=== PATIENT | female | born 1950 | race Caucasian/White ===

== ENCOUNTER 2020-01-25 23:06 | Inpatient (IN) | payer OTHER ==
--- NOTE | 2020-01-25 23:29 | PDOC ---
History of Present Illness - General Chief Complaint: Pain, Acute Stated Complaint: PAIN Past History - Psycho-Social/Smoking History Smoking History: Never smoked Have you smoked in the past 12 months: No Information on smoking cessation initiated: No - Substance Abuse Hx (Audit-C & DAST Scrn) How often the patient has a drink containing alcohol: Never Score: In Men: 4 or > Positive; In Women: 3 or > Positive: 0 Screen Result (Pos requires Nsg. Audit-10AR): Negative In the last yr the pt used illegal drug/Rx for NonMed reason: No Score: Yes response is considered Positive: 0 Screen Result (Positive result requires Nsg. DAST-10): Negative *Physical Exam - Vital Signs Last Vital Signs Temp Pulse Resp BP Pulse Ox 98.4 F 82 18 159/82 99 01/25/20 23:24 01/25/20 23:24 01/25/20 23:24 01/25/20 23:24 01/25/20 23:24 Discharge - Discharge Information Condition: Fair - Follow up/Referral Referrals: José Miguel Duncan MD [Primary Care Provider] - - Patient Discharge Instructions - Post Discharge Activity
--- NOTE | 2020-01-25 23:49 | PDOC ---
*Physical Exam - Vital Signs Last Vital Signs Temp Pulse Resp BP Pulse Ox 98.4 F 82 18 159/82 99 01/25/20 23:24 01/25/20 23:24 01/25/20 23:24 01/25/20 23:24 01/25/20 23:24 Medical Decision Making - Medical Decision Making 01/25/20 23:49 Patient seen by the advanced practice provider under my supervision. Ancillary testing reviewed as necessary. I agree with plan as outlined by the advanced practice provider. Discharge - Discharge Information Condition: Fair - Follow up/Referral Referrals: José Miguel Duncan MD [Primary Care Provider] - - Patient Discharge Instructions - Post Discharge Activity
[2020-01-26 00:58] LABS: URINE APPEARANCE Clear; URINE BILIRUBIN Negative (NEGATIVE); URINE COLOR Yellow; URINE GLUCOSE (UA) Negative (NEGATIVE); URINE KETONE Trace (NEGATIVE); URINE LEUK ESTERASE 1+ (NEGATIVE); URINE NITRITE Positive (NEGATIVE); URINE PROTEIN Trace (NEGATIVE); URINE UROBILINOGEN 0.2 mg/dL (0.2-1.0)
[2020-01-26 01:33] LABS: BASO % 0.6 % (0-2.0); HEMATOCRIT 29.8 % (32.4-45.2); HEMOGLOBIN 10.1 GM/dL (10.7-15.3); MCH 29.9 pg (25.7-33.7); MCHC 33.7 g/dl (32.0-36.0); MEAN CELL VOLUME 88.8 fl (80-96); MEAN PLT VOLUME 9.3 fl (7.5-11.1); MONO % 12.2 % (3.8-10.2); NEUT % 72.2 % (42.8-82.8); PLATELET COUNT 144 K/MM3 (134-434); RBC 3.36 M/mm3 (3.60-5.2); RDW 15.1 % (11.6-15.6); WHITE BLOOD COUNT 3.9 K/mm3 (4.0-10.0)
[2020-01-26 01:41] LABS: EPI CELLS 65.2 /uL (0-25.1); HYALINE CASTS 6.67 /uL (0-3.1); URINE BACTERIA 72536.6 /uL (0-1359); URINE RBC 7.5 /uL (0-23.9); URINE WBC 44.3 /uL (0-25.8)
[2020-01-26 01:52] LABS: CREATININE 1.2 mg/dL (0.55-1.3); POTASSIUM 3.7 mmol/L (3.5-5.1)
[2020-01-26 01:53] LABS: ALBUMIN 3.5 g/dl (3.4-5.0); BILIRUBIN,TOTAL 0.2 mg/dL (0.2-1); CALCIUM 9.4 mg/dL (8.5-10.1); TOT PROT 8.6 g/dl (6.4-8.2)
[2020-01-26] MEDS ORDERED: ACETAMINOPHEN 1000 MG/100 ML VIAL (NON FORMULARY) IVPB ONE (02:26)
[2020-01-26] MEDS ORDERED: ACETAMINOPHEN INJECTION 100 ML IVPB ONE (02:45)
[2020-01-26] MEDS ORDERED: ONDANSETRON 4 MG/2 ML VIAL IVPUSH ONE (02:49)
[2020-01-26] MEDS ORDERED: MAG HYDROX/AL HYDROX/SIMETH 30 ML UNIT-DOSE CUP PO ONE (03:02)
[2020-01-26] MEDS ORDERED: FAMOTIDINE 20 MG/50 ML IVPB 20 MG/50 ML MG IVPB ONE ×2 (03:02→03:25)
[2020-01-26] MEDS ORDERED: CEFTRIAXONE 1,000 MG in DEXTROSE 5%-WATER - 50 ML IVPB ONE (03:13)
[2020-01-26] MEDS ORDERED: MAG HYDROX/AL HYDROX/SIMETH 30 ML UNIT-DOSE CUP ONE (03:22)
[2020-01-26] MEDS ORDERED: CEFTRIAXONE 1 GM/50 ML BAG ONE (03:24)
--- NOTE | 2020-01-26 03:34 | PDOC ---
History of Present Illness - General Chief Complaint: Pain, Acute Stated Complaint: PAIN Time Seen by Provider: 01/25/20 23:29 - History of Present Illness Initial Comments: 69 yof h/o hyperlipidemia presents for RUQ pain of 4 days duration. Per patient, she has pain primarily located beneath ribs on right side, pain is 10/10, bu rning and stabbing in quality, onset 4 days ago, no radiation, nothing makes better or worse, patient is taking ibuprofen for pain with no relief. Also mentions some black stools. Denies shortness of breath, vomiting, diarrhea, fever or chills. Constitutional: No Weight Change, No Fever, No Chills, No Night Sweats, No Fatigue, No Malaise ENT/Mouth: No Hearing Changes, No Ear Pain, No Nasal Congestion, No Sinus Pain, No Hoarseness, No sore throat, No Rhinorrhea, No Swallowing Difficulty Eyes: No Eye Pain, No Swelling, No Redness, No Foreign Body, No Discharge, No Vision Changes Cardiovascular: No Chest Pain, No SOB, No PND, No Dyspnea on Exertion, No Orthopnea, No Claudication, No Edema, No Palpitations Respiratory: No Cough, No Sputum, No Wheezing, No Smoke Exposure, No Dyspnea Gastrointestinal: No Nausea, No Vomiting, No Diarrhea, No Constipation, No Anorexia, No Dysphagia, No Hematochezia, No Flatulence, No Jaundice Genitourinary: No Dysmenorrhea, No DUB, No Dyspareunia, No Dysuria, No Urinary Frequency, No Hematuria, No Urinary Incontinence, No Urgency, No Flank Pain, No Urinary Flow Changes, No Hesitancy Musculoskeletal: No Arthralgias, No Myalgias, No Joint Swelling, No Joint Stiffness, No Back Pain, No Neck Pain, No Injury History Skin: No Skin Lesions, No Pruritis, No Hair Changes, No Breast/Skin Changes, No Nipple Discharge Neuro: No Weakness, No Numbness, No Paresthesias, No Loss of Consciousness, No Syncope, No Dizziness, No Headache, No Coordination Changes, No Recent Falls Psych: No Anxiety/Panic, No Depression, No Insomnia, No Personality Changes, No Delusions, No Rumination, No SI/HI/AH/VH, No Social Issues, No Memory Changes, No Violence/Abuse Hx., No Eating Concerns Heme/Lymph: No Bruising, No Bleeding, No Transfusions History, No Lymphaden opathy Endocrine: No Polyuria, No Polydipsia, No Temperature Intolerance 01/26/20 04:04 Past History - Medical History Allergies/Adverse Reactions: Allergies Allergy/AdvReac Type Severity Reaction Status Date / Time No Known Allergies Allergy Verified 01/25/20 23:33 - Psycho-Social/Smoking History Smoking History: Never smoked Have you smoked in the past 12 months: No Information on smoking cessation initiated: No - Substance Abuse Hx (Audit-C & DAST Scrn) How often the patient has a drink containing alcohol: Never Score: In Men: 4 or > Positive; In Women: 3 or > Positive: 0 Screen Result (Pos requires Nsg. Audit-10AR): Negative In the last yr the pt used illegal drug/Rx for NonMed reason: No Score: Yes response is considered Positive: 0 Screen Result (Positive result requires Nsg. DAST-10): Negative *Physical Exam - Vital Signs Last Vital Signs Temp Pulse Resp BP Pulse Ox 98.4 F 82 18 159/82 99 01/25/20 23:24 01/25/20 23:24 01/25/20 23:24 01/25/20 23:24 01/25/20 23:24 ED Treatment Course - LABORATORY CBC & Chemistry Diagram: 01/26/20 01:00 01/26/20 01:00 - ADDITIONAL ORDERS Additional order review: Laboratory Results 01/26/20 01/26/20 01/26/20 01:00 01:00 01:00 Sodium 134 L Potassium 3.7 Chloride 98 Carbon Dioxide 30 Anion Gap 7 L BUN 13.0 Creatinine 1.2 Est GFR (CKD-EPI)AfAm 54.16 Est GFR (CKD-EPI)NonAf 46.73 Random Glucose 187 H Lactic Acid 1.2 Calcium 9.4 Total Bilirubin 0.2 AST 27 ALT 24 Alkaline Phosphatase 74 Troponin I < 0.02 Total Protein 8.6 H Albumin 3.5 Lipase 200 Urine Color Urine Appearance Urine pH Ur Specific [place] Urine Protein Urine Glucose (UA) Urine Ketones Urine Blood Urine Nitrite Urine Bilirubin Urine Urobilinogen Ur Leukocyte Esterase Urine WBC (Auto) Urine RBC (Auto) Urine Casts (Auto) U Epithel Cells (Auto) Urine Bacteria (Auto) 01/25/20 23:55 Sodium Potassium Chloride Carbon Dioxide Anion Gap BUN Creatinine Est GFR (CKD-EPI)AfAm Est GFR (CKD-EPI)NonAf Random Glucose Lactic Acid Calcium Total Bilirubin AST ALT Alkaline Phosphatase Troponin I Total Protein Albumin Lipase Urine Color Yellow Urine Appearance Clear Urine pH 6.0 Ur Specific [place] 1.020 Urine Protein Trace Urine Glucose (UA) Negative Urine Ketones Trace Urine Blood Trace-intact Urine Nitrite Positive Urine Bilirubin Negative Urine Urobilinogen 0.2 Ur Leukocyte Esterase 1+ H Urine WBC (Auto) 44.3 Urine RBC (Auto) 7.5 Urine Casts (Auto) 6.67 U Epithel Cells (Auto) 65.2 Urine Bacteria (Auto) 56144.6 01/26/20 01:00 RBC 3.36 L MCV 88.8 MCHC 33.7 RDW 15.1 MPV 9.3 Neutrophils % 72.2 Lymphocytes % 9.0 Monocytes % 12.2 H Eosinophils % 6.0 H Basophils % 0.6 - Medications Given in the ED: ED Medications Discontinued Medications Generic Name Dose Route Start Last Admin Trade Name Anurag PRN Reason Stop Dose Admin Acetaminophen 1,000 mg 01/26/20 02:26 01/26/20 02:50 Ofirmev Injection - IVPB 01/26/20 02:27 1,000 mg ONCE ONE Administration Ondansetron HCl 4 mg 01/26/20 02:49 01/26/20 02:50 Zofran Injection IVPUSH 01/26/20 02:50 4 mg ONCE ONE Administration Medical Decision Making - Medical Decision Making 69 yof h/o hyperlipidemia presents for RUQ pain of 4 days duration. Per patient, she has pain primarily located beneath ribs on right side, pain is 10/10, burning and stabbing in quality, onset 4 days ago, no radiation, nothing makes better or worse, patient is taking ibuprofen for pain with no release. Also mentions some black stools. Denies shortness of breath, vomiting, diarrhea, fever or chills. On arrival vitals were wnl, physical exam revealed TTP of RUQ and epigastrum. ddx: cholecystitis, choledocolithiasis, pancreatitis, hepatitis, mesenteric ischemia, gastritis, esophagitis, GERD. plan: RUQ US, CT Chest/Abdomen/Pelvis, CBC, CMP, lipase, lactate, stool for occult blood, UA, UC reassess: RUQ and CT negative, labs wnl, uc demonstrates positive nitrites and leukocyte esterase. Will admit patient for pyelonephritis. dispo: admit for pyelo 01/26/20 03:40 Discharge - Discharge Information Problems reviewed: Yes Clinical Impression/Diagnosis: Pyelonephritis Condition: Fair - Follow up/Referral Referrals: José Miguel Duncan MD [Primary Care Provider] - - Patient Discharge Instructions - Post Discharge Activity
--- NOTE | 2020-01-26 04:20 | PN ---
Teaching Attending Note Name of Resident: Xi St ATTENDING PHYSICIAN STATEMENT I saw and evaluated the patient. I reviewed the resident's note and discussed the case with the resident. I agree with the resident's findings and plan as documented. SUBJECTIVE: Patient is a 69 yoear old woman with a PMH of Hyperlipidemia, NIDDM, SLE, Rhe umatoid arthritis, HTN and Throidectomy who presents with RUQ abdominal pain of 4 days duration. Pain is primarily located beneath the ribs on the right side, is 10/10, burning and stabbing in quality. She has associated black stools, chills and dysuria. Pain does not radiate and there are no relieving or aggravating factors. Has been on iron tablets for the past month for anemia. Patient is taking Ibuprofen with no relief. She has had a 7-8 lbs unintended weight loss in the past month and an increase in hypopigmented spots on her arms. Had a recent inconclusive workup for Multiple myeloma. Does not remember the name of her medications. Patient denies shortness of breath, headache, palpitations, dizziness, fever, nausea, vomiting, diarrhea, constipation, frequency, urgency, hematochezia or hematuria. Denies alcohol, tobacco or illicit drug use. No sick contacts or recent travels. Family history of ovarian cancer and multiple myeloma in mother. OBJECTIVE: Alert Vital Signs Period Temp Pulse Resp BP Sys/Alarcon Pulse Ox Last 24 Hr 98.4 F 82 18 159/82 99 HEENT: No Jaundice, eye redness or discharge, PERRLA, EOMI. Normocephalic, atraumatic. External ears are normal and hearing is grossly intact. No nasal discharge. Neck: Supple, nontender. No palpable adenopathy or thyromegaly. No JVD Chest: Good effort. Clear to auscultation and percussion. Heart: Regular. No S3, rub or murmur Abdomen: Not distended, soft, right flank tenderness and no HSM. No rebound or guarding. Normal bowel sounds. Ext: Peripheral pulses intact. No leg edema. Skin: Warm and dry. No petechiae, rash or ecchymosis. Neuro: Alert. Oriented x3. CN 2-12 grossly intact. Sensation grossly intact in all four extremities and DTR are symmetric. Psych: Appropriate mood and affect. Good insight. Abnormal Lab Results 01/25/20 01/26/20 01/26/20 23:55 01:00 01:00 WBC 3.9 L RBC 3.36 L Hgb 10.1 L Hct 29.8 L Monocytes % 12.2 H Eosinophils % 6.0 H Sodium 134 L Anion Gap 7 L Random Glucose 187 H Total Protein 8.6 H Ur Leukocyte Esterase 1+ H Home Medications Medication Instructions Recorded Nebivolol HCl [Bystolic] 20 mg PO DAILY 01/26/20 Omeprazole 20 mg PO 01/26/20 Sitagliptin Phos/Metformin HCl 1 tab PO BID 01/26/20 [Janumet 50-1,000 mg Tablet] Current Medications Generic Name Dose Route Start Last Admin Trade Name Freq PRN Reason Stop Dose Admin Acetaminophen 1,000 mg 01/26/20 05:42 01/26/20 06:18 Ofirmev Injection - IVPB 01/27/20 05:42 1,000 mg Q6H PRN Administration PAIN LEVEL 6-10 Albuterol Sulfate 2 puff 01/26/20 06:03 Ventolin Hfa Inhaler - IH Q4H PRN SHORT OF BREATH/WHEEZING Heparin Sodium (Porcine) 5,000 unit 01/26/20 06:00 01/26/20 06:18 Heparin - SQ 5,000 unit TID KYLEIGH Administration Sodium Chloride 1,000 mls @ 42 mls/hr 01/26/20 04:45 01/26/20 04:46 Normal Saline - IV 42 mls/hr ASDIR KYLEIGH Administration Ceftriaxone Sodium 1,000 mg/ 50 mls @ 100 mls/hr 01/26/20 10:00 Dextrose IVPB DAILY KYLEIGH Insulin Aspart 1 vial 01/26/20 07:00 Novolog Vial Sliding Scale - SQ ACHS [facility] Protocol ASSESSMENT AND PLAN: 1. Pyelonephritis - CT scan of abdomen/pelvis with IV contrast and RUQ sonogram didnot show any acute abnormality. ER staff prescribed Tylenol, Mylanta, Pepcid, Zofran and IV Ceftriaxone for the patient. Will get blood cultures, CXR, HbA1c, continue antibiotics and give IV NS. EKG pending. Viral testing for COVID-19 ordered and patient placed on airborne, droplet and contact isolation. Hyponatremia likely partly due to hyperglycemia. Will limit free water intake and correct hyperglycemia and place on insulin sliding scale. Consult GI for colonoscopy to rule out malignancy. Will continue comprehensive care for all of patients comorbid conditions. 2. Hypertension Will start Lisinopril 20 mg q am and Amlodipine 5 mg q pm. Subsequently, will revise regimen to ensure [id number] excellent BP control. Patient counseled on the injurious effects of uncontrolled hypertension. Nonpharmacologic measures to control hypertension like weight loss, salt restriction and exercise stressed. Importance of adherence to treatment regimen and attainment of normotension emphasized. 3. Anemia Likely multifactorial. Will do basic anemia work up including serial stool guaiacs, reticulocyte count and iron studies. 4. DM For now, we will hold the home diabetes drugs and implement sliding scale insulin regimen. Provide comprehensive diabetes care with patient teaching and counseling about the importance of adherence to prescribed diabetes regimen, euglycemia, eye care and foot care. 5. DVT prophylaxis - Lovenox 40 mg SQ q 24 hours. 6. Advance directives - Full code
[2020-01-26] MEDS ORDERED: ACETAMINOPHEN 325 MG TABLET (FP) PO PRN (04:31)
[2020-01-26] MEDS: SODIUM CHLORIDE 1,000 ML IV SCH (04:46)
--- NOTE | 2020-01-26 05:24 | PDOC ---
Attending Attestation - Resident Resident Name: Jone Carrillo - ED Attending Attestation I have performed the following: I have examined & evaluated the patient, The case was reviewed & discussed with the resident, I agree w/resident's findings & plan - HPI HPI: 01/26/20 05:40 see resident hpi - Physicial Exam PE: 01/26/20 05:43 see resident exam - Medical Decision Making 01/26/20 05:45 69-year-old female with right-sided abdominal pain CT scan of the abdomen and pelvis shows no significant acute abnormality Right upper quadrant ultrasound was negative for significant acute findings Urinalysis suggest urinary tract infection Due to patient's age, persistent pain and vomiting prior to arrival will admit for IV antibiotics IV fluids and further management Discharge - Discharge Information Problems reviewed: Yes Clinical Impression/Diagnosis: Pyelonephritis Condition: Fair - Follow up/Referral - Patient Discharge Instructions - Post Discharge Activity
--- NOTE | 2020-01-26 05:39 | HP ---
CHIEF COMPLAINT: R flank/RUQ pain PCP: cannot recall HISTORY OF PRESENT ILLNESS: Pt is a 69 yo F with PMH of HTN, HLD, DM, rhematoid arthritis, lupus, and asthma presenting with R flank/RUQ pain x 4 days. Pt reports pain is burning and stabbing in sensation, intermittent and non-radiating, and can reach 10/10 severity. Pain partially relieved at home by tylenol and iburpofen to 6/10. Pt with associated burning + itching on urination (dysuria) and chills. Denies fevers, nausea, vomiting, hematuria, myalgias, CP, and SOB. Pt also reports black stools for the past week; also reports taking iron pills for the last month. Denies any bright red blood per rectum, constipation, or diarrhea. Of note, pt also reports a 7-8 pound unintentional weight loss, night sweats, and increased hypopigmented spots on her bilateral UEs for the last month. Pt has had inconclusive workup for multiple myeloma in an outpatient setting. Pt does not remember the names of her medications, PCP, and specialists she is seeing. ER course was notable for: (1) Tylenol given; IV ceftriaxone given (2) Mylanta, Pepcid, Zofran also given. (3) RUQ US + CT abdomen with no acute findings Recent Travel: none Sick contacts: none PAST MEDICAL HISTORY: as per HPI PAST SURGICAL HISTORY: 3 C-sections, fibroidectomy Family Hx - mother with ovarian cancer + multiple myeloma Social History: Lives with daughter and daughter's family at home. Smoking: denies Alcohol: denies Drugs: denies Allergies No Known Allergies Allergy (Verified 01/25/20 23:33) HOME MEDICATIONS: Home Medications Medication Instructions Recorded Nebivolol HCl [Bystolic] 20 mg PO DAILY 01/26/20 Omeprazole 20 mg PO 01/26/20 Sitagliptin Phos/Metformin HCl 1 tab PO BID 01/26/20 [Janumet 50-1,000 mg Tablet] REVIEW OF SYSTEMS as per HPI PHYSICAL EXAMINATION Vital Signs - 24 hr 01/25/20 01/26/20 23:24 05:28 Temperature 98.4 F 98.7 F Pulse Rate 82 Pulse Rate [ 60 Left Radial] Respiratory 18 17 Rate Blood Pressure 159/82 Blood Pressure 155/74 [Right Arm] O2 Sat by Pulse 99 98 Oximetry (%) GENERAL: Awake, alert, and fully oriented, in no acute distress. In mild discomfort. HEAD: Normal with no signs of trauma. EYES: Pupils equal, round and reactive to light, extraocular movements intact, sclera anicteric, conjunctiva clear. EARS, NOSE, THROAT: oropharynx clear without exudates. Moist mucous membranes. NECK: Normal range of motion, supple without lymphadenopathy LUNGS: Breath sounds equal, clear to auscultation bilaterally. No wheezes, and no crackles. No accessory muscle use. HEART: Regular rate and rhythm, normal S1 and S2 without murmur, rub or gallop. ABDOMEN: Soft, moderate tenderness to palpation of R flank and RUQ - no rebound or guarding, not distended, normoactive bowel sounds, no. No hepatomegaly or splenomegaly. No suprapubic tenderness. JENNIFER: normal rectal tone; no external hemorrhoids, skin tags; no jennifer blood; scant stool in rectal vault; no bulges or masses appreciated MUSCULOSKELETAL: Moving all extremities equally and spontaneously. Mild R sided CVA tenderness. UPPER EXTREMITIES: 2+ pulses, warm, well-perfused. No peripheral edema. LOWER EXTREMITIES: 2+ pulses, warm, well-perfused. No peripheral edema. NEUROLOGICAL: Sensation to light touch intact. Normal speech. Normal gait. PSYCHIATRIC: Cooperative. Good eye contact. Appropriate mood and affect. SKIN: Warm, dry, normal turgor, small hypopigmented spots on her arms, normal capillary refill. Laboratory Results - last 24 hr 01/25/20 01/26/20 01/26/20 23:55 01:00 01:00 WBC 3.9 L RBC 3.36 L Hgb 10.1 L Hct 29.8 L MCV 88.8 MCH 29.9 MCHC 33.7 RDW 15.1 Plt Count 144 MPV 9.3 Absolute Neuts (auto) 2.8 Neutrophils % 72.2 Lymphocytes % 9.0 Monocytes % 12.2 H Eosinophils % 6.0 H Basophils % 0.6 Nucleated RBC % 0 Sodium 134 L Potassium 3.7 Chloride 98 Carbon Dioxide 30 Anion Gap 7 L BUN 13.0 Creatinine 1.2 Est GFR (CKD-EPI)AfAm 54.16 Est GFR (CKD-EPI)NonAf 46.73 Random Glucose 187 H Lactic Acid Calcium 9.4 Total Bilirubin 0.2 AST 27 ALT 24 Alkaline Phosphatase 74 Troponin I Total Protein 8.6 H Albumin 3.5 Lipase 200 Urine Color Yellow Urine Appearance Clear Urine pH 6.0 Ur Specific [place] 1.020 Urine Protein Trace Urine Glucose (UA) Negative Urine Ketones Trace Urine Blood Trace-intact Urine Nitrite Positive Urine Bilirubin Negative Urine Urobilinogen 0.2 Ur Leukocyte Esterase 1+ H Urine WBC (Auto) 44.3 Urine RBC (Auto) 7.5 Urine Casts (Auto) 6.67 U Epithel Cells (Auto) 65.2 Urine Bacteria (Auto) 72228.6 01/26/20 01/26/20 01:00 01:00 WBC RBC Hgb Hct MCV MCH MCHC RDW Plt Count MPV Absolute Neuts (auto) Neutrophils % Lymphocytes % Monocytes % Eosinophils % Basophils % Nucleated RBC % Sodium Potassium Chloride Carbon Dioxide Anion Gap BUN Creatinine Est GFR (CKD-EPI)AfAm Est GFR (CKD-EPI)NonAf Random Glucose Lactic Acid 1.2 Calcium Total Bilirubin AST ALT Alkaline Phosphatase Troponin I < 0.02 Total Protein Albumin Lipase Urine Color Urine Appearance Urine pH Ur Specific [place] Urine Protein Urine Glucose (UA) Urine Ketones Urine Blood Urine Nitrite Urine Bilirubin Urine Urobilinogen Ur Leukocyte Esterase Urine WBC (Auto) Urine RBC (Auto) Urine Casts (Auto) U Epithel Cells (Auto) Urine Bacteria (Auto) ASSESSMENT/PLAN: Pt is a 69 yo F with PMH of HTN, HLD, DM, rhematoid arthritis, lupus, and asthma presenting with R flank/RUQ pain x 4 days with associated dysuria and chills; also complaining of black stools in the last week. Pt being admitted for evaluation and treatment of acute complicated UTI (likely pyelonephritis); also evaluating possible melena and recent systemic symptoms of unintentional weight loss and night sweats. # Acute Complicated UTI (likely Pyelonephritis) CT A/P no acute abnormality; RUQ sono no acute abnormality UA LE+, nitrite +, 72.5k bacteria - f/u urine culture, blood culture - IV ceftriaxone 1 g daily - IV tylenol for pain control - NS @ 42 cc/hr #Black Stools (Possible melena vs black stools 2/2 to recent iron pill use)/Anemia JENNIFER with no jennifer blood Pt with hx of being on iron pills outpatient for the last month - monitor Hb/Hct - f/u stool for occult blood - iron studies; reticulocyte count; serial stool guiacs - GI consulted; appreciate recs - pt may benefit from colonoscopy; per discretion of GI #Hx of weight loss + nights sweats x 1 month ongoing multiple myeloma workup outpatient, per pt - after GI workup completed - need to retrieve what workup has already been complete for multiple myeloma - pt may benefit from further Heme/Onc workup, per day team discretion #Mild HypoNa (likely 2/2 to hyperglycemia) - monitor Na - will correct hyperglycemia #Hx of DM - need to confirm home medications - BGM + ISS #Hx of HTN pt reports being on antihypertensives at home; but cannot recall -lisinopril 20 po given once as pt was hypertensive in ED -need to confirm home medications #Hx of HLD - can restart home med after confirming #Hx of Lupus + Rheumatoid arthritis - can restart home meds after confirming #Hx of asthma uses albuterol inhaler sparingly at home, per pt hx - abuterol inhaler prn #DVT ppx - Heparin 5000 sq tid #FEN -F - NS @ 42 cc/hr -E - monitor; replete prn -N - low Na, low fat, diabetic diet #Dispo Admit to med-surg Full code. Family Medical History Family History: As Documented Visit type - Medication Review Med list reviewed for High Risk Meds patients 65 and older: Yes - Emergency Visit Emergency Visit: Yes ED Registration Date: 01/26/20 Care time: The patient presented to the Emergency Department on the above date and was hospitalized for further evaluation of their emergent condition. - New Patient This patient is new to me today: Yes Date on this admission: 01/26/20 - Critical Care Critical Care patient: No ATTENDING PHYSICIAN STATEMENT I saw and evaluated the patient. I reviewed the resident's note and discussed the case with the resident. I agree with the resident's findings and plan as documented. SUBJECTIVE: OBJECTIVE: ASSESSMENT AND PLAN:
[2020-01-26] MEDS ORDERED: LISINOPRIL 20 MG TABLET (FP) PO ONE (05:40)
[2020-01-26] MEDS ORDERED: ALBUTEROL SO4 HFA INHALER IH PRN (06:03)
[2020-01-26] MEDS ORDERED: LISINOPRIL 20 MG TABLET (FP) ONE (06:07)
[2020-01-26] MEDS ORDERED: HEPARIN NA (PORCINE) 5,000 UNITS/ML 1ML VIAL ONE (06:08)
[2020-01-26] MEDS: HEPARIN NA (PORCINE) 5,000 UNITS/ML 1ML VIAL SQ SCH ×3 (06:18→22:15)
[2020-01-26] MEDS: ACETAMINOPHEN 1000 MG/100 ML VIAL (NON FORMULARY) IVPB PRN ×2 (06:18→14:14)
[2020-01-26] MEDS: INSULIN SLIDING SCALE (NOVOLOG) 1 VIAL SQ SCH ×4 (06:51→22:15)
[2020-01-26 07:09] LABS: BASO % 0.7 % (0-2.0); EOS % 6.7 % (0-4.5); HEMATOCRIT 29.4 % (32.4-45.2); HEMOGLOBIN 9.9 GM/dL (10.7-15.3); LYMPH % 7.6 % (8-40); MCH 29.7 pg (25.7-33.7); MCHC 33.7 g/dl (32.0-36.0); MEAN CELL VOLUME 88.1 fl (80-96); MEAN PLT VOLUME 8.9 fl (7.5-11.1); MONO % 14.4 % (3.8-10.2); NEUT % 70.6 % (42.8-82.8); PLATELET COUNT 125 K/MM3 (134-434); RBC 3.33 M/mm3 (3.60-5.2); RDW 15.1 % (11.6-15.6); WHITE BLOOD COUNT 3.2 K/mm3 (4.0-10.0)
[2020-01-26 07:27] LABS: ALBUMIN 3.2 g/dl (3.4-5.0); BILIRUBIN,TOTAL 0.4 mg/dL (0.2-1); BLOOD UREA NITROGEN 12.5 mg/dL (7-18); CALCIUM 9.3 mg/dL (8.5-10.1); MAGNESIUM 1.6 mg/dL (1.8-2.4); PHOSPHOROUS 3.7 mg/dL (2.5-4.9)
[2020-01-26] MEDS ORDERED: MAGNESIUM OXIDE 400 MG TABLET (FP) PO ONE (07:48)
[2020-01-26] MEDS ORDERED: LISINOPRIL 5 MG TABLET (FP) PO ONE (08:13)
[2020-01-26] MEDS ORDERED: DEXTROSE 5%-WATER - 50 ML IVPB ONE (08:43)
[2020-01-26] MEDS ORDERED: cefTRIAXone SODIUM 1 GM VIAL ONE (08:43)
--- NOTE | 2020-01-26 09:08 | EKG ---
Test Reason : Blood Pressure : / mmHG Vent. Rate : 063 BPM Atrial Rate : 063 BPM P-R Int : 154 ms QRS Dur : 084 ms QT Int : 398 ms P-R-T Axes : 048 032 066 degrees QTc Int : 407 ms NORMAL SINUS RHYTHM NONSPECIFIC T WAVE ABNORMALITY ABNORMAL ECG NO PREVIOUS ECGS AVAILABLE Confirmed by Tejas Oneill MD ([id number]) on 01/26/2020 9:08:00 AM Referred By: Confirmed By:Tejas Oneill MD
[2020-01-26] MEDS: CEFTRIAXONE 1 GM in DEXTROSE 5%-WATER - 50 ML IVPB SCH (09:31)
[2020-01-26] MEDS ORDERED: NEBIVOLOL 10 MG TABLET (FP) PO SCH (10:00)
--- NOTE | 2020-01-26 10:06 | CON.GI ---
Consult Consult Specialty:: GI Referred by:: Hospitalist service Reason for Consultation:: Abdominal pain - History of Present Illness Chief Complaint: Abdominal pain History of Present Illness: [facility] [id number] utilized as Ms. Fredi Carpenter speaks predominantly Belarusian: 69F admitted for evaluation of abdominal pain for 4 days. Describes pain as located in upper abdomen and RUQ, constant and no alleviating or aggrevating factors. Vomited today, otherwise no vomiting. Described black bowel movements for 1 month and states that she last took iron 3 months ago. Guaiac negative from specimen sent from ER. No diarrhea. 8 pound weight loss in the last month. Abdominal US revealed mildly thickened GB wall without pericholecystic fluid and a sonographic jackson's sign was not present. A CT scan performed with PO contrast only revealed no acute pathology within the abdomen or pelvis. Blood work reveals pancytopenia. Has a history of SLE and was being worked up as outpatient for ? Multiple Myeloma. alludes to having had EGD/Colonoscopy 1 year ago in [place]. she was referred by her PMD. She believes that only gastritis was found. No family history of colorectal cancer or other GI malignancy. Unclear who manages her SLE. pain persists. Being treated for a possible pyelonnephritis. - History Source History Provided By: Patient, Medical Record Limitations to Obtaining History: No Limitations - Past Medical History Pulmonary: Yes: Asthma Rheumatology: Yes: Lupus, Rheumatoid Arthritis Endocrine: Yes: Diabetes Mellitus (DM II) - Past Surgical History Past Surgical History: Yes: (x 3) Additional Surgical History: Fibroidectomy - Alcohol/Substance Use Hx Alcohol Use: No History of Substance Use: reports: None - Smoking History Smoking history: Never smoked Have you smoked in the past 12 months: No - Social History Usual Living Arrangement: Alone ADL: Independent Place of : Other ([facility]) History of Recent Travel: No Home Medications - Allergies Allergies/Adverse Reactions: Allergies Allergy/AdvReac Type Severity Reaction Status Date / Time No Known Allergies Allergy Verified 01/25/20 23:33 - Home Medications Home Medications: Ambulatory Orders Nebivolol HCl [Bystolic] 20 mg PO DAILY 01/26/20 Omeprazole 20 mg PO 01/26/20 Sitagliptin Phos/Metformin HCl [Janumet 50-1,000 mg Tablet] 1 tab PO BID 01/26/20 Family Medical History Other Family History: Father: : MS. Mother: : MS. 3 brothers, 3 sisters: healthy. 1 sister : airplane crash, 1 sibling : MS. 1 son, 2 daughters: healthy. No family history of colorectal cancer or other GI malignancy Review of Systems - Review of Systems Constitutional: reports: Unintentional Wgt. Loss. denies: Chills Cardiovascular: denies: Chest Pain Respiratory: denies: Cough, SOB Gastrointestinal: reports: Abdominal Pain, Vomiting (x 1). denies: Melena, Rectal Bleeding, Vomiting Blood Genitourinary: reports: Burning, Dysuria Musculoskeletal: reports: Joint Pain Physical Exam-GI Vital Signs: Vital Signs Temperature 97.5 F L 01/26/20 06:39 Pulse Rate 63 01/26/20 06:39 Respiratory Rate 18 01/26/20 06:39 Blood Pressure 162/88 01/26/20 06:39 O2 Sat by Pulse Oximetry (%) 96 01/26/20 06:39 Constitutional: Yes: Calm Eyes: No: Sclera Icterus Cardiovascular: Yes: Regular Rate and Rhythm Respiratory: Yes: CTA Bilaterally Gastrointestinal Inspection: No: Distention ...Auscultate: Yes: Normoactive Bowel Sounds ...Palpate: Yes: Soft, Tenderness (TTP epigastrium and RUQ). No: Guarding, Tenderness, Rebound ...Percussion: No: Tympanitic ...Rectal Exam: Yes: Other (Seasonal Sales Associate present: No external lesions, no mases, iron stained stool in rectal vault, guaiac negative) Edema: No (No LE edema) Neurological: Yes: Alert, Oriented Labs: CBC, BMP 01/26/20 05:30 01/26/20 05:30 Problem List - Problems (1) Abdominal pain Assessment/Plan: Persistent upper abdominal pain without clear etiology from current imaging studies. ? Lupus Flare. Unclear baseline CBC so uncertain if this pancytopenia is known. Advise: Upper GI series Doppler of celiac trunk, portal vein, hepatic veins Discussed possible upper endoscopy pending reults of upper GI series if white count allows, likely for 01/27. Discussed potential risks of the procedure in Bel[place]ian utilizing [employer] installer technician [id number], like but not limited to bleeding, perforation requiring surgery to repair, infection, sedation medication effects all of which could be potentially life threatening. She has agreed to the procedure. Rheumatology evaluation Hematology evaluation Code(s): R10.9 - UNSPECIFIED ABDOMINAL PAIN Qualifiers: Abdominal location: upper abdomen, unspecified Qualified Code(s): R10.10 - Upper abdominal pain, unspecified
[2020-01-26 12:42] VITALS: BMI 25.2
--- NOTE | 2020-01-26 15:40 | PN ---
Teaching Attending Note Name of Resident: Goldy King ATTENDING PHYSICIAN STATEMENT I saw and evaluated the patient. I reviewed the resident's note and discussed the case with the resident. I agree with the resident's findings and plan as documented. SUBJECTIVE: patient prefers to use her daughter over the phone for translation Abd pain is better , she has no nausea or vomiting . reports abd pain x 1 week . melena x 5 days . dysuria + x 5 days and frequent urination with large urine volume . denies iron use x 3 weeks OBJECTIVE: NAD , awake, alert, cooperative, MMM, mising teath. no erythema or swelling in gingiva CV: RRR, no MRG Lungs: CTAB Abd: soft, TTP in RUQ, and epigastric area, No guarding or rebound. + [place]ay[place]'s , R CVA tenderness Ext : No edema or erythema over upper or lower ext ASSESSMENT AND PLAN: 69 y/o lady with h/o SLE, anemia, Rheumatoid arthritis, HTN , Throidectomy, DM , and HLP who presented with adb pain and melena 1- Abd pain and black stool : suspect melena. possible gastritis , PUD, r/o gastric tumor - PPI - upper GI series pending - doppler US pending - no evidence of pancreatitis or acute cholecystitis or biliary stones. - UTI alone, might not explain her sx. - repeat OB in stool - Order ESR . - agree with rheum eval if GI w/u neg 2- Possible UTI: cont ceftriaxone and follow urine cx 3- Pncytopenia: will obtain previous heme w/u done as out pt . - order B12 , folic - iron studies pending - ESR - order blood smear. - heme 4- HTN: - resume home ARB, and norvasc. - hold HCTZ in settignof GI sx and poor po intake 5- h/o DM : SSI . hold po meds DVT PX: heparin SQ
[2020-01-26] MEDS ORDERED: oxyCODONE HCL 5 MG TABLET PO ONE (16:25)
--- NOTE | 2020-01-26 20:03 | PN ---
Physical Exam: SUBJECTIVE: Patient seen and examined beside, reports having vomited at 8 AM. Still has abdominal pain but reports it has been better since getting medication. Reports increased urinary frequency and burning with urination. Denies fever, chest pain, SOB, or diarrhea. OBJECTIVE: Vital Signs 01/26/20 01/26/20 14:10 18:00 Temperature 97.8 F 98.4 F Pulse Rate 58 L 58 L Respiratory 18 20 Rate Blood Pressure 149/84 139/69 O2 Sat by Pulse 97 Oximetry (%) GENERAL: The patient is awake, alert, and fully oriented, in no acute distress. HEAD: Normal with no signs of trauma. EYES: PERRL, extraocular movements intact, sclera anicteric, conjunctiva clear. No ptosis. ENT: moist mucous membranes. NECK: No JVD LUNGS: Breath sounds equal, CTA BL HEART: RRR, S1, S2 ABDOMEN: RUQ is tender to palpation with + jackson sign. Tender epigastric area. No tenderness on LLQ or LUQ. + R sided CVA tenderness EXTREMITIES: 2+ pulses, warm, well-perfused, no edema. Strength 5/5 in all extremities PSYCH: Normal mood, normal affect. SKIN: Warm, dry, no lesions or rashes noted Laboratory Results - last 24 hr 01/25/20 01/26/20 01/26/20 23:55 01:00 01:00 WBC 3.9 L RBC 3.36 L Hgb 10.1 L Hct 29.8 L MCV 88.8 MCH 29.9 MCHC 33.7 RDW 15.1 Plt Count 144 MPV 9.3 Absolute Neuts (auto) 2.8 Neutrophils % 72.2 Lymphocytes % 9.0 Monocytes % 12.2 H Eosinophils % 6.0 H Basophils % 0.6 Nucleated RBC % 0 Sodium 134 L Potassium 3.7 Chloride 98 Carbon Dioxide 30 Anion Gap 7 L BUN 13.0 Creatinine 1.2 Est GFR (CKD-EPI)AfAm 54.16 Est GFR (CKD-EPI)NonAf 46.73 POC Glucometer Random Glucose 187 H Hemoglobin A1c % Lactic Acid Calcium 9.4 Phosphorus Magnesium Total Bilirubin 0.2 AST 27 ALT 24 Alkaline Phosphatase 74 Troponin I Total Protein 8.6 H Albumin 3.5 Lipase 200 Urine Color Yellow Urine Appearance Clear Urine pH 6.0 Ur Specific [place] 1.020 Urine Protein Trace Urine Glucose (UA) Negative Urine Ketones Trace Urine Blood Trace-intact Urine Nitrite Positive Urine Bilirubin Negative Urine Urobilinogen 0.2 Ur Leukocyte Esterase 1+ H Urine WBC (Auto) 44.3 Urine RBC (Auto) 7.5 Urine Casts (Auto) 6.67 U Epithel Cells (Auto) 65.2 Urine Bacteria (Auto) 66303.6 Stool Occult Blood 01/26/20 01/26/20 01/26/20 01:00 01:00 04:01 WBC RBC Hgb Hct MCV MCH MCHC RDW Plt Count MPV Absolute Neuts (auto) Neutrophils % Lymphocytes % Monocytes % Eosinophils % Basophils % Nucleated RBC % Sodium Potassium Chloride Carbon Dioxide Anion Gap BUN Creatinine Est GFR (CKD-EPI)AfAm Est GFR (CKD-EPI)NonAf POC Glucometer Random Glucose Hemoglobin A1c % Lactic Acid 1.2 Calcium Phosphorus Magnesium Total Bilirubin AST ALT Alkaline Phosphatase Troponin I < 0.02 Total Protein Albumin Lipase Urine Color Urine Appearance Urine pH Ur Specific [place] Urine Protein Urine Glucose (UA) Urine Ketones Urine Blood Urine Nitrite Urine Bilirubin Urine Urobilinogen Ur Leukocyte Esterase Urine WBC (Auto) Urine RBC (Auto) Urine Casts (Auto) U Epithel Cells (Auto) Urine Bacteria (Auto) Stool Occult Blood Negative 01/26/20 01/26/20 01/26/20 05:30 05:30 06:49 WBC 3.2 L RBC 3.33 L Hgb 9.9 L Hct 29.4 L MCV 88.1 MCH 29.7 MCHC 33.7 RDW 15.1 Plt Count 125 L MPV 8.9 Absolute Neuts (auto) 2.2 Neutrophils % 70.6 Lymphocytes % 7.6 L Monocytes % 14.4 H Eosinophils % 6.7 H Basophils % 0.7 Nucleated RBC % 0 Sodium 136 Potassium 4.0 Chloride 100 Carbon Dioxide 26 Anion Gap 10 BUN 12.5 Creatinine 1.0 Est GFR (CKD-EPI)AfAm 67.51 Est GFR (CKD-EPI)NonAf 58.25 POC Glucometer 169 Random Glucose 160 H Hemoglobin A1c % Lactic Acid Calcium 9.3 Phosphorus 3.7 Magnesium 1.6 L Total Bilirubin 0.4 AST 25 ALT 24 Alkaline Phosphatase 64 Troponin I Total Protein 8.0 Albumin 3.2 L Lipase Urine Color Urine Appearance Urine pH Ur Specific [place] Urine Protein Urine Glucose (UA) Urine Ketones Urine Blood Urine Nitrite Urine Bilirubin Urine Urobilinogen Ur Leukocyte Esterase Urine WBC (Auto) Urine RBC (Auto) Urine Casts (Auto) U Epithel Cells (Auto) Urine Bacteria (Auto) Stool Occult Blood 01/26/20 01/26/20 01/26/20 08:29 11:49 16:17 WBC RBC Hgb Hct MCV MCH MCHC RDW Plt Count MPV Absolute Neuts (auto) Neutrophils % Lymphocytes % Monocytes % Eosinophils % Basophils % Nucleated RBC % Sodium Potassium Chloride Carbon Dioxide Anion Gap BUN Creatinine Est GFR (CKD-EPI)AfAm Est GFR (CKD-EPI)NonAf POC Glucometer 169 155 Random Glucose Hemoglobin A1c % 5.3 Lactic Acid Calcium Phosphorus Magnesium Total Bilirubin AST ALT Alkaline Phosphatase Troponin I Total Protein Albumin Lipase Urine Color Urine Appearance Urine pH Ur Specific [place] Urine Protein Urine Glucose (UA) Urine Ketones Urine Blood Urine Nitrite Urine Bilirubin Urine Urobilinogen Ur Leukocyte Esterase Urine WBC (Auto) Urine RBC (Auto) Urine Casts (Auto) U Epithel Cells (Auto) Urine Bacteria (Auto) Stool Occult Blood Active Medications Generic Name Dose Route Start Last Admin Trade Name Freq PRN Reason Stop Dose Admin Acetaminophen 1,000 mg 01/26/20 05:42 01/26/20 14:14 Ofirmev Injection - IVPB 01/27/20 05:42 1,000 mg Q6H PRN Administration PAIN LEVEL 6-10 Albuterol Sulfate 2 puff 01/26/20 06:03 Ventolin Hfa Inhaler - IH Q4H PRN SHORT OF BREATH/WHEEZING Amlodipine Besylate 5 mg 01/27/20 10:00 Norvasc - PO DAILY KYLEIGH Budesonide/Formoterol Fumarate 2 puff 01/27/20 10:00 Symbicort 80/4.5mcg - IH DAILY KYLEIGH Famotidine 40 mg 01/27/20 10:00 Pepcid - PO DAILY KYLEIGH Heparin Sodium (Porcine) 5,000 unit 01/26/20 06:00 01/26/20 14:11 Heparin - SQ 5,000 unit TID KYLEIGH Administration Hydroxychloroquine Sulfate 200 mg 01/27/20 10:00 Plaquenil - PO DAILY KYLEIGH Sodium Chloride 1,000 mls @ 42 mls/hr 01/26/20 04:45 01/26/20 04:46 Normal Saline - IV 42 mls/hr ASDIR KYLEIGH Administration Ceftriaxone Sodium 1 gm/ 50 mls @ 100 mls/hr 01/26/20 10:00 01/26/20 09:31 Dextrose IVPB 100 mls/hr DAILY KYLEIGH Administration Insulin Aspart 1 vial 01/26/20 07:00 01/26/20 16:29 Novolog Vial Sliding Scale - SQ Not Given ACHS KYLEIGH Protocol Oxycodone HCl 2.5 mg 01/26/20 18:34 Roxicodone - PO 01/27/20 09:00 Q6H PRN PAIN LEVEL 7 - 10 Pantoprazole Sodium 20 mg 01/27/20 10:00 Protonix - PO DAILY KYLEIGH Valsartan 320 mg 01/27/20 10:00 Diovan - PO DAILY KYLEIGH Imaging: A single-contrast upper GI was performed under fluoroscopic guidance. The patient swallowed oral contrast without difficulty. The esophagus demonstrates normal peristalsis, mucosal detail and contour. There was free flow of oral contrast from the esophagus into the stomach. Gastroesophageal junction appears unremarkable. The stomach is adequately distended without gross wall thickening or mucosal ulcerations. There was significant delay of transit from the stomach into the duodenal bulb. Delayed overhead images obtained approximately half an hour later after the patient walked for few minutes demonstrates a grossly unremarkable duodenal bulb, duodenum and opacified proximal small bowel loops. Fluoroscopy time is 1.7 minutes IMPRESSION: Delayed transit of oral contrast from the stomach into the duodenum that may be related to medications intake. Correlate clinically. Delayed overhead images obtained within 30 minutes demonstrates opacification of the duodenum and proximal small bowel loops that appear grossly unremarkable. There is no gross evidence of gastric outlet obstruction. Correlate clinically to determine further evaluation ASSESSMENT/PLAN: Pt is a 69 yo F with PMH of HTN, DM, RA, lupus, & asthma presenting with R flank/RUQ pain x 4 days with associated dysuria & chills. Patient also reports black stools in the last week (denies taking iron), and unintentional weight loss and night sweats. Patient is being admitted for evaluation of UTI (possibly pyelonephritis and to r/o GI bleed or cancer. Abdominal PAIN: 2/2 gastritis, vs PUD, vs gastric tumor - CT A/P no acute abnormality - RUQ US no acute abnormality - IV tylenol & oxycodone PRN for pain control - GI consulted (Dr. Mosqueda) Upper GI series: see above Doppler of celiac trunk, portal vein, hepatic veins - repeat FOBT - consulted Rhuem for possible Lupus GI Vasculitis - Continue home omeprazole + famotidine UTI - possibly contaminated sample - follow up cultures - continue rocephin Lupus & RA - continue home medications - continue hydroxychloroquine 200 mg daily - holding methotrexate for now - consulted Rheum Pancytopenia - consulted Heme/onc - hx of possibly workup for multiple myeloma - anemia studies pending DM - A1c 5.3 - hold home medications - BGM - ISS HTN - hold HCTz in settignof GI symptoms & poor po intake - Nebivolol 20 mg daily - continue on Amlodipine 5 - continue olmesartan 40 DVT ppx - Heparin 5000 sq tid FEN - replete prn - low Na, low fat, diabetic diet Full code. Visit type - Emergency Visit Emergency Visit: Yes ED Registration Date: 01/26/20 Care time: The patient presented to the Emergency Department on the above date and was hospitalized for further evaluation of their emergent condition. - New Patient This patient is new to me today: Yes Date on this admission: 01/26/20 - Critical Care Critical Care patient: No - Discharge Referral Referred to [facility] No - Medication Review Med list reviewed for High Risk Meds patients 65 and older: Yes ATTENDING PHYSICIAN STATEMENT I saw and evaluated the patient. I reviewed the resident's note and discussed the case with the resident. I agree with the resident's findings and plan as documented. SUBJECTIVE: OBJECTIVE: ASSESSMENT AND PLAN:
[2020-01-26] MEDS ORDERED: INSULIN (NOVOLOG) ASPART 100 UNITS/ML 10ML VIAL ONE ×2 (21:34→22:44)
[2020-01-26] MEDS: oxyCODONE HCL 5 MG TABLET PO PRN (23:21)
[2020-01-27] MEDS: SODIUM CHLORIDE 1,000 ML IV SCH ×4 (04:50→23:30)
[2020-01-27] MEDS: HEPARIN NA (PORCINE) 5,000 UNITS/ML 1ML VIAL SQ SCH ×3 (05:50→21:22)
[2020-01-27] MEDS: INSULIN SLIDING SCALE (NOVOLOG) 1 VIAL SQ SCH ×4 (06:04→21:22)
[2020-01-27] MEDS ORDERED: ACETAMINOPHEN 325 MG TABLET (FP) PO ONE (06:15)
[2020-01-27 07:09] LABS: BASO % 0.5 % (0-2.0); EOS % 5.7 % (0-4.5); HEMATOCRIT 27.5 % (32.4-45.2); HEMOGLOBIN 9.3 GM/dL (10.7-15.3); LYMPH % 11.3 % (8-40); MCH 29.2 pg (25.7-33.7); MCHC 33.7 g/dl (32.0-36.0); MEAN CELL VOLUME 86.7 fl (80-96); MEAN PLT VOLUME 8.7 fl (7.5-11.1); MONO % 14.4 % (3.8-10.2); NEUT % 68.1 % (42.8-82.8); PLATELET COUNT 123 K/MM3 (134-434); RBC 3.17 M/mm3 (3.60-5.2); RDW 15.1 % (11.6-15.6); WHITE BLOOD COUNT 3.8 K/mm3 (4.0-10.0)
[2020-01-27 07:19] LABS: INR 1.03 (0.83-1.09); PROTHROMBIN TIME (PATIENT) 12.1 SEC (9.7-13.0)
[2020-01-27] MEDS: oxyCODONE HCL 5 MG TABLET PO PRN ×4 (08:15→23:38)
[2020-01-27 08:49] LABS: ALK PHOS 60 U/L (45-117); ANION GAP 12 MMOL/L (8-16); BILIRUBIN,TOTAL 0.2 mg/dL (0.2-1); BLOOD UREA NITROGEN 9.2 mg/dL (7-18); CALCIUM 8.3 mg/dL (8.5-10.1); CHLORIDE 100 mmol/L (98-107); CO2 23 mmol/L (21-32); GLUCOSE,RANDOM 144 mg/dL (74-106); MAGNESIUM 1.4 mg/dL (1.8-2.4); PHOSPHOROUS 3.8 mg/dL (2.5-4.9); POTASSIUM 3.8 mmol/L (3.5-5.1); SGOT/AST 46 U/L (15-37); SGPT/ALT 39 U/L (13-61); SODIUM 135 mmol/L (136-145); TOT PROT 7.6 g/dl (6.4-8.2)
[2020-01-27 09:19] LABS: IRON SERUM 79 ug/dL (50-175); TOTAL IRON BINDING CAPACITY 214 ug/dL (250-450)
[2020-01-27] MEDS ORDERED: HYDROCHLOROTHIAZIDE 25 MG TABLET (FP) PO SCH (10:00)
[2020-01-27] MEDS ORDERED: FAMOTIDINE 40 MG TABLET PO SCH (10:00)
[2020-01-27] MEDS ORDERED: PATIENT'S OWN MEDICATION (NON-FORMULARY) (Olmesartan/Amlodipin/Hcthiazid [Olmsrtn-Amldpn-H PO SCH (10:00)
[2020-01-27 10:11] LABS: ANISOCYTOSIS 0; MACROCYTOSIS 0; PLATELET ESTIMATE DECREASED
[2020-01-27] MEDS ORDERED: cefTRIAXone SODIUM 1 GM VIAL ONE (10:34)
[2020-01-27] MEDS ORDERED: PT OWN MED DRAWER 7, Y5N ONE ×2 (10:34→12:01)
[2020-01-27] MEDS ORDERED: DEXTROSE 5%-WATER - 50 ML IVPB ONE (10:34)
[2020-01-27] MEDS: amLODIPine BESYLATE 5 MG TABLET (FP) PO SCH (10:45)
[2020-01-27] MEDS: HYDROXYCHLOROQUINE SO4 200 MG TABLET (FP) PO SCH (10:45)
[2020-01-27] MEDS: VALSARTAN 160 MG TABLET (UD) PO SCH (10:45)
[2020-01-27] MEDS: PANTOPRAZOLE 20 MG TABLET PO SCH (10:45)
[2020-01-27] MEDS: CEFTRIAXONE 1 GM in DEXTROSE 5%-WATER - 50 ML IVPB SCH (10:45)
[2020-01-27] MEDS: BUDESONIDE/FORMETEROL FUMARATE 80/4.5 mcg INHALER IH SCH (10:46)
--- NOTE | 2020-01-27 13:44 | PN ---
Physical Exam: SUBJECTIVE: Patient seen and examined bedside. Currently having abdominal pain and says she feels hot. Reports having polyuria w/ dysurian, no hematura. Denies SOB, chest pain, n/v/d. Patient NPO for abdominal Doppler. Patient had fever this morning of 100.9. On exam her temperature was 101.1 30 mins after receiving Tylenol. Repeat 1 hour later was 99.7. OBJECTIVE: Vital Signs 01/27/20 01/27/20 05:46 08:30 Temperature 100.8 F H 101.1 F H Pulse Rate 78 89 Respiratory 18 20 Rate Blood Pressure 126/73 148/87 O2 Sat by Pulse 97 94 L Oximetry (%) 01/27/20 10:40 Temperature 99.7 F H Pulse Rate Respiratory Rate Blood Pressure O2 Sat by Pulse Oximetry (%) GENERAL: The patient is awake, alert, and fully oriented, currently in pain. Febrile. HEAD: Normal with no signs of trauma. EYES: PERRL, extraocular movements intact, sclera anicteric, conjunctiva clear. No ptosis. ENT: moist mucous membranes. NECK: No JVD LUNGS: Breath sounds equal, CTA BL HEART: RRR, S1, S2 ABDOMEN: RUQ is very tender to palpation with guarding. Tender epigastric region. On repeat exam, no CVA tenderness BL EXTREMITIES: warm, well-perfused, no edema. PSYCH: Normal mood, normal affect. SKIN: Warm, dry, no lesions or rashes noted Laboratory Results - last 24 hr 01/26/20 01/26/20 01/26/20 04:59 16:17 22:12 WBC RBC Hgb Hct MCV MCH MCHC RDW Plt Count MPV Absolute Neuts (auto) Neutrophils % Neutrophils % (Manual) Band Neutrophils % Lymphocytes % Lymphocytes % (Manual) Monocytes % Monocytes % (Manual) Eosinophils % Eosinophils % (Manual) Basophils % Basophils % (Manual) Myelocytes % (Man) Promyelocytes % (Man) Blast Cells % (Manual) Nucleated RBC % Metamyelocytes Hypochromia Platelet Estimate Polychromasia Poikilocytosis Anisocytosis Microcytosis Macrocytosis ESR PT with INR INR PTT (Actin FS) Sodium Potassium Chloride Carbon Dioxide Anion Gap BUN Creatinine Est GFR (CKD-EPI)AfAm Est GFR (CKD-EPI)NonAf POC Glucometer 155 133 Random Glucose Calcium Phosphorus Magnesium Iron TIBC Iron Saturation Unsaturated IBC Ferritin Total Bilirubin AST ALT Alkaline Phosphatase LD Total Total Protein Albumin Lipase Vitamin B12 Serum Folate COVID-19 ([facility]) Not detected 01/27/20 01/27/20 01/27/20 05:59 06:29 06:29 WBC RBC Hgb Hct MCV MCH MCHC RDW Plt Count MPV Absolute Neuts (auto) Neutrophils % Neutrophils % (Manual) Band Neutrophils % Lymphocytes % Lymphocytes % (Manual) Monocytes % Monocytes % (Manual) Eosinophils % Eosinophils % (Manual) Basophils % Basophils % (Manual) Myelocytes % (Man) Promyelocytes % (Man) Blast Cells % (Manual) Nucleated RBC % Metamyelocytes Hypochromia Platelet Estimate Polychromasia Poikilocytosis Anisocytosis Microcytosis Macrocytosis ESR PT with INR 12.10 INR 1.03 PTT (Actin FS) 39.0 H Sodium 135 L Potassium 3.8 Chloride 100 Carbon Dioxide 23 Anion Gap 12 BUN 9.2 Creatinine 1.0 Est GFR (CKD-EPI)AfAm 67.51 Est GFR (CKD-EPI)NonAf 58.25 POC Glucometer 137 Random Glucose 144 H Calcium 8.3 L Phosphorus 3.8 Magnesium 1.4 L Iron 79 TIBC 214 L Iron Saturation 36 Unsaturated IBC 135 L Ferritin 472.8 H Total Bilirubin 0.2 AST 46 H ALT 39 Alkaline Phosphatase 60 LD Total Cancelled Total Protein 7.6 Albumin 3.0 L Lipase Cancelled Vitamin B12 299 Serum Folate > 20 H COVID-19 ([facility]) 01/27/20 01/27/20 06:29 06:29 WBC 3.8 L RBC 3.17 L Hgb 9.3 L Hct 27.5 L MCV 86.7 MCH 29.2 MCHC 33.7 RDW 15.1 Plt Count 123 L MPV 8.7 Absolute Neuts (auto) 2.6 Neutrophils % 68.1 Neutrophils % (Manual) 57.7 Band Neutrophils % 20.2 Lymphocytes % 11.3 D Lymphocytes % (Manual) 5.8 L Monocytes % 14.4 H Monocytes % (Manual) 9 Eosinophils % 5.7 H Eosinophils % (Manual) 7.7 H Basophils % 0.5 Basophils % (Manual) 0.0 Myelocytes % (Man) 0 Promyelocytes % (Man) 0 Blast Cells % (Manual) 0 Nucleated RBC % 0 Metamyelocytes 0 Hypochromia 0 Platelet Estimate Decreased Polychromasia 0 Poikilocytosis 0 Anisocytosis 0 Microcytosis 0 Macrocytosis 0 ESR 108 H PT with INR INR PTT (Actin FS) Sodium Potassium Chloride Carbon Dioxide Anion Gap BUN Creatinine Est GFR (CKD-EPI)AfAm Est GFR (CKD-EPI)NonAf POC Glucometer Random Glucose Calcium Phosphorus Magnesium Iron TIBC Iron Saturation Unsaturated IBC Ferritin Total Bilirubin AST ALT Alkaline Phosphatase LD Total Total Protein Albumin Lipase Vitamin B12 Serum Folate COVID-19 ([facility]) Active Medications Generic Name Dose Route Start Last Admin Trade Name Freq PRN Reason Stop Dose Admin Albuterol Sulfate 2 puff 01/26/20 06:03 Ventolin Hfa Inhaler - IH Q4H PRN SHORT OF BREATH/WHEEZING Amlodipine Besylate 5 mg 01/27/20 10:00 01/27/20 10:45 Norvasc - PO 5 mg DAILY KYLEIGH Administration Budesonide/Formoterol Fumarate 2 puff 01/27/20 10:00 01/27/20 10:46 Symbicort 80/4.5mcg - IH 2 puff DAILY KYLEIGH Administration Famotidine 40 mg 01/27/20 10:00 01/27/20 10:45 Pepcid - PO 40 mg DAILY KYLEIGH Administration Heparin Sodium (Porcine) 5,000 unit 01/26/20 06:00 01/27/20 05:50 Heparin - SQ 5,000 unit TID KYLEIGH Administration Hydroxychloroquine Sulfate 200 mg 01/27/20 10:00 01/27/20 10:45 Plaquenil - PO 200 mg DAILY KYLEIGH Administration Ceftriaxone Sodium 1 gm/ 50 mls @ 100 mls/hr 01/26/20 10:00 01/27/20 10:45 Dextrose IVPB 100 mls/hr DAILY KYLEIGH Administration Sodium Chloride 1,000 mls @ 75 mls/hr 01/27/20 08:30 01/27/20 08:25 Normal Saline - IV 01/28/20 21:49 75 mls/hr ASDIR KYLEIGH Administration Insulin Aspart 1 vial 01/26/20 07:00 01/27/20 11:53 Novolog Vial Sliding Scale - SQ Not Given ACHS KYLE[facility] Protocol Oxycodone HCl 5 mg 01/27/20 10:48 01/27/20 10:55 Roxicodone - PO 5 mg Q6H PRN Administration PAIN LEVEL 6-10 Pantoprazole Sodium 20 mg 01/27/20 10:00 01/27/20 10:45 Protonix - PO 20 mg DAILY KYLEIGH Administration Valsartan 320 mg 01/27/20 10:00 01/27/20 10:45 Diovan - PO 320 mg DAILY KYLEIGH Administration IMAGING Upper abdomen and Doppler ultrasound Compared to prior upper abdomen ultrasound dated 01/26/2020 The liver is within normal limits in size measuring 14.7 cm in sagittal length with a slightly coarse echotexture. The gallbladder is adequately distended with intraluminal tiny floating echoes of suggestive of cholesterol granules/debris is.. There is also a tiny sludge versus tiny mobile stones layering p osteriorly. There is no thickening of the gallbladder wall and there is no evidence of pericholecyst ic free fluid. No intra or extrahepatic bile duct dilatation is seen. The right and left kidney measured 9.3 and 9.3 cm , respectively. Both kidneys appear unremarkable. The spleen measures 7.2 cm in sagittal length with homogeneous echotexture. An adjacent accessory spleen is present measuring 1.3 cm. Visualized portion of the pancreas appears unremarkable. Visualized portion of the proximal abdominal aorta and inferior vena cava are within normal limits in size. Duplex evaluation of the main portal vein, right and left portal vein as well as duplex evaluation of the confluence of the hepatic veins appear unremarkable. Normal duplex evaluation of the abdominal aorta, celiac artery and superior mesenteric artery. Normal color Doppler flow and inferior vena cava. IMPRESSION: Slightly coarse echotexture of the liver suggestive of mild fatty infiltration please correlate with liver enzymes. On the current examination, there are tiny floating echoes within the gallbladder suggestive of debris is versus cholesterol granules. There is also suggestion of a tiny sludge and questionable tiny mobile stones without sonographic evidence of acute cholecystitis. Correlate clinically and follow-up would be helpful for further evaluation. Renal ultrasound A real -time ultrasound examination of both kidneys was performed The right and left kidney measured 9.3 and 9.3 cm, respectively. Both kidneys are within normal limits in size and contour. No cystic or contour deforming solid mass lesion is identified . No gross renal stone or hydronephrosis is seen, bilaterally. Normal color Doppler flow and both kidneys IMPRESSION: Both kidneys appear unremarkable ASSESSMENT/PLAN: Pt is a 69 yo F with PMH of HTN, DM, RA, lupus, & asthma presenting with R flank/RUQ pain x 4 days with associated dysuria & chills. Patient also reports black stools in the last week (denies taking iron), and unintentional weight loss and night sweats. Patient is being admitted for evaluation of UTI (possibly pyelonephritis and to r/o GI bleed or cancer. Abdominal PAIN: 2/2 gastritis, vs PUD, vs cholelithiasis/cholecystitis - Unclear etiology but pain is severe. Patient febrile w/leukopenia - could be septic - elevated ESR and ferritin could be from lupus or acute inflammatory process LDH & Lactic acid WNL repeated lipase for pancreatitis WNL - IV tylenol & oxycodone PRN for pain control - GI consulted (Dr. Mosqueda) Persistent predominantly RUQ pain, now with possible stones/sludge on US UGIS findings do not explain fevers/RUQ pain & doppler study revealed normal appearing mesenteric vasculature HIDA scan ordered Surgical evaluation IV Abx, Continue flagyl for anaerobic coverage and consider ID evaluation - consulted Rhuem for possible Lupus GI Vasculitis - Dr. Rod She has MGUS and apparently a bone marrow Bx was negative for multiple myeloma. She has been treated with Methotrexate since 2014 and with Rituximab since June 2018 (two doses of 1 gr 15 days apart every 6 months)with good response. The last dose was on 08/17/19. (Dr. Lambert considered that it is unlikely that the patient has lupus). - Continue home omeprazole + famotidine UTI - still have dysuria - cultures + lactose fermenting gram neg bacilli - continue Rocephin day 3 Lupus & RA - continue home medications - continue hydroxychloroquine 200 mg daily - methotrexate taken a few days ago - consulted Rheum Pancytopenia - hx workup for multiple myeloma - Heme/Onc Consulted 2/2 Methotrexate & plaquenil, in setting of multiple autoimmune disorders (SLE, RA, sjogren's), sepsis will await work up done as outpatient from Dr. Lambert's office - low normal b12, start PO supplements daily DM - A1c 5.3 - hold home medications - BGM - ISS HTN - Nebivolol 20 mg daily - continue on Amlodipine 5 - continue olmesartan 40 - hold Hctz DVT ppx - Heparin 5000 sq tid FEN - replete prn - low Na, low fat, diabetic diet Full code. Visit type - Emergency Visit Emergency Visit: Yes ED Registration Date: 01/26/20 Care time: The patient presented to the Emergency Department on the above date and was hospitalized for further evaluation of their emergent condition. - New Patient This patient is new to me today: No - Critical Care Critical Care patient: No - Discharge Referral Referred to [facility] No - Medication Review Med list reviewed for High Risk Meds patients 65 and older: Yes ATTENDING PHYSICIAN STATEMENT I saw and evaluated the patient. I reviewed the resident's note and discussed the case with the resident. I agree with the resident's findings and plan as documented. SUBJECTIVE: OBJECTIVE: ASSESSMENT AND PLAN:
[2020-01-27] MEDS ORDERED: oxyCODONE HCL 5 MG TABLET PO ONE (13:46)
[2020-01-27] MEDS ORDERED: ACETAMINOPHEN 1000 MG/100 ML VIAL (NON FORMULARY) IVPB ONE (13:46)
[2020-01-27 14:59] LABS: LDH 206 U/L (84-246); LIPASE 184 U/L (73-393)
--- NOTE | 2020-01-27 15:01 | CONSULT ---
Consultation: HEME ONC RESIDENT NOTE REQUESTING PROVIDER: Dr. Ma CONSULT REQUEST: We have been asked to medically evaluate this patient for pancytopenia. HISTORY OF PRESENT ILLNESS: Patient is a 69 year old female with past medical history of SLE, RA, Sjogren syndrome, MGUS, HTN, HLD, DM, and asthma, presented to the ED with abdominal pain and dysuria. Patient reported constant sharp pain in the RUQ/epigastric area for the past 4-5 days. There were no aggravating or alleviating factors. She denies any fevers, chills, nausea, vomiting, diarrhea, constipation. On admission patient was found to have a UTI, labs showed pancytopenia, and abdominal US revealed mildly thickened GB wall without pericholecystic fluid or sonographic jackson's sign. We were called for further evaluation of pancytopenia. Patient reports recent work-up for myeloma, but is unsure of the oncologist's name. She noted however that her deli cook, Dr. Callahan ([phone]), might have some information. I was able to reach Dr. Callahan, but he is unsure if patient sees Dr. Mayito Charles for heme-onc. Patient had history MGUS, that's why she saw onc, but Dr. Callahan has no further information regarding furher work up. Dr. Charles's office now closed for today. Last CBC with Dr. Callahan in November 2019, WBC 4.1, Hgb 9.7, Plt 203. Patient also receives Rituximab from Dr. Callahan's office. Patient also noted that her last intake of Methotrexate was 2 days ago. PMHx: SLE, RA, Sjogren syndrome, MGUS, HTN, HLD, DM, and asthma PSHx: C-sections x3, fibroidectomy Allergies: NKDA SHx: denies smoking, drinking, illicit drug use FHx: mother with ovarian cancer + multiple myeloma REVIEW OF SYSTEMS: CONSTITUTIONAL: Absent: fever, chills, diaphoresis, generalized weakness, malaise, loss of appetite, weight change HEENT: Absent: rhinorrhea, nasal congestion, throat pain, throat swelling, difficulty swallowing, mouth swelling, ear pain, eye pain, visual changes CARDIOVASCULAR: Absent: chest pain, syncope, palpitations, irregular heart rate, lightheadedn ess, peripheral edema RESPIRATORY: Absent: cough, shortness of breath, dyspnea with exertion, orthopnea, wheezing, stridor, hemoptysis GASTROINTESTINAL:abdominal pain Absent: abdominal distension, nausea, vomiting, diarrhea, constipation, melena, hematochezia GENITOURINARY: Absent: dysuria, frequency, urgency, hesitancy, hematuria, flank pain, genital pain MUSCULOSKELETAL: Absent: myalgia, arthralgia, joint swelling, back pain, neck pain SKIN: diffuse hypopigmented spots x 2 weeks Absent: rash, itching, pallor HEMATOLOGIC/IMMUNOLOGIC: Absent: easy bleeding, easy bruising, lymphadenopathy, frequent infections ENDOCRINE: Absent: unexplained weight gain, unexplained weight loss, heat intolerance, cold intolerance NEUROLOGIC: Absent: headache, focal weakness or paresthesias, dizziness, unsteady gait, seizure, mental status changes, bladder or bowel incontinence PSYCHIATRIC: Absent: anxiety, depression, suicidal or homicidal ideation, hallucinations. PHYSICAL EXAMINATION Vital Signs - 24 hr 01/26/20 01/26/20 01/26/20 18:00 21:00 22:00 Temperature 98.4 F 98.5 F Pulse Rate 58 L 62 Respiratory 20 18 Rate Blood Pressure 139/69 128/67 O2 Sat by Pulse 97 96 96 Oximetry (%) 01/27/20 01/27/20 01/27/20 05:46 08:30 09:00 Temperature 100.8 F H 101.1 F H Pulse Rate 78 89 Respiratory 18 20 20 Rate Blood Pressure 126/73 148/87 O2 Sat by Pulse 97 94 L 94 L Oximetry (%) 01/27/20 10:40 Temperature 99.7 F H Pulse Rate Respiratory Rate Blood Pressure O2 Sat by Pulse Oximetry (%) GENERAL: Awake, alert, and fully oriented, in no acute distress. HEAD: Normal with no signs of trauma. EYES: PERRLA, EOMI, sclera anicteric, conjunctiva clear. EARS, NOSE, THROAT: Moist mucous membranes. NECK: Normal range of motion, supple LUNGS: Breath sounds equal, clear to auscultation bilaterally. HEART: Regular rate and rhythm, normal S1 and S2 ABDOMEN: Soft, +RUQ tenderness, not distended, normoactive bowel sounds. LOWER EXTREMITIES: 2+ pulses, warm, well-perfused. No peripheral edema. NEUROLOGICAL: Cranial nerves II-XII intact. Normal speech. Normal gait. PSYCHIATRIC: Cooperative. Good eye contact. Appropriate mood and affect. SKIN: Warm, dry, normal turgor, +diffuse hypopigmented macules Laboratory Results - last 24 hr 01/26/20 01/26/20 01/26/20 04:59 16:17 22:12 WBC RBC Hgb Hct MCV MCH MCHC RDW Plt Count MPV Absolute Neuts (auto) Neutrophils % Neutrophils % (Manual) Band Neutrophils % Lymphocytes % Lymphocytes % (Manual) Monocytes % Monocytes % (Manual) Eosinophils % Eosinophils % (Manual) Basophils % Basophils % (Manual) Myelocytes % (Man) Promyelocytes % (Man) Blast Cells % (Manual) Nucleated RBC % Metamyelocytes Hypochromia Platelet Estimate Polychromasia Poikilocytosis Anisocytosis Microcytosis Macrocytosis ESR PT with INR INR PTT (Actin FS) Sodium Potassium Chloride Carbon Dioxide Anion Gap BUN Creatinine Est GFR (CKD-EPI)AfAm Est GFR (CKD-EPI)NonAf POC Glucometer 155 133 Random Glucose Calcium Phosphorus Magnesium Iron TIBC Iron Saturation Unsaturated IBC Ferritin Total Bilirubin AST ALT Alkaline Phosphatase LD Total Total Protein Albumin Lipase Vitamin B12 Serum Folate COVID-19 ([facility]) Not detected 01/27/20 01/27/20 01/27/20 05:59 06:29 06:29 WBC RBC Hgb Hct MCV MCH MCHC RDW Plt Count MPV Absolute Neuts (auto) Neutrophils % Neutrophils % (Manual) Band Neutrophils % Lymphocytes % Lymphocytes % (Manual) Monocytes % Monocytes % (Manual) Eosinophils % Eosinophils % (Manual) Basophils % Basophils % (Manual) Myelocytes % (Man) Promyelocytes % (Man) Blast Cells % (Manual) Nucleated RBC % Metamyelocytes Hypochromia Platelet Estimate Polychromasia Poikilocytosis Anisocytosis Microcytosis Macrocytosis ESR PT with INR 12.10 INR 1.03 PTT (Actin FS) 39.0 H Sodium 135 L Potassium 3.8 Chloride 100 Carbon Dioxide 23 Anion Gap 12 BUN 9.2 Creatinine 1.0 Est GFR (CKD-EPI)AfAm 67.51 Est GFR (CKD-EPI)NonAf 58.25 POC Glucometer 137 Random Glucose 144 H Calcium 8.3 L Phosphorus 3.8 Magnesium 1.4 L Iron 79 TIBC 214 L Iron Saturation 36 Unsaturated IBC 135 L Ferritin 472.8 H Total Bilirubin 0.2 AST 46 H ALT 39 Alkaline Phosphatase 60 LD Total Cancelled Total Protein 7.6 Albumin 3.0 L Lipase Cancelled Vitamin B12 299 Serum Folate > 20 H COVID-19 ([facility]) 01/27/20 01/27/20 06:29 06:29 WBC 3.8 L RBC 3.17 L Hgb 9.3 L Hct 27.5 L MCV 86.7 MCH 29.2 MCHC 33.7 RDW 15.1 Plt Count 123 L MPV 8.7 Absolute Neuts (auto) 2.6 Neutrophils % 68.1 Neutrophils % (Manual) 57.7 Band Neutrophils % 20.2 Lymphocytes % 11.3 D Lymphocytes % (Manual) 5.8 L Monocytes % 14.4 H Monocytes % (Manual) 9 Eosinophils % 5.7 H Eosinophils % (Manual) 7.7 H Basophils % 0.5 Basophils % (Manual) 0.0 Myelocytes % (Man) 0 Promyelocytes % (Man) 0 Blast Cells % (Manual) 0 Nucleated RBC % 0 Metamyelocytes 0 Hypochromia 0 Platelet Estimate Decreased Polychromasia 0 Poikilocytosis 0 Anisocytosis 0 Microcytosis 0 Macrocytosis 0 ESR 108 H PT with INR INR PTT (Actin FS) Sodium Potassium Chloride Carbon Dioxide Anion Gap BUN Creatinine Est GFR (CKD-EPI)AfAm Est GFR (CKD-EPI)NonAf POC Glucometer Random Glucose Calcium Phosphorus Magnesium Iron TIBC Iron Saturation Unsaturated IBC Ferritin Total Bilirubin AST ALT Alkaline Phosphatase LD Total Total Protein Albumin Lipase Vitamin B12 Serum Folate COVID-19 ([facility]IS) Active Medications Generic Name Dose Route Start Last Admin Trade Name Freq PRN Reason Stop Dose Admin Albuterol Sulfate 2 puff 01/26/20 06:03 Ventolin Hfa Inhaler - IH Q4H PRN SHORT OF BREATH/WHEEZING Amlodipine Besylate 5 mg 01/27/20 10:00 01/27/20 10:45 Norvasc - PO 5 mg DAILY KYLEIGH Administration Budesonide/Formoterol Fumarate 2 puff 01/27/20 10:00 01/27/20 10:46 Symbicort 80/4.5mcg - IH 2 puff DAILY KYLEIGH Administration Cyanocobalamin 1,000 mcg 01/27/20 14:00 Vitamin B12 - PO DAILY KYLEIGH Famotidine 40 mg 01/27/20 10:00 01/27/20 10:45 Pepcid - PO 40 mg DAILY KYLEIGH Administration Heparin Sodium (Porcine) 5,000 unit 01/26/20 06:00 01/27/20 05:50 Heparin - SQ 5,000 unit TID KYLEIGH Administration Hydroxychloroquine Sulfate 200 mg 01/27/20 10:00 01/27/20 10:45 Plaquenil - PO 200 mg DAILY KYLEIGH Administration Ceftriaxone Sodium 1 gm/ 50 mls @ 100 mls/hr 01/26/20 10:00 01/27/20 10:45 Dextrose IVPB 100 mls/hr DAILY KYLEIGH Administration Sodium Chloride 1,000 mls @ 75 mls/hr 01/27/20 08:30 01/27/20 08:25 Normal Saline - IV 01/28/20 21:49 75 mls/hr ASDIR KYLEIGH Administration Insulin Aspart 1 vial 01/26/20 07:00 01/27/20 11:53 Novolog Vial Sliding Scale - SQ Not Given ACHS [facility] Protocol Oxycodone HCl 5 mg 01/27/20 10:48 01/27/20 10:55 Roxicodone - PO 5 mg Q6H PRN Administration PAIN LEVEL 6-10 Pantoprazole Sodium 20 mg 01/27/20 10:00 01/27/20 10:45 Protonix - PO 20 mg DAILY KYLEIGH Administration Valsartan 320 mg 01/27/20 10:00 01/27/20 10:45 Diovan - PO 320 mg DAILY KYLEIGH Administration ASSESSMENT/PLAN: Patient is a 69 year old female with past medical history of SLE, RA, Sjogren syndrome, MGUS, HTN, HLD, DM, and asthma, presented to the ED with abdominal pain and dysuria. Patient reported constant sharp pain in the RUQ/epigastric area for the past 4-5 days. We were consulted for further evaluation of pancytopenia. #Pancytopenia -may be drug-induced (MTX, plaquenil, rituximab), in setting of autoimmune disorders (SLE, RA, sjogren's), sepsis -patient seems to be at baseline, as per her recent outpatient labs, WBC 4.1, Hgb 9.7, Plt 203 (11/2019) -Iron studies, vit b12, folate -patient also with recent history of MGUS, will follow up work up with her heme- onc, Dr. Araceli Abernathy: We will continue to follow the patient. Thank you for this consultative opportunity. Visit type - Medication Review Med list reviewed for High Risk Meds patients 65 and older: Yes - Emergency Visit Emergency Visit: Yes ED Registration Date: 01/26/20 Care time: The patient presented to the Emergency Department on the above date and was hospitalized for further evaluation of their emergent condition. - New Patient This patient is new to me today: Yes Date on this admission: 01/27/20 - Critical Care Critical Care patient: No ATTENDING PHYSICIAN STATEMENT I saw and evaluated the patient. I reviewed the resident's note and discussed the case with the resident. I agree with the resident's findings and plan as documented. SUBJECTIVE: OBJECTIVE: ASSESSMENT AND PLAN:
[2020-01-27] MEDS: CYANOCOBALAMIN 1,000 MCG TABLET (FP) PO SCH (15:08)
--- NOTE | 2020-01-27 15:16 | PN.GI ---
GI Progress Note Subjective: No acute events Fevers Doppler US revealing possible sludge / stones. Doppler portion of study unremarkable Delayed transit of contrast during UGIS. Denies dysphagia symptoms - Objective Vital Signs: Vital Signs Temperature 98.6 F 01/27/20 14:37 Pulse Rate 69 01/27/20 14:37 Respiratory Rate 20 01/27/20 14:37 Blood Pressure 143/74 01/27/20 14:37 O2 Sat by Pulse Oximetry (%) 96 01/27/20 14:37 Constitutional: Calm Eyes: No: Sclera Icterus Cardiovascular: Yes: Regular Rate and Rhythm Respiratory: Yes: CTA Bilaterally Gastrointestinal Inspection: No: Distention ...Auscultate: Yes: Normoactive Bowel Sounds ...Palpate: Yes: Tenderness (TTP RUQ, + Samayoa's) ...Percussion: No: Tympanitic Edema: No (No LE edema) Neurological: Yes: Alert Labs: CBC, BMP 01/27/20 06:29 01/27/20 06:29 INR, PTT INR 1.03 (0.83-1.09) 01/27/20 06:29 Hepatic Panel Total Bilirubin 0.2 mg/dL (0.2-1) 01/27/20 06:29 AST 46 U/L (15-37) H 01/27/20 06:29 ALT 39 U/L (13-61) 01/27/20 06:29 Alkaline Phosphatase 60 U/L (45-117) 01/27/20 06:29 Albumin 3.0 g/dl (3.4-5.0) L 01/27/20 06:29 Problem List - Problems (1) Abdominal pain Assessment/Plan: Persistent predominantly RUQ pain, now with possible stones / sludge on US UGIS findings do not explain fevers / RUQ pain and doppler study revealed normal appearing mesenteric vasculature HIDA Surgical evaluation IV Abx, Continue flagyl for anaerobic coverage and consider ID evaluation Pancytopenia: ? Lupus flare. Rheum eval, Heme eval Code(s): R10.9 - UNSPECIFIED ABDOMINAL PAIN Qualifiers: Abdominal location: upper abdomen, unspecified Qualified Code(s): R10.10 - Upper abdominal pain, unspecified
--- NOTE | 2020-01-27 17:09 | CONSULT ---
Consult Consult Specialty:: Rheumatology - History of Present Illness History of Present Illness: 69 year old female with past medical history of RA, Sjogren syndrome, MGUS, HTN, HLD, DM, and asthma, admitted with abdominal pain and dysuria. HPI. the patient reports a 4 day history of abdominal pain - probably in epigastrium, accompanied by vomitting on 2 occaionss and she had 2 episodes of probable melena. She denies diarrhea, In the hospital she has had fever (T. max 101.1). Abdominal US revealed mildly thickened GB wall without pericholecystic fluid. CR scan of abdomen and pelvis with no acute pathology. Probable rheumatoid arthritis and Sjogren's syndrome. The patient reports that in 2004, while living in [facility], she developed hyperpigmentation in face and dry eyes. It is not clear what other symptoms she had. She was diagnosed with Sjogren's syndrome and apparently with multiple sclerosis amd treated with Copaxone, however this diagnosis was later on ruled out. She was daignosed with lupus and started on Hydroxychloroquine. Since 2011 she has been followed by Dr. Lambert ([phone]). I spoke with him and he reported that the main clinical problem has been inflammatory arthritis. Serology: ARIANA, rheumatoid factor, anti-SSA and anti-SSB positive. CCP was negative and apparently other serology for lupus has been negative as well and the patient has not have other organ involvement suggestive of lupus. She has MGUS and apparently a bone marrow Bx was negative for multiple myeloma. She has been treated with Methotrexate since 2014 and with Rituximab since June 2018 (two doses of 1 gr 15 days apart every 6 months)with good response. The last dose was on 08/17/19. (Dr. Lambert considered that it is unlikely that the patient has lupus). At the present time the patient denies joint pain, she has dry eyes and denies dry mouth. Laboratory work-up revealed a CBC with a WBC of 3.8, Hgb 9.3, HCT 27.5 and platelets 123. ESR 108. Creatinine 1.0, AST: 46, ALT:39. Urinalysis with LE 1+ and blood trace and protein trace. - History Source History Provided By: Patient, Medical Record Limitations to Obtaining History: No Limitations - Past Medical History Pulmonary: Yes: Asthma Rheumatology: Yes: Lupus, Rheumatoid Arthritis Endocrine: Yes: Diabetes Mellitus (DM II) - Past Surgical History Past Surgical History: Yes: (x 3) Additional Surgical History: Fibroidectomy - Alcohol/Substance Use Hx Alcohol Use: No History of Substance Use: reports: None - Smoking History Smoking history: Never smoked Have you smoked in the past 12 months: No - Social History Usual Living Arrangement: Alone ADL: Independent History of Recent Travel: No Home Medications - Allergies Allergies/Adverse Reactions: Allergies Allergy/AdvReac Type Severity Reaction Status Date / Time No Known Allergies Allergy Verified 01/25/20 23:33 - Home Medications Home Medications: Ambulatory Orders Albuterol Sulfate [Proair Hfa] 1 inh IH Q4H PRN 01/26/20 Budesonide/Formeterol Fumarate [SYMBICORT 80/4.5mcg -] 2 puff IH DAILY 01/26/20 Famotidine [Pepcid -] 40 mg PO DAILY 01/26/20 Hydroxychloroquine Sulfate [Plaquenil] 200 mg PO DAILY 01/26/20 Methotrexate [Mexate -] 6 tab PO WEEKLY 01/26/20 Nebivolol HCl [Bystolic] 20 mg PO DAILY 01/26/20 Olmesartan/Amlodipin/Hcthiazid [Ntwyixf-Jhevcv-Ugly 40-5-25 mg] 1 tab PO DAILY 01/26/20 Omeprazole 20 mg PO DAILY 01/26/20 Pioglitazone HCl [Actos] 30 mg PO DAILY 01/26/20 Sitagliptin Phos/Metformin HCl [Janumet 50-1,000 mg Tablet] 1 tab PO BID 01/08 01/27 Family Medical History Other Family History: Father: : [place]. Mother: : [place]. 3 brothers, 3 sisters: healthy. 1 sister : airplane crash, 1 sibling : [place]. 1 son, 2 daughters: healthy. No family history of colorectal cancer or other GI mal ignancy Review of Systems - Review of Systems Eyes: reports: No Symptoms HENT: reports: No Symptoms Cardiovascular: reports: No Symptoms Respiratory: reports: No Symptoms Gastrointestinal: reports: Other (See HPI) Musculoskeletal: reports: No Symptoms Physical Exam Vital Signs: Vital Signs Temperature 98.6 F 01/27/20 14:37 Pulse Rate 69 01/27/20 14:37 Respiratory Rate 01/27/20 14:37 Blood Pressure 143/74 01/27/20 14:37 O2 Sat by Pulse Oximetry (%) 96 01/27/20 14:37 Constitutional: Yes: Moderate Distress Eyes: Yes: WNL HENT: Yes: WNL Cardiovascular: Yes: WNL Respiratory: Yes: WNL Gastrointestinal: Yes: Other (Abdominal tenderness in epigastrium wioth no rebound and no masses.) Musculoskeletal: Yes: Other (No active joints.) Labs: CBC, BMP 01/27/20 06:29 01/27/20 06:29 Laboratory Tests 01/25/20 01/27/20 01/27/20 23:55 06:29 06:29 ESR 108 H Ferritin 472.8 H Total Bilirubin 0.2 AST 46 H ALT 39 Alkaline Phosphatase 60 Albumin 3.0 L Lipase Cancelled Vitamin B12 299 Urine Color Yellow Urine Appearance Clear Urine pH 6.0 Ur Specific [place] 1.020 Urine Protein Trace Urine Glucose (UA) Negative Urine Ketones Trace Urine Blood Trace-intact Urine Nitrite Positive Urine Bilirubin Negative Urine Urobilinogen 0.2 Ur Leukocyte Esterase 1+ H Urine WBC (Auto) 44.3 Urine RBC (Auto) 7.5 Urine Casts (Auto) 6.67 Problem List - Problems (1) Sjogrens syndrome Assessment/Plan: History of probable overlap of Sjogren's syndrome and rheumatoid arthritis. It is unlikely that she has lupus. Code(s): M35.00 - SICCA SYNDROME, UNSPECIFIED (2) Rheumatoid arthritis, seropositive Assessment/Plan: Probable rheumatoid arthritis, disease in remission. On Methotrexate and Rituximab. Most likely the abdominal pain is not related to rheumatoid arthritis. Code(s): M05.9 - RHEUMATOID ARTHRITIS WITH RHEUMATOID FACTOR, UNSPECIFIED
--- NOTE | 2020-01-27 18:29 | PN ---
Teaching Attending Note Name of Resident: Goldy King ATTENDING PHYSICIAN STATEMENT I saw and evaluated the patient. I reviewed the resident's note and discussed the case with the resident. I agree with the resident's findings and plan as documented. SUBJECTIVE: pt prefers daughter for translation fever this am. cont to have abd pain. in epigastric and RUQ. No N/V. pain gets up to 9/10 when severe no diarrhea . no Bm since admission OBJECTIVE: NAD , awake, alert, cooperative CV: RRR, no MRG Lungs: CTAB Abd: soft, TTP in RUQ, and epigastric area, No guarding or rebound. , NO CVA tenderness today Ext : No edema or erythema over upper or lower ext ASSESSMENT AND PLAN: 69 y/o lady with h/o SJogren's , anemia, Rheumatoid arthritis, HTN , Throidectomy, DM , and HLP who presented with adb pain and melena 1- Abd pain: still unclear etiology. fever today and possible stones /sludge on US. no thrombosis in abd vessels . still in ddx gastritis /ulcer . ? acute cholecystitis . UTI alone, does not explain sx - agree with HIDA - ceftriaxone and flagyl -surgical eval - repeat Lilpase NL. - if she spikes fever again will repeat blood cx - blood cx negative to date - repeat OB pending - if HIDA neg -->? EGD - Dr. Viola esteban noted and appreciated 2- UTI: lactose fermenting GNR, and another pendign organism . follow final cx. cont ceftriaxone 3- Questionable melena. - follow repeat OB. - ? EGD 4- Pncytopenia: Possible B12 def given low normal B 12 - check MMA , if elevated will start B12 supplementation - No evidence fo iron def , but ferritin is an acute phase reactant. need to be reepated as out pt - heme eval pending - unlikely RA is contributing - request to obtain records sent 5- HTN: - ARB, and norvasc. - hold HCTZ in settign of GI sx and poor po intake 6- h/o DM : SSI. hold po meds DVT PX: heparin SQ
[2020-01-27] MEDS ORDERED: INSULIN (NOVOLOG) ASPART 100 UNITS/ML 10ML VIAL ONE (21:14)
[2020-01-28] MEDS: INSULIN SLIDING SCALE (NOVOLOG) 1 VIAL SQ SCH ×4 (06:12→21:09)
[2020-01-28] MEDS: HEPARIN NA (PORCINE) 5,000 UNITS/ML 1ML VIAL SQ SCH ×3 (06:12→21:08)
[2020-01-28] MEDS: oxyCODONE HCL 5 MG TABLET PO PRN ×4 (06:51→23:46)
[2020-01-28 06:57] LABS: HEMATOCRIT 27.7 % (32.4-45.2); HEMOGLOBIN 9.4 GM/dL (10.7-15.3); MCH 29.1 pg (25.7-33.7); MCHC 33.9 g/dl (32.0-36.0); MEAN CELL VOLUME 85.8 fl (80-96); MEAN PLT VOLUME 8.7 fl (7.5-11.1); PLATELET COUNT 109 K/MM3 (134-434); RBC 3.22 M/mm3 (3.60-5.2); RDW 15.5 % (11.6-15.6)
[2020-01-28 08:02] LABS: ALBUMIN 2.9 g/dl (3.4-5.0); BILIRUBIN,TOTAL 0.3 mg/dL (0.2-1); BLOOD UREA NITROGEN 8.1 mg/dL (7-18); CALCIUM 8.4 mg/dL (8.5-10.1); CREATININE 0.8 mg/dL (0.55-1.3); MAGNESIUM 1.4 mg/dL (1.8-2.4); PHOSPHOROUS 2.9 mg/dL (2.5-4.9); POTASSIUM 3.4 mmol/L (3.5-5.1); TOT PROT 7.5 g/dl (6.4-8.2)
[2020-01-28] MEDS: ACETAMINOPHEN 1000 MG/100 ML VIAL (NON FORMULARY) IVPB PRN ×2 (08:24→15:45)
[2020-01-28] MEDS ORDERED: POTASSIUM CHLORIDE TABS 20 MEQ TABLET.ER (FP) PO ONE (08:48)
[2020-01-28] MEDS ORDERED: MAGNESIUM OXIDE 400 MG TABLET (FP) PO ONE (08:48)
[2020-01-28] MEDS ORDERED: cefTRIAXone SODIUM 1 GM VIAL ONE (10:25)
[2020-01-28] MEDS ORDERED: DEXTROSE 5%-WATER - 50 ML IVPB ONE (10:25)
[2020-01-28] MEDS: CYANOCOBALAMIN 1,000 MCG TABLET (FP) PO SCH (11:36)
[2020-01-28] MEDS: amLODIPine BESYLATE 5 MG TABLET (FP) PO SCH (11:37)
[2020-01-28] MEDS: PANTOPRAZOLE 20 MG TABLET PO SCH (11:37)
[2020-01-28] MEDS: VALSARTAN 160 MG TABLET (UD) PO SCH (11:37)
[2020-01-28] MEDS: CEFTRIAXONE 1 GM in DEXTROSE 5%-WATER - 50 ML IVPB SCH (11:38)
[2020-01-28] MEDS: POLYETHYLENE GLYCOL 3350 119 GM BTL PO SCH (11:38)
[2020-01-28] MEDS: HYDROXYCHLOROQUINE SO4 200 MG TABLET (FP) PO SCH (11:38)
[2020-01-28] MEDS: BUDESONIDE/FORMETEROL FUMARATE 80/4.5 mcg INHALER IH SCH (11:38)
[2020-01-28] MEDS ORDERED: MORPHINE SULFATE 2 MG/ML VIAL IVPUSH ONE (11:40)
[2020-01-28] MEDS: SODIUM CHLORIDE 1,000 ML IV SCH (12:57)
--- NOTE | 2020-01-28 13:20 | CONSULT ---
- Consultation REQUESTING PROVIDER: CONSULT REQUEST: We have been asked to surgically evaluate this patient for upper abdominal pain/nausea/emesis. PCP:Yu Ma HISTORY OF PRESENT ILLNESS: The patient is a 69 yo female who presents to the hospital for persistent abd pain to her upper abd with nausea and emesis. The pain began approximately 1 week ago and she wasn't getting any relief with over the counter medications. Today she denies any nausea but her pain persists in the RUQ. Last BM was Saturday and she is passing flatus. No fevers, CP or SOB. History taken from chart and with help of daughter. The patient is reporting some melena upon admission. She had a scope/egd and colonoscopy in the past which revealed gastritis. PMHx: HTN, HLD, DM, asthma, sleep apnea, lupus/sjogrens, stroke 2004, gastritis found on EGD completed several years ago. Colonoscopy at that time negative. PSHx: c section x 3, hysterectomy Home Medications Medication Instructions Recorded Albuterol Sulfate [Proair Hfa] 1 inh IH Q4H PRN 01/26/20 Budesonide/Formeterol Fumarate 2 puff IH DAILY 01/26/20 [SYMBICORT 80/4.5mcg -] Famotidine [Pepcid -] 40 mg PO DAILY 01/26/20 Hydroxychloroquine Sulfate 200 mg PO DAILY 01/26/20 [Plaquenil] Methotrexate [Mexate -] 6 tab PO WEEKLY 01/26/20 Nebivolol HCl [Bystolic] 20 mg PO DAILY 01/26/20 Olmesartan/Amlodipin/Hcthiazid 1 tab PO DAILY 01/26/20 [Abjlwsf-Spivpw-Zbyn 40-5-25 mg] Omeprazole 20 mg PO DAILY 01/26/20 Pioglitazone HCl [Actos] 30 mg PO DAILY 01/26/20 Sitagliptin Phos/Metformin HCl 1 tab PO BID 01/26/20 [Janumet 50-1,000 mg Tablet] Allergies Allergy/AdvReac Type Severity Reaction Status Date / Time No Known Allergies Allergy Verified 01/25/20 23:33 REVIEW OF SYSTEMS: CONSTITUTIONAL: Absent: fever, chills CARDIOVASCULAR: Absent: chest pain, syncope, palpitations RESPIRATORY: Absent: cough, shortness of breath GASTROINTESTINAL: APresent: abdominal pain, nausea, vomiting GENITOURINARY: Present: dysuria Absent:hematuria NEUROLOGIC: Absent: headache, focal weakness, paresthesias PHYSICAL EXAM: GENERAL: Awake, alert, and fully oriented, in no acute distress. EYES: sclera anicteric, conjunctiva clear. LUNGS: Clear to auscultation bilat anteriorly. No wheezes, and no crackles. HEART: Regular rate and rhythm. ABDOMEN: Soft, RUQ tenderness. + [place]. UPPER EXTREMITIES: specialist wound care strength equal b/l LOWER EXTREMITIES: 2+ DP pulses, warm, well-perfused b/l. No calf tenderness. No peripheral edema. No skin break down NEUROLOGICAL: Normal speech, gait not observed. PSYCH: Cooperative. Good eye contact. Appropriate mood and affect. Vital Signs Temperature 100 F H 01/28/20 05:50 Pulse Rate 89 01/28/20 05:50 Respiratory Rate 20 01/28/20 05:50 Blood Pressure 140/71 01/28/20 05:50 O2 Sat by Pulse Oximetry (%) 98 01/28/20 05:50 Lab Results WBC 4.0 K/mm3 (4.0-10.0) 01/28/20 05:30 RBC 3.22 M/mm3 (3.60-5.2) L 01/28/20 05:30 Hgb 9.4 GM/dL (10.7-15.3) L 01/28/20 05:30 Hct 27.7 % (32.4-45.2) L 01/28/20 05:30 MCV 85.8 fl (80-96) 01/28/20 05:30 MCHC 33.9 g/dl (32.0-36.0) 01/28/20 05:30 RDW 15.5 % (11.6-15.6) 01/28/20 05:30 Plt Count 109 K/MM3 (134-434) L 01/28/20 05:30 INR 1.03 (0.83-1.09) 01/27/20 06:29 Sodium 132 mmol/L (136-145) L 01/28/20 05:30 Potassium 3.4 mmol/L (3.5-5.1) L 01/28/20 05:30 Chloride 96 mmol/L (98-107) L 01/28/20 05:30 Carbon Dioxide 24 mmol/L (21-32) 01/28/20 05:30 Anion Gap 11 MMOL/L (8-16) 01/28/20 05:30 BUN 8.1 mg/dL (7-18) 01/28/20 05:30 Creatinine 0.8 mg/dL (0.55-1.3) 01/28/20 05:30 Random Glucose 139 mg/dL (74-106) H 01/28/20 05:30 Calcium 8.4 mg/dL (8.5-10.1) L 01/28/20 05:30 US: 01/25-GB thickening no stones or pericholecytic fluid. repeat US-01/25: sludge and possible GB stones. No CBD dilatation. doppler study: unremarkable Ct scan 01/25 without contrast: no evidence of acute pathology Problem List - Problems (1) Abdominal pain Assessment/Plan: Pt with RUQ pain and evidence of possible stones/sludge on US-no CBD dilatation or elevation in LFTS. HIDA completed today and results are negative. Her GB fills adequately and with good liver uptake. Tracer still seen in GB after 2 hours. No evidence of acute saida/possible chronic cholecystitis. D/w Dr. Caputo and recommend to continue npo and monitor the patients pain. Antiemetics as needed for nausea. GI follow regarding possible EGD to r/o duodenal/gastric disease and possible cause of melena. H&H stable. D/w medical team Problems reviewed: Yes Code(s): R10.9 - UNSPECIFIED ABDOMINAL PAIN Qualifiers: Abdominal location: upper abdomen, unspecified Qualified Code(s): R10.10 - Upper abdominal pain, unspecified
--- NOTE | 2020-01-28 13:50 | PN ---
Physical Exam: SUBJECTIVE: Patient seen and examined bedside. NPO for HIDA scan. Currently in 6/10 abdominal pain. Denies n/v/d. Patient had oral temperature of 100.0 at 5:50 AM. Blood cultures drawn. Saw patient after HIDA scan @11:30 patient was in 10/10 pain. Gave 2mg IV morphine. Denies n/v/d, oral temp 98.5 Got page @2:30 about patient vomiting, she's been NPO - gave zofran 4 mg IV OBJECTIVE: Vital Signs 01/28/20 05:50 Temperature 100 F H Pulse Rate 89 Respiratory 20 Rate Blood Pressure 140/71 O2 Sat by Pulse 98 Oximetry (%) GENERAL: The patient is A&O x3. Currently in a lot of distress. HEAD: Normal with no signs of trauma. EYES: PERRL, extraocular movements intact, sclera anicteric, conjunctiva clear. No ptosis. ENT: moist mucous membranes. NECK: No JVD LUNGS: Breath sounds equal, CTA BL HEART: RRR, S1, S2 ABDOMEN: RUQ is very tender to palpation. EXTREMITIES: warm, well-perfused, no edema. PSYCH: Normal mood, normal affect. SKIN: Warm, dry, no lesions or rashes noted Laboratory Results - last 24 hr 01/27/20 01/27/20 01/27/20 11:51 13:25 13:25 WBC RBC Hgb Hct MCV MCH MCHC RDW Plt Count MPV Sodium Potassium Chloride Carbon Dioxide Anion Gap BUN Creatinine Est GFR (CKD-EPI)AfAm Est GFR (CKD-EPI)NonAf POC Glucometer 191 Random Glucose Lactic Acid 0.8 Calcium Phosphorus Magnesium Total Bilirubin AST ALT Alkaline Phosphatase LD Total 206 Total Protein Albumin Lipase 184 01/27/20 01/27/20 01/28/20 17:02 21:17 05:30 WBC 4.0 RBC 3.22 L Hgb 9.4 L Hct 27.7 L MCV 85.8 MCH 29.1 MCHC 33.9 RDW 15.5 Plt Count 109 L MPV 8.7 Sodium Potassium Chloride Carbon Dioxide Anion Gap BUN Creatinine Est GFR (CKD-EPI)AfAm Est GFR (CKD-EPI)NonAf POC Glucometer 150 149 Random Glucose Lactic Acid Calcium Phosphorus Magnesium Total Bilirubin AST ALT Alkaline Phosphatase LD Total Total Protein Albumin Lipase 01/28/20 01/28/20 01/28/20 05:30 06:08 12:54 WBC RBC Hgb Hct MCV MCH MCHC RDW Plt Count MPV Sodium 132 L Potassium 3.4 L Chloride 96 L Carbon Dioxide 24 Anion Gap 11 BUN 8.1 Creatinine 0.8 Est GFR (CKD-EPI)AfAm 88.42 Est GFR (CKD-EPI)NonAf 76.29 POC Glucometer 132 154 Random Glucose 139 H Lactic Acid Calcium 8.4 L Phosphorus 2.9 Magnesium 1.4 L Total Bilirubin 0.3 AST 56 H ALT 50 Alkaline Phosphatase 62 LD Total Total Protein 7.5 Albumin 2.9 L Lipase Active Medications Generic Name Dose Route Start Last Admin Trade Name Freq PRN Reason Stop Dose Admin Acetaminophen 1,000 mg 01/28/20 07:18 01/28/20 08:24 Ofirmev Injection - IVPB 01/29/20 07:18 1,000 mg Q6H PRN Administration PAIN LEVEL 4 - 6 Albuterol Sulfate 2 puff 01/26/20 06:03 Ventolin Hfa Inhaler - IH Q4H PRN SHORT OF BREATH/WHEEZING Amlodipine Besylate 5 mg 01/27/20 10:00 01/28/20 11:37 Norvasc - PO 5 mg DAILY KYLEIGH Administration Budesonide/Formoterol Fumarate 2 puff 01/27/20 10:00 01/28/20 11:38 Symbicort 80/4.5mcg - IH 2 puff DAILY KYLEIGH Administration Cyanocobalamin 1,000 mcg 01/27/20 14:00 01/28/20 11:36 Vitamin B12 - PO 1,000 mcg DAILY KYLEIGH Administration Docusate Sodium 100 mg 01/28/20 14:00 Colace - PO TID KYLEIGH Heparin Sodium (Porcine) 5,000 unit 01/26/20 06:00 01/28/20 06:12 Heparin - SQ 5,000 unit TID KYLEIGH Administration Hydroxychloroquine Sulfate 200 mg 01/27/20 10:00 01/28/20 11:38 Plaquenil - PO 200 mg DAILY KYLEIGH Administration Ceftriaxone Sodium 1 gm/ 50 mls @ 100 mls/hr 01/26/20 10:00 01/28/20 11:38 Dextrose IVPB 100 mls/hr DAILY KYLEIGH Administration Sodium Chloride 1,000 mls @ 75 mls/hr 01/27/20 08:30 01/28/20 12:57 Normal Saline - IV 01/28/20 21:49 Not Given ASDIR KYLEIGH Metronidazole 500 mg in 100 mls @ 100 mls/hr 01/27/20 18:00 01/28/20 13:00 Flagyl 500mg Premixed Ivpb - IVPB 100 mls/hr Q8H-IV KYLEIGH Administration Insulin Aspart 1 vial 01/26/20 07:00 01/28/20 12:57 Novolog Vial Sliding Scale - SQ Not Given ACHS [facility] Protocol Oxycodone HCl 5 mg 01/27/20 10:48 01/28/20 12:59 Roxicodone - PO 5 mg Q6H PRN Administration PAIN LEVEL 6-10 Pantoprazole Sodium 20 mg 01/27/20 10:00 01/28/20 11:37 Protonix - PO 20 mg DAILY KYLEIGH Administration Polyethylene Glycol 17 gm 01/28/20 11:15 01/28/20 11:38 Miralax (For Daily Use) - PO 17 grams DAILY KYLEIGH Administration Valsartan 320 mg 01/27/20 10:00 01/28/20 11:37 Diovan - PO 320 mg DAILY KYLEIGH Administration HIDA SCAN FINDINGS: There is normal homogeneous perfusion of the liver with no evidence of focal lesion. Extraction of tracer from the blood pool by the liver parenchyma is normal. Tracer appears promptly and within the biliary tree. The gallbladder begins to fill by 15 minutes post injection of tracer and fill adequately. Tracer in the small bowel is first seen at 60 minutes. After 2 hours of imaging, there is significant retention of tracer in the gallbladder. IMPRESSION: Filling of the gallbladder excludes acute cystic duct obstruction. Significant retention of tracer in the gallbladder after 2 hours of imaging is a nonspecific finding but can be seen with chronic cholecystitis, biliary dyskinesia or recently administered drugs resulting in ampullary spasm such as morphine. ASSESSMENT/PLAN: Pt is a 69 yo F with PMH of HTN, DM, RA, sjorgens, & asthma presenting with R flank/RUQ pain x 4 days with associated dysuria & chills. Patient also reports black stools in the last week (denies taking iron), and unintentional weight loss and night sweats. Patient is being admitted for evaluation of UTI and to r/o GI bleed or cancer. Abdominal PAIN: 2/2 gastritis, vs PUD, vs cholelithiasis/cholecystitis - Unclear etiology but pain is severe. Patient febrile w/leukopenia - could be septic - fever this AM, cultures drawn LDH & Lactic acid WNL repeated lipase for pancreatitis WNL - IV tylenol & oxycodone PRN for pain control - GI consulted (Dr. Mosqueda) HIDA scan today: results above EGD tomorrow IV Flagyl: day 2 - Surgical evaluation (Dr. Alba) CT Abdomen tonight, if EGD negative >> cholecystectomy to be performed - consulted Rhuem Dr. Rod Pt does not have lupus - unlikley lupus vasculitis - Continue home omeprazole + famotidine UTI - cultures + ecoli & strept D or enterococcus - continue Rocephin day 4 RA - does not have lupus - continue home medications - continue hydroxychloroquine 200 mg daily Pancytopenia - hx workup for multiple myeloma - Heme/Onc Consulted 2/2 Methotrexate & plaquenil, in setting of multiple autoimmune disorders, sepsis will await work up done as outpatient from Dr. Lambert's office - low normal b12, start PO supplements daily DM - A1c 5.3 - hold home medications - BGM - ISS HTN - Nebivolol 20 mg daily - continue on Amlodipine 5 - continue olmesartan 40 - hold Hctz DVT ppx - Heparin 5000 sq tid FEN - replete prn - low Na, low fat, diabetic diet Visit type - Emergency Visit Emergency Visit: Yes ED Registration Date: 01/26/20 Care time: The patient presented to the Emergency Department on the above date and was hospitalized for further evaluation of their emergent condition. - New Patient This patient is new to me today: No - Critical Care Critical Care patient: No - Discharge Referral Referred to [facility] Yes Physician Referral: Shimon Mosqueda DO (GI) - Medication Review Med list reviewed for High Risk Meds patients 65 and older: Yes ATTENDING PHYSICIAN STATEMENT I saw and evaluated the patient. I reviewed the resident's note and discussed the case with the resident. I agree with the resident's findings and plan as documented. SUBJECTIVE: OBJECTIVE: ASSESSMENT AND PLAN:
[2020-01-28] MEDS ORDERED: ONDANSETRON 4 MG/2 ML VIAL IVPUSH ONE (15:15)
--- NOTE | 2020-01-28 15:42 | PN ---
Teaching Attending Note Name of Resident: Shila Patricio ATTENDING PHYSICIAN STATEMENT I saw and evaluated the patient. I reviewed the resident's note and discussed the case with the resident. I agree with the resident's findings and plan as documented. SUBJECTIVE: daughter nAa used for translation per patietn preference cont to have RUQ ad epigastric pain. cont to have fever . N/V today . No LECHUGA . No SOB . no dysuria OBJECTIVE: NAD, awake, alert, cooperative CV: RRR, no MRG Lungs: CTAB Abd: soft, TTP in RUQ, and to a lesser extent in epigastric area, No guarding or rebound. , NO CVA tenderness Ext: No edema or erythema over upper or lower ext. ASSESSMENT AND PLAN: 69 y/o lady with h/o SJogren's , anemia, Rheumatoid arthritis, HTN , Throidectomy, DM , and HLP who presented with adb pain and melena 1- Abd pain: still unclear etiology. gastitis /PUD Vs gall bladder source . UTI might not be completely responsible fro her presentation . - HIDA with filling of gall bladder but decreased emptying of conttrast ---> chronic cholecystitis Vs opioids use . - spoke to Dr. Patel, plan for CT tonight, if neg EGD tomorrow , and if negative cholecystectomy to be performed - cont CTX and flagyl - blood cx neg to date. - follow urine cx. Group D Strep pending ID and Sens - NPo after MN 2- Questionable melena. - follow repeat OB.No BMs till tll now - plan as above 4- Pncytopenia: Possible B12 def given low normal B 12 - MMA pending , if elevated will start B12 supplementation - No evidence fo iron def . reepat iron studies as out pt - heme eval pending - request to obtain records sent 5- HTN: - ARB, and norvasc. - hold HCTZ in settign of GI sx and poor po intake 6- h/o DM: SSI. hold po meds DVT PX: heparin SQ
[2020-01-28] MEDS: DOCUSATE SODIUM 100 MG CAPSULE (FP) PO SCH ×2 (15:44→21:08)
--- NOTE | 2020-01-28 16:02 | PN.GI ---
GI Progress Note Subjective: HIDA failed to reval cystic duct obstruction. Delayed emptying of the gallbladder rasiing ? of chronic cholecystitis or med effect (has been receiving opiate analegesia. has been having nausea and vomiting (receiving oxycodone), however, worse after given morphine today. Worsened right sided abdominal pain and does describe radiation to the back. Tmax: 100F. - Objective Vital Signs: Vital Signs Temperature 98.9 F 01/28/20 15:13 Pulse Rate 74 01/28/20 15:13 Respiratory Rate 20 01/28/20 15:13 Blood Pressure 151/73 01/28/20 15:13 O2 Sat by Pulse Oximetry (%) 99 01/28/20 15:13 Constitutional: Calm Cardiovascular: Yes: Regular Rate and Rhythm Respiratory: Yes: CTA Bilaterally Gastrointestinal Inspection: No: Distention ...Auscultate: Yes: Normoactive Bowel Sounds ...Palpate: Yes: Soft, Tenderness (TTP RUQ) ...Percussion: No: Tympanitic Edema: No (No LE edema) Neurological: Yes: Alert Labs: CBC, BMP 01/28/20 05:30 01/28/20 05:30 INR, PTT INR 1.03 (0.83-1.09) 01/27/20 06:29 Hepatic Panel Total Bilirubin 0.3 mg/dL (0.2-1) 01/28/20 05:30 AST 56 U/L (15-37) H 01/28/20 05:30 ALT 50 U/L (13-61) 01/28/20 05:30 Alkaline Phosphatase 62 U/L (45-117) 01/28/20 05:30 Albumin 2.9 g/dl (3.4-5.0) L 01/28/20 05:30 Problem List - Problems (1) Abdominal pain Assessment/Plan: RUQ TTP on exam. Discussed case with Anjali. Deferring surgery at this time given HIDA findings. Will reevaluate. D/W Dr. Moura. agrees that cytopenias likely reflecting myelosuppression from rheumatologic disease, medication for her rheumatologic disease with possible underlying infectious/inflammatory process. Plan: Ordered repeat CT scan with and without contrast to assess for any change from previous study given worsening of symptoms NPO excepe meds For possible upper endoscopy tomorrow if CT scan fails to reveal any overt pathology Gallbladder disease still not excluded. Dr. Alba will reevaluate and in agreement with the above plan Plan was discussed with the patient with the aid of nurse translating in greek as well as with her daughter Ana via telephone Code(s): R10.9 - UNSPECIFIED ABDOMINAL PAIN Qualifiers: Abdominal location: upper abdomen, unspecified Qualified Code(s): R10.10 - Upper abdominal pain, unspecified
--- NOTE | 2020-01-28 19:04 | PN ---
Teaching Attending Note Name of Resident: Mindi Dickey ATTENDING PHYSICIAN STATEMENT I saw and evaluated the patient. I reviewed the resident's note and discussed the case with the resident. I agree with the resident's findings and plan as documented. ASSESSMENT AND PLAN: Patient is a 69 year old female with past medical history of SLE, RA, Sjogren syndrome, MGUS, HTN, HLD, DM, and asthma, presented to the ED with abdominal pain and dysuria. Patient reported constant sharp pain in the RUQ/epigastric area for the past 4-5 days. We were consulted for further evaluation of pancytopenia. #Pancytopenia -may be drug-induced (MTX, plaquenil,), in setting of autoimmune disorders (SLE, RA, sjogren's), + worsning due to ongoing infectious process e.coli and enterococcal UTI --on rocephin/flagyl r/o cholecystitis To get CT a/p per GI team Surgery f/u MGUS -- to follow up with primary cemetery keeper on d/c
[2020-01-28] MEDS ORDERED: INSULIN (NOVOLOG) ASPART 100 UNITS/ML 10ML VIAL ONE (20:59)
[2020-01-29] MEDS: ACETAMINOPHEN 1000 MG/100 ML VIAL (NON FORMULARY) IVPB PRN (02:33)
[2020-01-29] MEDS: oxyCODONE HCL 5 MG TABLET PO PRN ×4 (04:42→21:23)
[2020-01-29 06:42] LABS: HEMATOCRIT 31.8 % (32.4-45.2); HEMOGLOBIN 10.8 GM/dL (10.7-15.3); MCH 29.2 pg (25.7-33.7); MEAN CELL VOLUME 85.8 fl (80-96); MEAN PLT VOLUME 8.2 fl (7.5-11.1); PLATELET COUNT 110 K/MM3 (134-434); RBC 3.71 M/mm3 (3.60-5.2); RDW 15.3 % (11.6-15.6); WHITE BLOOD COUNT 6.4 K/mm3 (4.0-10.0)
[2020-01-29] MEDS: DOCUSATE SODIUM 100 MG CAPSULE (FP) PO SCH ×3 (06:42→21:23)
[2020-01-29] MEDS: INSULIN SLIDING SCALE (NOVOLOG) 1 VIAL SQ SCH ×4 (06:45→22:29)
[2020-01-29] MEDS ORDERED: ACETAMINOPHEN 1000 MG/100 ML VIAL (NON FORMULARY) IVPB PRN (07:39)
[2020-01-29 08:17] LABS: BLOOD UREA NITROGEN 11.5 mg/dL (7-18); CALCIUM 8.9 mg/dL (8.5-10.1); CREATININE 0.8 mg/dL (0.55-1.3); MAGNESIUM 1.5 mg/dL (1.8-2.4); PHOSPHOROUS 3.2 mg/dL (2.5-4.9); POTASSIUM 3.4 mmol/L (3.5-5.1)
[2020-01-29] MEDS ORDERED: MAGNESIUM OXIDE 400 MG TABLET (FP) PO ONE (08:20)
[2020-01-29 08:21] LABS: ALBUMIN 3.1 g/dl (3.4-5.0); BILIRUBIN,DIRECT 0.2 mg/dL (0.0-0.2); BILIRUBIN,TOTAL 0.4 mg/dL (0.2-1); TOT PROT 8.2 g/dl (6.4-8.2)
[2020-01-29] MEDS ORDERED: LACTATED RINGERS SOLUTION 1,000 ML/1,000 ML INFUS.BAG IV SCH (08:30)
[2020-01-29] MEDS ORDERED: POTASSIUM CHLORIDE TABS 20 MEQ TABLET.ER (FP) PO ONE (08:45)
--- NOTE | 2020-01-29 08:54 | PN ---
Progress Note (short form) - Note Progress Note: Surgery Patient seen and examined on AM rounds. She is still having a lot of abdominal pain which is crampy in nature. She denies any new or worsening symptoms. Vital Signs Temp 98.4 F 01/29/20 06:00 Pulse 81 01/29/20 06:00 Resp 20 01/29/20 06:00 BP 139/70 01/29/20 06:00 Pulse Ox 99 01/29/20 06:00 Intake & Output 01/28/20 01/28/20 01/29/20 11:59 23:59 11:59 Intake Total 1155 570 Balance 1155 570 Weight 129 lb Intake: IV 825 300 Normal Saline - 1,000 ml 825 300 @ 75 mls/hr IV ASDIR KYLEIGH Rx#:[id number] IVPB 150 150 Oral 180 120 Other: Voiding Method Bedside Commode Bedside Commode Bedside Commode # Unmeasured Voids Void 3 3 2 Bowel Movement No No No Height 5 ft Body Mass Index (BMI) 25.2 CBC, BMP 01/29/20 06:08 01/29/20 06:08 PE: A&Ox3, mild distress 2/2 pain Unlabored resp on RA ABD: Soft, ND with focal RUQ pain on palpation, no guarding B/L LE compartments soft, supple and non-tender with + Pulses Problem List - Problems (1) Abdominal pain Assessment/Plan: Pt with RUQ pain and evidence of possible stones/sludge on US-no CBD dilatation or elevation in LFTS. HIDA completed today and results are negative. Her GB fills adequately and with good liver uptake. Tracer still seen in GB after 2 hours. No evidence of acute saida/possible chronic cholecystitis. D/w Dr. Caputo and recommend to continue npo and monitor the patients pain. Antiemetics as needed for nausea. GI follow regarding possible EGD to r/o duodenal/gastric disease and possible cause of melena. H&H stable. Code(s): R10.9 - UNSPECIFIED ABDOMINAL PAIN Qualifiers: Abdominal location: upper abdomen, unspecified Qualified Code(s): R10.10 - Upper abdominal pain, unspecified
[2020-01-29] MEDS ORDERED: cefTRIAXone SODIUM 1 GM VIAL ONE (08:58)
[2020-01-29] MEDS ORDERED: DEXTROSE 5%-WATER - 50 ML IVPB ONE (08:59)
[2020-01-29] MEDS: PANTOPRAZOLE 20 MG TABLET PO SCH (09:05)
[2020-01-29] MEDS: CEFTRIAXONE 1 GM in DEXTROSE 5%-WATER - 50 ML IVPB SCH (09:05)
[2020-01-29] MEDS: POLYETHYLENE GLYCOL 3350 119 GM BTL PO SCH ×3 (09:06→22:31)
[2020-01-29] MEDS: HYDROXYCHLOROQUINE SO4 200 MG TABLET (FP) PO SCH (09:06)
[2020-01-29] MEDS: VALSARTAN 160 MG TABLET (UD) PO SCH (09:06)
[2020-01-29] MEDS: BUDESONIDE/FORMETEROL FUMARATE 80/4.5 mcg INHALER IH SCH (09:06)
[2020-01-29] MEDS: CYANOCOBALAMIN 1,000 MCG TABLET (FP) PO SCH (09:06)
[2020-01-29] MEDS: amLODIPine BESYLATE 5 MG TABLET (FP) PO SCH (09:06)
--- NOTE | 2020-01-29 11:03 | PN.GI ---
GI Progress Note Subjective: Could not have CT scan. Still with retained barium in colon Pain "a little better" but persists - Objective Vital Signs: Vital Signs Temperature 98.4 F 01/29/20 06:00 Pulse Rate 81 01/29/20 06:00 Respiratory Rate 20 01/29/20 06:00 Blood Pressure 139/70 01/29/20 06:00 O2 Sat by Pulse Oximetry (%) 99 01/29/20 06:00 Constitutional: Calm Eyes: No: Sclera Icterus Cardiovascular: Yes: Regular Rate and Rhythm Respiratory: Yes: CTA Bilaterally Gastrointestinal Inspection: No: Ascites ...Auscultate: Yes: Normoactive Bowel Sounds ...Palpate: Yes: Soft, Tenderness (TTP RUQ and epigastrium) ...Percussion: No: Tympanitic Edema: No (No LE edema) Neurological: Yes: Alert Labs: CBC, BMP 01/29/20 06:08 01/29/20 06:08 INR, PTT INR 1.03 (0.83-1.09) 01/27/20 06:29 Problem List - Problems (1) Abdominal pain Assessment/Plan: Persistent pain: ? Gallbladder pathology Plan for EGD to exclude upper GI pathology Increase MiraLAX to 17g BID post procedure Correct electrolyte abnomralities Check TSH (ordered for AM) Code(s): R10.9 - UNSPECIFIED ABDOMINAL PAIN Qualifiers: Abdominal location: upper abdomen, unspecified Qualified Code(s): R10.10 - Upper abdominal pain, unspecified
--- NOTE | 2020-01-29 11:46 | PN ---
Progress Note (short form) - Note Progress Note: EGD complete. Report placed in procedural section of physical chart and will be scanned into [employer] Problem List - Problems (1) Abdominal pain Code(s): R10.9 - UNSPECIFIED ABDOMINAL PAIN Qualifiers: Abdominal location: upper abdomen, unspecified Qualified Code(s): R10.10 - Upper abdominal pain, unspecified
--- NOTE | 2020-01-29 14:41 | PN ---
Progress Note (short form) - Note Progress Note: Pt seen and examined. Returned from egd this AM. Reports she is still having pain. Has been npo, has been oob without issue. Voiding without issue, no bm, minimal flatus. Vital Signs Temp 98.7 F 01/29/20 13:52 Pulse 92 H 01/29/20 13:52 Resp 20 01/29/20 13:52 BP 152/96 01/29/20 13:52 Pulse Ox 96 01/29/20 13:52 Intake & Output 01/28/20 01/29/20 01/29/20 23:59 11:59 23:59 Intake Total 570 100 Balance 570 100 Weight 129 lb Intake: IV 300 100 Normal Saline - 1,000 ml 300 @ 75 mls/hr IV ASDIR KYLEIGH Rx#:[id number] IVPB 150 Oral 120 Other: Voiding Method Bedside Commode Bedside Commode # Unmeasured Voids Void 3 2 Bowel Movement No No Height 5 ft Body Mass Index (BMI) 25.2 CBC, BMP 01/29/20 06:08 01/29/20 06:08 Gen: awake, alert, nad Resp: unlabored on RA Abdo: soft +ttp in epigastric and ruq, + hypoactive bowel sounds, no rebound or guarding A/P: 69 y/o F w/ PMHx HTN, HLD, DM, rhematoid arthritis, lupus, and asthma a/w R flank/RUQ pain x 4 days, s/p HIDA scan (no cystic duct obstruction, delayed emptying of the gallbladder ?chronic cholecystitis vs med effect), also with melena now s/p egd this morning. -f/u egd results -planned for lap saida pending above d/w attending Dr Caputo
--- NOTE | 2020-01-29 15:57 | PN ---
Teaching Attending Note Name of Resident: Shila Patricio ATTENDING PHYSICIAN STATEMENT I saw and evaluated the patient. I reviewed the resident's note and discussed the case with the resident. I agree with the resident's findings and plan as documented. SUBJECTIVE: no fever or chills cont with pain in abd OBJECTIVE: NAD, awake, alert, cooperative CV: RRR, no MRG Lungs: CTAB Abd: soft, TTP in RUQ, and epigastric area, No guarding or rebound. Ext: No edema or erythema over upper or lower ext. ASSESSMENT AND PLAN: 69 y/o lady with h/o SJogren's , anemia, Rheumatoid arthritis, HTN , Throidectomy, DM , and HLP who presented with adb pain and melena 1- Abd pain: - EGD today - surgical eval after EGD - bowel regimen - cont Abx 2- UTI : final cx is in., E coli and E . faecalis. E Faecalis is sensitive to PCN. will change Abx to Ertapenem to cover all Gi and UTI organisms 4- Pncytopenia: appreciate Heme input - MMA pending , - out side records pending 5- HTN: - ARB, and norvasc. 6- h/o DM: SSI. hold po meds DVT PX: heparin SQ
--- NOTE | 2020-01-29 18:58 | PN ---
Physical Exam: SUBJECTIVE: Patient seen and examined bedside. In a lot of pain. Patient NPO for EGD today. CT was not able to be done last night due to patient having barium in her intestine still. No fevers overnight. Patient denies n/v/d. OBJECTIVE: Vital Signs 01/29/20 01/29/20 01/29/20 06:00 09:00 10:00 Temperature 98.4 F 98.2 F Pulse Rate 81 80 Respiratory 20 20 20 Rate Blood Pressure 139/70 136/74 O2 Sat by Pulse 99 97 98 Oximetry (%) 01/29/20 01/29/20 13:00 13:52 Temperature 98.7 F 98.7 F Pulse Rate 80 92 H Respiratory 20 20 Rate Blood Pressure 139/78 152/96 O2 Sat by Pulse 97 96 Oximetry (%) GENERAL: The patient is A&O x3. In distress HEAD: Normal with no signs of trauma. EYES: PERRL, extraocular movements intact ENT: moist mucous membranes. LUNGS: Breath sounds equal, CTA BL HEART: RRR, S1, S2 ABDOMEN: RUQ is very tender to palpation, but improved since yesterday EXTREMITIES: warm, well-perfused, no edema. PSYCH: Normal mood, normal affect. SKIN: Warm, dry, no lesions or rashes noted Laboratory Results - last 24 hr 01/28/20 01/29/20 01/29/20 21:07 06:08 06:08 WBC 6.4 RBC 3.71 Hgb 10.8 Hct 31.8 L MCV 85.8 MCH 29.2 MCHC 34.0 RDW 15.3 Plt Count 110 L MPV 8.2 Sodium 127 L Potassium 3.4 L Chloride 89 L Carbon Dioxide 24 Anion Gap 14 BUN 11.5 Creatinine 0.8 Est GFR (CKD-EPI)AfAm 88.42 Est GFR (CKD-EPI)NonAf 76.29 POC Glucometer 157 Random Glucose 186 H Calcium 8.9 Phosphorus 3.2 Magnesium 1.5 L Total Bilirubin Direct Bilirubin AST ALT Alkaline Phosphatase Total Protein Albumin 01/29/20 01/29/20 01/29/20 06:08 06:41 10:59 WBC RBC Hgb Hct MCV MCH MCHC RDW Plt Count MPV Sodium Potassium Chloride Carbon Dioxide Anion Gap BUN Creatinine Est GFR (CKD-EPI)AfAm Est GFR (CKD-EPI)NonAf POC Glucometer 168 205 Random Glucose Calcium Phosphorus Magnesium Total Bilirubin 0.4 Direct Bilirubin 0.2 AST 108 H ALT 89 H Alkaline Phosphatase 93 Total Protein 8.2 Albumin 3.1 L 01/29/20 17:13 WBC RBC Hgb Hct MCV MCH MCHC RDW Plt Count MPV Sodium Potassium Chloride Carbon Dioxide Anion Gap BUN Creatinine Est GFR (CKD-EPI)AfAm Est GFR (CKD-EPI)NonAf POC Glucometer 196 Random Glucose Calcium Phosphorus Magnesium Total Bilirubin Direct Bilirubin AST ALT Alkaline Phosphatase Total Protein Albumin Active Medications Generic Name Dose Route Start Last Admin Trade Name Freq PRN Reason Stop Dose Admin Albuterol Sulfate 2 puff 01/26/20 06:03 Ventolin Hfa Inhaler - IH Q4H PRN SHORT OF BREATH/WHEEZING Amlodipine Besylate 5 mg 01/27/20 10:00 01/29/20 09:06 Norvasc - PO 5 mg DAILY KYLEIGH Administration Budesonide/Formoterol Fumarate 2 puff 01/27/20 10:00 01/29/20 09:06 Symbicort 80/4.5mcg - IH 2 puff DAILY KYLEIGH Administration Cyanocobalamin 1,000 mcg 01/27/20 14:00 01/29/20 09:06 Vitamin B12 - PO 1,000 mcg DAILY KYLEIGH Administration Docusate Sodium 100 mg 01/28/20 14:00 01/29/20 13:05 Colace - PO 100 mg TID KYLEIGH Administration Heparin Sodium (Porcine) 5,000 unit 01/26/20 06:00 01/28/20 21:08 Heparin - SQ 5,000 unit TID KYLEIGH Administration Hydroxychloroquine Sulfate 200 mg 01/27/20 10:00 01/29/20 09:06 Plaquenil - PO 200 mg DAILY KYLEIGH Administration Lactated Ringer's 1,000 ml in 1,000 mls @ 83 mls/hr 01/29/20 08:30 01/29/20 09:04 Lactated Ringers Solution IV 01/29/20 20:33 83 mls/hr ASDIR KYLEIGH Administration Ertapenem 1 gm/ Sodium 50 mls @ 100 mls/hr 01/30/20 10:00 Chloride IVPB DAILY KYLEIGH Insulin Aspart 1 vial 01/26/20 07:00 01/29/20 17:17 Novolog Vial Sliding Scale - SQ Not Given ACHS [facility] Protocol Oxycodone HCl 5 mg 01/29/20 16:51 01/29/20 17:03 Roxicodone - PO 5 mg Q4H PRN Administration PAIN LEVEL 6-10 Pantoprazole Sodium 40 mg 01/30/20 10:00 Protonix - PO DAILY KYLEIGH Polyethylene Glycol 17 gm 01/29/20 14:00 01/29/20 13:05 Miralax (For Daily Use) - PO 02/01/20 13:59 17 gm TID KYLEIGH Administration Valsartan 320 mg 01/27/20 10:00 01/29/20 09:06 Diovan - PO 320 mg DAILY KYLEIGH Administration ASSESSMENT/PLAN: Pt is a 69 yo F with PMH of HTN, DM, RA, sjorgens, & asthma presenting with R flank/RUQ pain x 4 days with associated dysuria & chills. Patient also reports black stools in the last week (denies taking iron), and unintentional weight loss and night sweats. Patient is being admitted for evaluation of UTI and to r/o GI bleed or cancer. Abdominal PAIN: 2/2 gastritis, vs PUD, vs cholelithiasis/cholecystitis - recent cultures still pending - Oxycodone PRN for pain control - GI consulted (Dr. 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 Erosion in the distal body of the stomach biopsies taken EGD findings do not explain RUQ clinical findings Repeat CT, Avoid NSAIDS and Tylenol Increase MiraLAX to 17g TID post procedure IV Flagyl: day 3 - Surgical evaluation (Dr. Alba) deferred plans for lap saida UTI - cultures + ecoli & strept D or enterococcus - continue Rocephin day 5 RA - hydroxychloroquine 200 mg daily Pancytopenia - Heme/Onc Consulted 2/2 Methotrexate & plaquenil, in setting of multiple autoimmune disorders, sepsis will await work up done as outpatient from Dr. Lambert's office MGUS -- to follow up with primary geotechnical intern on d/c - PO b12 supplements daily DM - A1c 5.3 - hold home medications - BGM - ISS HTN - Nebivolol 20 mg daily - continue on Amlodipine 5 - continue olmesartan 40 - hold Hctz DVT ppx - Heparin 5000 sq tid FEN - replete prn - low Na, low fat, diabetic diet Visit type - Emergency Visit Emergency Visit: Yes ED Registration Date: 01/26/20 Care time: The patient presented to the Emergency Department on the above date and was hospitalized for further evaluation of their emergent condition. - New Patient This patient is new to me today: No - Critical Care Critical Care patient: No - Medication Review Med list reviewed for High Risk Meds patients 65 and older: Yes ATTENDING PHYSICIAN STATEMENT I saw and evaluated the patient. I reviewed the resident's note and discussed the case with the resident. I agree with the resident's findings and plan as documented. SUBJECTIVE: OBJECTIVE: ASSESSMENT AND PLAN:
[2020-01-29] MEDS: HEPARIN NA (PORCINE) 5,000 UNITS/ML 1ML VIAL SQ SCH (21:24)
[2020-01-30] MEDS: oxyCODONE HCL 5 MG TABLET PO PRN ×2 (01:44→05:24)
[2020-01-30] MEDS: DOCUSATE SODIUM 100 MG CAPSULE (FP) PO SCH ×3 (05:24→21:21)
[2020-01-30] MEDS: HEPARIN NA (PORCINE) 5,000 UNITS/ML 1ML VIAL SQ SCH (05:25)
[2020-01-30] MEDS: POLYETHYLENE GLYCOL 3350 119 GM BTL PO SCH ×3 (05:25→21:21)
[2020-01-30] MEDS: INSULIN SLIDING SCALE (NOVOLOG) 1 VIAL SQ SCH ×4 (06:42→21:37)
[2020-01-30] MEDS ORDERED: SODIUM CHLORIDE 50 ML IVPB ONE (08:21)
[2020-01-30] MEDS ORDERED: ERTAPENEM SODIUM 1 GM VIAL ONE (08:21)
[2020-01-30] MEDS ORDERED: PT OWN MED DRAWER 7, Y5N ONE ×2 (08:22→16:06)
[2020-01-30 08:37] LABS: INR 1.11 (0.83-1.09); PROTHROMBIN TIME (PATIENT) 13.1 SEC (9.7-13.0)
[2020-01-30 08:40] LABS: ACTIVATED PTT 54.9 SECONDS (25.2-36.5)
[2020-01-30] MEDS ORDERED: ACETAMINOPHEN 1000 MG/100 ML VIAL (NON FORMULARY) IVPB ONE (09:31)
[2020-01-30] MEDS: amLODIPine BESYLATE 5 MG TABLET (FP) PO SCH (09:44)
[2020-01-30] MEDS: PANTOPRAZOLE 40 MG TABLET PO SCH (09:45)
[2020-01-30] MEDS: VALSARTAN 160 MG TABLET (UD) PO SCH (09:46)
[2020-01-30] MEDS: CYANOCOBALAMIN 1,000 MCG TABLET (FP) PO SCH (09:46)
[2020-01-30] MEDS: BUDESONIDE/FORMETEROL FUMARATE 80/4.5 mcg INHALER IH SCH (09:46)
[2020-01-30] MEDS ORDERED: ERTAPENEM SODIUM 1 GM in SODIUM CHLORIDE 50 ML IVPB SCH (10:00)
--- NOTE | 2020-01-30 10:13 | PN.GI ---
GI Progress Note Subjective: Noted fevers overnight Had liquid BM today Pain improved somewhat EGD yesterday: hemorrhagic gastritis, suspected GAVE, normal duodenum AXR and CXR without acute pathology. No free air noted - Objective Vital Signs: Vital Signs Temperature 100.2 F H 01/30/20 09:00 Pulse Rate 123 H 01/30/20 09:00 Respiratory Rate 20 01/30/20 09:00 Blood Pressure 112/62 01/30/20 09:00 O2 Sat by Pulse Oximetry (%) 97 01/30/20 09:00 Constitutional: Calm Eyes: No: Sclera Icterus Cardiovascular: Yes: Tachycardia Respiratory: Yes: CTA Bilaterally Gastrointestinal Inspection: No: Distention ...Auscultate: Yes: Normoactive Bowel Sounds ...Palpate: Yes: Soft, Tenderness (TTP RUQ) ...Percussion: No: Tympanitic Edema: No (No LE edema) Neurological: Yes: Alert Labs: CBC, BMP 01/29/20 06:08 01/29/20 06:08 INR, PTT INR 1.11 (0.83-1.09) H 01/30/20 07:26 Problem List - Problems (1) Abdominal pain Assessment/Plan: Persistent RUQ pain Still with retained barium throughout colon. It has now migrated throughout the length ogf the colon. Persistent fevers, worsened overnight. ? if related to autoimmune disorder, alternate pathology. AXR/CXR without free air ID consult has been placed. Discussed EGD findings with Dr. Alba earlier. Do not think findings explain the persistent RUQ pain. Biopsies were taken to exclude atypical infections / h. pylori / eosinophilic gastritis. He would be reevaluateing her today Continue MiraLAX 17g BID Repeat CT scan A/P when able Await labs from today Code(s): R10.9 - UNSPECIFIED ABDOMINAL PAIN Qualifiers: Abdominal location: upper abdomen, unspecified Qualified Code(s): R10.10 - Upper abdominal pain, unspecified
[2020-01-30 10:25] LABS: BASO % 0.7 % (0-2.0); HEMATOCRIT 30.4 % (32.4-45.2); HEMOGLOBIN 10.3 GM/dL (10.7-15.3); LYMPH % 9.2 % (8-40); MCH 29.3 pg (25.7-33.7); MCHC 33.7 g/dl (32.0-36.0); MEAN CELL VOLUME 86.9 fl (80-96); MEAN PLT VOLUME 10.2 fl (7.5-11.1); MONO % 12.7 % (3.8-10.2); NEUT % 76.4 % (42.8-82.8); PLATELET COUNT 85 K/MM3 (134-434); RDW 15.5 % (11.6-15.6); WHITE BLOOD COUNT 5.3 K/mm3 (4.0-10.0)
[2020-01-30 11:14] LABS: ALBUMIN 2.6 g/dl (3.4-5.0); BILIRUBIN,DIRECT 0.2 mg/dL (0.0-0.2); BILIRUBIN,TOTAL 0.4 mg/dL (0.2-1); BLOOD UREA NITROGEN 28.4 mg/dL (7-18); CREATININE 1.2 mg/dL (0.55-1.3); MAGNESIUM 2.1 mg/dL (1.8-2.4); PHOSPHOROUS 2.9 mg/dL (2.5-4.9); POTASSIUM 3.9 mmol/L (3.5-5.1); TOT PROT 7.3 g/dl (6.4-8.2)
[2020-01-30 11:18] LABS: ANISOCYTOSIS 1+; MACROCYTOSIS 0; OVALOCYTE 1+; PLATELET ESTIMATE DECREASED; TEAR DROP CELLS 1+
[2020-01-30] MEDS: HYDROXYCHLOROQUINE SO4 200 MG TABLET (FP) PO SCH (11:30)
--- NOTE | 2020-01-30 12:33 | PN ---
Teaching Attending Note Name of Resident: Goldy King ATTENDING PHYSICIAN STATEMENT I saw and evaluated the patient. I reviewed the resident's note and discussed the case with the resident. I agree with the resident's findings and plan as documented. SUBJECTIVE: cont to have fever. RUQ and epigastric pain is better . No N/V . had 2 BMs whic h were black. on exam rash was noted, and when she was questioned, she admits to noticing it yesterday afternoon. and + itching . OBJECTIVE: NAD, awake, alert, cooperative CV: RRR, no MRG Lungs: CTAB Abd: soft, TTP in RUQ, and epigastric area, improved tenderness compared to before . No guarding or rebound. Ext: No edema or erythema over upper or lower ext. Skin: Rash on back, chest /Abd, thighs, legs, and L foot . lesions are erythematous, raised, with necrotic center, and one vesicle observed. No lesions on upper extremities, hands, or R sole. no lesions on mucus membranes. lesions are blancing in some areas and not in others ASSESSMENT AND PLAN: 69 y/o lady with h/o SJogren's , anemia, Rheumatoid arthritis, HTN , Throidectomy, DM , and HLP who presented with adb pain and melena 1- Abd pain: still investigating the etiology. - EGD noted. - With this new rash and continued fever , I wonder if autoimmune etiology is behind her sx. - repeat ESR and CRP. ask Dr. Rod to evaluate again. - cont PPI - CT can't be done due to contrast , Will get MRCP - elevation in LFTS might be due to ceftriaxone, or ? sepsis, or less likely biliary tree pathology. - d/w Dr. granado, change ertapenem to Meropenem. - check tick born illnesses serology - follow repeat blood cx 2- Rash: new since yesterday afternoon. ? autoimmune , ? varicella, ? drug reaction. No suspicion for Cardenas Franklin's at this time - case was d/w Dr. Granado. check tick born illness serology, start acyclovir , adn doxy - add IVF - consult derm 3- Thromobocytopenia: ? sepsis , ? drugs, autoimmune. r/o HIT ( less likely ) - DC heparin , check HIT Abs - monitor count 4- UTI: meropenem 4- Pncytopenia: WBc is normal now---> ? leukocytosis equivalent - MMA pending due to low normal B12 - out side records pending 5- HTN: - ARB, and norvasc. 6- h/o DM: SSI. hold po meds DVT PX: dc heparin , add SCds isolation precautions
--- NOTE | 2020-01-30 12:36 | PN ---
Progress Note (short form) - Note Progress Note: ID consult dictated and d/w hospitalist fever rash thrombocytopenia abnl lfts RUQ pain for 10 days Sjogren/RA-on MTX, plaquenil/Rituxan (last rituxan 08/2019) MGUS no travel no pets no sick contacts ?biliary disease-needs surgical f/u ?viral disease-like zoster/varicella- lesions with small vesicular component ?ttick illness works on garden denies deer and tick exposure ? meropenem, doxycycline acyclovir IVF isolation rheum/derm eval surgical f/u f/u blood cultures tick serology varicella serology daily labs ldh, haptoglobin, retic, blood smear for parasites -babesia d/w hospitalist d/w daughter via phone chart reviewed over 45 minutes spent in the care of this complicated patient
[2020-01-30] MEDS ORDERED: MEROPENEM 1 GM VIAL (RESTRICTED TO ID) IVPB ONE ×2 (13:33→21:57)
[2020-01-30] MEDS ORDERED: DEXTROSE 5%-WATER 100 ML IVPB ONE ×2 (13:34→21:57)
[2020-01-30] MEDS: SODIUM CHLORIDE 1,000 ML IV SCH (14:28)
[2020-01-30] MEDS: MEROPENEM 1 GM in DEXTROSE 5%-WATER 100 ML IVPB SCH (14:29)
[2020-01-30] MEDS: DOXYCYCLINE HYCLATE 100 MG CAPSULE PO SCH ×2 (14:29→18:08)
[2020-01-30] MEDS: ACYCLOVIR IVPB SCH (16:19)
[2020-01-30] MEDS: DEXTROSE 5% IVPB SCH (16:19)
[2020-01-30] MEDS: WATER IVPB SCH (16:19)
--- NOTE | 2020-01-30 19:10 | PN ---
Physical Exam: SUBJECTIVE: Patient seen and examined at the bedside,improvement in pain, complaining of rash OBJECTIVE: Vital Signs Period Temp Pulse Resp BP Sys/Alarcon Pulse Ox Last 24 Hr 98 F-103.1 F 102-147 18- 102-140/62-88 93-98 GENERAL: AOx3 HEAD: Normal with no signs of trauma. EYES: PERRL, extraocular movements intact, sclera anicteric, conjunctiva clear. No ptosis. LUNGS: Breath sounds equal, clear to auscultation bilaterally, no wheezes HEART: Regular rate and rhythm, S1, S2 without murmur, rub or gallop. ABDOMEN: Soft, epigastric and RUQ tenderness to palpation EXTREMITIES: 2+ pulses, warm, well-perfused, no edema. NEUROLOGICAL: Cranial nerves II through XII grossly intact. Normal speech, gait not observed. PSYCH: Normal mood, normal affect. SKIN: Erythematous, mildly vesicular rash on lower back, L leg, foot Laboratory Results - last 24 hr 01/29/20 01/30/20 01/30/20 21:36 05:42 07:26 WBC RBC Hgb Hct MCV MCH MCHC RDW Plt Count MPV Absolute Neuts (auto) Neutrophils % Neutrophils % (Manual) Band Neutrophils % Lymphocytes % Lymphocytes % (Manual) Monocytes % Monocytes % (Manual) Eosinophils % Eosinophils % (Manual) Basophils % Basophils % (Manual) Myelocytes % (Man) Promyelocytes % (Man) Blast Cells % (Manual) Nucleated RBC % Metamyelocytes Hypochromia Platelet Estimate Polychromasia Poikilocytosis Anisocytosis Microcytosis Macrocytosis Spherocytes Tear Drop Cells Ovalocytes Retic Count PT with INR 13.10 H INR 1.11 H PTT (Actin FS) 54.9 H Sodium Potassium Chloride Carbon Dioxide Anion Gap BUN Creatinine Est GFR (CKD-EPI)AfAm Est GFR (CKD-EPI)NonAf POC Glucometer 182 151 Random Glucose Lactic Acid Calcium Phosphorus Magnesium Total Bilirubin Direct Bilirubin Indirect Bilirubin AST ALT Alkaline Phosphatase LD Total Creatine Kinase Total Protein Albumin TSH 01/30/20 01/30/20 01/30/20 09:30 09:30 09:30 WBC 5.3 RBC 3.50 L Hgb 10.3 L Hct 30.4 L MCV 86.9 MCH 29.3 MCHC 33.7 RDW 15.5 Plt Count 85 L D MPV 10.2 D Absolute Neuts (auto) 4.0 Neutrophils % 76.4 Neutrophils % (Manual) 67.7 Band Neutrophils % 18.2 Lymphocytes % 9.2 Lymphocytes % (Manual) 4.0 L D Monocytes % 12.7 H Monocytes % (Manual) 7 Eosinophils % 1.0 D Eosinophils % (Manual) 0.0 D Basophils % 0.7 Basophils % (Manual) 0.0 Myelocytes % (Man) 0 Promyelocytes % (Man) 0 Blast Cells % (Manual) 0 Nucleated RBC % 0 Metamyelocytes 0 Hypochromia 0 Platelet Estimate Decreased Polychromasia 0 Poikilocytosis 1+ Anisocytosis 1+ Microcytosis 1+ Macrocytosis 0 Spherocytes 1+ Tear Drop Cells 1+ Ovalocytes 1+ Retic Count PT with INR INR PTT (Actin FS) Sodium 128 L Potassium 3.9 Chloride 91 L Carbon Dioxide 24 Anion Gap 12 BUN 28.4 H Creatinine 1.2 Est GFR (CKD-EPI)AfAm 54.16 Est GFR (CKD-EPI)NonAf 46.73 POC Glucometer Random Glucose 166 H Lactic Acid 1.0 Calcium 9.0 Phosphorus 2.9 Magnesium 2.1 Total Bilirubin 0.4 Direct Bilirubin 0.2 Indirect Bilirubin 0.2 AST 253 H ALT 185 H Alkaline Phosphatase 165 H LD Total 505 H Creatine Kinase Total Protein 7.3 Albumin 2.6 L TSH 0.49 01/30/20 01/30/20 01/30/20 11:33 13:30 14:46 WBC RBC Hgb Hct MCV MCH MCHC RDW Plt Count MPV Absolute Neuts (auto) Neutrophils % Neutrophils % (Manual) Band Neutrophils % Lymphocytes % Lymphocytes % (Manual) Monocytes % Monocytes % (Manual) Eosinophils % Eosinophils % (Manual) Basophils % Basophils % (Manual) Myelocytes % (Man) Promyelocytes % (Man) Blast Cells % (Manual) Nucleated RBC % Metamyelocytes Hypochromia Platelet Estimate Polychromasia Poikilocytosis Anisocytosis Microcytosis Macrocytosis Spherocytes Tear Drop Cells Ovalocytes Retic Count 0.82 PT with INR INR PTT (Actin FS) Sodium Potassium Chloride Carbon Dioxide Anion Gap BUN Creatinine Est GFR (CKD-EPI)AfAm Est GFR (CKD-EPI)NonAf POC Glucometer 148 Random Glucose Lactic Acid Calcium Phosphorus Magnesium Total Bilirubin Direct Bilirubin Indirect Bilirubin AST ALT Alkaline Phosphatase LD Total Creatine Kinase 110 Total Protein Albumin TSH 01/30/20 16:26 WBC RBC Hgb Hct MCV MCH MCHC RDW Plt Count MPV Absolute Neuts (auto) Neutrophils % Neutrophils % (Manual) Band Neutrophils % Lymphocytes % Lymphocytes % (Manual) Monocytes % Monocytes % (Manual) Eosinophils % Eosinophils % (Manual) Basophils % Basophils % (Manual) Myelocytes % (Man) Promyelocytes % (Man) Blast Cells % (Manual) Nucleated RBC % Metamyelocytes Hypochromia Platelet Estimate Polychromasia Poikilocytosis Anisocytosis Microcytosis Macrocytosis Spherocytes Tear Drop Cells Ovalocytes Retic Count PT with INR INR PTT (Actin FS) Sodium Potassium Chloride Carbon Dioxide Anion Gap BUN Creatinine Est GFR (CKD-EPI)AfAm Est GFR (CKD-EPI)NonAf POC Glucometer 147 Random Glucose Lactic Acid Calcium Phosphorus Magnesium Total Bilirubin Direct Bilirubin Indirect Bilirubin AST ALT Alkaline Phosphatase LD Total Creatine Kinase Total Protein Albumin TSH Active Medications Generic Name Dose Route Start Last Admin Trade Name Freq PRN Reason Stop Dose Admin Albuterol Sulfate 2 puff 01/26/20 06:03 Ventolin Hfa Inhaler - IH Q4H PRN SHORT OF BREATH/WHEEZING Amlodipine Besylate 5 mg 01/27/20 10:00 01/30/20 09:44 Norvasc - PO 5 mg DAILY KYLEIGH Administration Budesonide/Formoterol Fumarate 2 puff 01/27/20 10:00 01/30/20 09:46 Symbicort 80/4.5mcg - IH 2 puff DAILY KYLEIGH Administration Cyanocobalamin 1,000 mcg 01/27/20 14:00 01/30/20 09:46 Vitamin B12 - PO 1,000 mcg DAILY KYLEIGH Administration Docusate Sodium 100 mg 01/28/20 14:00 01/30/20 14:29 Colace - PO 100 mg TID KYLEIGH Administration Doxycycline Hyclate 100 mg 01/30/20 12:56 01/30/20 18:08 Vibramycin - PO 100 mg BID@1000,1800 KYLEIGH Administration Hydroxychloroquine Sulfate 200 mg 01/27/20 10:00 01/30/20 11:30 Plaquenil - PO 200 mg DAILY KYLEIGH Administration Acyclovir 580 mg/ Dextrose 111.6 mls @ 111.6 mls/hr 01/30/20 13:00 01/30/20 16:19 IVPB 111.6 mls/hr Q12H KYLEIGH Administration Sodium Chloride 1,000 mls @ 100 mls/hr 01/30/20 13:00 01/30/20 14:28 Normal Saline - IV 100 mls/hr ASDIR KYLEIGH Administration Meropenem 1 gm/ Dextrose 100 mls @ 200 mls/hr 01/30/20 13:00 01/30/20 14:29 IVPB 200 mls/hr Q12H KYLEIGH Administration Insulin Aspart 1 vial 01/26/20 07:00 01/30/20 16:36 Novolog Vial Sliding Scale - SQ Not Given ACHS KYLEIGH Protocol Oxycodone HCl 5 mg 01/29/20 16:51 01/30/20 05:24 Roxicodone - PO 5 mg Q4H PRN Administration PAIN LEVEL 6-10 Pantoprazole Sodium 40 mg 01/30/20 10:00 01/30/20 09:45 Protonix - PO 40 mg DAILY KYLEIGH Administration Polyethylene Glycol 17 gm 01/29/20 14:00 01/30/20 14:30 Miralax (For Daily Use) - PO 02/01/20 13:59 17 gm TID KYLEIGH Administration Valsartan 320 mg 01/27/20 10:00 01/30/20 09:46 Diovan - PO 320 mg DAILY KYLEIGH Administration ASSESSMENT/PLAN: 69F with PMH of HTN, DM, RA, sjorgens, & asthma presenting with R flank/RUQ pain x 4 days with associated dysuria & chills, admitted for evaluation of UTI, GI bleed, possible cholecystits. #Abdominal PAIN: 2/2 gastritis, vs PUD, vs cholelithiasis/cholecystitis - Etiology still unclear, EGD done yesterday does not explain findings - Oxycodone PRN for pain control - GI consulted (Dr. Mosqueda): retained barium throughout colon, ID consulted, Sx consulted, MRCP ordered - Surgical evaluation (Dr. Alba): Possible cholecystits in the following week - LFTs elevated today possibly 2/2 ceftriaxone use, switched to Meropenem #Rash - ID: Possible Varicella Zoster - Started on Acyclovir - Derm consult Dr. Mari, call placed to office, told she does not accept calls/messages over the weekend but will see patient in house on Saturday #UTI - Started on Meropenem RA - hydroxychloroquine 200 mg daily - EKG today showed Qtc 416 #Pancytopenia - Heme/Onc on board, 2/2 Methotrexate & plaquenil, in setting of multiple autoimmune disorders, sepsis - Outpatient workup from Dr. 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 I reviewed the resident's note and discussed the case with the resident. I agree with the resident's findings and plan as documented. SUBJECTIVE: OBJECTIVE: ASSESSMENT AND PLAN:
[2020-01-30] MEDS ORDERED: INSULIN (NOVOLOG) ASPART 100 UNITS/ML 10ML VIAL ONE (19:47)
[2020-01-31] MEDS: MEROPENEM 1 GM in DEXTROSE 5%-WATER 100 ML IVPB SCH ×2 (00:26→13:24)
[2020-01-31] MEDS: ACYCLOVIR IVPB SCH ×2 (00:27→13:25)
[2020-01-31] MEDS: DEXTROSE 5% IVPB SCH ×2 (00:27→13:25)
[2020-01-31] MEDS: WATER IVPB SCH ×2 (00:27→13:25)
[2020-01-31] MEDS: POLYETHYLENE GLYCOL 3350 119 GM BTL PO SCH ×2 (06:01→13:21)
[2020-01-31] MEDS: DOCUSATE SODIUM 100 MG CAPSULE (FP) PO SCH ×2 (06:02→13:21)
[2020-01-31] MEDS: INSULIN SLIDING SCALE (NOVOLOG) 1 VIAL SQ SCH ×4 (06:31→22:13)
[2020-01-31 07:07] LABS: IGA IMMUNOGLOBULIN 31 mg/dL (87-352); IGG QN IMMUNOGLOBULIN 2706 mg/dL (586-1602); IGM QN SERUM 28 mg/dL (26-217)
[2020-01-31 07:30] LABS: BASO % 0.8 % (0-2.0); EOS % 1.5 % (0-4.5); HEMATOCRIT 27.5 % (32.4-45.2); HEMOGLOBIN 9.2 GM/dL (10.7-15.3); MCH 28.7 pg (25.7-33.7); MCHC 33.3 g/dl (32.0-36.0); MEAN CELL VOLUME 86.2 fl (80-96); MEAN PLT VOLUME 9.7 fl (7.5-11.1); MONO % 13.1 % (3.8-10.2); NEUT % 68.6 % (42.8-82.8); PLATELET COUNT 79 K/MM3 (134-434); RBC 3.19 M/mm3 (3.60-5.2); RDW 15.5 % (11.6-15.6); WHITE BLOOD COUNT 3.5 K/mm3 (4.0-10.0)
[2020-01-31 07:59] LABS: ALBUMIN 2.3 g/dl (3.4-5.0); BILIRUBIN,TOTAL 0.3 mg/dL (0.2-1); BLOOD UREA NITROGEN 33.4 mg/dL (7-18); CALCIUM 8.8 mg/dL (8.5-10.1); CREATININE 1.3 mg/dL (0.55-1.3); MAGNESIUM 2.2 mg/dL (1.8-2.4); PHOSPHOROUS 2.4 mg/dL (2.5-4.9); POTASSIUM 3.6 mmol/L (3.5-5.1)
[2020-01-31 08:04] LABS: TOT PROT 6.6 g/dl (6.4-8.2)
--- NOTE | 2020-01-31 08:31 | PN ---
Progress Note, Physician Chief Complaint: reports feeling better, describes pain mostly on the epigastric area - Current Medication List Current Medications: Active Medications Albuterol Sulfate (Ventolin Hfa Inhaler -) 2 puff IH Q4H PRN PRN Reason: SHORT OF BREATH/WHEEZING Amlodipine Besylate (Norvasc -) 5 mg PO DAILY COUNT INCLUDES THE [facility] Last Admin: 01/30/20 09:44 Dose: 5 mg Documented by: Budesonide/Formoterol Fumarate (Symbicort 80/4.5mcg -) 2 puff IH DAILY COUNT INCLUDES THE [facility] Last Admin: 01/30/20 09:46 Dose: 2 puff Documented by: Cyanocobalamin (Vitamin B12 -) 1,000 mcg PO DAILY COUNT INCLUDES THE [facility] Last Admin: 01/30/20 09:46 Dose: 1,000 mcg Documented by: Docusate Sodium (Colace -) 100 mg PO TID COUNT INCLUDES THE [facility] Last Admin: 01/31/20 06:02 Dose: 100 mg Documented by: Doxycycline Hyclate (Vibramycin -) 100 mg PO BID@1000,1800 COUNT INCLUDES THE [facility] Last Admin: 01/30/20 18:08 Dose: 100 mg Documented by: Hydroxychloroquine Sulfate (Plaquenil -) 200 mg PO DAILY COUNT INCLUDES THE [facility] Last Admin: 01/30/20 11:30 Dose: 200 mg Documented by: Acyclovir 580 mg/ Dextrose 111.6 mls @ 111.6 mls/hr IVPB Q12H COUNT INCLUDES THE [facility] Last Admin: 01/31/20 00:27 Dose: 111.6 mls/hr Documented by: Sodium Chloride (Normal Saline -) 1,000 mls @ 100 mls/hr IV ASDIR COUNT INCLUDES THE [facility] Last Admin: 01/30/20 14:28 Dose: 100 mls/hr Documented by: Meropenem 1 gm/ Dextrose 100 mls @ 200 mls/hr IVPB Q12H COUNT INCLUDES THE [facility] Last Admin: 01/31/20 00:26 Dose: 200 mls/hr Documented by: Insulin Aspart (Novolog Vial Sliding Scale -) 1 vial SQ ACHS COUNT INCLUDES THE [facility]; Protocol Last Admin: 01/31/20 06:31 Dose: Not Given Documented by: Oxycodone HCl (Roxicodone -) 5 mg PO Q4H PRN PRN Reason: PAIN LEVEL 6-10 Last Admin: 01/30/20 05:24 Dose: 5 mg Documented by: Pantoprazole Sodium (Protonix -) 40 mg PO DAILY COUNT INCLUDES THE [facility] Last Admin: 01/30/20 09:45 Dose: 40 mg Documented by: Polyethylene Glycol (Miralax (For Daily Use) -) 17 gm PO TID COUNT INCLUDES THE [facility] Stop: 02/01/20 13:59 Last Admin: 01/31/20 06:01 Dose: 17 gm Documented by: Valsartan (Diovan -) 320 mg PO DAILY COUNT INCLUDES THE [facility] Last Admin: 01/30/20 09:46 Dose: 320 mg Documented by: - Objective Vital Signs: Vital Signs Temperature 99.1 F 01/31/20 06:00 Pulse Rate 116 H 01/31/20 06:00 Respiratory Rate 18 01/31/20 06:00 Blood Pressure 125/73 01/31/20 06:00 O2 Sat by Pulse Oximetry (%) 96 01/31/20 06:00 Labs: CBC, BMP 01/31/20 06:15 01/31/20 06:15 INR, PTT INR 1.11 (0.83-1.09) H 01/30/20 07:26 Problem List - Problems (1) Abdominal pain Code(s): R10.9 - UNSPECIFIED ABDOMINAL PAIN Qualifiers: Abdominal location: upper abdomen, unspecified Qualified Code(s): R10.10 - Upper abdominal pain, unspecified Assessment/Plan 69 yr old female with complex medical history admitted with abdominal pain with chronic cholecystitis and severe gastritis. Sudden increase on LFTs and Fever Agree with MRI may use motrin for temp. will consider cholecystectomy pending results of MRCP
[2020-01-31] MEDS ORDERED: PT OWN MED DRAWER 7, Y5N ONE ×2 (08:35→13:02)
[2020-01-31] MEDS: CYANOCOBALAMIN 1,000 MCG TABLET (FP) PO SCH (09:03)
[2020-01-31] MEDS: HYDROXYCHLOROQUINE SO4 200 MG TABLET (FP) PO SCH (09:04)
[2020-01-31] MEDS: BUDESONIDE/FORMETEROL FUMARATE 80/4.5 mcg INHALER IH SCH (09:04)
[2020-01-31] MEDS: DOXYCYCLINE HYCLATE 100 MG CAPSULE PO SCH ×2 (09:04→17:46)
[2020-01-31] MEDS: amLODIPine BESYLATE 5 MG TABLET (FP) PO SCH (09:04)
[2020-01-31] MEDS: VALSARTAN 160 MG TABLET (UD) PO SCH (09:04)
[2020-01-31] MEDS: PANTOPRAZOLE 40 MG TABLET PO SCH (09:04)
--- NOTE | 2020-01-31 09:10 | PN ---
Progress Note (short form) - Note Progress Note: Subjective: denies abd pain. black stool. No N/V. cont to have fever . sore throat today Objective: Vital Signs: Last Vital Signs Temp Pulse Resp BP Pulse Ox 99.1 F 116 H 18 125/73 96 01/31/20 06:00 01/31/20 06:00 01/31/20 06:00 01/31/20 06:00 01/31/20 06:00 Laboratory Results - last 24 hr 01/30/20 01/30/20 01/30/20 09:30 09:30 09:30 WBC 5.3 RBC 3.50 L Hgb 10.3 L Hct 30.4 L MCV 86.9 MCH 29.3 MCHC 33.7 RDW 15.5 Plt Count 85 L D MPV 10.2 D Absolute Neuts (auto) 4.0 Neutrophils % 76.4 Neutrophils % (Manual) 67.7 Band Neutrophils % 18.2 Lymphocytes % 9.2 Lymphocytes % (Manual) 4.0 L D Monocytes % 12.7 H Monocytes % (Manual) 7 Eosinophils % 1.0 D Eosinophils % (Manual) 0.0 D Basophils % 0.7 Basophils % (Manual) 0.0 Myelocytes % (Man) 0 Promyelocytes % (Man) 0 Blast Cells % (Manual) 0 Nucleated RBC % 0 Metamyelocytes 0 Hypochromia 0 Platelet Estimate Decreased Polychromasia 0 Poikilocytosis 1+ Anisocytosis 1+ Microcytosis 1+ Macrocytosis 0 Spherocytes 1+ Tear Drop Cells 1+ Ovalocytes 1+ Retic Count Haptoglobin Sodium 128 L Potassium 3.9 Chloride 91 L Carbon Dioxide 24 Anion Gap 12 BUN 28.4 H Creatinine 1.2 Est GFR (CKD-EPI)AfAm 54.16 Est GFR (CKD-EPI)NonAf 46.73 POC Glucometer Random Glucose 166 H Lactic Acid Calcium 9.0 Phosphorus 2.9 Magnesium 2.1 Total Bilirubin 0.4 Direct Bilirubin 0.2 Indirect Bilirubin 0.2 AST 253 H ALT 185 H Alkaline Phosphatase 165 H LD Total 505 H Creatine Kinase C-Reactive Protein Total Protein 7.3 Albumin 2.6 L TSH 0.49 IgG 2706 H IgA 31 L IgM 28 01/30/20 01/30/20 01/30/20 09:30 11:33 13:30 WBC RBC Hgb Hct MCV MCH MCHC RDW Plt Count MPV Absolute Neuts (auto) Neutrophils % Neutrophils % (Manual) Band Neutrophils % Lymphocytes % Lymphocytes % (Manual) Monocytes % Monocytes % (Manual) Eosinophils % Eosinophils % (Manual) Basophils % Basophils % (Manual) Myelocytes % (Man) Promyelocytes % (Man) Blast Cells % (Manual) Nucleated RBC % Metamyelocytes Hypochromia Platelet Estimate Polychromasia Poikilocytosis Anisocytosis Microcytosis Macrocytosis Spherocytes Tear Drop Cells Ovalocytes Retic Count 0.82 Haptoglobin Sodium Potassium Chloride Carbon Dioxide Anion Gap BUN Creatinine Est GFR (CKD-EPI)AfAm Est GFR (CKD-EPI)NonAf POC Glucometer 148 Random Glucose Lactic Acid 1.0 Calcium Phosphorus Magnesium Total Bilirubin Direct Bilirubin Indirect Bilirubin AST ALT Alkaline Phosphatase LD Total Creatine Kinase C-Reactive Protein Total Protein Albumin TSH IgG IgA IgM 01/30/20 01/30/20 01/30/20 13:30 14:46 16:26 WBC RBC Hgb Hct MCV MCH MCHC RDW Plt Count MPV Absolute Neuts (auto) Neutrophils % Neutrophils % (Manual) Band Neutrophils % Lymphocytes % Lymphocytes % (Manual) Monocytes % Monocytes % (Manual) Eosinophils % Eosinophils % (Manual) Basophils % Basophils % (Manual) Myelocytes % (Man) Promyelocytes % (Man) Blast Cells % (Manual) Nucleated RBC % Metamyelocytes Hypochromia Platelet Estimate Polychromasia Poikilocytosis Anisocytosis Microcytosis Macrocytosis Spherocytes Tear Drop Cells Ovalocytes Retic Count Haptoglobin 257 Sodium Potassium Chloride Carbon Dioxide Anion Gap BUN Creatinine Est GFR (CKD-EPI)AfAm Est GFR (CKD-EPI)NonAf POC Glucometer 147 Random Glucose Lactic Acid Calcium Phosphorus Magnesium Total Bilirubin Direct Bilirubin Indirect Bilirubin AST ALT Alkaline Phosphatase LD Total Creatine Kinase 110 C-Reactive Protein Total Protein Albumin TSH IgG IgA IgM 01/30/20 01/31/20 01/31/20 21:27 06:10 06:15 WBC 3.5 L RBC 3.19 L Hgb 9.2 L Hct 27.5 L MCV 86.2 MCH 28.7 MCHC 33.3 RDW 15.5 Plt Count 79 L MPV 9.7 Absolute Neuts (auto) 2.4 Neutrophils % 68.6 Neutrophils % (Manual) Band Neutrophils % Lymphocytes % 16.0 D Lymphocytes % (Manual) Monocytes % 13.1 H Monocytes % (Manual) Eosinophils % 1.5 Eosinophils % (Manual) Basophils % 0.8 Basophils % (Manual) Myelocytes % (Man) Promyelocytes % (Man) Blast Cells % (Manual) Nucleated RBC % 0 Metamyelocytes Hypochromia Platelet Estimate Polychromasia Poikilocytosis Anisocytosis Microcytosis Macrocytosis Spherocytes Tear Drop Cells Ovalocytes Retic Count Haptoglobin Sodium Potassium Chloride Carbon Dioxide Anion Gap BUN Creatinine Est GFR (CKD-EPI)AfAm Est GFR (CKD-EPI)NonAf POC Glucometer 172 137 Random Glucose Lactic Acid Calcium Phosphorus Magnesium Total Bilirubin Direct Bilirubin Indirect Bilirubin AST ALT Alkaline Phosphatase LD Total Creatine Kinase C-Reactive Protein Total Protein Albumin TSH IgG IgA IgM 01/31/20 06:15 WBC RBC Hgb Hct MCV MCH MCHC RDW Plt Count MPV Absolute Neuts (auto) Neutrophils % Neutrophils % (Manual) Band Neutrophils % Lymphocytes % Lymphocytes % (Manual) Monocytes % Monocytes % (Manual) Eosinophils % Eosinophils % (Manual) Basophils % Basophils % (Manual) Myelocytes % (Man) Promyelocytes % (Man) Blast Cells % (Manual) Nucleated RBC % Metamyelocytes Hypochromia Platelet Estimate Polychromasia Poikilocytosis Anisocytosis Microcytosis Macrocytosis Spherocytes Tear Drop Cells Ovalocytes Retic Count Haptoglobin Sodium 129 L Potassium 3.6 Chloride 93 L Carbon Dioxide 27 Anion Gap 9 BUN 33.4 H Creatinine 1.3 Est GFR (CKD-EPI)AfAm 49.16 Est GFR (CKD-EPI)NonAf 42.42 POC Glucometer Random Glucose 135 H Lactic Acid Calcium 8.8 Phosphorus 2.4 L Magnesium 2.2 Total Bilirubin 0.3 Direct Bilirubin Indirect Bilirubin AST 369 H ALT 247 H Alkaline Phosphatase 164 H LD Total Creatine Kinase C-Reactive Protein 9.3 H Total Protein 6.6 Albumin 2.3 L TSH IgG IgA IgM Physical Exam: NAD, awake, alert, cooperative. no lymphadenopathy in neck, but erythematous throat, with no exudate. No ulcers on MM CV: Regular rhythm, tachy. no MRG. Lungs: CTAB. Abd: soft, TTP in RUQ, and epigastric area. No guarding or rebound. Ext: No edema or erythema over upper or lower ext. Skin: Rash has resolved on thighs. other lesions have developed small vesicles, no new lesions. sstill stable lesions on L sloe. ASSESSMENT AND PLAN: 69 y/o lady with h/o SJogren's , anemia, Rheumatoid arthritis, HTN , Throidectomy, DM , and HLP who presented with adb pain and melena 1- Abd pain/fever : still investigating the etiology. - MRCP pending. Iliana was approved by RAdiologist - cont PPI - surgical input noted today - LFTS noted, due to chicken Pox or sepsis . - check legionella AG - cont meropenem . - d/w GI. check EBV, and CMV - follow blood cx 2- Rash:? chicken pox. ? less likely vasculitis , ? drug reaction , ? CMV - follow all serology - check CMV and EBV - cont IVF - cont Acyclovir - cont doxy . - derm consult pending 3- Thromobocytopenia: ? sepsis , ? drugs, autoimmune. r/o HIT - HIT Abs pending - monitor count 4- UTI: meropenem 5- Possible sepsis : investigating source. - follow repeat blood c x - cont barbie, acyclovir, and doxy - repeat COVID 6- Pncytopenia - MMA pending due to low normal B12 - out side records pending 7- HTN: - ARB, and norvasc. 8- H/o DM: SSI. hold po meds DVT PX: SCds isolation precautions Visit type - Emergency Visit Emergency Visit: Yes ED Registration Date: 01/26/20 Care time: The patient presented to the Emergency Department on the above date and was hospitalized for further evaluation of their emergent condition. - New Patient This patient is new to me today: No - Critical Care Critical Care patient: No - Medication Review Med list reviewed for High Risk Meds patients 65 and older: Yes
[2020-01-31 12:04] LABS: ANISOCYTOSIS 1+; MACROCYTOSIS 1+; OVALOCYTE 1+; PLATELET ESTIMATE DECREASED
--- NOTE | 2020-01-31 12:28 | PN ---
Progress Note (short form) - Note Progress Note: just returned from MRI no new complaints Vital Signs Period Temp Pulse Resp BP Sys/Alarcon Pulse Ox Last 24 Hr 98 F-100.9 F 102-138 18-20 102-125/55-73 92-98 cor-rrr lungs clear abd soft,nondistended,midepigastric and RUQ pain to palpation ext no edema rash- small vesicular lesions on back, few on abdomen and arms CBC, BMP 01/31/20 06:15 01/31/20 06:15 Laboratory Tests 01/31/20 06:15 AST 369 H ALT 247 H Alkaline Phosphatase 164 H a/p fever rash thrombocytopenia abnl lfts RUQ pain for 10 days Sjogren/RA-on MTX, plaquenil/Rituxan (last rituxan 08/2019) MGUS ?biliary disease- ?viral disease-like zoster/varicella- lesions with small vesicular component ?tick illness 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
[2020-01-31] MEDS ORDERED: MEROPENEM 1 GM VIAL (RESTRICTED TO ID) IVPB ONE ×2 (13:01→22:58)
[2020-01-31] MEDS ORDERED: DEXTROSE 5%-WATER 100 ML IVPB ONE ×2 (13:01→22:58)
[2020-01-31] MEDS: SODIUM CHLORIDE 1,000 ML IV SCH (13:25)
--- NOTE | 2020-01-31 13:39 | PN.GI ---
GI Progress Note Subjective: No acute events Rash being evaluated. ? viral process Abdominal pain improved Had MRI/MRCP performed Loose BM's: No melena or rectal bleeding - Objective Vital Signs: Vital Signs Temperature 99 F 01/31/20 13:31 Pulse Rate 104 H 01/31/20 13:31 Respiratory Rate 18 01/31/20 13:31 Blood Pressure 111/55 L 01/31/20 13:31 O2 Sat by Pulse Oximetry (%) 92 L 01/31/20 13:31 Constitutional: Calm Eyes: Yes: Cataracts. No: Sclera Icterus Cardiovascular: Yes: Tachycardia Respiratory: Yes: CTA Bilaterally Gastrointestinal Inspection: No: Distention ...Auscultate: Yes: Normoactive Bowel Sounds ...Palpate: Yes: Soft, Tenderness (Much improved TTP RUQ / epigastrium). No: Hepatomegaly, Splenomegaly ...Percussion: No: Tympanitic Edema: No (No LE edema) Neurological: Yes: Alert Labs: CBC, BMP 01/31/20 06:15 01/31/20 06:15 INR, PTT INR 1.11 (0.83-1.09) H 01/30/20 07:26 Hepatic Panel Total Bilirubin 0.3 mg/dL (0.2-1) 01/31/20 06:15 Direct Bilirubin 0.2 mg/dL (0.0-0.2) 01/30/20 09:30 AST 369 U/L (15-37) H 01/31/20 06:15 ALT 247 U/L (13-61) H 01/31/20 06:15 Alkaline Phosphatase 164 U/L (45-117) H 01/31/20 06:15 Albumin 2.3 g/dl (3.4-5.0) L 01/31/20 06:15 Problem List - Problems (1) Abdominal pain Assessment/Plan: Improved Rising LFTs: ? reactive secondary to systemic illness / viral process Await MRI/MRCP result On full liquids Hepatitis serologies pending EBV PCR ordered Avoid hepatotoxic agents as feasible. Monitor LFTs Await EGD pathology No need to ad colace to MiraLAX BID. Stopped colace. Changed MiraLAX to once daily as needed Code(s): R10.9 - UNSPECIFIED ABDOMINAL PAIN Qualifiers: Abdominal location: upper abdomen, unspecified Qualified Code(s): R10.10 - Upper abdominal pain, unspecified
[2020-02-01] MEDS: ACYCLOVIR IVPB SCH ×2 (00:43→12:54)
[2020-02-01] MEDS: MEROPENEM 1 GM in DEXTROSE 5%-WATER 100 ML IVPB SCH ×2 (00:43→12:53)
[2020-02-01] MEDS: WATER IVPB SCH ×2 (00:43→12:54)
[2020-02-01] MEDS: DEXTROSE 5% IVPB SCH ×2 (00:43→12:54)
[2020-02-01] MEDS: INSULIN SLIDING SCALE (NOVOLOG) 1 VIAL SQ SCH ×4 (06:47→22:40)
[2020-02-01 08:48] LABS: BASO % 0.6 % (0-2.0); EOS % 3.9 % (0-4.5); LYMPH % 21.1 % (8-40); MCH 28.7 pg (25.7-33.7); MCHC 33.2 g/dl (32.0-36.0); MEAN CELL VOLUME 86.6 fl (80-96); MEAN PLT VOLUME 9.8 fl (7.5-11.1); MONO % 12.6 % (3.8-10.2); NEUT % 61.8 % (42.8-82.8); PLATELET COUNT 87 K/MM3 (134-434); RBC 2.78 M/mm3 (3.60-5.2); RDW 15.8 % (11.6-15.6); WHITE BLOOD COUNT 3.1 K/mm3 (4.0-10.0)
[2020-02-01 09:21] LABS: ALBUMIN 2.1 g/dl (3.4-5.0); BILIRUBIN,TOTAL 0.8 mg/dL (0.2-1); BLOOD UREA NITROGEN 22.5 mg/dL (7-18); CALCIUM 8.3 mg/dL (8.5-10.1); MAGNESIUM 1.8 mg/dL (1.8-2.4); PHOSPHOROUS 2.6 mg/dL (2.5-4.9); POTASSIUM 3.2 mmol/L (3.5-5.1); TOT PROT 6.2 g/dl (6.4-8.2)
[2020-02-01] MEDS: PANTOPRAZOLE 40 MG TABLET PO SCH (09:48)
[2020-02-01] MEDS: amLODIPine BESYLATE 5 MG TABLET (FP) PO SCH (09:48)
[2020-02-01] MEDS: DOXYCYCLINE HYCLATE 100 MG CAPSULE PO SCH ×2 (09:48→17:03)
[2020-02-01] MEDS: CYANOCOBALAMIN 1,000 MCG TABLET (FP) PO SCH (09:49)
[2020-02-01] MEDS: HYDROXYCHLOROQUINE SO4 200 MG TABLET (FP) PO SCH (09:49)
[2020-02-01] MEDS: VALSARTAN 160 MG TABLET (UD) PO SCH (09:51)
[2020-02-01] MEDS: BUDESONIDE/FORMETEROL FUMARATE 80/4.5 mcg INHALER IH SCH (09:51)
--- NOTE | 2020-02-01 11:10 | CONS ---
DATE OF CONSULTATION: DATE OF DICTATION: 01/30/2020 INFECTIOUS DISEASE CONSULTATION HISTORY OF PRESENT ILLNESS: This is a 69-year-old woman who was originally admitted on January 25 with complaint of right flank/right upper quadrant pain for 4 days at home. She had a CAT scan that was unremarkable. She was felt to have a possible UTI, was treated with ceftriaxone. She had a HIDA scan that showed no acute cholecystitis, questioned whether she had chronic cholecystitis. She was evaluated by Surgery and GI. 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 She has a past medical history significant for autoimmune illness. She is felt to have Sjogren and rheumatoid arthritis. She is on immunosuppressants including Plaquenil, methotrexate and every 6 months Rituxan, last given in August of this year. She has a history of anemia and thrombocytopenia and leukopenia apparently in the past. Has a diagnosis of MGUS and is followed by a district administrative assistant and customer success specialist apparently in the city. It is unclear if she has had pancytopenia before. Apparently, in November her white cells were 4000, hemoglobin 9.7 with platelets of 203. She was seen by Hematology/Oncology here as well because she was noted to have leukopenia with anemia and thrombocytopenia. I am asked to see her because she has now had fever as high as 103.1 over the last 24 hours. Her antibiotics were switched to ertapenem. As well, she has been noted to have a rash (she describes it as itchy) that started yesterday with scattered lesions, 1 on her nose, on her abdomen, her back and her arms. She denies any cough. She reports her abdominal pain has improved, and she feels hot when she has fever. She denies any chills or rigors. ALLERGIES: She has no known drug allergies. PAST MEDICAL HISTORY: Is notable for rheumatoid arthritis and Sjogren. She has diabetes and asthma. She has had 3 c-sections in the past and a fibroidectomy. SOCIAL HISTORY: She is originally from . She has been in this country for 40 years. Last trip was in June to , and she returned in June. She lives with her daughter, her daughter's and 2 children. There are no sick contacts at home, and they have been living in [place] for 2 years. They live in a house. They have no pets. She works in the garden. They deny any tick or mosquito exposure. They deny any deer on the property. MEDICATIONS: Include Bystolic, omeprazole and Janumet. FAMILY HISTORY: There is no history of autoimmune illness, and father and mother of MIs. REVIEW OF SYSTEMS: She reports improvement in abdominal pain. She notes this itchy rash. She is not short of breath. She denies any diarrhea or vomiting. PHYSICAL EXAMINATION: General: She is a comfortable-appearing woman. Vital Signs: Her T-Max is 103.1, current temperature is 100.2, pulse of 123, blood pressure is 112/62, respiratory rate of 20, she is saturating 97%. HEENT: She is normocephalic. Her eyes are anicteric. She has a small lesion on her right nostril on the outside. She has no lesions in her mouth. She has no pharyngitis. Neck: Supple. Lungs: Clear to auscultation. Heart: Regular rate and rhythm. Abdomen: Soft. There is no distention. She still has right upper quadrant midepigastric discomfort to deep palpation. She has no CVA tenderness. Extremities: Without edema. Skin: She has a scattered rash noted on the side of her nose. It is not on her palms or soles. It is evident on her back and abdomen. She has scattered erythematous lesions that have a slightly necrotic center that is vesicular in nature. LABORATORY DATA: White count is 5.3, hemoglobin 10.3, platelets are 85. BUN is 28 and creatinine is 1.2. AST at 253, ALT at 185, alkaline phosphatase of 165. Her COVID serology is negative. Blood cultures have been repeated and are pending. She has had multiple imaging studies including a renal sonogram that is normal. She has had an ultrasound of her liver and gallbladder that showed mild thickening of the gallbladder without any stones or pericholecystic fluid; a HIDA scan that excluded acute cystic duct dysfunction, but she did have some retention of tracer in the gallbladder. She had a CAT scan of her abdomen and pelvis that was normal. She had an upper GI series that showed delayed transit of oral contrast. ASSESSMENT: In summary, this is a 69-year-old woman with fever, rash, thrombocytopenia, abnormal liver function tests, right upper quadrant pain for 10 days, Sjogren syndrome, rheumatoid arthritis, on methotrexate, Plaquenil, Rituxan, history of monoclonal gammopathy of undetermined significance, no travel, no pets, no sick contacts. Question whether she has a viral disease like Varicella zoster lesions with some mild vesicular component. Could this be a tick illness? She works in the garden. Could this be biliary disease? RECOMMENDATIONS: Blood cultures have been drawn. Will treat her with meropenem, doxycycline and acyclovir. IV fluids. Isolation. Rheumatology and Dermatology evaluations. Surgical followup. Follow up her cultures, tick serology, varicella serology, daily labs. The above was discussed with the hospitalist. The history was obtained with the help of the daughter via phone who also knew many of the details of her past history. The chart was reviewed at length. Over 45 minutes was spent in the care of this patient. SANJUANA SANTORO M.D. [id number] MTDD
--- NOTE | 2020-02-01 11:42 | PN ---
Progress Note (short form) - Note Progress Note: SURGERY 69yo F h/o chronic cholecystitis, pt seen and examined at bedside. Pt complaining of RUQ pain. Pt currently tolerating full liquids. Pt had MRCP yesterday that showed multiple possible issues including chronic cholecystitis, pancreatitis, phylonephritis. Last Vital Signs Temp Pulse Resp BP Pulse Ox 99.1 F 97 H 17 105/59 L 100 02/01/20 10:00 02/01/20 10:00 02/01/20 10:00 02/01/20 10:00 02/01/20 10:00 CBC, BMP 02/01/20 08:19 02/01/20 08:19 PE: Gen: A&O x3 Resp: breathing comfortably Abd; soft, nondistended, mild RUQ/epigastric tenderness Problem List - Problems (1) Abdominal pain Assessment/Plan: Plan -pt has complex medical issues, but current pain does not appear to be gallbladder related only at this time. -Pt would most likely benefit from cholecystectomy, but needs clearance from her multiple medical issues -recommend GI and medical management -will follow Pt discussed with Dr. Alba who agrees with plan Code(s): R10.9 - UNSPECIFIED ABDOMINAL PAIN Qualifiers: Abdominal location: upper abdomen, unspecified Qualified Code(s): R10.10 - Upper abdominal pain, unspecified
[2020-02-01] MEDS ORDERED: FUROSEMIDE 40 MG/4 ML INJECTABLE VIAL IVPUSH ONE (11:47)
[2020-02-01] MEDS ORDERED: MEROPENEM 1 GM VIAL (RESTRICTED TO ID) IVPB ONE (12:15)
[2020-02-01] MEDS ORDERED: DEXTROSE 5%-WATER 100 ML IVPB ONE ×2 (12:16→16:53)
--- NOTE | 2020-02-01 13:24 | PN ---
Physical Exam: SUBJECTIVE: Patient seen and examined at bedside. Overnight patient was reported having dizziness at times and multiple loose bowel movements. Today the patient continues to complain of RUQ pain. OBJECTIVE: Vital Signs Period Temp Pulse Resp BP Sys/Alarcon Pulse Ox Last 24 Hr 99 F-99.4 F 97-110 17-18 105-131/55-74 92-100 GENERAL: AAOx3, in no acute distress HEENT: NCAT, PERRLA, EOMI, sclera anicteric, conjunctiva clear, oropharynx clear w/o exudates. MMM. NECK: Normal ROM, supple, no lymphadenopathy, JVD, or masses LUNGS: CTABL no wheezes/ rhonchi/ rales. No distress, speaks in full sentences. No increased work of breathing. HEART: RRR, normal S1 S2, no M/R/G, peripheral pulses 2+ and equal b/l ABDOMEN: Soft, NTND, epigastric and RUQ tenderness to palpation MSK: ROM WNL EXTREMITIES: Normal inspection. No peripheral edema. No clubbing or cyanosis. NEUROLOGICAL: CN II-XII intact. Normal speech, normal gait, no focal sensorimotor deficits. SKIN: Erythematous, mildly vesicular rash on low back, right arm, l leg Laboratory Results - last 24 hr 01/30/20 01/31/20 01/31/20 14:46 12:01 16:34 WBC RBC Hgb Hct MCV MCH MCHC RDW Plt Count MPV Absolute Neuts (auto) Total Counted Neutrophils % Neutrophils % (Manual) Lymphocytes % Lymphocytes % (Manual) Monocytes % Monocytes % (Manual) Eosinophils % Basophils % Basophils % (Manual) Nucleated RBC % Platelet Estimate Spherocytes Tear Drop Cells Acanthocytes (Spur) Sodium Potassium Chloride Carbon Dioxide Anion Gap BUN Creatinine Est GFR (CKD-EPI)AfAm Est GFR (CKD-EPI)NonAf POC Glucometer 173 Random Glucose Calcium Phosphorus Magnesium Total Bilirubin AST ALT Alkaline Phosphatase Total Protein Albumin COVID-19 (INGRIS) Not detected Hep C Ab Diagnostic <0.1 01/31/20 02/01/20 02/01/20 21:57 05:25 08:19 WBC 3.1 L RBC 2.78 L Hgb 8.0 L Hct 24.0 L MCV 86.6 MCH 28.7 MCHC 33.2 RDW 15.8 H Plt Count 87 L MPV 9.8 Absolute Neuts (auto) 1.9 Total Counted 100 Neutrophils % 61.8 Neutrophils % (Manual) 14.0 L Lymphocytes % 21.1 D Lymphocytes % (Manual) 59.0 H D Monocytes % 12.6 H Monocytes % (Manual) 11 H D Eosinophils % 3.9 D Basophils % 0.6 Basophils % (Manual) 2.0 Nucleated RBC % 0 Platelet Estimate Decreased Spherocytes 1+ Tear Drop Cells 1+ Acanthocytes (Spur) 1+ Sodium Potassium Chloride Carbon Dioxide Anion Gap BUN Creatinine Est GFR (CKD-EPI)AfAm Est GFR (CKD-EPI)NonAf POC Glucometer 153 145 Random Glucose Calcium Phosphorus Magnesium Total Bilirubin AST ALT Alkaline Phosphatase Total Protein Albumin COVID-19 (INGRIS) Hep C Ab Diagnostic 02/01/20 02/01/20 08:19 11:53 WBC RBC Hgb Hct MCV MCH MCHC RDW Plt Count MPV Absolute Neuts (auto) Total Counted Neutrophils % Neutrophils % (Manual) Lymphocytes % Lymphocytes % (Manual) Monocytes % Monocytes % (Manual) Eosinophils % Basophils % Basophils % (Manual) Nucleated RBC % Platelet Estimate Spherocytes Tear Drop Cells Acanthocytes (Spur) Sodium 133 L Potassium 3.2 L Chloride 99 Carbon Dioxide 25 Anion Gap 9 BUN 22.5 H Creatinine 1.0 Est GFR (CKD-EPI)AfAm 67.51 Est GFR (CKD-EPI)NonAf 58.25 POC Glucometer 186 Random Glucose 175 H Calcium 8.3 L Phosphorus 2.6 Magnesium 1.8 Total Bilirubin 0.8 AST 288 H ALT 232 H Alkaline Phosphatase 235 H Total Protein 6.2 L Albumin 2.1 L COVID-19 (INGRIS) Hep C Ab Diagnostic Active Medications Generic Name Dose Route Start Last Admin Trade Name Freq PRN Reason Stop Dose Admin Albuterol Sulfate 2 puff 01/26/20 06:03 Ventolin Hfa Inhaler - IH Q4H PRN SHORT OF BREATH/WHEEZING Amlodipine Besylate 5 mg 01/27/20 10:00 02/01/20 09:48 Norvasc - PO 5 mg DAILY KYLEIGH Administration Budesonide/Formoterol Fumarate 2 puff 01/27/20 10:00 02/01/20 09:51 Symbicort 80/4.5mcg - IH 2 puff DAILY KYLEIGH Administration Cyanocobalamin 1,000 mcg 01/27/20 14:00 02/01/20 09:49 Vitamin B12 - PO 1,000 mcg DAILY KYLEIGH Administration Docusate Sodium 100 mg 01/31/20 20:49 Colace - PO DAILY PRN CONSTIPATION Doxycycline Hyclate 100 mg 01/30/20 12:56 02/01/20 09:48 Vibramycin - PO 100 mg BID@1000,1800 KYLEIGH Administration Hydroxychloroquine Sulfate 200 mg 01/27/20 10:00 02/01/20 09:49 Plaquenil - PO 200 mg DAILY KYLEIGH Administration Acyclovir 580 mg/ Dextrose 111.6 mls @ 111.6 mls/hr 01/30/20 13:00 02/01/20 12:54 IVPB 111.6 mls/hr Q12H KYLEIGH Administration Meropenem 1 gm/ Dextrose 100 mls @ 200 mls/hr 01/30/20 13:00 02/01/20 12:53 IVPB 200 mls/hr Q12H KYLEIGH Administration Insulin Aspart 1 vial 01/26/20 07:00 02/01/20 11:53 Novolog Vial Sliding Scale - SQ Not Given ACHS [facility] Protocol Oxycodone HCl 5 mg 01/29/20 16:51 01/30/20 05:24 Roxicodone - PO 5 mg Q4H PRN Administration PAIN LEVEL 6-10 Pantoprazole Sodium 40 mg 01/30/20 10:00 02/01/20 09:48 Protonix - PO 40 mg DAILY KYLEIGH Administration Polyethylene Glycol 17 gm 01/31/20 20:49 Miralax (For Daily Use) - PO 02/04/20 09:59 DAILY PRN CONSTIPATION Valsartan 320 mg 01/27/20 10:00 02/01/20 09:51 Diovan - PO 320 mg DAILY KYLEIGH Administration ASSESSMENT/PLAN: 69F with PMH of HTN, DM, RA, sjorgens, & asthma presenting with R flank/RUQ pain x 4 days with associated dysuria & chills, admitted for evaluation of UTI, GI bleed, possible cholecystits. #Abdominal PAIN: 2/2 gastritis, vs PUD, vs cholelithiasis/cholecystitis - Etiology still unclear, EGD done yesterday does not explain abdominal pain patient is c/o - Oxycodone PRN for pain control - GI consulted (Dr. Mosqueda): retained barium throughout colon, ID consulted, Sx consulted, MRCP ordered - Surgical evaluation (Dr. Alba): Possible cholecystectomy - LFTs improved today #Rash - ID: Possible Varicella Zoster - Started on Acyclovir - Derm consulted (Dr. Mari) and aware. They will see the pt soon #UTI - ID d/c meropenem and started zosyn for billiary/pyelo coverage #RA - hydroxychloroquine 200 mg daily - EKG today showed Qtc 416 -Dr. Rod from [facility] was called today; said that pt should continue her current RA meds prescribed by her rheum and that he does not need to be consulted #Pancytopenia - Heme/Onc on board, 2/2 Methotrexate & plaquenil, in setting of multiple autoimmune disorders, sepsis - Outpatient workup from Dr. Lambert's office - MGUS: F/U with primary sales and marketing engineer on d/c - MMA level still pending #DM - A1c 5.3 - BGM, ISS #HTN - Amlodipine, Valsartasn - Holding Hctz #DVT ppx - Heparin 5000 sq tid #FEN - N/S @ 100 - low Na, low fat, diabetic diet #Dispo - Monitor in M/S for now Visit type - Emergency Visit Emergency Visit: No - New Patient This patient is new to me today: Yes Date on this admission: 02/01/20 - Critical Care Critical Care patient: No - Discharge Referral Referred to [facility] Med P.C[facility] No - Medication Review Med list reviewed for High Risk Meds patients 65 and older: Yes ATTENDING PHYSICIAN STATEMENT I saw and evaluated the patient. I reviewed the resident's note and discussed the case with the resident. I agree with the resident's findings and plan as documented. SUBJECTIVE: OBJECTIVE: ASSESSMENT AND PLAN:
--- NOTE | 2020-02-01 13:33 | PN ---
Progress Note (short form) - Note Progress Note: no new complaints still some abdominal pain Vital Signs Period Temp Pulse Resp BP Sys/Alarcon Pulse Ox Last 24 Hr 99 F-99.4 F 97-110 17-18 105-131/55-74 92-100 cor-rrr lungs clear abd soft, RUQ pain ext no edema rash is drying, no lesions CBC, BMP 02/01/20 08:19 02/01/20 08:19 Microbiology 01/31/20 16:30 Urine For Antigen Detection Legionella Antigen - Final 01/31/20 16:30 Urine For Antigen Detection Streptococcus pneumoniae Antigen (M - Final 01/30/20 07:26 Blood - Peripheral Venous Blood Culture - Preliminary NO GROWTH OBTAINED AFTER 48 HOURS, INCUBATION TO CONTINUE FOR 3 DAYS. 01/30/20 07:26 Blood - Peripheral Venous Blood Culture - Preliminary NO GROWTH OBTAINED AFTER 48 HOURS, INCUBATION TO CONTINUE FOR 3 DAYS. 01/26/20 08:29 Blood - Peripheral Venous Blood Culture - Final NO GROWTH AFTER 5 DAYS INCUBATION 01/26/20 08:29 Blood - Peripheral Venous Blood Culture - Final NO GROWTH AFTER 5 DAYS INCUBATION 01/30/20 06:30 Urine - Urine Clean Catch Urine Culture - Preliminary Group D Strep Or Entero Coccus 01/30/20 13:30 Blood - Peripheral Venous Blood Parasites Smear - Final 01/26/20 00:00 Urine - Urine Clean Catch Urine Culture - Final Escherichia Coli Enterococcus Faecalis Laboratory Tests 01/31/20 02/01/20 06:15 08:19 AST 369 H 288 H ALT 247 H 232 H Alkaline Phosphatase 164 H 235 H a/p fever-resolved rash thrombocytopenia abnl lfts RUQ pain for 10 days Sjogren/RA-on MTX, plaquenil/Rituxan (last rituxan 08/2019) MGUS ?biliary disease- ?viral disease-like zoster/varicella- lesions with small vesicular component, ebv, cmv, varicella serology pending ?tick illness-tick serology pending d/c meropenem switch to zosyn for biliary/pyelo coverage continue acyclovir and doxycycline serologies pending continue airborne/contact isolation please continue IVF while on IV acyclovir
--- NOTE | 2020-02-01 13:55 | PN.GI ---
GI Progress Note Subjective: No acute events Patient states feeling a little better Improving rash - Objective Vital Signs: Vital Signs Temperature 99.1 F 02/01/20 10:00 Pulse Rate 97 H 02/01/20 10:00 Respiratory Rate 17 02/01/20 10:00 Blood Pressure 105/59 L 02/01/20 10:00 O2 Sat by Pulse Oximetry (%) 100 02/01/20 10:00 Constitutional: Calm Eyes: No: Sclera Icterus Cardiovascular: Yes: Regular Rate and Rhythm Respiratory: Yes: CTA Bilaterally Gastrointestinal Inspection: No: Distention ...Auscultate: Yes: Normoactive Bowel Sounds ...Palpate: Yes: Soft, Tenderness (TTP RUQ). No: Guarding ...Percussion: No: Tympanitic Edema: No (No LE edema) Neurological: Yes: Alert Labs: CBC, BMP 02/01/20 08:19 02/01/20 08:19 INR, PTT INR 1.11 (0.83-1.09) H 01/30/20 07:26 Hepatic Panel Total Bilirubin 0.8 mg/dL (0.2-1) 02/01/20 08:19 Direct Bilirubin 0.2 mg/dL (0.0-0.2) 01/30/20 09:30 AST 288 U/L (15-37) H 02/01/20 08:19 ALT 232 U/L (13-61) H 02/01/20 08:19 Alkaline Phosphatase 235 U/L (45-117) H 02/01/20 08:19 Albumin 2.1 g/dl (3.4-5.0) L 02/01/20 08:19 - ....Imaging MRI: Report Reviewed (Thickened GB wall w/ pericholecystic fluid, ? peripancreatic fluid, ? perirenal fluid) Problem List - Problems (1) Abdominal pain Assessment/Plan: Persistent RUQ pain Non-specific areas of fluid noted about the RUQ. Previous lipase did not reflect acute pancreatitis. ? if related to hepatic inflammatory state secondary to systemic process. ? related to gallbladder pathology. Reevaluated by surgery. Owings other medical issues need to be addressed prior to cholecystecomy. Left message to review MRI with Dr. Mack Continue to monitor LFT's. Transamniases seem to be in downward trend now. CPK was normal Avoid hepatotoxic agents and eliminate any non-essential Abx Hepatitis serologies pending as well as EBV PCR EGD path pending Code(s): R10.9 - UNSPECIFIED ABDOMINAL PAIN Qualifiers: Abdominal location: upper abdomen, unspecified Qualified Code(s): R10.10 - Upper abdominal pain, unspecified
--- NOTE | 2020-02-01 15:07 | PATH ---
Surgical Pathology Report Patient Name: NANI FRAIRE Med. Rec. #: [id number] /Age/Gender: 1950 (Age: 69) / F Account: [id number] Location: [facility] MED/SURG Taken: 01/29/2020 Received: 01/29/2020 Reported: 02/01/2020 Physicians: Shimon Mosqueda D.O. Specimen(s) Received STOMACH, ANTRUM AND BODY EROSIONS Clinical History Abdominal pain Postoperative diagnosis: Gastritis, GAVE Final Diagnosis STOMACH, ANTRUM AND BODY EROSIONS, BIOPSY: GASTRIC MUCOSA WITH ACTIVE CHRONIC GASTRITIS WITH EROSION, FOCAL INCREASED SCATTERED EOSINOPHILIC INFILTRATE IN THE LAMINA PROPRIA (EOSINOPHILS~30 /HPF), VASCULAR CONGESTION, AND INTESTINAL METAPLASIA. IMMUNOSTAIN FOR H. PYLORI IS NEGATIVE NEGATIVE FOR DYSPLASIA. Comment: No fibrinous thrombi or eosinophilic crypt abscess identified. No parasite or viral inclusion is seen. Findings are nonspecific, clinical correlation is recommended. No evidence of lymphoma. Immunostains for CMV and HSV results are pending. An addendum report to follow. Electronically Signed Jazzy Tran M.D. Addendum Reported: 02/12/2020 Addendum Diagnosis Immunohistochemistry/in situ hybridization performed and interpreted at [facility], [place], [place] ([id number]) shows the following: Stain interpretation: CMV (cytomegalovirus) and HSV1(herpes simplex virus, type I) are negative. See pathline report for details. Jazzy Tran M.D. Addendum Reported: 02/16/2020 Addendum Diagnosis Immunohistochemistry stain/ in situ hybridization analysis for HSV II performed and interpreted at [facility] show the following results: Results: Negative See Pathline report [id number] for details. Jazzy Tran M.D. Gross Description Received in formalin, labeled "biopsy stomach, antrum body erosions" are 5 campa, irregular portions of soft tissue ranging from 0.1-0.5 cm. in greatest dimension. The specimens are submitted in toto in one cassette. 01/29/2020 saudi01/29/2020
[2020-02-01 15:49] LABS: ANISOCYTOSIS 1+; MACROCYTOSIS 0; PLATELET ESTIMATE DECREASED; TEAR DROP CELLS 1+
[2020-02-01] MEDS ORDERED: PIPERACILLIN/TAZOBACTAM 4.5 GM VIAL IVPB ONE (16:53)
[2020-02-01] MEDS: PIPERACILLIN/TAZOB 4.5 GM 4.5 GM in DEXTROSE 5%-WATER 100 ML IVPB SCH (17:02)
[2020-02-01] MEDS ORDERED: SODIUM CHLORIDE 1,000 ML IV STA (17:30)
[2020-02-01] MEDS ORDERED: SODIUM CHLORIDE 1,000 ML IV SCH (18:15)
--- NOTE | 2020-02-01 18:35 | PN ---
Teaching Attending Note Name of Resident: Marion Laws ATTENDING PHYSICIAN STATEMENT I saw and evaluated the patient. I reviewed the resident's note and discussed the case with the resident. I agree with the resident's findings and plan as documented. SUBJECTIVE: no fever or chills this am, no SOB. has improvement in abd pain. no LECHUGA , rash is not itchy any more OBJECTIVE: NAD, awake, alert, cooperative CV: Regular rhythm, tachy. no MRG. Lungs: CTAB. decreased breath sounds at bases Abd: soft, mild TTP in RUQ, and epigastric area. No guarding or rebound. Ext: No edema or erythema over upper or lower ext. Skin: Rash has resolved on thighs. other lesions have developed small vesicles, no new lesions. sstill stable lesions on L sloe. ASSESSMENT AND PLAN: 69 y/o lady with h/o SJogren's , anemia, Rheumatoid arthritis, HTN , Throidectomy, DM , and HLP who presented with adb pain and melena 1- Abd pain/fever. 2- RAsh: varicella/zoster, other viral etiolgoy 4- thrombocytopenia 5- complicated UTI/pyelonephritis 6- Spesis 7- PAncytopenia 8- Transamintiis 9- HTN 10 - DM plan: - better today : improvement in abd pain, no more fever, and LFTS are down- trending . - d/w ID : switch to zosyn. cont doxy and acyclovir - volume overloaded, has effusion , and needs O2. give a dose of lasix and resume IVF. can diures as needed while on acytlovir + hydration - follow CMV, EBV, Lyme, Ehrilikia , and Anaplasma serology - follow hepatitis serology - monitor LFTS - Surgical eval ongoing for timing of CCY - follow HIT Abs - cont HTN meds - SSI - follow blood cx dispo: HLOC
--- NOTE | 2020-02-01 21:53 | EKG ---
Test Reason : Blood Pressure : / mmHG Vent. Rate : 103 BPM Atrial Rate : 103 BPM P-R Int : 132 ms QRS Dur : 082 ms QT Int : 318 ms P-R-T Axes : 054 035 081 degrees QTc Int : 416 ms SINUS TACHYCARDIA NONSPECIFIC ST AND T WAVE ABNORMALITY ABNORMAL ECG WHEN COMPARED WITH ECG OF 26-JAN-2020 01:10, VENT. RATE HAS INCREASED BY 40 BPM Confirmed by CHELSEA CARR MD ([id number]) on 02/01/2020 9:52:55 PM Referred By: Valery WISE Confirmed By:CHELSEA CARR MD
[2020-02-01] MEDS ORDERED: oxyCODONE HCL 5 MG TABLET PO ONE (22:52)
[2020-02-02] MEDS ORDERED: PT OWN MED DRAWER 7, Y5N ONE (01:09)
[2020-02-02] MEDS: ACYCLOVIR IVPB SCH ×2 (01:11→15:32)
[2020-02-02] MEDS: WATER IVPB SCH ×2 (01:11→15:32)
[2020-02-02] MEDS: DEXTROSE 5% IVPB SCH ×2 (01:11→15:32)
[2020-02-02] MEDS ORDERED: PIPERACILLIN/TAZOBACTAM 4.5 GM VIAL IVPB ONE ×4 (02:37→23:29)
[2020-02-02] MEDS ORDERED: DEXTROSE 5%-WATER 100 ML IVPB ONE ×4 (02:38→23:29)
[2020-02-02] MEDS: PIPERACILLIN/TAZOB 4.5 GM 4.5 GM in DEXTROSE 5%-WATER 100 ML IVPB SCH ×3 (02:44→17:19)
[2020-02-02] MEDS: INSULIN SLIDING SCALE (NOVOLOG) 1 VIAL SQ SCH ×4 (06:28→21:49)
[2020-02-02 07:38] LABS: BASO % 0.6 % (0-2.0); EOS % 6.1 % (0-4.5); HEMATOCRIT 23.4 % (32.4-45.2); HEMOGLOBIN 7.9 GM/dL (10.7-15.3); LYMPH % 21.4 % (8-40); MCH 28.7 pg (25.7-33.7); MCHC 33.6 g/dl (32.0-36.0); MEAN CELL VOLUME 85.4 fl (80-96); MEAN PLT VOLUME 9.4 fl (7.5-11.1); MONO % 12.9 % (3.8-10.2); PLATELET COUNT 115 K/MM3 (134-434); RBC 2.74 M/mm3 (3.60-5.2); RDW 15.9 % (11.6-15.6); WHITE BLOOD COUNT 3.1 K/mm3 (4.0-10.0)
[2020-02-02 07:58] LABS: BLOOD UREA NITROGEN 12.1 mg/dL (7-18); CALCIUM 8.5 mg/dL (8.5-10.1)
[2020-02-02 08:07] LABS: POTASSIUM 2.8 mmol/L (3.5-5.1)
[2020-02-02] MEDS: IBUPROFEN 600 MG TABLET (FP) PO PRN (09:00)
[2020-02-02] MEDS: amLODIPine BESYLATE 5 MG TABLET (FP) PO SCH (09:00)
[2020-02-02] MEDS: CYANOCOBALAMIN 1,000 MCG TABLET (FP) PO SCH (09:00)
[2020-02-02] MEDS ORDERED: POTASSIUM CHLORIDE TABS 20 MEQ TABLET.ER (FP) PO ONE (09:00)
[2020-02-02] MEDS: VALSARTAN 160 MG TABLET (UD) PO SCH (09:01)
[2020-02-02] MEDS: HYDROXYCHLOROQUINE SO4 200 MG TABLET (FP) PO SCH (09:01)
[2020-02-02] MEDS: PANTOPRAZOLE 40 MG TABLET PO SCH (09:01)
[2020-02-02] MEDS: DOXYCYCLINE HYCLATE 100 MG CAPSULE PO SCH ×2 (09:01→17:19)
[2020-02-02] MEDS: KCL 10 MEQ IVPB 10 MEQ/100 ML INFUS.BAG IVPB SCH ×3 (09:02→13:44)
[2020-02-02] MEDS: BUDESONIDE/FORMETEROL FUMARATE 80/4.5 mcg INHALER IH SCH (09:02)
[2020-02-02 09:44] LABS: ANISOCYTOSIS 0; MACROCYTOSIS 0; PLATELET ESTIMATE DECREASED
--- NOTE | 2020-02-02 09:53 | PN ---
Progress Note (short form) - Note Progress Note: Surgery 69yo F h/o chronic cholecystitis and abdominal pain (elevated LFT's of unclear etiology) Pt seen and examined on AM rounds. She is complaining of moderate RUQ pain and epigastric pain crampy in nature- which has been unchanged since her admission. She is currently tolerating full liquids and denies any CP, SOB, N/V, fever or chills. Vital Signs Temp 98.7 F 02/02/20 06:00 Pulse 91 H 02/02/20 06:00 Resp 18 02/02/20 06:00 BP 127/68 02/02/20 06:00 Pulse Ox 100 02/02/20 06:00 Intake & Output 02/01/20 02/01/20 02/02/20 11:59 23:59 11:59 Intake Total 330 Balance 330 Intake: IV 10 Saline Lock 10 IVPB 200 Oral 120 Other: Voiding Method Bedside Commode Bedside Commode Bedside Commode # Unmeasured Voids Void 2 2 Bowel Movement Yes: 1 Yes No # Bowel Movements 1 2 Body Mass Index (BMI) 25.2 CBC, BMP 02/02/20 06:54 02/02/20 06:54 Microbiology 01/30/20 06:30 Urine - Urine Clean Catch Urine Culture - Final Enterococcus Faecalis 01/30/20 07:26 Blood - Peripheral Venous Blood Culture - Preliminary NO GROWTH OBTAINED AFTER 72 HOURS, INCUBATION TO CONTINUE FOR 2 DAYS. 01/30/20 07:26 Blood - Peripheral Venous Blood Culture - Preliminary NO GROWTH OBTAINED AFTER 72 HOURS, INCUBATION TO CONTINUE FOR 2 DAYS. 01/31/20 16:30 Urine For Antigen Detection Legionella Antigen - Final 01/31/20 16:30 Urine For Antigen Detection Streptococcus pneumoniae Antigen (M - Final 01/26/20 08:29 Blood - Peripheral Venous Blood Culture - Final NO GROWTH AFTER 5 DAYS INCUBATION 01/26/20 08:29 Blood - Peripheral Venous Blood Culture - Final NO GROWTH AFTER 5 DAYS INCUBATION 01/30/20 13:30 Blood - Peripheral Venous Blood Parasites Smear - Final 01/26/20 00:00 Urine - Urine Clean Catch Urine Culture - Final Escherichia Coli Enterococcus Faecalis PE: Gen: A&O x3, mild distress 2/2 pain. Resp: unlabored resp on RA Abd; soft, nondistended, moderate focal RUQ/epigastric tenderness with some guarding. b/l LE compartments soft, supple and non-tender with +DP pulses. Problem List - Problems (1) Abdominal pain Assessment/Plan: Plan -pt has complex medical issues, but current pain does not appear to be directly or only related to the gallbladder but cannot rule out. -Pt will most likely benefit from cholecystectomy, but needs clearance from her multiple medical issues. -recommend GI, ID, Heme/onc and medical management/work up. -trend daily labs, LFTs, Lipase-f/u AM labs pending - repleat electrolytes PRN - pancytopenia with H&H trending down-vitals stable, slightly tachycardic- continue to watch closely, consider additional bleeding workup if persists. - surgery to follow. Pt discussed with Dr. Alba Code(s): R10.9 - UNSPECIFIED ABDOMINAL PAIN Qualifiers: Abdominal location: upper abdomen, unspecified Qualified Code(s): R10.10 - Upper abdominal pain, unspecified
--- NOTE | 2020-02-02 10:19 | PN ---
Teaching Attending Note Name of Resident: Maninder Melendez ATTENDING PHYSICIAN STATEMENT I saw and evaluated the patient. I reviewed the resident's note and discussed the case with the resident. I agree with the resident's findings and plan as documented. SUBJECTIVE: Patient is c/o having abdominal pain OBJECTIVE: Vital Signs Temperature 98.7 F 02/02/20 06:00 Pulse Rate 91 H 02/02/20 06:00 Respiratory Rate 18 02/02/20 06:00 Blood Pressure 127/68 02/02/20 06:00 O2 Sat by Pulse Oximetry (%) 100 02/02/20 06:00 PE: per resident's note CBCD WBC 3.1 K/mm3 (4.0-10.0) L 02/02/20 06:54 RBC 2.74 M/mm3 (3.60-5.2) L 02/02/20 06:54 Hgb 7.9 GM/dL (10.7-15.3) L 02/02/20 06:54 Hct 23.4 % (32.4-45.2) L 02/02/20 06:54 MCV 85.4 fl (80-96) 02/02/20 06:54 MCHC 33.6 g/dl (32.0-36.0) 02/02/20 06:54 RDW 15.9 % (11.6-15.6) H 02/02/20 06:54 Plt Count 115 K/MM3 (134-434) L D 02/02/20 06:54 MPV 9.4 fl (7.5-11.1) 02/02/20 06:54 CMP Sodium 134 mmol/L (136-145) L 02/02/20 06:54 Potassium 2.8 mmol/L (3.5-5.1) L* 02/02/20 06:54 Chloride 97 mmol/L (98-107) L 02/02/20 06:54 Carbon Dioxide 30 mmol/L (21-32) 02/02/20 06:54 Anion Gap 7 MMOL/L (8-16) L 02/02/20 06:54 BUN 12.1 mg/dL (7-18) 02/02/20 06:54 Creatinine 1.0 mg/dL (0.55-1.3) 02/02/20 06:54 Random Glucose 155 mg/dL (74-106) H 02/02/20 06:54 Calcium 8.5 mg/dL (8.5-10.1) 02/02/20 06:54 Total Bilirubin 0.8 mg/dL (0.2-1) 02/01/20 08:19 AST 288 U/L (15-37) H 02/01/20 08:19 ALT 232 U/L (13-61) H 02/01/20 08:19 Alkaline Phosphatase 235 U/L (45-117) H 02/01/20 08:19 Total Protein 6.2 g/dl (6.4-8.2) L 02/01/20 08:19 Albumin 2.1 g/dl (3.4-5.0) L 02/01/20 08:19 CARDIAC ENZYMES Creatine Kinase 110 U/L (26-192) 01/30/20 14:46 Troponin I < 0.02 ng/ml (0.00-0.05) 01/26/20 01:00 Current Medications Generic Name Dose Route Start Last Admin Trade Name Freq PRN Reason Stop Dose Admin Albuterol Sulfate 2 puff 01/26/20 06:03 Ventolin Hfa Inhaler - IH Q4H PRN SHORT OF BREATH/WHEEZING Amlodipine Besylate 5 mg 01/27/20 10:00 02/02/20 09:00 Norvasc - PO 5 mg DAILY KYLEIGH Administration Budesonide/Formoterol Fumarate 2 puff 01/27/20 10:00 02/02/20 09:02 Symbicort 80/4.5mcg - IH 2 puff DAILY KYLEIGH Administration Cyanocobalamin 1,000 mcg 01/27/20 14:00 02/02/20 09:00 Vitamin B12 - PO 1,000 mcg DAILY KYLEIGH Administration Docusate Sodium 100 mg 01/31/20 20:49 Colace - PO DAILY PRN CONSTIPATION Doxycycline Hyclate 100 mg 01/30/20 12:56 02/02/20 09:01 Vibramycin - PO 100 mg BID@1000,1800 KYLEIGH Administration Hydroxychloroquine Sulfate 200 mg 01/27/20 10:00 02/02/20 09:01 Plaquenil - PO 200 mg DAILY KYLEIGH Administration Acyclovir 580 mg/ Dextrose 111.6 mls @ 111.6 mls/hr 01/30/20 13:00 02/02/20 01:11 IVPB 111.6 mls/hr Q12H KYLEIGH Administration Piperacillin Sod/Tazobactam 100 mls @ 200 mls/hr 02/01/20 18:00 02/02/20 02:44 Sod 4.5 gm/ Dextrose IVPB 200 mls/hr Q8H-IV KYLEIGH Administration Protocol Sodium Chloride 1,000 mls @ 100 mls/hr 02/02/20 08:23 Normal Saline - IV ASDIR KYLEIGH Potassium Chloride 10 meq in 100 mls @ 100 mls/hr 02/02/20 09:00 02/02/20 09:02 Potassium Chloride 10 Meq Premix Ivpb - IVPB 02/02/20 11:59 100 mls/hr Q60M KYLEIGH Administration Ibuprofen 600 mg 02/02/20 08:50 02/02/20 09:00 Motrin - PO 600 mg Q4H PRN Administration FEVER Insulin Aspart 1 vial 01/26/20 07:00 02/02/20 06:28 Novolog Vial Sliding Scale - SQ Not Given ACHS KYLEIGH Protocol Oxycodone HCl 5 mg 02/02/20 09:45 Roxicodone - PO Q4H PRN PAIN LEVEL 1-5 Oxycodone HCl 10 mg 02/02/20 09:45 Roxicodone - PO Q4H PRN PAIN LEVEL 6-10 Pantoprazole Sodium 40 mg 01/30/20 10:00 02/02/20 09:01 Protonix - PO 40 mg DAILY KYLEIGH Administration Polyethylene Glycol 17 gm 01/31/20 20:49 Miralax (For Daily Use) - PO 02/04/20 09:59 DAILY PRN CONSTIPATION Valsartan 320 mg 01/27/20 10:00 02/02/20 09:01 Diovan - PO 320 mg DAILY KYLEIGH Administration Home Medications Medication Instructions Recorded Albuterol Sulfate [Proair Hfa] 1 inh IH Q4H PRN 01/26/20 Budesonide/Formeterol Fumarate 2 puff IH DAILY 01/26/20 [SYMBICORT 80/4.5mcg -] Famotidine [Pepcid -] 40 mg PO DAILY 01/26/20 Hydroxychloroquine Sulfate 200 mg PO DAILY 01/26/20 [Plaquenil] Methotrexate [Mexate -] 6 tab PO WEEKLY 01/26/20 Nebivolol HCl [Bystolic] 20 mg PO DAILY 01/26/20 Olmesartan/Amlodipin/Hcthiazid 1 tab PO DAILY 01/26/20 [Pnezjky-Ppgsxv-Shgs 40-5-25 mg] Omeprazole 20 mg PO DAILY 01/26/20 Pioglitazone HCl [Actos] 30 mg PO DAILY 01/26/20 Sitagliptin Phos/Metformin HCl 1 tab PO BID 01/26/20 [Janumet 50-1,000 mg Tablet] ASSESSMENT AND PLAN: This patient is a 69yof with Pmhx of SJogren's , anemia, Rheumatoid arthritis, HTN , lupus , Throidectomy, T2DM , and HLP who presented with abdominal pain with melena #Acute abdominal pain with fever. follow CMV, EBV, Lyme, Ehrilikia , and Anaplasma serology ,hepatitis serology, follow blood cx , s/p endoscopy as per patient. # RAsh: varicella/zoster, other viral etiolgy on Acyclovir continue, patient is improving , # thrombocytopenia : trend # complicated UTI/pyelonephritis : on IV antibiotics # Hx of RA/LUPUS/sjorgen's on Hydroxyquinolone , MTx and folic acid s # PAncytopenia : posible due to meds ; hem/onc on board ;Outpatient workup from Dr. Lambert's office # Transamintiis # HTN :Amlodipine, Valsartan, continue to hold Hctz # DM A1c 5.3 #MGUS: F/U with primary proof reader on d/c #MMA level still pending DVT ppx; Heparin [address] per [address] Nicholas's note: Dr. Rod from [facility] was called yesterday; said that pt should continue her current RA meds prescribed by her rheum and that he does not need to be consulted
[2020-02-02] MEDS: SODIUM CHLORIDE 1,000 ML IV SCH ×2 (10:30→21:16)
[2020-02-02 11:09] LABS: ALBUMIN 2.2 g/dl (3.4-5.0); BILIRUBIN,DIRECT 0.2 mg/dL (0.0-0.2); BILIRUBIN,TOTAL 0.4 mg/dL (0.2-1); TOT PROT 6.6 g/dl (6.4-8.2)
[2020-02-02] MEDS: oxyCODONE HCL 5 MG TABLET PO PRN ×2 (11:39→21:18)
--- NOTE | 2020-02-02 14:06 | PN ---
Physical Exam: SUBJECTIVE: Patient seen and examined. No acute events reported overnight. Patient continues to complain of RUQ pain. OBJECTIVE: Vital Signs Period Temp Pulse Resp BP Sys/Alarcon Pulse Ox Last 24 Hr 97.4 F-99.1 F 91-108 17-18 104-127/61-71 98-100 GENERAL: AAOx3, in no acute distress HEENT: NCAT, PERRLA, EOMI, sclera anicteric, conjunctiva clear, oropharynx clear w/o exudates. MMM. NECK: Normal ROM, supple, no lymphadenopathy, JVD, or masses LUNGS: CTABL no wheezes/ rhonchi/ rales. No distress, speaks in full sentences. No increased work of breathing. HEART: RRR, normal S1 S2, no M/R/G, peripheral pulses 2+ and equal b/l ABDOMEN: Soft, NTND, epigastric and RUQ tenderness to palpation MSK: ROM WNL EXTREMITIES: Normal inspection. No peripheral edema. No clubbing or cyanosis. NEUROLOGICAL: CN II-XII intact. Normal speech, normal gait, no focal sensorimotor deficits. SKIN: Erythematous, mildly vesicular rash on low back, right arm, l leg Laboratory Results - last 24 hr 01/30/20 01/30/20 01/30/20 13:30 13:30 17:15 WBC RBC Hgb Hct MCV MCH MCHC RDW Plt Count MPV Absolute Neuts (auto) Neutrophils % Neutrophils % (Manual) Band Neutrophils % Lymphocytes % Lymphocytes % (Manual) Monocytes % Monocytes % (Manual) Eosinophils % Eosinophils % (Manual) Basophils % Basophils % (Manual) Myelocytes % (Man) Promyelocytes % (Man) Blast Cells % (Manual) Nucleated RBC % Metamyelocytes Hypochromia Platelet Estimate Platelet Comment Polychromasia Poikilocytosis Anisocytosis Microcytosis Macrocytosis Tear Drop Cells Sodium Potassium Chloride Carbon Dioxide Anion Gap BUN Creatinine Est GFR (CKD-EPI)AfAm Est GFR (CKD-EPI)NonAf POC Glucometer Random Glucose Calcium Phosphorus Magnesium Total Bilirubin Direct Bilirubin AST ALT Alkaline Phosphatase Total Protein Albumin Lipase Stool O & P Wet [place] Heparin-Ind Plt Ab Scrn 0.107 Lyme IgM 23 kDa Band No Result Required. Lyme IgM 39 kDa Band No Result Required. Lyme IgM 41 kDa Band No Result Required. Infectious Dimmit Assay Strongyloides IgG Ab VZV IgG Antibody O & P Permanent Slide Final report 01/31/20 01/31/20 01/31/20 06:15 14:56 14:56 WBC RBC Hgb Hct MCV MCH MCHC RDW Plt Count MPV Absolute Neuts (auto) Neutrophils % Neutrophils % (Manual) Band Neutrophils % Lymphocytes % Lymphocytes % (Manual) Monocytes % Monocytes % (Manual) Eosinophils % Eosinophils % (Manual) Basophils % Basophils % (Manual) Myelocytes % (Man) Promyelocytes % (Man) Blast Cells % (Manual) Nucleated RBC % Metamyelocytes Hypochromia Platelet Estimate Platelet Comment Polychromasia Poikilocytosis Anisocytosis Microcytosis Macrocytosis Tear Drop Cells Sodium Potassium Chloride Carbon Dioxide Anion Gap BUN Creatinine Est GFR (CKD-EPI)AfAm Est GFR (CKD-EPI)NonAf POC Glucometer Random Glucose Calcium Phosphorus Magnesium Total Bilirubin Direct Bilirubin AST ALT Alkaline Phosphatase Total Protein Albumin Lipase Stool O & P Wet [place] Heparin-Ind Plt Ab Scrn Lyme IgM 23 kDa Band Lyme IgM 39 kDa Band Lyme IgM 41 kDa Band Infectious Dimmit Assay Negative Strongyloides IgG Ab Negative VZV IgG Antibody > 4000 O & P Permanent Slide 02/01/20 02/01/20 02/01/20 08:19 08:19 22:37 WBC RBC Hgb Hct MCV MCH MCHC RDW Plt Count MPV Absolute Neuts (auto) Neutrophils % Neutrophils % (Manual) 56.2 Band Neutrophils % 8.3 Lymphocytes % Lymphocytes % (Manual) 7.3 L D Monocytes % Monocytes % (Manual) 9 Eosinophils % Eosinophils % (Manual) 7.3 H D Basophils % Basophils % (Manual) 0.0 Myelocytes % (Man) 0 D Promyelocytes % (Man) 0 Blast Cells % (Manual) 0 Nucleated RBC % 2 H Metamyelocytes 2 D Hypochromia 0 Platelet Estimate Decreased Platelet Comment Present Polychromasia 0 Poikilocytosis 1+ Anisocytosis 1+ Microcytosis 1+ Macrocytosis 0 Tear Drop Cells 1+ Sodium 133 L Potassium 3.2 L Chloride 99 Carbon Dioxide 25 Anion Gap 9 BUN 22.5 H Creatinine 1.0 Est GFR (CKD-EPI)AfAm 67.51 Est GFR (CKD-EPI)NonAf 58.25 POC Glucometer 145 Random Glucose 175 H Calcium 8.3 L Phosphorus 2.6 Magnesium 1.8 Total Bilirubin 0.8 Direct Bilirubin AST 288 H ALT 232 H Alkaline Phosphatase 235 H Total Protein 6.2 L Albumin 2.1 L Lipase 605 H Stool O & P Wet [place] Heparin-Ind Plt Ab Scrn Lyme IgM 23 kDa Band Lyme IgM 39 kDa Band Lyme IgM 41 kDa Band Infectious Dimmit Assay Strongyloides IgG Ab VZV IgG Antibody O & P Permanent Slide 02/02/20 02/02/20 06:54 06:54 WBC 3.1 L RBC 2.74 L Hgb 7.9 L Hct 23.4 L MCV 85.4 MCH 28.7 MCHC 33.6 RDW 15.9 H Plt Count 115 L D MPV 9.4 Absolute Neuts (auto) 1.8 Neutrophils % 59.0 Neutrophils % (Manual) 61.9 Band Neutrophils % 0.0 Lymphocytes % 21.4 Lymphocytes % (Manual) 14.4 D Monocytes % 12.9 H Monocytes % (Manual) 14 H Eosinophils % 6.1 H Eosinophils % (Manual) 4.1 Basophils % 0.6 Basophils % (Manual) 0.0 Myelocytes % (Man) 0 Promyelocytes % (Man) 0 Blast Cells % (Manual) 0 Nucleated RBC % 0 Metamyelocytes 0 D Hypochromia 0 Platelet Estimate Decreased Platelet Comment Polychromasia 0 Poikilocytosis 0 Anisocytosis 0 Microcytosis 0 Macrocytosis 0 Tear Drop Cells Sodium 134 L Potassium 2.8 L* Chloride 97 L Carbon Dioxide 30 Anion Gap 7 L BUN 12.1 Creatinine 1.0 Est GFR (CKD-EPI)AfAm 67.51 Est GFR (CKD-EPI)NonAf 58.25 POC Glucometer Random Glucose 155 H Calcium 8.5 Phosphorus Magnesium Total Bilirubin 0.4 Direct Bilirubin 0.2 AST 241 H ALT 226 H Alkaline Phosphatase 291 H Total Protein 6.6 Albumin 2.2 L Lipase 607 H Stool O & P Wet [place] Heparin-Ind Plt Ab Scrn Lyme IgM 23 kDa Band Lyme IgM 39 kDa Band Lyme IgM 41 kDa Band Infectious Dimmit Assay Strongyloides IgG Ab VZV IgG Antibody O & P Permanent Slide Active Medications Generic Name Dose Route Start Last Admin Trade Name Freq PRN Reason Stop Dose Admin Albuterol Sulfate 2 puff 01/26/20 06:03 Ventolin Hfa Inhaler - IH Q4H PRN SHORT OF BREATH/WHEEZING Amlodipine Besylate 5 mg 01/27/20 10:00 02/02/20 09:00 Norvasc - PO 5 mg DAILY KYLEIGH Administration Budesonide/Formoterol Fumarate 2 puff 01/27/20 10:00 02/02/20 09:02 Symbicort 80/4.5mcg - IH 2 puff DAILY KYLEIGH Administration Cyanocobalamin 1,000 mcg 01/27/20 14:00 02/02/20 09:00 Vitamin B12 - PO 1,000 mcg DAILY KYLEIGH Administration Docusate Sodium 100 mg 01/31/20 20:49 Colace - PO DAILY PRN CONSTIPATION Doxycycline Hyclate 100 mg 01/30/20 12:56 02/02/20 09:01 Vibramycin - PO 100 mg BID@1000,1800 KYLEIGH Administration Hydroxychloroquine Sulfate 200 mg 01/27/20 10:00 02/02/20 09:01 Plaquenil - PO 200 mg DAILY KYLEIGH Administration Acyclovir 580 mg/ Dextrose 111.6 mls @ 111.6 mls/hr 01/30/20 13:00 02/02/20 0 1:11 IVPB 111.6 mls/hr Q12H KYLEIGH Administration Piperacillin Sod/Tazobactam 100 mls @ 200 mls/hr 02/01/20 18:00 02/02/20 12:41 Sod 4.5 gm/ Dextrose IVPB 200 mls/hr Q8H-IV KYLEIGH Administration Protocol Sodium Chloride 1,000 mls @ 100 mls/hr 02/02/20 08:23 02/02/20 10:30 Normal Saline - IV Not Given ASDIR [facility] Ibuprofen 600 mg 02/02/20 08:50 02/02/20 09:00 Motrin - PO 600 mg Q4H PRN Administration FEVER Insulin Aspart 1 vial 01/26/20 07:00 02/02/20 11:13 Novolog Vial Sliding Scale - SQ Not Given ACHS [facility] Protocol Oxycodone HCl 5 mg 02/02/20 09:45 02/02/20 11:39 Roxicodone - PO 5 mg Q4H PRN Administration PAIN LEVEL 1-5 Oxycodone HCl 10 mg 02/02/20 09:45 Roxicodone - PO Q4H PRN PAIN LEVEL 6-10 Pantoprazole Sodium 40 mg 01/30/20 10:00 02/02/20 09:01 Protonix - PO 40 mg DAILY KYLEIGH Administration Polyethylene Glycol 17 gm 01/31/20 20:49 Miralax (For Daily Use) - PO 02/04/20 09:59 DAILY PRN CONSTIPATION Valsartan 320 mg 01/27/20 10:00 02/02/20 09:01 Diovan - PO 320 mg DAILY KYLEIGH Administration ASSESSMENT/PLAN: 69F with PMH of HTN, DM, RA, sjorgens, & asthma presenting with R flank/RUQ pain x 4 days with associated dysuria & chills, admitted for evaluation of UTI, GI bleed, possible cholecystits. #Abdominal PAIN: 2/2 gastritis, vs PUD, vs cholelithiasis/cholecystitis - Etiology still unclear, EGD done yesterday does not explain abdominal pain patient is c/o - Oxycodone PRN for pain control - GI consulted (Dr. Mosqueda): Pathology from EGD 01/31: scattered eosinophilia, non-specific findings with HSC/CMV stains pending. h. Pylori negative -Patient will need liver biopsy if symptoms do not improve as per Dr. Mosqueda - Surgical evaluation (Dr. Alba): Possible cholecystectomy but first medical issues need to be resolved before pt qualifies for surgery - LFTs improved today #Rash - ID: Possible Varicella Zoster - On Acyclovir with improvement of rash - Derm consulted (Dr. Mrai) and aware. They will see the pt soon #UTI - Izosyn for billiary/pyelo coverage as per ID #RA - hydroxychloroquine 200 mg daily -Dr. Rod from [facility] was called yesterday; said that pt should continue her current RA meds prescribed by her rheum and that he does not need to be consulted #Pancytopenia - Heme/Onc on board, 2/2 Methotrexate & plaquenil, in setting of multiple autoimmune disorders, sepsis - Outpatient workup from Dr. Lambert's office - MGUS: F/U with primary commutator tester on d/c - MMA level still pending #DM - A1c 5.3 - BGM, ISS #HTN - Amlodipine, Valsartasn - Holding Hctz #DVT ppx - Heparin 5000 sq tid #FEN - N/S @ 100 - low Na, low fat, diabetic diet #Dispo - Monitor in M/S for now Visit type - Emergency Visit Emergency Visit: No - New Patient This patient is new to me today: No - Critical Care Critical Care patient: No - Discharge Referral Referred to [facility] No - Medication Review Med list reviewed for High Risk Meds patients 65 and older: Yes ATTENDING PHYSICIAN STATEMENT I saw and evaluated the patient. I reviewed the resident's note and discussed the case with the resident. I agree with the resident's findings and plan as documented. SUBJECTIVE: OBJECTIVE: ASSESSMENT AND PLAN:
[2020-02-02 14:07] LABS: VARICELLA-ZOSTER IGM < 0.91 index (0.00-0.90)
--- NOTE | 2020-02-02 14:18 | PN.GI ---
GI Progress Note Subjective: States pain improved No acute events Pathology from EGD: scattered eosinophilia, non-specific findings with HSC/CMV stains pending. h. Pylori negative + BM's No melena reported - Objective Vital Signs: Vital Signs Temperature 97.4 F L 02/02/20 13:25 Pulse Rate 93 H 02/02/20 13:25 Respiratory Rate 18 02/02/20 13:25 Blood Pressure 120/67 02/02/20 13:25 O2 Sat by Pulse Oximetry (%) 99 02/02/20 10:00 Constitutional: Calm Eyes: No: Sclera Icterus Cardiovascular: Yes: Regular Rate and Rhythm Respiratory: Yes: CTA Bilaterally, Rhonchi (right lung base) Gastrointestinal Inspection: No: Distention ...Auscultate: Yes: Normoactive Bowel Sounds ...Palpate: Yes: Soft, Tenderness (Improved TTP RUQ, no epigastric pain) ...Percussion: No: Tympanitic Edema: No (No LE edema) Neurological: Yes: Alert Labs: CBC, BMP 02/02/20 06:54 02/02/20 06:54 INR, PTT INR 1.11 (0.83-1.09) H 01/30/20 07:26 Problem List - Problems (1) Abdominal pain Assessment/Plan: Improved For cholecystectomy once patient medically optimized per surgical note EGD biopsies non-specific. Awaiting CMV/HSV stains Monitor H/H and for overt bleeding. Heme evaluation for pancytopenia / worsening anemia Avoid NSAIDs as feasible Code(s): R10.9 - UNSPECIFIED ABDOMINAL PAIN Qualifiers: Abdominal location: upper abdomen, unspecified Qualified Code(s): R10.10 - Upper abdominal pain, unspecified (2) Abnormal liver function tests Assessment/Plan: ? if secondary to systemic illness / reactive in nature Eliminate all unnecessary medications. ? need for continued Plaquenil Hepatitis serologies still pending If no continued improvement, will likely need liver biopsy for further evaluation / exclusion of AIH in setting of preexisting autoimmune disease ARIANA/Smooth muscle antibody Code(s): R94.5 - ABNORMAL RESULTS OF LIVER FUNCTION STUDIES
--- NOTE | 2020-02-02 17:04 | PN ---
Progress Note (short form) - Note Progress Note: continued abdominal discomfort Vital Signs Period Temp Pulse Resp BP Sys/Alarcon Pulse Ox Last 24 Hr 97.4 F-98.8 F 91-101 18-18 113-127/61-71 99-100 cor-rrr lungs clear abd soft,nmidepigastric and ruq discomfort too palpation ext no edema rash drying CBC, BMP 02/02/20 06:54 02/02/20 06:54 Laboratory Tests 01/31/20 01/31/20 01/31/20 06:15 06:15 12:01 AST 369 H ALT 247 H Alkaline Phosphatase 164 H COVID-19 ([facility]) Not detected Infectious [place]ham Assay Strongyloides IgG Ab Negative VZV IgG Antibody VZV IgM Antibody 01/31/20 01/31/20 02/01/20 14:56 14:56 08:19 AST 288 H ALT 232 H Alkaline Phosphatase 235 H COVID-19 ([facility]) Infectious [place] Assay Negative Strongyloides IgG Ab VZV IgG Antibody > 4000 VZV IgM Antibody < 0.91 02/02/20 06:54 AST 241 H ALT 226 H Alkaline Phosphatase 291 H COVID-19 ([facility]) Infectious [place] Assay Strongyloides IgG Ab VZV IgG Antibody VZV IgM Antibody Microbiology 01/30/20 06:30 Urine - Urine Clean Catch Urine Culture - Final Enterococcus Faecalis 01/30/20 07:26 Blood - Peripheral Venous Blood Culture - Preliminary NO GROWTH OBTAINED AFTER 72 HOURS, INCUBATION TO CONTINUE FOR 2 DAYS. 01/30/20 07:26 Blood - Peripheral Venous Blood Culture - Preliminary NO GROWTH OBTAINED AFTER 72 HOURS, INCUBATION TO CONTINUE FOR 2 DAYS. 01/31/20 16:30 Urine For Antigen Detection Legionella Antigen - Final 01/31/20 16:30 Urine For Antigen Detection Streptococcus pneumoniae Antigen (M - Final 01/26/20 08:29 Blood - Peripheral Venous Blood Culture - Final NO GROWTH AFTER 5 DAYS INCUBATION 01/26/20 08:29 Blood - Peripheral Venous Blood Culture - Final NO GROWTH AFTER 5 DAYS INCUBATION 01/30/20 13:30 Blood - Peripheral Venous Blood Parasites Smear - Final 01/26/20 00:00 Urine - Urine Clean Catch Urine Culture - Final Escherichia Coli Enterococcus Faecalis a/p fever-resolved rash thrombocytopenia abnl lfts RUQ pain for 10 days Sjogren/RA-on MTX, plaquenil/Rituxan (last rituxan 08/2019) MGUS MRI- with mild pancreatic inflammation, perinephric fluid and mild GB wall thickening continue zosyn for biliary/renal disease acyclovir day #3 for possible herpes/varicella rash on dox for possible tick related illness abnl lfts persist continue airborne/contact isolation please continue IVF while on IV acyclovir d/w dauther at bedside Problem List - Problems (1) Fever Code(s): R50.9 - FEVER, UNSPECIFIED (2) Rash Code(s): R21 - RASH AND OTHER NONSPECIFIC SKIN ERUPTION (3) Thrombocytopenia Code(s): D69.6 - THROMBOCYTOPENIA, UNSPECIFIED (4) Elevated liver enzymes Code(s): R74.8 - ABNORMAL LEVELS OF OTHER SERUM ENZYMES (5) Abdominal pain Code(s): R10.9 - UNSPECIFIED ABDOMINAL PAIN Qualifiers: Abdominal location: upper abdomen, unspecified Qualified Code(s): R10.10 - Upper abdominal pain, unspecified (6) Sjogrens syndrome Code(s): M35.00 - SICCA SYNDROME, UNSPECIFIED (7) Rheumatoid arthritis, seropositive Code(s): M05.9 - RHEUMATOID ARTHRITIS WITH RHEUMATOID FACTOR, UNSPECIFIED (8) MGUS (monoclonal gammopathy of unknown significance) Code(s): D47.2 - MONOCLONAL GAMMOPATHY
[2020-02-02 19:06] LABS: HEP B CORE AB, TOT Negative (Negative)
[2020-02-02] MEDS ORDERED: INSULIN (NOVOLOG) ASPART 100 UNITS/ML 10ML VIAL ONE (21:09)
[2020-02-03] MEDS: ACYCLOVIR IVPB SCH ×2 (00:10→16:28)
[2020-02-03] MEDS: WATER IVPB SCH ×2 (00:10→16:28)
[2020-02-03] MEDS: DEXTROSE 5% IVPB SCH ×2 (00:10→16:28)
[2020-02-03] MEDS ORDERED: SIMETHICONE 80 MG TAB.CHEW (FP) PO ONE (01:07)
[2020-02-03] MEDS: PIPERACILLIN/TAZOB 4.5 GM 4.5 GM in DEXTROSE 5%-WATER 100 ML IVPB SCH ×3 (01:09→18:16)
[2020-02-03] MEDS: oxyCODONE HCL 5 MG TABLET PO PRN ×3 (05:57→22:42)
[2020-02-03] MEDS: INSULIN SLIDING SCALE (NOVOLOG) 1 VIAL SQ SCH ×4 (06:19→23:34)
--- NOTE | 2020-02-03 07:04 | PN.GI ---
GI Progress Note Subjective: NO NEW COMPLAINTS STILL WITH VAGUE ABDOMINAL DISCOMFORT - Objective Vital Signs: Vital Signs Temperature 98.7 F 02/03/20 06:41 Pulse Rate 103 H 02/03/20 06:41 Respiratory Rate 18 02/03/20 06:41 Blood Pressure 126/70 02/03/20 06:41 O2 Sat by Pulse Oximetry (%) 96 02/03/20 06:41 Constitutional: Well Nourished, No Distress, Calm HENT: Yes: WNL Neck: Yes: WNL Cardiovascular: Yes: WNL Respiratory: Yes: WNL, Regular, CTA Bilaterally Gastrointestinal Inspection: Yes: WNL ...Auscultate: Yes: Normoactive Bowel Sounds, Other (NOT TENDER , NML BS) Extremities: Yes: WNL Edema: No Labs: CBC, BMP 02/02/20 06:54 02/02/20 06:54 INR, PTT INR 1.11 (0.83-1.09) H 01/30/20 07:26 Problem List - Problems (1) Anemia Assessment/Plan: S/P EGD WITH NONSPECIFIC FINDINGS - AWAIT VIRAL STAINS C/W PPI H/H DOWN-TRENDING WITHOUT SIGN OF AN OVERT GI BLEED - HEME EVALUATION MONITOR DAILY WHILE HOSPITALIZED LIVER SEROLOGY NOT RESULTED - CONTINUE TO TREND DAILY; F/U ARIANA / SMOOTH MUSCLE AB ; MAY NEED LIVER BIOPSY IF THE ETIOLOGY OF HER TRANSAMINITIS IS NOT CLEAR. Code(s): D64.9 - ANEMIA, UNSPECIFIED (2) Abdominal pain Code(s): R10.9 - UNSPECIFIED ABDOMINAL PAIN Qualifiers: Abdominal location: upper abdomen, unspecified Qualified Code(s): R10.10 - Upper abdominal pain, unspecified (3) Abnormal liver function tests Code(s): R94.5 - ABNORMAL RESULTS OF LIVER FUNCTION STUDIES
[2020-02-03 08:10] LABS: BLOOD UREA NITROGEN 7.8 mg/dL (7-18); CALCIUM 8.3 mg/dL (8.5-10.1); CREATININE 0.8 mg/dL (0.55-1.3); POTASSIUM 3.3 mmol/L (3.5-5.1)
[2020-02-03 08:11] LABS: BASO % 0.6 % (0-2.0); EOS % 6.7 % (0-4.5); HEMATOCRIT 21.3 % (32.4-45.2); HEMOGLOBIN 7.1 GM/dL (10.7-15.3); LYMPH % 15.9 % (8-40); MCH 28.8 pg (25.7-33.7); MCHC 33.6 g/dl (32.0-36.0); MEAN CELL VOLUME 85.6 fl (80-96); MEAN PLT VOLUME 9.2 fl (7.5-11.1); MONO % 14.8 % (3.8-10.2); PLATELET COUNT 141 K/MM3 (134-434); RBC 2.49 M/mm3 (3.60-5.2); RDW 16.1 % (11.6-15.6); WHITE BLOOD COUNT 3.7 K/mm3 (4.0-10.0)
[2020-02-03] MEDS ORDERED: DEXTROSE 5%-WATER 100 ML IVPB ONE ×3 (09:03→23:03)
[2020-02-03] MEDS ORDERED: PIPERACILLIN/TAZOBACTAM 4.5 GM VIAL IVPB ONE ×3 (09:03→23:03)
[2020-02-03] MEDS: DOXYCYCLINE HYCLATE 100 MG CAPSULE PO SCH ×2 (09:49→18:17)
[2020-02-03] MEDS: amLODIPine BESYLATE 5 MG TABLET (FP) PO SCH (09:50)
[2020-02-03] MEDS: CYANOCOBALAMIN 1,000 MCG TABLET (FP) PO SCH (09:50)
[2020-02-03] MEDS: VALSARTAN 160 MG TABLET (UD) PO SCH (09:50)
[2020-02-03] MEDS: PANTOPRAZOLE 40 MG TABLET PO SCH (09:50)
[2020-02-03] MEDS: SODIUM CHLORIDE 1,000 ML IV SCH ×2 (09:50→22:41)
[2020-02-03] MEDS: HYDROXYCHLOROQUINE SO4 200 MG TABLET (FP) PO SCH (09:51)
[2020-02-03] MEDS: BUDESONIDE/FORMETEROL FUMARATE 80/4.5 mcg INHALER IH SCH (09:51)
[2020-02-03 09:59] LABS: ANISOCYTOSIS 1+; MACROCYTOSIS 0; PLATELET ESTIMATE DECREASED
[2020-02-03] MEDS: MAG HYDROX/AL HYDROX/SIMETH 30 ML UNIT-DOSE CUP PO PRN ×2 (10:47→22:42)
[2020-02-03] MEDS: KCL 10 MEQ IVPB 10 MEQ/100 ML INFUS.BAG IVPB SCH ×3 (10:47→14:23)
--- NOTE | 2020-02-03 12:59 | PN ---
Physical Exam: SUBJECTIVE: Patient seen and examined at bedside. Overnight, patient had RUQ pain and gas which resolved with medications. This morning, the patient continues to complain of RUQ pain with resolution of gas symptoms. OBJECTIVE: Vital Signs Period Temp Pulse Resp BP Sys/Alarcon Pulse Ox Last 24 Hr 97.4 F-98.8 F 93-103 17-18 109-130/59-74 94-97 GENERAL: AAOx3, in no acute distress HEENT: NCAT, PERRLA, EOMI, sclera anicteric, conjunctiva clear, oropharynx clear w/o exudates. MMM. NECK: Normal ROM, supple, no lymphadenopathy, JVD, or masses LUNGS: CTABL no wheezes/ rhonchi/ rales. No distress, speaks in full sentences. No increased work of breathing. HEART: RRR, normal S1 S2, no M/R/G, peripheral pulses 2+ and equal b/l ABDOMEN: Soft, epigastric and RUQ tenderness to palpation MSK: ROM WNL EXTREMITIES: Normal inspection. No peripheral edema. No clubbing or cyanosis. NEUROLOGICAL: CN II-XII intact. Normal speech, normal gait, no focal sensorimotor deficits. SKIN: Erythematous, mildly vesicular rash on low back, right arm, l leg with hypopigmentation Laboratory Results - last 24 hr 01/30/20 01/30/20 01/30/20 13:30 13:30 13:30 WBC RBC Hgb Hct MCV MCH MCHC RDW Plt Count MPV Absolute Neuts (auto) Neutrophils % Neutrophils % (Manual) Band Neutrophils % Lymphocytes % Lymphocytes % (Manual) Monocytes % Monocytes % (Manual) Eosinophils % Eosinophils % (Manual) Basophils % Basophils % (Manual) Myelocytes % (Man) Promyelocytes % (Man) Blast Cells % (Manual) Nucleated RBC % Metamyelocytes Hypochromia Platelet Estimate Polychromasia Poikilocytosis Anisocytosis Microcytosis Macrocytosis Sodium Potassium Chloride Carbon Dioxide Anion Gap BUN Creatinine Est GFR (CKD-EPI)AfAm Est GFR (CKD-EPI)NonAf POC Glucometer Random Glucose Calcium Lipase A.phagocytophil DNA PCR Negative Babesia microti DNA PCR Negative Lyme Screen IgG & IgM <0.91 Lyme IgM 23 kDa Band No Result Required. Lyme IgM 39 kDa Band No Result Required. Lyme IgM 41 kDa Band No Result Required. E.chaffeensis DNA (PCR) Negative Hep A IgM Ab Confirm Hepatitis A Ab Total Hep Bs Antigen Hep Bs Antibody Hep B Core Total Ab Hep B Core IgM Ab Hepatitis Be Antibody Hepatitis Be Antigen Strongyloides IgG Ab VZV IgM Antibody 01/30/20 01/31/20 01/31/20 14:46 06:15 14:56 WBC RBC Hgb Hct MCV MCH MCHC RDW Plt Count MPV Absolute Neuts (auto) Neutrophils % Neutrophils % (Manual) Band Neutrophils % Lymphocytes % Lymphocytes % (Manual) Monocytes % Monocytes % (Manual) Eosinophils % Eosinophils % (Manual) Basophils % Basophils % (Manual) Myelocytes % (Man) Promyelocytes % (Man) Blast Cells % (Manual) Nucleated RBC % Metamyelocytes Hypochromia Platelet Estimate Polychromasia Poikilocytosis Anisocytosis Microcytosis Macrocytosis Sodium Potassium Chloride Carbon Dioxide Anion Gap BUN Creatinine Est GFR (CKD-EPI)AfAm Est GFR (CKD-EPI)NonAf POC Glucometer Random Glucose Calcium Lipase A.phagocytophil DNA PCR Babesia microti DNA PCR Lyme Screen IgG & IgM Lyme IgM 23 kDa Band Lyme IgM 39 kDa Band Lyme IgM 41 kDa Band E.chaffeensis DNA (PCR) Hep A IgM Ab Confirm Negative Hepatitis A Ab Total Positive H Hep Bs Antigen Negative Hep Bs Antibody Non reactive Hep B Core Total Ab Negative Hep B Core IgM Ab Negative Hepatitis Be Antibody Negative Hepatitis Be Antigen Negative Strongyloides IgG Ab Negative VZV IgM Antibody < 0.91 02/02/20 02/03/20 02/03/20 21:47 05:52 07:15 WBC 3.7 L RBC 2.49 L Hgb 7.1 L Hct 21.3 L MCV 85.6 MCH 28.8 MCHC 33.6 RDW 16.1 H Plt Count 141 D MPV 9.2 Absolute Neuts (auto) 2.3 Neutrophils % 62.0 Neutrophils % (Manual) 58.6 Band Neutrophils % 9.1 Lymphocytes % 15.9 D Lymphocytes % (Manual) 6.1 L D Monocytes % 14.8 H Monocytes % (Manual) 14 H Eosinophils % 6.7 H Eosinophils % (Manual) 10.1 H D Basophils % 0.6 Basophils % (Manual) 0.0 Myelocytes % (Man) 0 Promyelocytes % (Man) 0 Blast Cells % (Manual) 0 Nucleated RBC % 0 Metamyelocytes 1 D Hypochromia 0 Platelet Estimate Decreased Polychromasia 0 Poikilocytosis 0 Anisocytosis 1+ Microcytosis 1+ Macrocytosis 0 Sodium Potassium Chloride Carbon Dioxide Anion Gap BUN Creatinine Est GFR (CKD-EPI)AfAm Est GFR (CKD-EPI)NonAf POC Glucometer 180 143 Random Glucose Calcium Lipase A.phagocytophil DNA PCR Babesia microti DNA PCR Lyme Screen IgG & IgM Lyme IgM 23 kDa Band Lyme IgM 39 kDa Band Lyme IgM 41 kDa Band E.chaffeensis DNA (PCR) Hep A IgM Ab Confirm Hepatitis A Ab Total Hep Bs Antigen Hep Bs Antibody Hep B Core Total Ab Hep B Core IgM Ab Hepatitis Be Antibody Hepatitis Be Antigen Strongyloides IgG Ab VZV IgM Antibody 02/03/20 02/03/20 07:15 11:36 WBC RBC Hgb Hct MCV MCH MCHC RDW Plt Count MPV Absolute Neuts (auto) Neutrophils % Neutrophils % (Manual) Band Neutrophils % Lymphocytes % Lymphocytes % (Manual) Monocytes % Monocytes % (Manual) Eosinophils % Eosinophils % (Manual) Basophils % Basophils % (Manual) Myelocytes % (Man) Promyelocytes % (Man) Blast Cells % (Manual) Nucleated RBC % Metamyelocytes Hypochromia Platelet Estimate Polychromasia Poikilocytosis Anisocytosis Microcytosis Macrocytosis Sodium 138 Potassium 3.3 L Chloride 104 Carbon Dioxide 26 Anion Gap 8 BUN 7.8 Creatinine 0.8 Est GFR (CKD-EPI)AfAm 88.42 Est GFR (CKD-EPI)NonAf 76.29 POC Glucometer 175 Random Glucose 154 H Calcium 8.3 L Lipase 530 H A.phagocytophil DNA PCR Babesia microti DNA PCR Lyme Screen IgG & IgM Lyme IgM 23 kDa Band Lyme IgM 39 kDa Band Lyme IgM 41 kDa Band E.chaffeensis DNA (PCR) Hep A IgM Ab Confirm Hepatitis A Ab Total Hep Bs Antigen Hep Bs Antibody Hep B Core Total Ab Hep B Core IgM Ab Hepatitis Be Antibody Hepatitis Be Antigen Strongyloides IgG Ab VZV IgM Antibody Active Medications Generic Name Dose Route Start Last Admin Trade Name Freq PRN Reason Stop Dose Admin Al Hydroxide/Mg Hydroxide 30 ml 02/03/20 10:03 02/03/20 10:47 Mylanta Oral Suspension - PO 30 ml Q6H PRN Administration DYSPEPSIA Albuterol Sulfate 2 puff 01/26/20 06:03 Ventolin Hfa Inhaler - IH Q4H PRN SHORT OF BREATH/WHEEZING Amlodipine Besylate 5 mg 01/27/20 10:00 02/03/20 09:50 Norvasc - PO 5 mg DAILY KYLEIGH Administration Budesonide/Formoterol Fumarate 2 puff 01/27/20 10:00 02/03/20 09:51 Symbicort 80/4.5mcg - IH 2 puff DAILY KYLEIGH Administration Cyanocobalamin 1,000 mcg 01/27/20 14:00 02/03/20 09:50 Vitamin B12 - PO 1,000 mcg DAILY KYLEIGH Administration Docusate Sodium 100 mg 01/31/20 20:49 Colace - PO DAILY PRN CONSTIPATION Doxycycline Hyclate 100 mg 01/30/20 12:56 02/03/20 09:49 Vibramycin - PO 100 mg BID@1000,1800 KYLEIGH Administration Hydroxychloroquine Sulfate 200 mg 01/27/20 10:00 02/03/20 09:51 Plaquenil - PO 200 mg DAILY KYLEIGH Administration Acyclovir 580 mg/ Dextrose 111.6 mls @ 111.6 mls/hr 01/30/20 13:00 02/03/20 00:10 IVPB 111.6 mls/hr Q12H KYLEIGH Administration Piperacillin Sod/Tazobactam 100 mls @ 200 mls/hr 02/01/20 18:00 02/03/20 09:49 Sod 4.5 gm/ Dextrose IVPB 200 mls/hr Q8H-IV KYLEIGH Administration Protocol Sodium Chloride 1,000 mls @ 100 mls/hr 02/02/20 08:23 02/03/20 09:50 Normal Saline - IV 100 mls/hr ASDIR KYLEIGH Administration Ibuprofen 600 mg 02/02/20 08:50 02/02/20 09:00 Motrin - PO 600 mg Q4H PRN Administration FEVER Insulin Aspart 1 vial 01/26/20 07:00 02/03/20 11:38 Novolog Vial Sliding Scale - SQ Not Given ACHS KYLEIGH Protocol Oxycodone HCl 5 mg 02/02/20 09:45 02/03/20 05:57 Roxicodone - PO 5 mg Q4H PRN Administration PAIN LEVEL 1-5 Oxycodone HCl 10 mg 02/02/20 09:45 02/02/20 21:18 Roxicodone - PO 10 mg Q4H PRN Administration PAIN LEVEL 6-10 Pantoprazole Sodium 40 mg 01/30/20 10:00 02/03/20 09:50 Protonix - PO 40 mg DAILY KYLEIGH Administration Polyethylene Glycol 17 gm 01/31/20 20:49 Miralax (For Daily Use) - PO 02/04/20 09:59 DAILY PRN CONSTIPATION Valsartan 320 mg 01/27/20 10:00 02/03/20 09:50 Diovan - PO 320 mg DAILY KYLEIGH Administration ASSESSMENT/PLAN: 69F with PMH of HTN, DM, RA, sjorgens, & asthma presenting with R flank/RUQ pain with associated dysuria & chills, admitted for evaluation of UTI, GI bleed, possible cholecystits. #Abdominal PAIN: 2/2 gastritis, vs PUD, vs cholelithiasis/cholecystitis - Etiology still unclear, EGD does not explain abdominal pain patient is c/o - Oxycodone PRN for pain control - GI consulted (Dr. Mosqueda): Pathology from EGD 01/31: scattered eosinophilia, non-specific findings with HSC/CMV stains pending. h. Pylori negative -Patient will need liver biopsy to r/o AIH if symptoms do not improve as per Dr. Mosqueda - Surgical evaluation (Dr. Alba): Possible cholecystectomy but first medical issues need to be resolved before pt qualifies for surgery - LFTs continue to improve #Rash - ID: Possible Varicella Zoster - On Acyclovir with improvement of rash - Derm consulted (Dr. Mari) and aware. They will see the pt soon #UTI - zosyn for billiary/pyelo coverage as per ID #RA - hydroxychloroquine 200 mg daily -Dr. Rod from [facility] was contacted on Sat; said that pt should continue her current RA meds prescribed by her rheum and that he does not need to be consulted #Pancytopenia - Heme/Onc on board, 2/2 Methotrexate & plaquenil, in setting of multiple autoimmune disorders, sepsis - Outpatient workup from Dr. Lambert's office - MGUS: F/U with primary breaker table worker on d/c - HIV test was NEGATIVE #DM - A1c 5.3 - BGM, ISS #HTN - Amlodipine, Valsartasn - Holding Hctz #DVT ppx - Heparin 5000 sq tid #FEN - N/S @ 100 - low Na, low fat, diabetic diet #Dispo - Monitor in M/S for now Visit type - Emergency Visit Emergency Visit: No - New Patient This patient is new to me today: No - Critical Care Critical Care patient: No - Discharge Referral Referred to [facility] Med P.C[facility] No - Medication Review Med list reviewed for High Risk Meds patients 65 and older: No ATTENDING PHYSICIAN STATEMENT I saw and evaluated the patient. I reviewed the resident's note and discussed the case with the resident. I agree with the resident's findings and plan as documented. SUBJECTIVE: OBJECTIVE: ASSESSMENT AND PLAN:
[2020-02-03 13:58] LABS: ALBUMIN 2.2 g/dl (3.4-5.0); BILIRUBIN,DIRECT 0.1 mg/dL (0.0-0.2); BILIRUBIN,TOTAL 0.3 mg/dL (0.2-1); TOT PROT 6.4 g/dl (6.4-8.2)
--- NOTE | 2020-02-03 15:26 | PN ---
Progress Note (short form) - Note Progress Note: continued abdominal discomfort Vital Signs Period Temp Pulse Resp BP Sys/Alarcon Pulse Ox Last 24 Hr 97.4 F-98.8 F 93-112 16-18 109-140/59-74 94-97 cor-rrr lungs decreased bs at bases abd soft,no distention, +midepigastric and RUQ pain ext no edema CBC, BMP 02/03/20 07:15 02/03/20 07:15 Microbiology 01/30/20 07:26 Blood - Peripheral Venous Blood Culture - Preliminary NO GROWTH OBTAINED AFTER 96 HOURS, INCUBATION TO CONTINUE FOR 1 DAYS. 01/30/20 07:26 Blood - Peripheral Venous Blood Culture - Preliminary NO GROWTH OBTAINED AFTER 96 HOURS, INCUBATION TO CONTINUE FOR 1 DAYS. 01/30/20 06:30 Urine - Urine Clean Catch Urine Culture - Final Enterococcus Faecalis 01/31/20 16:30 Urine For Antigen Detection Legionella Antigen - Final 01/31/20 16:30 Urine For Antigen Detection Streptococcus pneumoniae Antigen (M - Final 01/26/20 08:29 Blood - Peripheral Venous Blood Culture - Final NO GROWTH AFTER 5 DAYS INCUBATION 01/26/20 08:29 Blood - Peripheral Venous Blood Culture - Final NO GROWTH AFTER 5 DAYS INCUBATION 01/30/20 13:30 Blood - Peripheral Venous Blood Parasites Smear - Final 01/26/20 00:00 Urine - Urine Clean Catch Urine Culture - Final Escherichia Coli Enterococcus Faecalis a/p fever-resolved rash-improved thrombocytopenia resolved abnl lfts improving pancreatitis Sjogren/RA-on MTX, plaquenil/Rituxan (last rituxan 08/2019) MGUS persistent RUQ pain- surgery f/u MRI- with mild pancreatic inflammation, perinephric fluid and mild GB wall thickening continue zosyn for biliary/renal disease acyclovir day #4 for possible herpes/varicella rash on doxy for possible tick related illness continue airborne/contact isolation please continue IVF while on IV acyclovir Laboratory Tests 01/31/20 01/31/20 01/31/20 06:15 06:15 12:01 AST 369 H ALT 247 H Alkaline Phosphatase 164 H Lipase COVID-19 (INGRIS) Not detected Infectious Cla[place]orne Assay Strongyloides IgG Ab Negative VZV IgG Antibody VZV IgM Antibody 01/31/20 01/31/20 02/01/20 14:56 14:56 08:19 AST 288 H ALT 232 H Alkaline Phosphatase 235 H Lipase COVID-19 (INGRIS) Infectious Cla[place]orne Assay Negative Strongyloides IgG Ab VZV IgG Antibody > 4000 VZV IgM Antibody < 0.91 02/02/20 02/03/20 06:54 07:15 AST 241 H 138 H ALT 226 H 171 H Alkaline Phosphatase 291 H 281 H Lipase 530 H COVID-19 (INGRIS) Infectious Claiborne Assay Strongyloides IgG Ab VZV IgG Antibody VZV IgM Antibody
[2020-02-03] MEDS: POLYETHYLENE GLYCOL 3350 119 GM BTL PO PRN ×2 (16:41→22:44)
--- NOTE | 2020-02-03 18:49 | PN ---
Teaching Attending Note Name of Resident: Maninder Melendez ATTENDING PHYSICIAN STATEMENT I saw and evaluated the patient. I reviewed the resident's note and discussed the case with the resident. I agree with the resident's findings and plan as documented. SUBJECTIVE: Patient is slightly better with NAD OBJECTIVE: Vital Signs Temperature 98.5 F 02/03/20 18:18 Pulse Rate 103 H 02/03/20 18:18 Respiratory Rate 18 02/03/20 18:18 Blood Pressure 134/70 02/03/20 18:18 O2 Sat by Pulse Oximetry (%) 96 02/03/20 18:18 PE: per resident's note CBCD WBC 3.7 K/mm3 (4.0-10.0) L 02/03/20 07:15 RBC 2.49 M/mm3 (3.60-5.2) L 02/03/20 07:15 Hgb 7.1 GM/dL (10.7-15.3) L 02/03/20 07:15 Hct 21.3 % (32.4-45.2) L 02/03/20 07:15 MCV 85.6 fl (80-96) 02/03/20 07:15 MCHC 33.6 g/dl (32.0-36.0) 02/03/20 07:15 RDW 16.1 % (11.6-15.6) H 02/03/20 07:15 Plt Count 141 K/MM3 (134-434) D 02/03/20 07:15 MPV 9.2 fl (7.5-11.1) 02/03/20 07:15 CMP Sodium 138 mmol/L (136-145) 02/03/20 07:15 Potassium 3.3 mmol/L (3.5-5.1) L 02/03/20 07:15 Chloride 104 mmol/L (98-107) 02/03/20 07:15 Carbon Dioxide 26 mmol/L (21-32) 02/03/20 07:15 Anion Gap 8 MMOL/L (8-16) 02/03/20 07:15 BUN 7.8 mg/dL (7-18) 02/03/20 07:15 Creatinine 0.8 mg/dL (0.55-1.3) 02/03/20 07:15 Random Glucose 154 mg/dL (74-106) H 02/03/20 07:15 Calcium 8.3 mg/dL (8.5-10.1) L 02/03/20 07:15 Total Bilirubin 0.3 mg/dL (0.2-1) 02/03/20 07:15 AST 138 U/L (15-37) H 02/03/20 07:15 ALT 171 U/L (13-61) H 02/03/20 07:15 Alkaline Phosphatase 281 U/L (45-117) H 02/03/20 07:15 Total Protein 6.4 g/dl (6.4-8.2) 02/03/20 07:15 Albumin 2.2 g/dl (3.4-5.0) L 02/03/20 07:15 CARDIAC ENZYMES Creatine Kinase 110 U/L (26-192) 01/30/20 14:46 Troponin I < 0.02 ng/ml (0.00-0.05) 01/26/20 01:00 Current Medications Generic Name Dose Route Start Last Admin Trade Name Freq PRN Reason Stop Dose Admin Al Hydroxide/Mg Hydroxide 30 ml 02/03/20 10:03 02/03/20 10:47 Mylanta Oral Suspension - PO 30 ml Q6H PRN Administration DYSPEPSIA Albuterol Sulfate 2 puff 01/26/20 06:03 Ventolin Hfa Inhaler - IH Q4H PRN SHORT OF BREATH/WHEEZING Amlodipine Besylate 5 mg 01/27/20 10:00 02/03/20 09:50 Norvasc - PO 5 mg DAILY KYLEIGH Administration Budesonide/Formoterol Fumarate 2 puff 01/27/20 10:00 02/03/20 09:51 Symbicort 80/4.5mcg - IH 2 puff DAILY KYLEIGH Administration Cyanocobalamin 1,000 mcg 01/27/20 14:00 02/03/20 09:50 Vitamin B12 - PO 1,000 mcg DAILY KYLEIGH Administration Docusate Sodium 100 mg 01/31/20 20:49 Colace - PO DAILY PRN CONSTIPATION Doxycycline Hyclate 100 mg 01/30/20 12:56 02/03/20 18:17 Vibramycin - PO 100 mg BID@1000,1800 KYLEIGH Administration Hydroxychloroquine Sulfate 200 mg 01/27/20 10:00 02/03/20 09:51 Plaquenil - PO 200 mg DAILY KYLEIGH Administration Acyclovir 580 mg/ Dextrose 111.6 mls @ 111.6 mls/hr 01/30/20 13:00 02/03/20 16:28 IVPB 111.6 mls/hr Q12H KYLEIGH Administration Piperacillin Sod/Tazobactam 100 mls @ 200 mls/hr 02/01/20 18:00 02/03/20 18:16 Sod 4.5 gm/ Dextrose IVPB 200 mls/hr Q8H-IV KYLEIGH Administration Protocol Sodium Chloride 1,000 mls @ 100 mls/hr 02/02/20 08:23 02/03/20 09:50 Normal Saline - IV 100 mls/hr ASDIR KYLEIGH Administration Ibuprofen 600 mg 02/02/20 08:50 02/02/20 09:00 Motrin - PO 600 mg Q4H PRN Administration FEVER Insulin Aspart 1 vial 01/26/20 07:00 02/03/20 16:38 Novolog Vial Sliding Scale - SQ Not Given ACHS KYLEIGH Protocol Oxycodone HCl 5 mg 02/02/20 09:45 02/03/20 05:57 Roxicodone - PO 5 mg Q4H PRN Administration PAIN LEVEL 1-5 Oxycodone HCl 10 mg 02/02/20 09:45 02/03/20 16:29 Roxicodone - PO 10 mg Q4H PRN Administration PAIN LEVEL 6-10 Pantoprazole Sodium 40 mg 01/30/20 10:00 02/03/20 09:50 Protonix - PO 40 mg DAILY KYLEIGH Administration Polyethylene Glycol 17 gm 01/31/20 20:49 02/03/20 16:41 Miralax (For Daily Use) - PO 02/04/20 09:59 17 gm DAILY PRN Administration CONSTIPATION Valsartan 320 mg 01/27/20 10:00 02/03/20 09:50 Diovan - PO 320 mg DAILY KYLEIGH Administration Home Medications Medication Instructions Recorded Albuterol Sulfate [Proair Hfa] 1 inh IH Q4H PRN 01/26/20 Budesonide/Formeterol Fumarate 2 puff IH DAILY 01/26/20 [SYMBICORT 80/4.5mcg -] Famotidine [Pepcid -] 40 mg PO DAILY 01/26/20 Hydroxychloroquine Sulfate 200 mg PO DAILY 01/26/20 [Plaquenil] Methotrexate [Mexate -] 6 tab PO WEEKLY 01/26/20 Nebivolol HCl [Bystolic] 20 mg PO DAILY 01/26/20 Olmesartan/Amlodipin/Hcthiazid 1 tab PO DAILY 01/26/20 [Uocqlfj-Oigifc-Pprs 40-5-25 mg] Omeprazole 20 mg PO DAILY 01/26/20 Pioglitazone HCl [Actos] 30 mg PO DAILY 01/26/20 Sitagliptin Phos/Metformin HCl 1 tab PO BID 01/26/20 [Janumet 50-1,000 mg Tablet] Laboratory Tests 01/30/20 01/30/20 01/31/20 09:30 13:30 06:15 IgM 28 ARIANA Screen ARIANA Homogeneous Pattern ARIANA Nucleolar Pattern ARIANA Spindle Tommy Pattern ARIANA Midbody Pattern ARIANA Centriole Pattern ARIANA Nuclear Dot Pattern ARIANA PCNA Pattern ARIANA Nuclear Membr Pat ARIANA Speckled Pattern ARIANA Centromere Pattern Smooth Musc &ALGORITHM DEVELOPER Intrp Heparin-Ind Plt Ab Scrn 0.107 COVID-19 (INGRIS) CMV DNA Qual PCR EBV DNA (PCR) HIV Ag/Ab Combo Qual Infectious Peñuelas Assay Strongyloides IgG Ab Negative VZV IgG Antibody VZV IgM Antibody 01/31/20 01/31/20 01/31/20 12:01 14:56 14:56 IgM ARIANA Screen ARIANA Homogeneous Pattern ARIANA Nucleolar Pattern ARIANA Spindle Tommy Pattern ARIANA Midbody Pattern ARIANA Centriole Pattern ARIANA Nuclear Dot Pattern ARIANA PCNA Pattern ARIANA Nuclear Membr Pat ARIANA Speckled Pattern ARIANA Centromere Pattern Smooth Musc &ALGORITHM DEVELOPER Intrp Heparin-Ind Plt Ab Scrn COVID-19 (INGRIS) Not detected CMV DNA Qual PCR Pending EBV DNA (PCR) Positive <100 HIV Ag/Ab Combo Qual Infectious Peñuelas Assay Negative Strongyloides IgG Ab VZV IgG Antibody VZV IgM Antibody 01/31/20 02/03/20 02/03/20 14:56 07:15 14:00 IgM ARIANA Screen Positive H ARIANA Homogeneous Pattern TNP ARIANA Nucleolar Pattern TNP ARIANA Spindle Tommy Pattern TNP ARIANA Midbody Pattern TNP ARIANA Centriole Pattern TNP ARIANA Nuclear Dot Pattern TNP ARIANA PCNA Pattern TNP ARIANA Nuclear Membr Pat TNP ARIANA Speckled Pattern 1:640 H ARIANA Centromere Pattern TNP Smooth Musc &ALGORITHM DEVELOPER Intrp 6 Heparin-Ind Plt Ab Scrn COVID-19 (INGRIS) CMV DNA Qual PCR EBV DNA (PCR) HIV Ag/Ab Combo Qual Negative Infectious Peñuelas Assay Strongyloides IgG Ab VZV IgG Antibody > 4000 VZV IgM Antibody < 0.91 ASSESSMENT AND PLAN: This patient is a 69yof with Pmhx of SJogren's , anemia, Rheumatoid arthritis, HTN , lupus , Throidectomy, T2DM , and HLP who presented with abdominal pain with melena #Acute abdominal pain with fever.improving . s/p endoscopy as per patient. # RAsh: varicella/zoster, as above continue Acyclovir continue, patient is improving , discussed withDr Nuñez # thrombocytopenia : trending up improving # complicated UTI/pyelonephritis : on IV antibiotics # Hx of RA/LUPUS/sjorgen's on Hydroxyquinolone , MTx and folic acid s # PAncytopenia :improving , posible due to meds ; hem/onc on board ;Outpatient workup from Dr. Lambert's office # Transamintiis # HTN :Amlodipine, Valsartan, continue to hold Hctz # DM A1c 5.3 #MGUS: F/U with primary safety sitter on d/c #MMA level still pending DVT ppx; Heparin [address] per [address] Nicholas's note: Dr. Rod from [facility]um was called yesterday; said that pt should continue her current RA meds prescribed by her rheum and that he does not need to be consulted
[2020-02-03] MEDS: DOCUSATE SODIUM 100 MG CAPSULE (FP) PO PRN (22:42)
[2020-02-04] MEDS: DEXTROSE 5% IVPB SCH ×2 (00:34→17:37)
[2020-02-04] MEDS: ACYCLOVIR IVPB SCH ×2 (00:34→17:37)
[2020-02-04] MEDS: WATER IVPB SCH ×2 (00:34→17:37)
[2020-02-04] MEDS: PIPERACILLIN/TAZOB 4.5 GM 4.5 GM in DEXTROSE 5%-WATER 100 ML IVPB SCH ×3 (00:56→17:38)
[2020-02-04] MEDS: INSULIN SLIDING SCALE (NOVOLOG) 1 VIAL SQ SCH ×4 (06:34→22:27)
[2020-02-04 07:07] LABS: BASO % 0.4 % (0-2.0); EOS % 4.3 % (0-4.5); LYMPH % 18.3 % (8-40); MCH 28.7 pg (25.7-33.7); MCHC 33.2 g/dl (32.0-36.0); MEAN CELL VOLUME 86.5 fl (80-96); MEAN PLT VOLUME 8.8 fl (7.5-11.1); MONO % 16.8 % (3.8-10.2); NEUT % 60.2 % (42.8-82.8); PLATELET COUNT 192 K/MM3 (134-434); RBC 2.78 M/mm3 (3.60-5.2); RDW 15.7 % (11.6-15.6); WHITE BLOOD COUNT 5.6 K/mm3 (4.0-10.0)
[2020-02-04 08:04] LABS: ALBUMIN 2.4 g/dl (3.4-5.0); BILIRUBIN,DIRECT 0.2 mg/dL (0.0-0.2); BILIRUBIN,TOTAL 0.5 mg/dL (0.2-1); BLOOD UREA NITROGEN 3.7 mg/dL (7-18); CALCIUM 8.4 mg/dL (8.5-10.1); CREATININE 0.8 mg/dL (0.55-1.3); POTASSIUM 3.2 mmol/L (3.5-5.1); TOT PROT 7.3 g/dl (6.4-8.2)
[2020-02-04] MEDS ORDERED: POTASSIUM CHLORIDE TABS 20 MEQ TABLET.ER (FP) PO ONE (08:47)
[2020-02-04 09:07] LABS: ANISOCYTOSIS 0; MACROCYTOSIS 0; OVALOCYTE 1+; PLATELET ESTIMATE NORMAL
[2020-02-04] MEDS ORDERED: PIPERACILLIN/TAZOBACTAM 4.5 GM VIAL IVPB ONE ×2 (10:29→17:20)
[2020-02-04] MEDS ORDERED: DEXTROSE 5%-WATER 100 ML IVPB ONE ×2 (10:29→17:20)
[2020-02-04] MEDS: DOXYCYCLINE HYCLATE 100 MG CAPSULE PO SCH ×2 (10:42→17:38)
[2020-02-04] MEDS: SODIUM CHLORIDE 1,000 ML IV SCH ×2 (10:43→15:40)
[2020-02-04] MEDS: KCL 10 MEQ IVPB 10 MEQ/100 ML INFUS.BAG IVPB SCH ×3 (10:44→17:35)
[2020-02-04] MEDS: VALSARTAN 160 MG TABLET (UD) PO SCH (10:44)
[2020-02-04] MEDS: amLODIPine BESYLATE 5 MG TABLET (FP) PO SCH (10:45)
[2020-02-04] MEDS: HYDROXYCHLOROQUINE SO4 200 MG TABLET (FP) PO SCH (10:45)
[2020-02-04] MEDS: PANTOPRAZOLE 40 MG TABLET PO SCH (10:45)
[2020-02-04] MEDS: CYANOCOBALAMIN 1,000 MCG TABLET (FP) PO SCH (10:45)
[2020-02-04] MEDS: DOCUSATE SODIUM 100 MG CAPSULE (FP) PO PRN (10:46)
[2020-02-04] MEDS: BUDESONIDE/FORMETEROL FUMARATE 80/4.5 mcg INHALER IH SCH (10:46)
[2020-02-04] MEDS ORDERED: SIMETHICONE 80 MG TAB.CHEW (FP) PO PRN (11:56)
--- NOTE | 2020-02-04 12:33 | PN ---
Physical Exam: SUBJECTIVE: Patient seen and examined at bedside. Overnight, patient had abdominal pain and gas which was relieved with medications. This morning the patient continues to complain of abdominal pain and gas. OBJECTIVE: Vital Signs Period Temp Pulse Resp BP Sys/Alarcon Pulse Ox Last 24 Hr 98.1 F-99.4 F 102-112 16-18 134-140/65-78 96-96 GENERAL: AAOx3, in no acute distress HEENT: NCAT, PERRLA, EOMI, sclera anicteric, conjunctiva clear, oropharynx clear w/o exudates. MMM. NECK: Normal ROM, supple, no lymphadenopathy, JVD, or masses LUNGS: CTABL no wheezes/ rhonchi/ rales. No distress, speaks in full sentences. No increased work of breathing. HEART: RRR, normal S1 S2, no M/R/G, peripheral pulses 2+ and equal b/l ABDOMEN: Soft, epigastric and RUQ tenderness to palpation MSK: ROM WNL EXTREMITIES: Normal inspection. No peripheral edema. No clubbing or cyanosis. NEUROLOGICAL: CN II-XII intact. Normal speech, normal gait, no focal sensorimotor deficits. SKIN: Erythematous, mildly vesicular rash on low back, right arm, l leg with hypopigmentation. Rash is improving Laboratory Results - last 24 hr CBC, BMP 02/04/20 06:47 02/04/20 06:47 01/30/20 01/31/20 02/01/20 13:30 14:56 16:46 WBC RBC Hgb Hct MCV MCH MCHC RDW Plt Count MPV Absolute Neuts (auto) Neutrophils % Neutrophils % (Manual) Band Neutrophils % Lymphocytes % Lymphocytes % (Manual) Monocytes % Monocytes % (Manual) Eosinophils % Eosinophils % (Manual) Basophils % Basophils % (Manual) Myelocytes % (Man) Promyelocytes % (Man) Blast Cells % (Manual) Nucleated RBC % Metamyelocytes Hypochromia Platelet Estimate Polychromasia Poikilocytosis Anisocytosis Microcytosis Macrocytosis Ovalocytes Sodium Potassium Chloride Carbon Dioxide Anion Gap BUN Creatinine Est GFR (CKD-EPI)AfAm Est GFR (CKD-EPI)NonAf POC Glucometer 214 Random Glucose Calcium Total Bilirubin Direct Bilirubin AST ALT Alkaline Phosphatase Total Protein Albumin Lipase A. phagocytophilum DNA No Result Required. EBV DNA (PCR) Positive <100 HIV Ag/Ab Combo Qual 02/02/20 02/02/20 02/02/20 06:27 11:11 17:17 WBC RBC Hgb Hct MCV MCH MCHC RDW Plt Count MPV Absolute Neuts (auto) Neutrophils % Neutrophils % (Manual) Band Neutrophils % Lymphocytes % Lymphocytes % (Manual) Monocytes % Monocytes % (Manual) Eosinophils % Eosinophils % (Manual) Basophils % Basophils % (Manual) Myelocytes % (Man) Promyelocytes % (Man) Blast Cells % (Manual) Nucleated RBC % Metamyelocytes Hypochromia Platelet Estimate Polychromasia Poikilocytosis Anisocytosis Microcytosis Macrocytosis Ovalocytes Sodium Potassium Chloride Carbon Dioxide Anion Gap BUN Creatinine Est GFR (CKD-EPI)AfAm Est GFR (CKD-EPI)NonAf POC Glucometer 147 162 211 Random Glucose Calcium Total Bilirubin Direct Bilirubin AST ALT Alkaline Phosphatase Total Protein Albumin Lipase A. phagocytophilum DNA EBV DNA (PCR) HIV Ag/Ab Combo Qual 02/03/20 02/03/20 02/03/20 07:15 14:00 16:37 WBC RBC Hgb Hct MCV MCH MCHC RDW Plt Count MPV Absolute Neuts (auto) Neutrophils % Neutrophils % (Manual) Band Neutrophils % Lymphocytes % Lymphocytes % (Manual) Monocytes % Monocytes % (Manual) Eosinophils % Eosinophils % (Manual) Basophils % Basophils % (Manual) Myelocytes % (Man) Promyelocytes % (Man) Blast Cells % (Manual) Nucleated RBC % Metamyelocytes Hypochromia Platelet Estimate Polychromasia Poikilocytosis Anisocytosis Microcytosis Macrocytosis Ovalocytes Sodium 138 Potassium 3.3 L Chloride 104 Carbon Dioxide 26 Anion Gap 8 BUN 7.8 Creatinine 0.8 Est GFR (CKD-EPI)AfAm 88.42 Est GFR (CKD-EPI)NonAf 76.29 POC Glucometer 153 Random Glucose 154 H Calcium 8.3 L Total Bilirubin 0.3 Direct Bilirubin 0.1 AST 138 H ALT 171 H Alkaline Phosphatase 281 H Total Protein 6.4 Albumin 2.2 L Lipase 530 H A. phagocytophilum DNA EBV DNA (PCR) HIV Ag/Ab Combo Qual Negative 02/03/20 02/04/20 02/04/20 22:52 06:31 06:47 WBC 5.6 RBC 2.78 L Hgb 8.0 L Hct 24.0 L MCV 86.5 MCH 28.7 MCHC 33.2 RDW 15.7 H Plt Count 192 D MPV 8.8 Absolute Neuts (auto) 3.4 Neutrophils % 60.2 Neutrophils % (Manual) 63.7 Band Neutrophils % 1.0 Lymphocytes % 18.3 Lymphocytes % (Manual) 13.1 D Monocytes % 16.8 H Monocytes % (Manual) 11 H Eosinophils % 4.3 Eosinophils % (Manual) 3.0 Basophils % 0.4 Basophils % (Manual) 0.0 Myelocytes % (Man) 4 H D Promyelocytes % (Man) 0 Blast Cells % (Manual) 0 Nucleated RBC % 0 Metamyelocytes 3 H D Hypochromia 0 Platelet Estimate Normal Polychromasia 0 Poikilocytosis 0 Anisocytosis 0 Microcytosis 0 Macrocytosis 0 Ovalocytes 1+ Sodium Potassium Chloride Carbon Dioxide Anion Gap BUN Creatinine Est GFR (CKD-EPI)AfAm Est GFR (CKD-EPI)NonAf POC Glucometer 157 155 Random Glucose Calcium Total Bilirubin Direct Bilirubin AST ALT Alkaline Phosphatase Total Protein Albumin Lipase A. phagocytophilum DNA EBV DNA (PCR) HIV Ag/Ab Combo Qual 02/04/20 06:47 WBC RBC Hgb Hct MCV MCH MCHC RDW Plt Count MPV Absolute Neuts (auto) Neutrophils % Neutrophils % (Manual) Band Neutrophils % Lymphocytes % Lymphocytes % (Manual) Monocytes % Monocytes % (Manual) Eosinophils % Eosinophils % (Manual) Basophils % Basophils % (Manual) Myelocytes % (Man) Promyelocytes % (Man) Blast Cells % (Manual) Nucleated RBC % Metamyelocytes Hypochromia Platelet Estimate Polychromasia Poikilocytosis Anisocytosis Microcytosis Macrocytosis Ovalocytes Sodium 135 L Potassium 3.2 L Chloride 99 Carbon Dioxide 30 Anion Gap 7 L BUN 3.7 L Creatinine 0.8 Est GFR (CKD-EPI)AfAm 88.42 Est GFR (CKD-EPI)NonAf 76.29 POC Glucometer Random Glucose 159 H Calcium 8.4 L Total Bilirubin 0.5 Direct Bilirubin 0.2 AST 109 H ALT 154 H Alkaline Phosphatase 322 H Total Protein 7.3 Albumin 2.4 L Lipase A. phagocytophilum DNA EBV DNA (PCR) HIV Ag/Ab Combo Qual Active Medications Generic Name Dose Route Start Last Admin Trade Name Freq PRN Reason Stop Dose Admin Al Hydroxide/Mg Hydroxide 30 ml 02/03/20 10:03 02/03/20 22:42 Mylanta Oral Suspension - PO 30 ml Q6H PRN Administration DYSPEPSIA Albuterol Sulfate 2 puff 01/26/20 06:03 Ventolin Hfa Inhaler - IH Q4H PRN SHORT OF BREATH/WHEEZING Amlodipine Besylate 5 mg 01/27/20 10:00 02/04/20 10:45 Norvasc - PO 5 mg DAILY KYLEIGH Administration Budesonide/Formoterol Fumarate 2 puff 01/27/20 10:00 02/04/20 10:46 Symbicort 80/4.5mcg - IH 2 puff DAILY KYLEIGH Administration Cyanocobalamin 1,000 mcg 01/27/20 14:00 02/04/20 10:45 Vitamin B12 - PO 1,000 mcg DAILY KYLEIGH Administration Docusate Sodium 100 mg 01/31/20 20:49 02/04/20 10:46 Colace - PO 100 mg DAILY PRN Administration CONSTIPATION Doxycycline Hyclate 100 mg 01/30/20 12:56 02/04/20 10:42 Vibramycin - PO 100 mg BID@1000,1800 KYLEIGH Administration Hydroxychloroquine Sulfate 200 mg 01/27/20 10:00 02/04/20 10:45 Plaquenil - PO 200 mg DAILY KYLEIGH Administration Acyclovir 580 mg/ Dextrose 111.6 mls @ 111.6 mls/hr 01/30/20 13:00 02/04/20 00:34 IVPB 111.6 mls/hr Q12H KYLEIGH Administration Piperacillin Sod/Tazobactam 100 mls @ 200 mls/hr 02/01/20 18:00 02/04/20 10:46 Sod 4.5 gm/ Dextrose IVPB 200 mls/hr Q8H-IV KYLEIGH Administration Protocol Sodium Chloride 1,000 mls @ 100 mls/hr 02/02/20 08:23 02/04/20 10:43 Normal Saline - IV Not Given ASDIR KYLEIGH Ibuprofen 600 mg 02/02/20 08:50 02/02/20 09:00 Motrin - PO 600 mg Q4H PRN Administration FEVER Insulin Aspart 1 vial 01/26/20 07:00 02/04/20 06:34 Novolog Vial Sliding Scale - SQ Not Given ACHS [facility] Protocol Oxycodone HCl 5 mg 02/02/20 09:45 02/03/20 22:42 Roxicodone - PO 5 mg Q4H PRN Administration PAIN LEVEL 1-5 Oxycodone HCl 10 mg 02/02/20 09:45 02/03/20 16:29 Roxicodone - PO 10 mg Q4H PRN Administration PAIN LEVEL 6-10 Pantoprazole Sodium 40 mg 01/30/20 10:00 02/04/20 10:45 Protonix - PO 40 mg DAILY KYLEIGH Administration Simethicone 80 mg 02/04/20 11:56 Mylicon - PO Q4H PRN GAS Valsartan 320 mg 01/27/20 10:00 02/04/20 10:44 Diovan - PO 320 mg DAILY KYLEIGH Administration ASSESSMENT/PLAN: 69F with PMH of HTN, DM, RA, sjorgens, & asthma presenting with R flank/RUQ pain with associated dysuria & chills, admitted for evaluation of UTI, GI bleed, possible cholecystits. #Abdominal PAIN: 2/2 gastritis, vs PUD, vs cholelithiasis/cholecystitis - Etiology still unclear, EGD does not explain abdominal pain patient is c/o - Oxycodone PRN for pain control - GI consulted (Dr. Mosqueda): Pathology from EGD 01/31: scattered eosinophilia, non-specific findings with HSC/CMV stains pending. h. Pylori negative -Patient will need liver biopsy to r/o AIH if symptoms do not improve as per Dr. Mosqueda -GI yarn conditioner today recommends waiting for all serology results before proceeding with a liver biopsy - Surgical evaluation (Dr. Alba): Possible cholecystectomy but first medical issues need to be resolved before pt qualifies for surgery - LFTs continue to improve #Rash - ID: Possible Varicella Zoster - On Acyclovir with improvement of rash - Derm consulted (Dr. Mari) and aware. They will see the pt soon #UTI - zosyn for billiary/pyelo coverage as per ID #RA - hydroxychloroquine 200 mg daily -Dr. Rod from [facility] was contacted on Sat; said that pt should continue her current RA meds prescribed by her rheum and that he does not need to be consulted #Pancytopenia - Heme/Onc on board, 2/2 Methotrexate & plaquenil, in setting of multiple autoimmune disorders, sepsis - Outpatient workup from Dr. Lambert's office - MGUS: F/U with primary nightclub manager on d/c - HIV test was NEGATIVE -EBV results were POSITIVE #DM - A1c 5.3 - BGM, ISS #HTN - Amlodipine, Valsartasn - Holding Hctz #DVT ppx - Heparin 5000 sq tid #FEN - N/S @ 100 - low Na, low fat, diabetic diet #Dispo - Monitor in M/S for now Visit type - Emergency Visit Emergency Visit: No - New Patient This patient is new to me today: No - Critical Care Critical Care patient: No - Discharge Referral Referred to [facility] Med P.C[facility] No - Medication Review Med list reviewed for High Risk Meds patients 65 and older: Yes ATTENDING PHYSICIAN STATEMENT I saw and evaluated the patient. I reviewed the resident's note and discussed the case with the resident. I agree with the resident's findings and plan as documented. SUBJECTIVE: OBJECTIVE: ASSESSMENT AND PLAN:
--- NOTE | 2020-02-04 15:37 | PN ---
Progress Note (short form) - Note Progress Note: Attending Surgeon No c/o VSS AF abdo-benign IMP: improved PLAN:No indication for lap saida at this time; continue medical and GI w/up and prn surgical f/u. Rommel Hammond MD FACS
[2020-02-04] MEDS ORDERED: PT OWN MED DRAWER 7, Y5N ONE (17:19)
[2020-02-04] MEDS ORDERED: KCL 10 MEQ IVPB 10 MEQ/100 ML INFUS.BAG IVPB SCH (17:30)
--- NOTE | 2020-02-04 18:29 | PN.GI ---
GI Progress Note Subjective: complains of diffuse abdominal pain and bloating - Objective Vital Signs: Vital Signs Temperature 98.5 F 02/04/20 18:13 Pulse Rate 97 H 02/04/20 18:13 Respiratory Rate 18 02/04/20 18:13 Blood Pressure 138/80 02/04/20 18:13 O2 Sat by Pulse Oximetry (%) 96 02/04/20 18:13 Constitutional: No Distress Eyes: Yes: Conjunctiva Clear HENT: Yes: Atraumatic Neck: Yes: Supple Cardiovascular: Yes: Regular Rate and Rhythm Respiratory: Yes: CTA Bilaterally Gastrointestinal Inspection: Yes: Distention ...Palpate: Yes: Soft, Tenderness (--diffuse). No: Firm/Rigid, Guarding, Hepatomegaly, Splenomegaly Labs: CBC, BMP 02/04/20 06:47 02/04/20 06:47 INR, PTT INR 1.11 (0.83-1.09) H 01/30/20 07:26 CBC,CMP WBC 5.6 K/mm3 (4.0-10.0) 02/04/20 06:47 RBC 2.78 M/mm3 (3.60-5.2) L 02/04/20 06:47 Hgb 8.0 GM/dL (10.7-15.3) L 02/04/20 06:47 Hct 24.0 % (32.4-45.2) L 02/04/20 06:47 MCV 86.5 fl (80-96) 02/04/20 06:47 MCH 28.7 pg (25.7-33.7) 02/04/20 06:47 MCHC 33.2 g/dl (32.0-36.0) 02/04/20 06:47 RDW 15.7 % (11.6-15.6) H 02/04/20 06:47 Plt Count 192 K/MM3 (134-434) D 02/04/20 06:47 MPV 8.8 fl (7.5-11.1) 02/04/20 06:47 Absolute Neuts (auto) 3.4 K/mm3 (1.5-8.0) 02/04/20 06:47 Total Counted 100 02/01/20 08:19 Neutrophils % 60.2 % (42.8-82.8) 02/04/20 06:47 Neutrophils % (Manual) 63.7 % (42.8-82.8) 02/04/20 06:47 Band Neutrophils % 1.0 % 02/04/20 06:47 Lymphocytes % 18.3 % (8-40) 02/04/20 06:47 Lymphocytes % (Manual) 13.1 % (8-40) D 02/04/20 06:47 Monocytes % 16.8 % (3.8-10.2) H 02/04/20 06:47 Monocytes % (Manual) 11 % (3.8-10.2) H 02/04/20 06:47 Eosinophils % 4.3 % (0-4.5) 02/04/20 06:47 Eosinophils % (Manual) 3.0 % (0-4.5) 02/04/20 06:47 Basophils % 0.4 % (0-2.0) 02/04/20 06:47 Basophils % (Manual) 0.0 % (0-2.0) 02/04/20 06:47 Myelocytes % (Man) 4 % (0-2) H D 02/04/20 06:47 Promyelocytes % (Man) 0 % (0-2) 02/04/20 06:47 Blast Cells % (Manual) 0 % (0-0) 02/04/20 06:47 Nucleated RBC % 0 % (0-0) 02/04/20 06:47 Metamyelocytes 3 % (0-2) H D 02/04/20 06:47 Hypochromia 0 02/04/20 06:47 Platelet Estimate Normal 02/04/20 06:47 Platelet Comment Present 02/01/20 08:19 Polychromasia 0 02/04/20 06:47 Poikilocytosis 0 02/04/20 06:47 Anisocytosis 0 02/04/20 06:47 Microcytosis 0 02/04/20 06:47 Macrocytosis 0 02/04/20 06:47 Spherocytes 1+ 02/01/20 08:19 Tear Drop Cells 1+ 02/01/20 08:19 Ovalocytes 1+ 02/04/20 06:47 Acanthocytes (Spur) 1+ 02/01/20 08:19 ESR 100 mm/hr (0-30) H 01/31/20 06:15 Retic Count 0.82 % (0.5-1.5) 01/30/20 13:30 Haptoglobin 257 mg/dL (37-355) 01/30/20 13:30 Sodium 135 mmol/L (136-145) L 02/04/20 06:47 Potassium 3.2 mmol/L (3.5-5.1) L 02/04/20 06:47 Chloride 99 mmol/L (98-107) 02/04/20 06:47 Carbon Dioxide 30 mmol/L (21-32) 02/04/20 06:47 Anion Gap 7 MMOL/L (8-16) L 02/04/20 06:47 BUN 3.7 mg/dL (7-18) L 02/04/20 06:47 Creatinine 0.8 mg/dL (0.55-1.3) 02/04/20 06:47 Est GFR (CKD-EPI)AfAm 88.42 02/04/20 06:47 Est GFR (CKD-EPI)NonAf 76.29 02/04/20 06:47 POC Glucometer 186 UNITS (80-120) 02/04/20 12:55 Random Glucose 159 mg/dL (74-106) H 02/04/20 06:47 Hemoglobin A1c % 5.3 % (4.2-6.3) 01/26/20 08:29 Lactic Acid 1.0 mmol/L (0.4-2.0) 01/30/20 09:30 Calcium 8.4 mg/dL (8.5-10.1) L 02/04/20 06:47 Phosphorus 2.6 mg/dL (2.5-4.9) 02/01/20 08:19 Magnesium 1.8 mg/dL (1.8-2.4) 02/01/20 08:19 Iron 79 ug/dL (50-175) 01/27/20 06:29 TIBC 214 ug/dL (250-450) L 01/27/20 06:29 Iron Saturation 36 % (17.5-39) 01/27/20 06:29 Unsaturated IBC 135 ug/dL (200-275) L 01/27/20 06:29 Ferritin 472.8 ng/ml (8-388) H 01/27/20 06:29 Total Bilirubin 0.5 mg/dL (0.2-1) 02/04/20 06:47 Direct Bilirubin 0.2 mg/dL (0.0-0.2) 02/04/20 06:47 Indirect Bilirubin 0.2 mg/dL 01/30/20 09:30 AST 109 U/L (15-37) H 02/04/20 06:47 ALT 154 U/L (13-61) H 02/04/20 06:47 Alkaline Phosphatase 322 U/L (45-117) H 02/04/20 06:47 LD Total 505 U/L (84-246) H 01/30/20 09:30 Creatine Kinase 110 U/L (26-192) 01/30/20 14:46 Troponin I < 0.02 ng/ml (0.00-0.05) 01/26/20 01:00 C-Reactive Protein 9.3 MG/DL (0.00-0.3) H 01/31/20 06:15 Total Protein 7.3 g/dl (6.4-8.2) 02/04/20 06:47 Albumin 2.4 g/dl (3.4-5.0) L 02/04/20 06:47 Lipase 530 U/L (73-393) H 02/03/20 07:15 Vitamin B12 299 pg/ml (193-986) 01/27/20 06:29 Serum Folate > 20 ng/mL (3.1-17.5) H 01/27/20 06:29 TSH 0.49 uIU/ml (0.358-3.74) 01/30/20 09:30 Problem List - Problems (1) Elevated liver enzymes Assessment/Plan: r/ secondary to drug toxiciity-- methotrexate LFTS downward trend R> contihue trend lfts off meds Code(s): R74.8 - ABNORMAL LEVELS OF OTHER SERUM ENZYMES (2) Abdominal pain Assessment/Plan: assoicated with bloating and soft stool R?O IBS, SIBO pancreatic exocrine insufficiency R> low fiber lactose free Flagyl 250mg tid' pancreatic enzyme Code(s): R10.9 - UNSPECIFIED ABDOMINAL PAIN Qualifiers: Abdominal location: upper abdomen, unspecified Qualified Code(s): R10.10 - Upper abdominal pain, unspecified
--- NOTE | 2020-02-04 19:04 | PN ---
Teaching Attending Note Name of Resident: Maninder Melendez ATTENDING PHYSICIAN STATEMENT I saw and evaluated the patient. I reviewed the resident's note and discussed the case with the resident. I agree with the resident's findings and plan as documented. SUBJECTIVE: patient is better with NAD OBJECTIVE: Vital Signs Temperature 98.5 F 02/04/20 18:13 Pulse Rate 97 H 02/04/20 18:13 Respiratory Rate 18 02/04/20 18:13 Blood Pressure 138/80 02/04/20 18:13 O2 Sat by Pulse Oximetry (%) 96 02/04/20 18:13 PE; per resident's note CBCD WBC 5.6 K/mm3 (4.0-10.0) 02/04/20 06:47 RBC 2.78 M/mm3 (3.60-5.2) L 02/04/20 06:47 Hgb 8.0 GM/dL (10.7-15.3) L 02/04/20 06:47 Hct 24.0 % (32.4-45.2) L 02/04/20 06:47 MCV 86.5 fl (80-96) 02/04/20 06:47 MCHC 33.2 g/dl (32.0-36.0) 02/04/20 06:47 RDW 15.7 % (11.6-15.6) H 02/04/20 06:47 Plt Count 192 K/MM3 (134-434) D 02/04/20 06:47 MPV 8.8 fl (7.5-11.1) 02/04/20 06:47 CMP Sodium 135 mmol/L (136-145) L 02/04/20 06:47 Potassium 3.2 mmol/L (3.5-5.1) L 02/04/20 06:47 Chloride 99 mmol/L (98-107) 02/04/20 06:47 Carbon Dioxide 30 mmol/L (21-32) 02/04/20 06:47 Anion Gap 7 MMOL/L (8-16) L 02/04/20 06:47 BUN 3.7 mg/dL (7-18) L 02/04/20 06:47 Creatinine 0.8 mg/dL (0.55-1.3) 02/04/20 06:47 Random Glucose 159 mg/dL (74-106) H 02/04/20 06:47 Calcium 8.4 mg/dL (8.5-10.1) L 02/04/20 06:47 Total Bilirubin 0.5 mg/dL (0.2-1) 02/04/20 06:47 AST 109 U/L (15-37) H 02/04/20 06:47 ALT 154 U/L (13-61) H 02/04/20 06:47 Alkaline Phosphatase 322 U/L (45-117) H 02/04/20 06:47 Total Protein 7.3 g/dl (6.4-8.2) 02/04/20 06:47 Albumin 2.4 g/dl (3.4-5.0) L 02/04/20 06:47 CARDIAC ENZYMES Creatine Kinase 110 U/L (26-192) 01/30/20 14:46 Troponin I < 0.02 ng/ml (0.00-0.05) 01/26/20 01:00 Current Medications Generic Name Dose Route Start Last Admin Trade Name Freq PRN Reason Stop Dose Admin Al Hydroxide/Mg Hydroxide 30 ml 02/03/20 10:03 02/03/20 22:42 Mylanta Oral Suspension - PO 30 ml Q6H PRN Administration DYSPEPSIA Albuterol Sulfate 2 puff 01/26/20 06:03 Ventolin Hfa Inhaler - IH Q4H PRN SHORT OF BREATH/WHEEZING Amlodipine Besylate 5 mg 01/27/20 10:00 02/04/20 10:45 Norvasc - PO 5 mg DAILY KYLEIGH Administration Budesonide/Formoterol Fumarate 2 puff 01/27/20 10:00 02/04/20 10:46 Symbicort 80/4.5mcg - IH 2 puff DAILY KYLEIGH Administration Cyanocobalamin 1,000 mcg 01/27/20 14:00 02/04/20 10:45 Vitamin B12 - PO 1,000 mcg DAILY KYLEIGH Administration Docusate Sodium 100 mg 01/31/20 20:49 02/04/20 10:46 Colace - PO 100 mg DAILY PRN Administration CONSTIPATION Doxycycline Hyclate 100 mg 01/30/20 12:56 02/04/20 17:38 Vibramycin - PO 100 mg BID@1000,1800 KYLEIGH Administration Hydroxychloroquine Sulfate 200 mg 01/27/20 10:00 02/04/20 10:45 Plaquenil - PO 200 mg DAILY KYLEIGH Administration Acyclovir 580 mg/ Dextrose 111.6 mls @ 111.6 mls/hr 01/30/20 13:00 02/04/20 17:37 IVPB 111.6 mls/hr Q12H KYLEIGH Administration Piperacillin Sod/Tazobactam 100 mls @ 200 mls/hr 02/01/20 18:00 02/04/20 17:38 Sod 4.5 gm/ Dextrose IVPB 200 mls/hr Q8H-IV KYLEIGH Administration Protocol Sodium Chloride 1,000 mls @ 100 mls/hr 02/02/20 08:23 02/04/20 15:40 Normal Saline - IV 100 mls/hr ASDIR KYLEIGH Administration Ibuprofen 600 mg 02/02/20 08:50 02/02/20 09:00 Motrin - PO 600 mg Q4H PRN Administration FEVER Insulin Aspart 1 vial 01/26/20 07:00 02/04/20 16:06 Novolog Vial Sliding Scale - SQ Not Given ACHS [facility] Protocol Metoclopramide HCl 5 mg 02/04/20 18:45 Reglan - PO TIDAC [facility] Metronidazole 250 mg 02/04/20 22:00 Flagyl - PO TID KYLEIGH Oxycodone HCl 5 mg 02/02/20 09:45 02/03/20 22:42 Roxicodone - PO 5 mg Q4H PRN Administration PAIN LEVEL 1-5 Oxycodone HCl 10 mg 02/02/20 09:45 02/03/20 16:29 Roxicodone - PO 10 mg Q4H PRN Administration PAIN LEVEL 6-10 Pancrelipase 1 cap 02/04/20 18:[address] 36,000 Units Capsule PO TIDCM KYLEIGH Pantoprazole Sodium 40 mg 01/30/20 10:00 02/04/20 10:45 Protonix - PO 40 mg DAILY KYLEIGH Administration Simethicone 80 mg 02/04/20 11:56 Mylicon - PO Q4H PRN GAS Valsartan 320 mg 01/27/20 10:00 02/04/20 10:44 Diovan - PO 320 mg DAILY KYLEIGH Administration Home Medications Medication Instructions Recorded Albuterol Sulfate [Proair Hfa] 1 inh IH Q4H PRN 01/26/20 Budesonide/Formeterol Fumarate 2 puff IH DAILY 01/26/20 [SYMBICORT 80/4.5mcg -] Famotidine [Pepcid -] 40 mg PO DAILY 01/26/20 Hydroxychloroquine Sulfate 200 mg PO DAILY 01/26/20 [Plaquenil] Methotrexate [Mexate -] 6 tab PO WEEKLY 01/26/20 Nebivolol HCl [Bystolic] 20 mg PO DAILY 01/26/20 Olmesartan/Amlodipin/Hcthiazid 1 tab PO DAILY 01/26/20 [Kwpyjxg-Kjxpgt-Lkqx 40-5-25 mg] Omeprazole 20 mg PO DAILY 01/26/20 Pioglitazone HCl [Actos] 30 mg PO DAILY 01/26/20 Sitagliptin Phos/Metformin HCl 1 tab PO BID 01/26/20 [Janumet 50-1,000 mg Tablet] Laboratory Tests 01/30/20 01/30/20 01/31/20 09:30 13:30 06:15 IgM 28 ARIANA Screen ARIANA Homogeneous Pattern ARIANA Nucleolar Pattern ARIANA Spindle Tommy Pattern ARIANA Midbody Pattern ARIANA Centriole Pattern ARIANA Nuclear Dot Pattern ARIANA PCNA Pattern ARIANA Nuclear Membr Pat ARIANA Speckled Pattern ARIANA Centromere Pattern Smooth Musc &BOW TACKER Intrp Heparin-Ind Plt Ab Scrn 0.107 COVID-19 ([facility]) CMV DNA Qual PCR EBV DNA (PCR) HIV Ag/Ab Combo Qual Infectious [place] Assay Strongyloides IgG Ab Negative VZV IgG Antibody VZV IgM Antibody 01/31/20 01/31/20 01/31/20 12:01 14:56 14:56 IgM ARIANA Screen ARIANA Homogeneous Pattern ARIANA Nucleolar Pattern ARIANA Spindle Tommy Pattern ARIANA Midbody Pattern ARIANA Centriole Pattern AIRANA Nuclear Dot Pattern ARIANA PCNA Pattern ARIANA Nuclear Membr Pat ARIANA Speckled Pattern ARIANA Centromere Pattern Smooth Musc &BOW TACKER Intrp Heparin-Ind Plt Ab Scrn COVID-19 ([facility]) Not detected CMV DNA Qual PCR Pending EBV DNA (PCR) Positive <100 HIV Ag/Ab Combo Qual Infectious [place] Assay Negative Strongyloides IgG Ab VZV IgG Antibody VZV IgM Antibody 01/31/20 02/03/20 02/03/20 14:56 07:15 14:00 IgM ARIANA Screen Positive H ARIANA Homogeneous Pattern TNP ARIANA Nucleolar Pattern TNP ARIANA Spindle Tommy Pattern TNP ARIANA Midbody Pattern TNP ARIANA Centriole Pattern TNP ARIANA Nuclear Dot Pattern TNP ARIANA PCNA Pattern TNP ARI[place] Nuclear Membr Pat TNP ARIANA Speckled Pattern 1:640 H ARIANA Centromere Pattern TNP Smooth Musc &BOW TACKER Intrp 6 Heparin-Ind Plt Ab Scrn COVID-19 ([facility]) CMV DNA Qual PCR EBV DNA (PCR) HIV Ag/Ab Combo Qual Negative Infectious [place] Assay Strongyloides IgG Ab VZV IgG Antibody > 4000 VZV IgM Antibody < 0.91 ASSESSMENT AND PLAN: This patient is a 69yof with Pmhx of SJogren's , anemia, Rheumatoid arthritis, HTN , lupus , Throidectomy, T2DM , and HLP who presented with abdominal pain with melena #Acute abdominal pain with fever.improving . s/p endoscopy as per patient. # RAsh: varicella/zoster, as above continue Acyclovir continue, patient is improving , discussed with Dr Nuñez # thrombocytopenia : trending up improved # complicated UTI/pyelonephritis : on IV antibiotics flagyl and doxy # Hx of RA/LUPUS/sjorgen's on Hydroxyquinolone , MTx and folic acid s # PAncytopenia :improving , posible due to meds ; hem/onc on board ;Outpatient workup from Dr. 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 Rod from rheum was called yesterday; said that pt should continue her current RA meds prescribed by her rheum and that he does not need to be consulted
[2020-02-04] MEDS: METOCLOPRAMIDE HCL 10 MG TABLET (FP) PO SCH (19:51)
[2020-02-04] MEDS: LIPASE/PROTEASE/AMYLASE 36,000 UNIT CAPSULE PO SCH (19:57)
[2020-02-04] MEDS: metroNIDAZOLE 250 MG TABLET PO SCH (22:28)
[2020-02-04] MEDS: oxyCODONE HCL 5 MG TABLET PO PRN (22:28)
[2020-02-05] MEDS ORDERED: PT OWN MED DRAWER 7, Y5N ONE ×5 (01:19→20:59)
[2020-02-05] MEDS ORDERED: PIPERACILLIN/TAZOBACTAM 4.5 GM VIAL IVPB ONE ×2 (01:19→11:19)
[2020-02-05] MEDS ORDERED: DEXTROSE 5%-WATER 100 ML IVPB ONE ×2 (01:20→11:19)
[2020-02-05] MEDS: PIPERACILLIN/TAZOB 4.5 GM 4.5 GM in DEXTROSE 5%-WATER 100 ML IVPB SCH ×2 (01:39→11:27)
[2020-02-05] MEDS: ACYCLOVIR IVPB SCH ×2 (02:59→15:42)
[2020-02-05] MEDS: DEXTROSE 5% IVPB SCH ×2 (02:59→15:42)
[2020-02-05] MEDS: WATER IVPB SCH ×2 (02:59→15:42)
[2020-02-05] MEDS: INSULIN SLIDING SCALE (NOVOLOG) 1 VIAL SQ SCH ×4 (06:40→22:05)
[2020-02-05] MEDS: METOCLOPRAMIDE HCL 10 MG TABLET (FP) PO SCH ×2 (06:41→11:29)
[2020-02-05] MEDS: metroNIDAZOLE 250 MG TABLET PO SCH ×3 (06:41→22:08)
[2020-02-05 07:34] LABS: INR 1.12 (0.83-1.09); PROTHROMBIN TIME (PATIENT) 13.2 SEC (9.7-13.0)
[2020-02-05 07:37] LABS: ACTIVATED PTT 27.4 SECONDS (25.2-36.5); BASO % 0.4 % (0-2.0); EOS % 2.6 % (0-4.5); HEMATOCRIT 21.9 % (32.4-45.2); HEMOGLOBIN 7.3 GM/dL (10.7-15.3); LYMPH % 13.4 % (8-40); MCH 28.7 pg (25.7-33.7); MCHC 33.6 g/dl (32.0-36.0); MEAN CELL VOLUME 85.5 fl (80-96); MEAN PLT VOLUME 8.7 fl (7.5-11.1); MONO % 18.3 % (3.8-10.2); NEUT % 65.3 % (42.8-82.8); PLATELET COUNT 198 K/MM3 (134-434); RBC 2.56 M/mm3 (3.60-5.2); RDW 15.8 % (11.6-15.6); WHITE BLOOD COUNT 5.3 K/mm3 (4.0-10.0)
[2020-02-05 07:59] LABS: BLOOD UREA NITROGEN 4.8 mg/dL (7-18); CALCIUM 8.4 mg/dL (8.5-10.1); CREATININE 0.8 mg/dL (0.55-1.3); POTASSIUM 3.5 mmol/L (3.5-5.1)
[2020-02-05] MEDS ORDERED: POTASSIUM CHLORIDE TABS 20 MEQ TABLET.ER (FP) PO ONE (09:16)
[2020-02-05] MEDS: LIPASE/PROTEASE/AMYLASE 36,000 UNIT CAPSULE PO SCH ×2 (09:53→11:51)
[2020-02-05] MEDS: PANTOPRAZOLE 40 MG TABLET PO SCH (11:28)
[2020-02-05] MEDS: amLODIPine BESYLATE 5 MG TABLET (FP) PO SCH (11:28)
[2020-02-05] MEDS: VALSARTAN 160 MG TABLET (UD) PO SCH (11:28)
[2020-02-05] MEDS: HYDROXYCHLOROQUINE SO4 200 MG TABLET (FP) PO SCH (11:29)
[2020-02-05] MEDS: DOXYCYCLINE HYCLATE 100 MG CAPSULE PO SCH (11:29)
[2020-02-05] MEDS: CYANOCOBALAMIN 1,000 MCG TABLET (FP) PO SCH (11:29)
[2020-02-05] MEDS: BUDESONIDE/FORMETEROL FUMARATE 80/4.5 mcg INHALER IH SCH (11:50)
[2020-02-05] MEDS: SODIUM CHLORIDE 1,000 ML IV SCH ×2 (11:52→23:26)
--- NOTE | 2020-02-05 12:47 | PN ---
Physical Exam: SUBJECTIVE: Patient seen and examined at bedside. Overnight, patient had abdominal pain and gas which was relieved with ibuprofen. This morning the patient continues to complain of abdominal pain with diarrhea. OBJECTIVE: Vital Signs Period Temp Pulse Resp BP Sys/Alarcon Pulse Ox Last 24 Hr 98.5 F-99.2 F 97-119 18-20 124-138/70-80 94-98 GENERAL: AAOx3, in no acute distress HEENT: NCAT, PERRLA, EOMI, sclera anicteric, conjunctiva clear, oropharynx clear w/o exudates. MMM. NECK: Normal ROM, supple, no lymphadenopathy, JVD, or masses LUNGS: CTABL no wheezes/ rhonchi/ rales. No distress, speaks in full sentences. No increased work of breathing. HEART: RRR, normal S1 S2, no M/R/G, peripheral pulses 2+ and equal b/l ABDOMEN: Soft, epigastric and RUQ tenderness to palpation MSK: ROM WNL EXTREMITIES: Normal inspection. No peripheral edema. No clubbing or cyanosis. NEUROLOGICAL: CN II-XII intact. Normal speech, normal gait, no focal sensorimotor deficits. SKIN: Erythematous, mildly vesicular rash on low back, right arm, l leg with hypopigmentation. Rash is improving Laboratory Results - last 24 hr CBC, BMP 02/05/20 07:10 02/05/20 07:10 02/03/20 02/04/20 02/04/20 07:15 12:55 22:25 WBC RBC Hgb Hct MCV MCH MCHC RDW Plt Count MPV Absolute Neuts (auto) Neutrophils % Lymphocytes % Monocytes % Eosinophils % Basophils % Nucleated RBC % PT with INR INR PTT (Actin FS) Sodium Potassium Chloride Carbon Dioxide Anion Gap BUN Creatinine Est GFR (CKD-EPI)AfAm Est GFR (CKD-EPI)NonAf POC Glucometer 186 197 Random Glucose Calcium ARIANA Screen Positive H ARIANA Homogeneous Pattern TNP ARIANA Nucleolar Pattern TNP ARIANA Spindle Tommy Pattern TNP ARIANA Midbody Pattern TNP ARIANA Centriole Pattern TNP ARIANA Nuclear Dot Pattern TNP ARIANA PCNA Pattern TNP ARIANA Nuclear Membr Pat TNP ARIANA Speckled Pattern 1:640 H ARIANA Centromere Pattern TNP Smooth Musc &PEDIATRICIAN/MEDICAL DOCTOR Intrp 6 Ref Lab Notation 02/05/20 02/05/20 02/05/20 06:40 07:10 07:10 WBC 5.3 RBC 2.56 L Hgb 7.3 L Hct 21.9 L MCV 85.5 MCH 28.7 MCHC 33.6 RDW 15.8 H Plt Count 198 MPV 8.7 Absolute Neuts (auto) 3.4 Neutrophils % 65.3 Lymphocytes % 13.4 D Monocytes % 18.3 H Eosinophils % 2.6 Basophils % 0.4 Nucleated RBC % 0 PT with INR 13.20 H INR 1.12 H PTT (Actin FS) 27.4 Sodium Potassium Chloride Carbon Dioxide Anion Gap BUN Creatinine Est GFR (CKD-EPI)AfAm Est GFR (CKD-EPI)NonAf POC Glucometer 151 Random Glucose Calcium ARIANA Screen ARIANA Homogeneous Pattern ARIANA Nucleolar Pattern ARIANA Spindle Tommy Pattern ARIANA Midbody Pattern ARIANA Centriole Pattern ARIANA Nuclear Dot Pattern ARIANA PCNA Pattern ARIANA Nuclear Membr Pat ARIANA Speckled Pattern ARIANA Centromere Pattern Smooth Musc &PEDIATRICIAN/MEDICAL DOCTOR Intrp Ref Lab Notation 02/05/20 07:10 WBC RBC Hgb Hct MCV MCH MCHC RDW Plt Count MPV Absolute Neuts (auto) Neutrophils % Lymphocytes % Monocytes % Eosinophils % Basophils % Nucleated RBC % PT with INR INR PTT (Actin FS) Sodium 135 L Potassium 3.5 Chloride 98 Carbon Dioxide 30 Anion Gap 6 L BUN 4.8 L Creatinine 0.8 Est GFR (CKD-EPI)AfAm 88.42 Est GFR (CKD-EPI)NonAf 76.29 POC Glucometer Random Glucose 158 H Calcium 8.4 L ARIANA Screen ARIANA Homogeneous Pattern ARIANA Nucleolar Pattern ARIANA Spindle Tommy Pattern ARIANA Midbody Pattern ARIANA Centriole Pattern ARIANA Nuclear Dot Pattern ARIANA PCNA Pattern ARIANA Nuclear Membr Pat ARIANA Speckled Pattern ARIANA Centromere Pattern Smooth Musc &PEDIATRICIAN/MEDICAL DOCTOR Intrp Ref Lab Notation Active Medications Generic Name Dose Route Start Last Admin Trade Name Freq PRN Reason Stop Dose Admin Al Hydroxide/Mg Hydroxide 30 ml 02/03/20 10:03 02/03/20 22:42 Mylanta Oral Suspension - PO 30 ml Q6H PRN Administration DYSPEPSIA Albuterol Sulfate 2 puff 01/26/20 06:03 Ventolin Hfa Inhaler - IH Q4H PRN SHORT OF BREATH/WHEEZING Amlodipine Besylate 5 mg 01/27/20 10:00 02/05/20 11:28 Norvasc - PO 5 mg DAILY KYLEIGH Administration Budesonide/Formoterol Fumarate 2 puff 01/27/20 10:00 02/05/20 11:50 Symbicort 80/4.5mcg - IH 2 puff DAILY KYLEIGH Administration Cyanocobalamin 1,000 mcg 01/27/20 14:00 02/05/20 11:29 Vitamin B12 - PO 1,000 mcg DAILY KYLEIGH Administration Doxycycline Hyclate 100 mg 01/30/20 12:56 02/05/20 11:29 Vibramycin - PO 100 mg BID@1000,1800 KYLEIGH Administration Hydroxychloroquine Sulfate 200 mg 01/27/20 10:00 02/05/20 11:29 Plaquenil - PO 200 mg DAILY KYLEIGH Administration Acyclovir 580 mg/ Dextrose 111.6 mls @ 111.6 mls/hr 01/30/20 13:00 02/05/20 02:59 IVPB 111.6 mls/hr Q12H KYLEIGH Administration Piperacillin Sod/Tazobactam 100 mls @ 200 mls/hr 02/01/20 18:00 02/05/20 11:27 Sod 4.5 gm/ Dextrose IVPB 200 mls/hr Q8H-IV KYLEIGH Administration Protocol Sodium Chloride 1,000 mls @ 100 mls/hr 02/02/20 08:23 02/05/20 11:52 Normal Saline - IV 100 mls/hr ASDIR KYLEIGH Administration Ibuprofen 600 mg 02/02/20 08:50 02/02/20 09:00 Motrin - PO 600 mg Q4H PRN Administration FEVER Insulin Aspart 1 vial 01/26/20 07:00 02/05/20 11:50 Novolog Vial Sliding Scale - SQ Not Given ACHS KYLEIGH Protocol Metronidazole 250 mg 02/04/20 22:00 02/05/20 06:41 Flagyl - PO 250 mg TID KYLEIGH Administration Pantoprazole Sodium 40 mg 01/30/20 10:00 02/05/20 11:28 Protonix - PO 40 mg DAILY KYLEIGH Administration Valsartan 320 mg 01/27/20 10:00 02/05/20 11:28 Diovan - PO 320 mg DAILY KYLEIGH Administration ASSESSMENT/PLAN: 69F with PMH of HTN, DM, RA, sjorgens, & asthma presenting with R flank/RUQ pain with associated dysuria & chills, admitted for evaluation of UTI, GI bleed, possible cholecystits. #Abdominal PAIN: 2/2 gastritis, vs PUD, vs cholelithiasis/cholecystitis - Etiology still unclear, EGD does not explain abdominal pain patient is c/o - Oxycodone PRN for pain control - GI consulted (Dr. Mosqueda): Pathology from EGD 01/31: scattered eosinophilia, non-specific findings with HSC/CMV stains pending. h. Pylori negative -Patient will need liver biopsy to r/o AIH if symptoms do not improve as per Dr. Mosqueda (GI) - Surgical evaluation (Dr. Alba): Possible cholecystectomy but first medical issues need to be resolved before pt qualifies for surgery - LFTs continue to improve #Rash - responded to Acyclovir -Acyclovir d/c today as per Dr. Granado (ID) - Derm consulted (Dr. Mari) and aware. They will see the pt soon #UTI - zosyn d/c today as per Dr. Granado (ID) #RA - hydroxychloroquine 200 mg daily -Dr. Rod from rheum was contacted on Sat; said that pt should continue her current RA meds prescribed by her rheum and that he does not need to be consulted #Pancytopenia - Heme/Onc on board, 2/2 Methotrexate & plaquenil, in setting of multiple autoimmune disorders, sepsis - Outpatient workup from Dr. Lambert's office - MGUS: F/U with primary tafe teacher on d/c - HIV test was NEGATIVE -EBV results were POSITIVE -ARIANA results were POSITIVE #DM - A1c 5.3 - BGM, ISS #HTN - Amlodipine, Valsartasn - Holding Hctz #DVT ppx - Heparin 5000 sq tid #FEN - N/S @ 100 -monitor electrolytes - low Na, low fat, diabetic diet #Dispo - Monitor in M/S for now Visit type - Emergency Visit Emergency Visit: No - New Patient This patient is new to me today: No - Critical Care Critical Care patient: No - Discharge Referral Referred to [facility] No - Medication Review Med list reviewed for High Risk Meds patients 65 and older: Yes ATTENDING PHYSICIAN STATEMENT I saw and evaluated the patient. I reviewed the resident's note and discussed the case with the resident. I agree with the resident's findings and plan as documented. SUBJECTIVE: OBJECTIVE: ASSESSMENT AND PLAN:
--- NOTE | 2020-02-05 14:53 | PN ---
Progress Note (short form) - Note Progress Note: less abdominal pain, ate an omelette today Vital Signs Period Temp Pulse Resp BP Sys/Alarcon Pulse Ox Last 24 Hr 98.5 F-99.0 F 97-119 18-18 124-138/70-80 94-98 cor-rrr lungs decreased bs at bases abd soft, midepigastric/ruq tenderness minimal ext no edema rash drying CBC, BMP 02/05/20 07:10 02/05/20 07:10 Microbiology 01/30/20 07:26 Blood - Peripheral Venous Blood Culture - Final NO GROWTH AFTER 5 DAYS INCUBATION 01/30/20 07:26 Blood - Peripheral Venous Blood Culture - Final NO GROWTH AFTER 5 DAYS INCUBATION 01/30/20 06:30 Urine - Urine Clean Catch Urine Culture - Final Enterococcus Faecalis 01/31/20 16:30 Urine For Antigen Detection Legionella Antigen - Final 01/31/20 16:30 Urine For Antigen Detection Streptococcus pneumoniae Antigen (M - Final 01/26/20 08:29 Blood - Peripheral Venous Blood Culture - Final NO GROWTH AFTER 5 DAYS INCUBATION 01/26/20 08:29 Blood - Peripheral Venous Blood Culture - Final NO GROWTH AFTER 5 DAYS INCUBATION 01/30/20 13:30 Blood - Peripheral Venous Blood Parasites Smear - Final 01/26/20 00:00 Urine - Urine Clean Catch Urine Culture - Final Escherichia Coli Enterococcus Faecalis a/p fever-resolved rash-improved thrombocytopenia resolved abnl lfts improving pancreatitis Sjogren/RA-on MTX, plaquenil/Rituxan (last rituxan 08/2019) MGUS persistent RUQ pain- surgery f/u MRI- with mild pancreatic inflammation, perinephric fluid and mild GB wall thickening will d/c antibiotics tick serology negative cultures negative resollving lfts and abdominal pain d/w hospitalist service
[2020-02-05] MEDS: LACTOBACILLUS ACIDOPHILUS 1 TABLET PO SCH (15:42)
[2020-02-05] MEDS: BANATROL PLUS POWDER PACKET PO SCH ×2 (17:43→22:08)
[2020-02-05] MEDS: MULTIVIT-MINERALS ORAL LIQUID PO SCH (17:43)
[2020-02-05] MEDS: AMINO ACIDS/PROTEIN HYDROLYS 30 ML LIQUID.PKT PO SCH (17:43)
--- NOTE | 2020-02-05 18:57 | PN ---
Teaching Attending Note Name of Resident: Maninder Melendez ATTENDING PHYSICIAN STATEMENT I saw and evaluated the patient. I reviewed the resident's note and discussed the case with the resident. I agree with the resident's findings and plan as documented. SUBJECTIVE: Patient is improving, no further abdominal pain. OBJECTIVE: Vital Signs Temperature 98.8 F 02/05/20 18:02 Pulse Rate 107 H 02/05/20 18:02 Respiratory Rate 18 02/05/20 18:02 Blood Pressure 109/65 02/05/20 18:02 O2 Sat by Pulse Oximetry (%) 97 02/05/20 18:02 PE:per resident's note CBCD WBC 5.3 K/mm3 (4.0-10.0) 02/05/20 07:10 RBC 2.56 M/mm3 (3.60-5.2) L 02/05/20 07:10 Hgb 7.3 GM/dL (10.7-15.3) L 02/05/20 07:10 Hct 21.9 % (32.4-45.2) L 02/05/20 07:10 MCV 85.5 fl (80-96) 02/05/20 07:10 MCHC 33.6 g/dl (32.0-36.0) 02/05/20 07:10 RDW 15.8 % (11.6-15.6) H 02/05/20 07:10 Plt Count 198 K/MM3 (134-434) 02/05/20 07:10 MPV 8.7 fl (7.5-11.1) 02/05/20 07:10 CMP Sodium 135 mmol/L (136-145) L 02/05/20 07:10 Potassium 3.5 mmol/L (3.5-5.1) 02/05/20 07:10 Chloride 98 mmol/L (98-107) 02/05/20 07:10 Carbon Dioxide 30 mmol/L (21-32) 02/05/20 07:10 Anion Gap 6 MMOL/L (8-16) L 02/05/20 07:10 BUN 4.8 mg/dL (7-18) L 02/05/20 07:10 Creatinine 0.8 mg/dL (0.55-1.3) 02/05/20 07:10 Random Glucose 158 mg/dL (74-106) H 02/05/20 07:10 Calcium 8.4 mg/dL (8.5-10.1) L 02/05/20 07:10 Total Bilirubin 0.5 mg/dL (0.2-1) 02/04/20 06:47 AST 109 U/L (15-37) H 02/04/20 06:47 ALT 154 U/L (13-61) H 02/04/20 06:47 Alkaline Phosphatase 322 U/L (45-117) H 02/04/20 06:47 Total Protein 7.3 g/dl (6.4-8.2) 02/04/20 06:47 Albumin 2.4 g/dl (3.4-5.0) L 02/04/20 06:47 CARDIAC ENZYMES Creatine Kinase 110 U/L (26-192) 01/30/20 14:46 Troponin I < 0.02 ng/ml (0.00-0.05) 01/26/20 01:00 Current Medications Generic Name Dose Route Start Last Admin Trade Name Dovq PRN Reason Stop Dose Admin Al Hydroxide/Mg Hydroxide 30 ml 02/03/20 10:03 02/03/20 22:42 Mylanta Oral Suspension - PO 30 ml Q6H PRN Administration DYSPEPSIA Albuterol Sulfate 2 puff 01/26/20 06:03 Ventolin Hfa Inhaler - IH Q4H PRN SHORT OF BREATH/WHEEZING Amino Acids 30 ml 02/05/20 17:30 02/05/20 17:43 Prosource No Carb Liquid Pkt PO 30 ml BID@0800,1730 KYLEIGH Administration Amlodipine Besylate 5 mg 01/27/20 10:00 02/05/20 11:28 Norvasc - PO 5 mg DAILY KYLEIGH Administration Banana Based Medical Food 1 packet 02/05/20 14:45 02/05/20 17:43 Banatrol Plus Powder Packet PO 1 packet TID KYLEIGH Administration Budesonide/Formoterol Fumarate 2 puff 01/27/20 10:00 02/05/20 11:50 Symbicort 80/4.5mcg - IH 2 puff DAILY KYLEIGH Administration Cyanocobalamin 1,000 mcg 01/27/20 14:00 02/05/20 11:29 Vitamin B12 - PO 1,000 mcg DAILY KYLEIGH Administration Hydroxychloroquine Sulfate 200 mg 01/27/20 10:00 02/05/20 11:29 Plaquenil - PO 200 mg DAILY KYLEIGH Administration Acyclovir 580 mg/ Dextrose 111.6 mls @ 111.6 mls/hr 01/30/20 13:00 02/05/20 15:42 IVPB 02/06/20 06:00 111.6 mls/hr Q12H KYLEIGH Administration Sodium Chloride 1,000 mls @ 100 mls/hr 02/02/20 08:23 02/05/20 11:52 Normal Saline - IV 100 mls/hr ASDIR KYLEIGH Administration Ibuprofen 600 mg 02/02/20 08:50 02/02/20 09:00 Motrin - PO 600 mg Q4H PRN Administration FEVER Insulin Aspart 1 vial 01/26/20 07:00 02/05/20 17:45 Novolog Vial Sliding Scale - SQ Not Given ACHS KYLEIGH Protocol Lactobacillus Acidophilus 1 tab 02/05/20 14:45 02/05/20 15:42 Bacid - PO 1 tab DAILY KYLEIGH Administration Metronidazole 250 mg 02/04/20 22:00 02/05/20 15:42 Flagyl - PO 250 mg TID KYLEIGH Administration Multivitamins/Minerals 15 ml 02/05/20 14:45 02/05/20 17:43 Certavite-Antioxidant Liquid PO 15 ml DAILY KYLEIGH Administration Pantoprazole Sodium 40 mg 01/30/20 10:00 02/05/20 11:28 Protonix - PO 40 mg DAILY KYLEIGH Administration Valsartan 320 mg 01/27/20 10:00 02/05/20 11:28 Diovan - PO 320 mg DAILY KYLEIGH Administration Home Medications Medication Instructions Recorded Albuterol Sulfate [Proair Hfa] 1 inh IH Q4H PRN 01/26/20 Budesonide/Formeterol Fumarate 2 puff IH DAILY 01/26/20 [SYMBICORT 80/4.5mcg -] Famotidine [Pepcid -] 40 mg PO DAILY 01/26/20 Hydroxychloroquine Sulfate 200 mg PO DAILY 01/26/20 [Plaquenil] Methotrexate [Mexate -] 6 tab PO WEEKLY 01/26/20 Nebivolol HCl [Bystolic] 20 mg PO DAILY 01/26/20 Olmesartan/Amlodipin/Hcthiazid 1 tab PO DAILY 01/26/20 [Yvfwidg-Agnjhk-Ftpm 40-5-25 mg] Omeprazole 20 mg PO DAILY 01/26/20 Pioglitazone HCl [Actos] 30 mg PO DAILY 01/26/20 Sitagliptin Phos/Metformin HCl 1 tab PO BID 01/26/20 [Janumet 50-1,000 mg Tablet] Microbiology 01/30/20 07:26 Blood - Peripheral Venous Blood Culture - Final NO GROWTH AFTER 5 DAYS INCUBATION 01/30/20 07:26 Blood - Peripheral Venous Blood Culture - Final NO GROWTH AFTER 5 DAYS INCUBATION 01/30/20 06:30 Urine - Urine Clean Catch Urine Culture - Final Enterococcus Faecalis 01/31/20 16:30 Urine For Antigen Detection Legionella Antigen - Final 01/31/20 16:30 Urine For Antigen Detection Streptococcus pneumoniae Antigen (M - Final 01/26/20 08:29 Blood - Peripheral Venous Blood Culture - Final NO GROWTH AFTER 5 DAYS INCUBATION 01/26/20 08:29 Blood - Peripheral Venous Blood Culture - Final NO GROWTH AFTER 5 DAYS INCUBATION 01/30/20 13:30 Blood - Peripheral Venous Blood Parasites Smear - Final 01/26/20 00:00 Urine - Urine Clean Catch Urine Culture - Final Escherichia Coli Enterococcus Faecalis ASSESSMENT AND PLAN: This patient is a 69yof with Pmhx of SJogren's , anemia, Rheumatoid arthritis, HTN , lupus , Throidectomy, T2DM , and HLP who presented with abdominal pain with melena #Acute abdominal pain with fever.improved. s/p endoscopy as per patient a week ago. # RAsh: varicella/zoster, as above continue Acyclovir continue, patient is improving # thrombocytopenia : trending up improving # complicated UTI/pyelonephritis : on IV antibiotics # Hx of RA/LUPUS/sjorgen's on Hydroxyquinolone , MTx and folic acid s # PAncytopenia :improved , no further pancytopenic follow with hem/rheum as an outpatient # Transamintiis trending down # HTN :Amlodipine, Valsartan, continue to hold Hctz # DM A1c 5.3 #MGUS: F/U with primary iron miner blasting on d/c #MMA level DVT ppx; Heparin 5000 [address] tid As per dr Nicholas's note: Dr. Rod from rheum was called yesterday; said that pt should continue her current RA meds prescribed by her rheum and that he does not need to be consulted
[2020-02-05] MEDS ORDERED: INSULIN (NOVOLOG) ASPART 100 UNITS/ML 10ML VIAL ONE (21:00)
[2020-02-05] MEDS ORDERED: MELATONIN 1 MG TABLET PO ONE (21:52)
[2020-02-05] MEDS: IBUPROFEN 600 MG TABLET (FP) PO PRN (22:06)
[2020-02-06] MEDS ORDERED: PT OWN MED DRAWER 7, Y5N ONE ×3 (00:23→20:30)
[2020-02-06] MEDS: DEXTROSE 5% IVPB SCH (00:25)
[2020-02-06] MEDS: ACYCLOVIR IVPB SCH (00:25)
[2020-02-06] MEDS: WATER IVPB SCH (00:25)
[2020-02-06] MEDS: metroNIDAZOLE 250 MG TABLET PO SCH ×3 (06:59→21:02)
[2020-02-06] MEDS: BANATROL PLUS POWDER PACKET PO SCH ×3 (06:59→21:02)
[2020-02-06] MEDS: INSULIN SLIDING SCALE (NOVOLOG) 1 VIAL SQ SCH ×4 (07:01→21:02)
[2020-02-06 07:29] LABS: BASO % 0.5 % (0-2.0); EOS % 3.1 % (0-4.5); HEMOGLOBIN 7.1 GM/dL (10.7-15.3); LYMPH % 10.4 % (8-40); MCH 28.9 pg (25.7-33.7); MCHC 33.8 g/dl (32.0-36.0); MEAN CELL VOLUME 85.5 fl (80-96); MEAN PLT VOLUME 8.5 fl (7.5-11.1); MONO % 20.2 % (3.8-10.2); NEUT % 65.8 % (42.8-82.8); PLATELET COUNT 225 K/MM3 (134-434); RBC 2.45 M/mm3 (3.60-5.2); RDW 16.1 % (11.6-15.6); WHITE BLOOD COUNT 4.9 K/mm3 (4.0-10.0)
[2020-02-06 07:47] LABS: ALBUMIN 2.2 g/dl (3.4-5.0); BILIRUBIN,DIRECT 0.2 mg/dL (0.0-0.2); BILIRUBIN,TOTAL 0.4 mg/dL (0.2-1); BLOOD UREA NITROGEN 5.3 mg/dL (7-18); CALCIUM 8.3 mg/dL (8.5-10.1); CREATININE 0.8 mg/dL (0.55-1.3); POTASSIUM 3.2 mmol/L (3.5-5.1); TOT PROT 6.8 g/dl (6.4-8.2)
[2020-02-06] MEDS: IBUPROFEN 600 MG TABLET (FP) PO PRN (10:15)
[2020-02-06] MEDS: AMINO ACIDS/PROTEIN HYDROLYS 30 ML LIQUID.PKT PO SCH ×2 (10:15→17:25)
[2020-02-06] MEDS: VALSARTAN 160 MG TABLET (UD) PO SCH (10:16)
[2020-02-06] MEDS: PANTOPRAZOLE 40 MG TABLET PO SCH (10:17)
[2020-02-06] MEDS: LACTOBACILLUS ACIDOPHILUS 1 TABLET PO SCH (10:17)
[2020-02-06] MEDS: CYANOCOBALAMIN 1,000 MCG TABLET (FP) PO SCH (10:17)
[2020-02-06] MEDS: amLODIPine BESYLATE 5 MG TABLET (FP) PO SCH (10:17)
[2020-02-06] MEDS: SODIUM CHLORIDE 1,000 ML IV SCH (10:17)
[2020-02-06] MEDS: MULTIVIT-MINERALS ORAL LIQUID PO SCH (10:18)
[2020-02-06] MEDS: BUDESONIDE/FORMETEROL FUMARATE 80/4.5 mcg INHALER IH SCH (10:19)
[2020-02-06] MEDS: HYDROXYCHLOROQUINE SO4 200 MG TABLET (FP) PO SCH (10:24)
[2020-02-06 10:39] LABS: PLATELET ESTIMATE NORMAL
[2020-02-06] MEDS ORDERED: POTASSIUM CHLORIDE TABS 20 MEQ TABLET.ER (FP) PO ONE (15:59)
--- NOTE | 2020-02-06 16:06 | PN ---
Progress Note (short form) - Note Progress Note: No further abdominal pain but c/o having bloody , dark black stool , daughter at bedside Vital Signs Temperature 98.4 F 02/06/20 13:38 Pulse Rate 95 H 02/06/20 13:38 Respiratory Rate 18 02/06/20 13:38 Blood Pressure 125/68 02/06/20 13:38 O2 Sat by Pulse Oximetry (%) 96 02/06/20 10:00 GENERAL: The patient is awake, alert, and fully oriented, in no acute distress. HEAD: Normal with no signs of trauma. EYES: PERRL, extraocular movements intact, sclera anicteric, conjunctiva clear. ENT: Ears normal, oropharynx clear without exudates, moist mucous membranes. NECK: Trachea midline, full range of motion, supple. LUNGS: Breath sounds equal, clear to auscultation bilaterally, no wheezes, no crackles, no accessory muscle use. HEART: Regular rate and rhythm, S1, S2 without murmur, rub or gallop. ABDOMEN: Soft, nontender, nondistended, normoactive bowel sounds, no guarding, no rebound, no hepatosplenomegaly, no masses. EXTREMITIES: 2+ pulses, warm, well-perfused, no edema. NEUROLOGICAL: Cranial nerves II through XII grossly intact. Normal speech, gait not observed. PSYCH: Normal mood, normal affect. SKIN: Warm, dry, normal turgor, no rashes or lesions noted CBCD WBC 4.9 K/mm3 (4.0-10.0) 02/06/20 06:55 RBC 2.45 M/mm3 (3.60-5.2) L 02/06/20 06:55 Hgb 7.1 GM/dL (10.7-15.3) L 02/06/20 06:55 Hct 21.0 % (32.4-45.2) L 02/06/20 06:55 MCV 85.5 fl (80-96) 02/06/20 06:55 MCHC 33.8 g/dl (32.0-36.0) 02/06/20 06:55 RDW 16.1 % (11.6-15.6) H 02/06/20 06:55 Plt Count 225 K/MM3 (134-434) 02/06/20 06:55 MPV 8.5 fl (7.5-11.1) 02/06/20 06:55 CMP Sodium 139 mmol/L (136-145) 02/06/20 06:55 Potassium 3.2 mmol/L (3.5-5.1) L 02/06/20 06:55 Chloride 103 mmol/L (98-107) 02/06/20 06:55 Carbon Dioxide 29 mmol/L (21-32) 02/06/20 06:55 Anion Gap 7 MMOL/L (8-16) L 02/06/20 06:55 BUN 5.3 mg/dL (7-18) L 02/06/20 06:55 Creatinine 0.8 mg/dL (0.55-1.3) 02/06/20 06:55 Random Glucose 133 mg/dL (74-106) H 02/06/20 06:55 Calcium 8.3 mg/dL (8.5-10.1) L 02/06/20 06:55 Total Bilirubin 0.4 mg/dL (0.2-1) 02/06/20 06:55 AST 53 U/L (15-37) H 02/06/20 06:55 ALT 96 U/L (13-61) H 02/06/20 06:55 Alkaline Phosphatase 250 U/L (45-117) H 02/06/20 06:55 Total Protein 6.8 g/dl (6.4-8.2) 02/06/20 06:55 Albumin 2.2 g/dl (3.4-5.0) L 02/06/20 06:55 CARDIAC ENZYMES Creatine Kinase 110 U/L (26-192) 01/30/20 14:46 Troponin I < 0.02 ng/ml (0.00-0.05) 01/26/20 01:00 Current Medications Generic Name Dose Route Start Last Admin Trade Name Freq PRN Reason Stop Dose Admin Al Hydroxide/Mg Hydroxide 30 ml 02/03/20 10:03 02/03/20 22:42 Mylanta Oral Suspension - PO 30 ml Q6H PRN Administration DYSPEPSIA Albuterol Sulfate 2 puff 01/26/20 06:03 Ventolin Hfa Inhaler - IH Q4H PRN SHORT OF BREATH/WHEEZING Amino Acids 30 ml 02/05/20 17:30 08/29/20 10:15 Prosource No Carb Liquid Pkt PO 30 ml BID@0800,1730 KYLEIGH Administration Amlodipine Besylate 5 mg 01/27/20 10:00 02/06/20 10:17 Norvasc - PO 5 mg DAILY KYLEIGH Administration Banana Based Medical Food 1 packet 02/05/20 14:45 02/06/20 13:28 Banatrol Plus Powder Packet PO 1 packet TID KYLEIGH Administration Budesonide/Formoterol Fumarate 2 puff 01/27/20 10:00 02/06/20 10:19 Symbicort 80/4.5mcg - IH 2 puff DAILY KYLEIGH Administration Cyanocobalamin 1,000 mcg 01/27/20 14:00 02/06/20 10:17 Vitamin B12 - PO 1,000 mcg DAILY KYLEIGH Administration Hydroxychloroquine Sulfate 200 mg 01/27/20 10:00 02/06/20 10:24 Plaquenil - PO 200 mg DAILY KYLEIGH Administration Sodium Chloride 1,000 mls @ 100 mls/hr 02/02/20 08:23 02/06/20 10:17 Normal Saline - IV 100 mls/hr ASDIR KYLEIGH Administration Ibuprofen 600 mg 02/02/20 08:50 02/06/20 10:15 Motrin - PO 600 mg Q4H PRN Administration FEVER Insulin Aspart 1 vial 01/26/20 07:00 02/06/20 12:27 Novolog Vial Sliding Scale - SQ Not Given ACHS KYLEIGH Protocol Lactobacillus Acidophilus 1 tab 02/05/20 14:45 02/06/20 10:17 Bacid - PO 1 tab DAILY KYLEIGH Administration Metronidazole 250 mg 02/04/20 22:00 02/06/20 13:28 Flagyl - PO 250 mg TID KYLEIGH Administration Multivitamins/Minerals 15 ml 02/05/20 14:45 02/06/20 10:18 Certavite-Antioxidant Liquid PO 15 ml DAILY KYLEIGH Administration Pantoprazole Sodium 40 mg 01/30/20 10:00 02/06/20 10:17 Protonix - PO 40 mg DAILY KYLEIGH Administration Potassium Chloride 40 meq 02/06/20 15:59 K-Dur - PO 02/06/20 16:00 ONCE ONE Valsartan 320 mg 01/27/20 10:00 02/06/20 10:16 Diovan - PO 320 mg DAILY KYLEIGH Administration Home Medications Medication Instructions Recorded Albuterol Sulfate [Proair Hfa] 1 inh IH Q4H PRN 01/26/20 Budesonide/Formeterol Fumarate 2 puff IH DAILY 01/26/20 [SYMBICORT 80/4.5mcg -] Famotidine [Pepcid -] 40 mg PO DAILY 01/26/20 Hydroxychloroquine Sulfate 200 mg PO DAILY 01/26/20 [Plaquenil] Methotrexate [Mexate -] 6 tab PO WEEKLY 01/26/20 Nebivolol HCl [Bystolic] 20 mg PO DAILY 01/26/20 Olmesartan/Amlodipin/Hcthiazid 1 tab PO DAILY 01/26/20 [Jsnhnjx-Ilrjzt-Mdut 40-5-25 mg] Omeprazole 20 mg PO DAILY 01/26/20 Pioglitazone HCl [Actos] 30 mg PO DAILY 01/26/20 Sitagliptin Phos/Metformin HCl 1 tab PO BID 01/26/20 [Janumet 50-1,000 mg Tablet] Assessment and plan: This patient is a 69yof with Pmhx of SJogren's , anemia, Rheumatoid arthritis, HTN , lupus , Throidectomy, T2DM , and HLP who presented with abdominal pain with melena #Acute abdominal pain with fever.improved. s/p endoscopy as per patient a week ago. # RAsh: varicella/zoster, as above continue Acyclovir continue, patient is improving # thrombocytopenia : trending up improving # complicated UTI/pyelonephritis : on IV antibiotics # Hx of RA/LUPUS/sjorgen's on Hydroxyquinolone , MTx and folic acid s # PAncytopenia :improved , no further pancytopenic follow with hem/rheum as an outpatient # Transamintiis trending down # HTN :Amlodipine, Valsartan, continue to hold Hctz # DM A1c 5.3 #MGUS: F/U with primary conservation of resources commissioner on d/c #MMA level DVT ppx; Heparin 5000 [address] tid As per dr Nicholas's note: Dr. Rod from rheum was called yesterday; said that pt should continue her current RA meds prescribed by her rheum and that he does not need to be consulted type and screen transfuse one unit stool OB for hemooccult dw dr Win Visit type - Emergency Visit Emergency Visit: Yes ED Registration Date: 08/18/20 Care time: The patient presented to the Emergency Department on the above date and was hospitalized for further evaluation of their emergent condition. - New Patient This patient is new to me today: No - Critical Care Critical Care patient: No - Discharge Referral Referred to [facility] No - Medication Review Med list reviewed for High Risk Meds patients 65 and older: Yes
[2020-02-06] MEDS ORDERED: INSULIN (NOVOLOG) ASPART 100 UNITS/ML 10ML VIAL ONE (20:29)
--- NOTE | 2020-02-06 21:35 | PN.GI ---
GI Progress Note Subjective: saw the patien at 2 pm today no gi complaints,this afternoon I spoke with Dr Salazar , she was noted to have drak stool. Patient taked Ibuprofen prn - Objective Vital Signs: Vital Signs Temperature 98.4 F 02/06/20 13:38 Pulse Rate 95 H 02/06/20 13:38 Respiratory Rate 18 02/06/20 13:38 Blood Pressure 125/68 02/06/20 13:38 O2 Sat by Pulse Oximetry (%) 96 02/06/20 10:00 Constitutional: No Distress Eyes: Yes: Conjunctiva Clear HENT: Yes: Atraumatic Neck: Yes: Supple Cardiovascular: Yes: Regular Rate and Rhythm Respiratory: Yes: CTA Bilaterally ...Palpate: Yes: Soft. No: Firm/Rigid, Guarding, Hepatomegaly, Mass, Pulsatile Mass, Splenomegaly, Tenderness Labs: CBC, BMP 02/06/20 06:55 02/06/20 06:55 INR, PTT INR 1.12 (0.83-1.09) H 02/05/20 07:10 Problem List - Problems (1) Elevated liver enzymes Assessment/Plan: lfts downward trend R> avoid methotrexate Code(s): R74.8 - ABNORMAL LEVELS OF OTHER SERUM ENZYMES (2) Abdominal pain Assessment/Plan: resolving Code(s): R10.9 - UNSPECIFIED ABDOMINAL PAIN Qualifiers: Abdominal location: upper abdomen, unspecified Qualified Code(s): R10.10 - Upper abdominal pain, unspecified (3) Anemia Assessment/Plan: initially had pancytpenia which has resolved R> stool guaiac IV pantoprazole serial CBC Code(s): D64.9 - ANEMIA, UNSPECIFIED
[2020-02-06] MEDS: PANTOPRAZOLE SODIUM 40 MG VIAL IVPUSH SCH (21:55)
[2020-02-06] MEDS ORDERED: PANTOPRAZOLE SODIUM 40 MG in SODIUM CHLORIDE 100 ML IVPB SCH (22:00)
[2020-02-07] MEDS ORDERED: PT OWN MED DRAWER 7, Y5N ONE ×2 (05:06→20:43)
[2020-02-07] MEDS: BANATROL PLUS POWDER PACKET PO SCH ×3 (06:17→21:13)
[2020-02-07] MEDS: INSULIN SLIDING SCALE (NOVOLOG) 1 VIAL SQ SCH ×4 (06:17→21:17)
[2020-02-07] MEDS: metroNIDAZOLE 250 MG TABLET PO SCH ×3 (06:17→21:13)
[2020-02-07] MEDS: BUDESONIDE/FORMETEROL FUMARATE 80/4.5 mcg INHALER IH SCH (09:28)
[2020-02-07] MEDS: AMINO ACIDS/PROTEIN HYDROLYS 30 ML LIQUID.PKT PO SCH ×2 (09:28→16:53)
[2020-02-07] MEDS: PANTOPRAZOLE SODIUM 40 MG VIAL IVPUSH SCH ×2 (09:29→21:13)
[2020-02-07] MEDS: LACTOBACILLUS ACIDOPHILUS 1 TABLET PO SCH (09:29)
[2020-02-07] MEDS: HYDROXYCHLOROQUINE SO4 200 MG TABLET (FP) PO SCH (09:29)
[2020-02-07] MEDS: MULTIVIT-MINERALS ORAL LIQUID PO SCH (09:29)
[2020-02-07] MEDS: CYANOCOBALAMIN 1,000 MCG TABLET (FP) PO SCH (09:29)
[2020-02-07] MEDS: amLODIPine BESYLATE 5 MG TABLET (FP) PO SCH (09:29)
[2020-02-07] MEDS: VALSARTAN 160 MG TABLET (UD) PO SCH (09:30)
[2020-02-07] MEDS: SODIUM CHLORIDE 1,000 ML IV SCH ×2 (09:30→17:13)
[2020-02-07 10:52] LABS: BASO % 0.5 % (0-2.0); EOS % 2.6 % (0-4.5); HEMATOCRIT 26.3 % (32.4-45.2); HEMOGLOBIN 8.9 GM/dL (10.7-15.3); LYMPH % 14.4 % (8-40); MCH 29.2 pg (25.7-33.7); MEAN PLT VOLUME 8.5 fl (7.5-11.1); MONO % 22.7 % (3.8-10.2); NEUT % 59.8 % (42.8-82.8); PLATELET COUNT 283 K/MM3 (134-434); RBC 3.06 M/mm3 (3.60-5.2); RDW 15.6 % (11.6-15.6); WHITE BLOOD COUNT 6.5 K/mm3 (4.0-10.0)
[2020-02-07 11:11] LABS: ALBUMIN 2.4 g/dl (3.4-5.0); BILIRUBIN,TOTAL 0.6 mg/dL (0.2-1); BLOOD UREA NITROGEN 5.6 mg/dL (7-18); CALCIUM 8.5 mg/dL (8.5-10.1); CREATININE 0.7 mg/dL (0.55-1.3); MAGNESIUM 1.2 mg/dL (1.8-2.4); PHOSPHOROUS 2.8 mg/dL (2.5-4.9); POTASSIUM 3.4 mmol/L (3.5-5.1); TOT PROT 7.5 g/dl (6.4-8.2)
[2020-02-07 11:27] LABS: ANISOCYTOSIS 2+; MACROCYTOSIS 0; PLATELET ESTIMATE NORMAL
--- NOTE | 2020-02-07 13:02 | PN ---
Physical Exam: SUBJECTIVE: Patient seen and examined, endorsed decreased CVA, and dysuria. Per Nursing 2 overnight loose non-melanotic stools. OBJECTIVE: Vital Signs Period Temp Pulse Resp BP Sys/Alarcon Pulse Ox Last 24 Hr 98.4 F-99.0 F 95-109 18-20 125-154/68-90 96-99 GENERAL: The patient is awake, alert, and fully oriented, in no acute distress. HEAD: Normal with no signs of trauma. EYES: PERRL, extraocular movements intact, sclera anicteric, conjunctiva clear. No ptosis. NECK: Trachea midline, full range of motion, supple. LUNGS: Breath sounds equal, clear to auscultation bilaterally, no wheezes, no crackles, no accessory muscle use. HEART: Regular rate and rhythm, S1, S2 without murmur, rub or gallop. ABDOMEN: Soft, nontender, nondistended, normoactive bowel sounds, no guarding EXTREMITIES: 2+ pulses, warm, well-perfused, no edema. NEUROLOGICAL: Normal speech, gait not observed. PSYCH: Normal mood, normal affect. SKIN: Warm, dry, normal turgor, no rashes or lesions noted Laboratory Results - last 24 hr CBC, BMP 02/07/20 10:00 02/07/20 10:00 Active Medications Generic Name Dose Route Start Last Admin Trade Name Freq PRN Reason Stop Dose Admin Al Hydroxide/Mg Hydroxide 30 ml 02/03/20 10:03 02/03/20 22:42 Mylanta Oral Suspension - PO 30 ml Q6H PRN Administration DYSPEPSIA Albuterol Sulfate 2 puff 01/26/20 06:03 Ventolin Hfa Inhaler - IH Q4H PRN SHORT OF BREATH/WHEEZING Amino Acids 30 ml 02/05/20 17:30 02/07/20 09:28 Prosource No Carb Liquid Pkt PO 30 ml BID@0800,1730 KYLEIGH Administration Amlodipine Besylate 5 mg 01/27/20 10:00 02/07/20 09:29 Norvasc - PO 5 mg DAILY KYLEIGH Administration Banana Based Medical Food 1 packet 02/05/20 14:45 02/07/20 06:17 Banatrol Plus Powder Packet PO 1 packet TID KYLEIGH Administration Budesonide/Formoterol Fumarate 2 puff 01/27/20 10:00 02/07/20 09:28 Symbicort 80/4.5mcg - IH 2 puff DAILY KYLEIGH Administration Cyanocobalamin 1,000 mcg 01/27/20 14:00 02/07/20 09:29 Vitamin B12 - PO 1,000 mcg DAILY KYLEIGH Administration Hydroxychloroquine Sulfate 200 mg 01/27/20 10:00 02/07/20 09:29 Plaquenil - PO 200 mg DAILY KYLEIGH Administration Sodium Chloride 1,000 mls @ 100 mls/hr 02/02/20 08:23 02/07/20 09:30 Normal Saline - IV 100 mls/hr ASDIR KYLEIGH Administration Insulin Aspart 1 vial 01/26/20 07:00 02/07/20 12:32 Novolog Vial Sliding Scale - SQ Not Given ACHS KYLEIGH Protocol Lactobacillus Acidophilus 1 tab 02/05/20 14:45 02/07/20 09:29 Bacid - PO 1 tab DAILY KYLEIGH Administration Metronidazole 250 mg 02/04/20 22:00 02/07/20 06:17 Flagyl - PO 250 mg TID KYLEIGH Administration Multivitamins/Minerals 15 ml 02/05/20 14:45 02/07/20 09:29 Certavite-Antioxidant Liquid PO 15 ml DAILY KYLEIGH Administration Pantoprazole Sodium 40 mg 02/06/20 22:00 02/07/20 09:29 Protonix Iv IVPUSH 40 mg BID KYLEIGH Administration Valsartan 320 mg 01/27/20 10:00 02/07/20 09:30 Diovan - PO 320 mg DAILY KYLEIGH Administration ASSESSMENT/PLAN: 69F with PMH of HTN, DM, RA, sjorgens, & asthma presenting with R flank/RUQ pain with associated dysuria & chills, admitted for evaluation of UTI, GI bleed, possible cholecystits. Unidentified Abdominal PAIN: r/o gastritis, PUD, cholelithiasis/cholecystitis - Per GI: Etiology still unclear, EGD does not explain abdominal pain patient is c/o -EGD 01/31: scattered eosinophilia, non-specific findings with HSC/CMV stains pending. h. Pylori negative -Per Dr. Win (02/06): Consult Dr. Mosqueda Saturday to determine time/day for Colonoscopy -Per Dr. Mosqueda: May need liver biopsy to r/o AIH if symptoms do not improve as per Dr. DiGiorno (GI) - Oxycodone PRN for pain control - Monitor LFTs RA - Per Dr. 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 Monitor H/H Hx of DM - A1c 5.3 - BGM, ISS Hx of HTN - Continue Amlodipine - Continue Valsartan - Holding Hctz FEN & PPx - NS - Monitor electrolytes - low Na, low fat, diabetic diet - DVT PPx: Heparin 5000 tid Dispo - Continue medical management. Visit type - Emergency Visit Emergency Visit: No - New Patient This patient is new to me today: Yes Date on this admission: 02/07/20 - Critical Care Critical Care patient: No - Discharge Referral Referred to [facility] No - Medication Review Med list reviewed for High Risk Meds patients 65 and older: Yes ATTENDING PHYSICIAN STATEMENT I saw and evaluated the patient. I reviewed the resident's note and discussed the case with the resident. I agree with the resident's findings and plan as documented. SUBJECTIVE: OBJECTIVE: ASSESSMENT AND PLAN:
[2020-02-07] MEDS ORDERED: MAGNESIUM 2GM/50ML STERILE WATER IVPB IVPB ONE (17:00)
--- NOTE | 2020-02-07 17:10 | PN ---
Teaching Attending Note Name of Resident: Mayito Titus ATTENDING PHYSICIAN STATEMENT I saw and evaluated the patient. I reviewed the resident's note and discussed the case with the resident. I agree with the resident's findings and plan as documented. SUBJECTIVE: Patient looks comfortable no further bleed noted OBJECTIVE: Vital Signs Temperature 99.2 F 02/07/20 16:57 Pulse Rate 107 H 02/07/20 16:57 Respiratory Rate 18 02/07/20 16:57 Blood Pressure 135/79 02/07/20 16:57 O2 Sat by Pulse Oximetry (%) 99 02/07/20 16:57 PE: per resident's note CBCD WBC 6.5 K/mm3 (4.0-10.0) 02/07/20 10:00 RBC 3.06 M/mm3 (3.60-5.2) L 02/07/20 10:00 Hgb 8.9 GM/dL (10.7-15.3) L 02/07/20 10:00 Hct 26.3 % (32.4-45.2) L D 02/07/20 10:00 MCV 86.0 fl (80-96) 02/07/20 10:00 MCHC 34.0 g/dl (32.0-36.0) 02/07/20 10:00 RDW 15.6 % (11.6-15.6) 02/07/20 10:00 Plt Count 283 K/MM3 (134-434) D 02/07/20 10:00 MPV 8.5 fl (7.5-11.1) 02/07/20 10:00 CMP Sodium 135 mmol/L (136-145) L 02/07/20 10:00 Potassium 3.4 mmol/L (3.5-5.1) L 02/07/20 10:00 Chloride 101 mmol/L (98-107) 02/07/20 10:00 Carbon Dioxide 25 mmol/L (21-32) 02/07/20 10:00 Anion Gap 8 MMOL/L (8-16) 02/07/20 10:00 BUN 5.6 mg/dL (7-18) L 02/07/20 10:00 Creatinine 0.7 mg/dL (0.55-1.3) 02/07/20 10:00 Random Glucose 188 mg/dL (74-106) H 02/07/20 10:00 Calcium 8.5 mg/dL (8.5-10.1) 02/07/20 10:00 Total Bilirubin 0.6 mg/dL (0.2-1) 02/07/20 10:00 AST 45 U/L (15-37) H 02/07/20 10:00 ALT 82 U/L (13-61) H 02/07/20 10:00 Alkaline Phosphatase 268 U/L (45-117) H 02/07/20 10:00 Total Protein 7.5 g/dl (6.4-8.2) 02/07/20 10:00 Albumin 2.4 g/dl (3.4-5.0) L 02/07/20 10:00 CARDIAC ENZYMES Creatine Kinase 110 U/L (26-192) 01/30/20 14:46 Troponin I < 0.02 ng/ml (0.00-0.05) 01/26/20 01:00 Current Medications Generic Name Dose Route Start Last Admin Trade Name Freq PRN Reason Stop Dose Admin Al Hydroxide/Mg Hydroxide 30 ml 02/03/20 10:03 02/03/20 22:42 Mylanta Oral Suspension - PO 30 ml Q6H PRN Administration DYSPEPSIA Albuterol Sulfate 2 puff 01/26/20 06:03 Ventolin Hfa Inhaler - IH Q4H PRN SHORT OF BREATH/WHEEZING Amino Acids 30 ml 02/05/20 17:30 02/07/20 16:53 Prosource No Carb Liquid Pkt PO 30 ml BID@0800,1730 KYLEIGH Administration Amlodipine Besylate 5 mg 01/27/20 10:00 02/07/20 09:29 Norvasc - PO 5 mg DAILY KYLEIGH Administration Banana Based Medical Food 1 packet 02/05/20 14:45 02/07/20 14:19 Banatrol Plus Powder Packet PO 1 packet TID KYLEGIH Administration Budesonide/Formoterol Fumarate 2 puff 01/27/20 10:00 02/07/20 09:28 Symbicort 80/4.5mcg - IH 2 puff DAILY KYLEIGH Administration Cyanocobalamin 1,000 mcg 01/27/20 14:00 02/07/20 09:29 Vitamin B12 - PO 1,000 mcg DAILY KYLEIGH Administration Hydroxychloroquine Sulfate 200 mg 01/27/20 10:00 02/07/20 09:29 Plaquenil - PO 200 mg DAILY KYLEIGH Administration Sodium Chloride 1,000 mls @ 100 mls/hr 02/02/20 08:23 02/07/20 09:30 Normal Saline - IV 100 mls/hr ASDIR KYLEIGH Administration Insulin Aspart 1 vial 01/26/20 07:00 02/07/20 16:53 Novolog Vial Sliding Scale - SQ 2 units ACHS KYLEIGH Administration Protocol Lactobacillus Acidophilus 1 tab 02/05/20 14:45 02/07/20 09:29 Bacid - PO 1 tab DAILY KYLEIGH Administration Metronidazole 250 mg 02/04/20 22:00 02/07/20 14:20 Flagyl - PO 250 mg TID KYLEIGH Administration Multivitamins/Minerals 15 ml 02/05/20 14:45 02/07/20 09:29 Certavite-Antioxidant Liquid PO 15 ml DAILY KYLEIGH Administration Pantoprazole Sodium 40 mg 02/06/20 22:00 02/07/20 09:29 Protonix Iv IVPUSH 40 mg BID KYLEIGH Administration Valsartan 320 mg 01/27/20 10:00 02/07/20 09:30 Diovan - PO 320 mg DAILY KYLEIGH Administration Home Medications Medication Instructions Recorded Albuterol Sulfate [Proair Hfa] 1 inh IH Q4H PRN 01/26/20 Budesonide/Formeterol Fumarate 2 puff IH DAILY 01/26/20 [SYMBICORT 80/4.5mcg -] Famotidine [Pepcid -] 40 mg PO DAILY 01/26/20 Hydroxychloroquine Sulfate 200 mg PO DAILY 01/26/20 [Plaquenil] Methotrexate [Mexate -] 6 tab PO WEEKLY 01/26/20 Nebivolol HCl [Bystolic] 20 mg PO DAILY 01/26/20 Olmesartan/Amlodipin/Hcthiazid 1 tab PO DAILY 01/26/20 [Ghgznza-Wvnbfg-Brjm 40-5-25 mg] Omeprazole 20 mg PO DAILY 01/26/20 Pioglitazone HCl [Actos] 30 mg PO DAILY 01/26/20 Sitagliptin Phos/Metformin HCl 1 tab PO BID 01/26/20 [Janumet 50-1,000 mg Tablet] Microbiology 01/30/20 07:26 Blood - Peripheral Venous Blood Culture - Final NO GROWTH AFTER 5 DAYS INCUBATION 01/30/20 07:26 Blood - Peripheral Venous Blood Culture - Final NO GROWTH AFTER 5 DAYS INCUBATION 01/30/20 06:30 Urine - Urine Clean Catch Urine Culture - Final Enterococcus Faecalis 01/31/20 16:30 Urine For Antigen Detection Legionella Antigen - Final 01/31/20 16:30 Urine For Antigen Detection Streptococcus pneumoniae Antigen (M - Final 01/26/20 08:29 Blood - Peripheral Venous Blood Culture - Final NO GROWTH AFTER 5 DAYS INCUBATION 01/26/20 08:29 Blood - Peripheral Venous Blood Culture - Final NO GROWTH AFTER 5 DAYS INCUBATION 01/30/20 13:30 Blood - Peripheral Venous Blood Parasites Smear - Final 01/26/20 00:00 Urine - Urine Clean Catch Urine Culture - Final Escherichia Coli Enterococcus Faecalis ASSESSMENT AND PLAN: This patient is a 69yof with Pmhx of SJogren's , anemia, Rheumatoid arthritis, HTN , lupus , Throidectomy, T2DM , and HLP who presented with abdominal pain with melena #Acute anemia due to GI loss , on IV protonix, repeat h/h, possible colonoscopy #Acute abdominal pain with fever,improved. 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 Rod from rheum was called yesterday; said that pt should continue her current RA meds prescribed by her rheum and that he does not need to be consulted type and screen s/p one unit of transfusion stool OB for hemooccult + x [address] Win follow h/h if h/H stable possible dc in am , follow up with GI for further w/u protonix for GI px
[2020-02-07] MEDS: MAG HYDROX/AL HYDROX/SIMETH 30 ML UNIT-DOSE CUP PO PRN (17:23)
[2020-02-08] MEDS: metroNIDAZOLE 250 MG TABLET PO SCH ×3 (06:11→21:05)
[2020-02-08] MEDS: BANATROL PLUS POWDER PACKET PO SCH ×3 (06:11→21:05)
[2020-02-08] MEDS: INSULIN SLIDING SCALE (NOVOLOG) 1 VIAL SQ SCH ×4 (06:15→21:06)
[2020-02-08 08:04] LABS: BASO % 0.6 % (0-2.0); EOS % 1.9 % (0-4.5); HEMATOCRIT 28.3 % (32.4-45.2); HEMOGLOBIN 9.6 GM/dL (10.7-15.3); LYMPH % 13.1 % (8-40); MCH 29.2 pg (25.7-33.7); MEAN CELL VOLUME 85.8 fl (80-96); MONO % 19.8 % (3.8-10.2); NEUT % 64.6 % (42.8-82.8); PLATELET COUNT 304 K/MM3 (134-434); WHITE BLOOD COUNT 7.1 K/mm3 (4.0-10.0)
[2020-02-08 08:34] LABS: ALBUMIN 2.5 g/dl (3.4-5.0); BILIRUBIN,TOTAL 0.5 mg/dL (0.2-1); BLOOD UREA NITROGEN 4.2 mg/dL (7-18); CALCIUM 8.4 mg/dL (8.5-10.1); CREATININE 0.8 mg/dL (0.55-1.3); MAGNESIUM 1.6 mg/dL (1.8-2.4); PHOSPHOROUS 2.4 mg/dL (2.5-4.9); POTASSIUM 3.3 mmol/L (3.5-5.1); TOT PROT 7.6 g/dl (6.4-8.2)
[2020-02-08] MEDS: SODIUM CHLORIDE 1,000 ML IV SCH ×2 (09:11→16:22)
[2020-02-08] MEDS: AMINO ACIDS/PROTEIN HYDROLYS 30 ML LIQUID.PKT PO SCH ×2 (09:11→16:30)
[2020-02-08] MEDS: LACTOBACILLUS ACIDOPHILUS 1 TABLET PO SCH (09:12)
[2020-02-08] MEDS: CYANOCOBALAMIN 1,000 MCG TABLET (FP) PO SCH (09:12)
[2020-02-08] MEDS: PANTOPRAZOLE SODIUM 40 MG VIAL IVPUSH SCH ×2 (09:12→21:06)
[2020-02-08] MEDS: MULTIVIT-MINERALS ORAL LIQUID PO SCH (09:12)
[2020-02-08] MEDS: VALSARTAN 160 MG TABLET (UD) PO SCH (09:13)
[2020-02-08] MEDS: amLODIPine BESYLATE 5 MG TABLET (FP) PO SCH (09:13)
[2020-02-08] MEDS: BUDESONIDE/FORMETEROL FUMARATE 80/4.5 mcg INHALER IH SCH (09:14)
[2020-02-08] MEDS: HYDROXYCHLOROQUINE SO4 200 MG TABLET (FP) PO SCH (09:14)
--- NOTE | 2020-02-08 09:34 | PN.GI ---
GI Progress Note Subjective: Patient states feeling much better Abdominal pain improved No diarrhea / melena reported and BUN remains normal Lipase noted mildly elevated Received 1 U PRBC over weekend - Objective Vital Signs: Vital Signs Temperature 99.2 F 02/08/20 04:00 Pulse Rate 106 H 02/08/20 04:00 Respiratory Rate 18 02/08/20 04:00 Blood Pressure 148/81 02/08/20 04:00 O2 Sat by Pulse Oximetry (%) 98 02/08/20 04:00 Constitutional: Calm Eyes: No: Sclera Icterus Cardiovascular: Yes: Regular Rate and Rhythm Respiratory: Yes: CTA Bilaterally Gastrointestinal Inspection: No: Distention ...Auscultate: Yes: Normoactive Bowel Sounds ...Palpate: Yes: Tenderness (TTP RUQ) ...Percussion: No: Tympanitic Edema: No (No LE edema) Neurological: Yes: Alert Labs: CBC, BMP 02/08/20 07:50 02/08/20 07:50 INR, PTT INR 1.12 (0.83-1.09) H 02/05/20 07:10 Problem List - Problems (1) Abdominal pain Assessment/Plan: Clinically improved ? Pancreatitis given mildly elevated lipase and vague findings on prior MRI Ordered repeat CT scan of the abdomen with IV contrast Code(s): R10.9 - UNSPECIFIED ABDOMINAL PAIN Qualifiers: Abdominal location: upper abdomen, unspecified Qualified Code(s): R10.10 - Upper abdominal pain, unspecified (2) Abnormal liver function tests Assessment/Plan: Overall improvement Serologies unrevealing She is ARIANA positive, however smooth muscle antibody and has a known h/o autoimmu ne disease Avoid hepatotoxic agents Code(s): R94.5 - ABNORMAL RESULTS OF LIVER FUNCTION STUDIES (3) Anemia Assessment/Plan: Anemia without significant overt GI Bleeding described I suspect a multifactorial etiology Monitor H/H Heme follow-up If persistently dwindling H/H, repeat EGD to reevaluate previous findings Continue PPI for now Avoid NSAIDs Code(s): D64.9 - ANEMIA, UNSPECIFIED Qualifiers: Anemia type: unspecified type Qualified Code(s): D64.9 - Anemia, unspecified
--- NOTE | 2020-02-08 12:40 | PN ---
Physical Exam: SUBJECTIVE: Patient seen and examined at bedside. No acute events reported overnight. This morning, patient states that she has not had a bowel movement since yesterday but overall states that she is feeling better. OBJECTIVE: Vital Signs Period Temp Pulse Resp BP Sys/Alarcon Pulse Ox Last 24 Hr 98.6 F-99.9 F 99-107 18-18 133-148/65-88 97-99 GENERAL: AAOx3, in no acute distress HEENT: NCAT, PERRLA, EOMI, sclera anicteric, conjunctiva clear, oropharynx clear w/o exudates. MMM. NECK: Normal ROM, supple, no lymphadenopathy, JVD, or masses LUNGS: CTABL no wheezes/ rhonchi/ rales. No distress, speaks in full sentences. No increased work of breathing. HEART: RRR, normal S1 S2, no M/R/G, peripheral pulses 2+ and equal b/l ABDOMEN: Soft, epigastric and RUQ tenderness to palpation MSK: ROM WNL EXTREMITIES: Normal inspection. No peripheral edema. No clubbing or cyanosis. NEUROLOGICAL: CN II-XII intact. Normal speech, normal gait, no focal sensorimotor deficits. SKIN: Erythematous, mildly vesicular rash on low back, right arm, l leg with hypopigmentation. Rash is improving Laboratory Results - last 24 hr CBC, BMP 02/08/20 07:50 02/08/20 07:50 02/06/20 02/07/20 02/07/20 21:30 16:52 21:15 WBC RBC Hgb Hct MCV MCH MCHC RDW Plt Count MPV Absolute Neuts (auto) Neutrophils % Lymphocytes % Monocytes % Eosinophils % Basophils % Nucleated RBC % Sodium Potassium Chloride Carbon Dioxide Anion Gap BUN Creatinine Est GFR (CKD-EPI)AfAm Est GFR (CKD-EPI)NonAf POC Glucometer 204 171 Random Glucose Calcium Phosphorus Magnesium Total Bilirubin AST ALT Alkaline Phosphatase Total Protein Albumin Stool Occult Blood Positive 02/08/20 02/08/20 02/08/20 06:12 07:50 07:50 WBC 7.1 RBC 3.30 L Hgb 9.6 L Hct 28.3 L MCV 85.8 MCH 29.2 MCHC 34.0 RDW 16.0 H Plt Count 304 MPV 8.0 Absolute Neuts (auto) 4.6 Neutrophils % 64.6 Lymphocytes % 13.1 Monocytes % 19.8 H Eosinophils % 1.9 Basophils % 0.6 Nucleated RBC % 0 Sodium 136 Potassium 3.3 L Chloride 102 Carbon Dioxide 28 Anion Gap 6 L BUN 4.2 L Creatinine 0.8 Est GFR (CKD-EPI)AfAm 88.42 Est GFR (CKD-EPI)NonAf 76.29 POC Glucometer 152 Random Glucose 180 H Calcium 8.4 L Phosphorus 2.4 L Magnesium 1.6 L Total Bilirubin 0.5 AST 55 H ALT 77 H Alkaline Phosphatase 259 H Total Protein 7.6 Albumin 2.5 L Stool Occult Blood 02/08/20 11:28 WBC RBC Hgb Hct MCV MCH MCHC RDW Plt Count MPV Absolute Neuts (auto) Neutrophils % Lymphocytes % Monocytes % Eosinophils % Basophils % Nucleated RBC % Sodium Potassium Chloride Carbon Dioxide Anion Gap BUN Creatinine Est GFR (CKD-EPI)AfAm Est GFR (CKD-EPI)NonAf POC Glucometer 212 Random Glucose Calcium Phosphorus Magnesium Total Bilirubin AST ALT Alkaline Phosphatase Total Protein Albumin Stool Occult Blood Active Medications Generic Name Dose Route Start Last Admin Trade Name Freq PRN Reason Stop Dose Admin Al Hydroxide/Mg Hydroxide 30 ml 02/03/20 10:03 02/07/20 17:23 Mylanta Oral Suspension - PO 30 ml Q6H PRN Administration DYSPEPSIA Albuterol Sulfate 2 puff 01/26/20 06:03 Ventolin Hfa Inhaler - IH Q4H PRN SHORT OF BREATH/WHEEZING Amino Acids 30 ml 02/05/20 17:30 02/08/20 09:11 Prosource No Carb Liquid Pkt PO 30 ml BID@0800,1730 KYLEIGH Administration Amlodipine Besylate 5 mg 01/27/20 10:00 02/08/20 09:13 Norvasc - PO 5 mg DAILY KYLEIGH Administration Banana Based Medical Food 1 packet 02/05/20 14:45 02/08/20 06:11 Banatrol Plus Powder Packet PO 1 packet TID KYLEIGH Administration Budesonide/Formoterol Fumarate 2 puff 01/27/20 10:00 02/08/20 09:14 Symbicort 80/4.5mcg - IH 2 puff DAILY KYLEIGH Administration Cyanocobalamin 1,000 mcg 01/27/20 14:00 02/08/20 09:12 Vitamin B12 - PO 1,000 mcg DAILY KYLEIGH Administration Hydroxychloroquine Sulfate 200 mg 01/27/20 10:00 02/08/20 09:14 Plaquenil - PO 200 mg DAILY KYLEIGH Administration Sodium Chloride 1,000 mls @ 100 mls/hr 02/02/20 08:23 02/08/20 09:11 Normal Saline - IV Not Given ASDIR KYLEIGH Insulin Aspart 1 vial 01/26/20 07:00 02/08/20 11:30 Novolog Vial Sliding Scale - SQ 2 units ACHS KYLEIGH Administration Protocol Lactobacillus Acidophilus 1 tab 02/05/20 14:45 02/08/20 09:12 Bacid - PO 1 tab DAILY KYLEIGH Administration Metronidazole 250 mg 02/04/20 22:00 02/08/20 06:11 Flagyl - PO 250 mg TID KYLEIGH Administration Multivitamins/Minerals 15 ml 02/05/20 14:45 02/08/20 09:12 Certavite-Antioxidant Liquid PO 15 ml DAILY KYLEIGH Administration Pantoprazole Sodium 40 mg 02/06/20 22:00 02/08/20 09:12 Protonix Iv IVPUSH 40 mg BID KYLEIGH Administration Valsartan 320 mg 01/27/20 10:00 02/08/20 09:13 Diovan - PO 320 mg DAILY KYLEIGH Administration ASSESSMENT/PLAN: 69F with PMH of HTN, DM, RA, sjorgens, & asthma presenting with R flank/RUQ pain with associated dysuria & chills, admitted for evaluation of UTI, GI bleed, pos sible cholecystits. #Abdominal PAIN: 2/2 gastritis, vs PUD, vs cholelithiasis/cholecystitis - Etiology still unclear, EGD does not explain abdominal pain patient is c/o - Oxycodone PRN for pain control - GI consulted (Dr. Mosqueda): Pathology from EGD 01/31: scattered eosinophilia, non-specific findings with HSC/CMV stains pending. h. Pylori negative -Patient will need liver biopsy to r/o AIH if symptoms do not improve as per Dr. Mosqueda (GI) -repeat CT of abdomen w/ contrast done today as per Dr. Phillips- results still pending - Surgical evaluation (Dr. Alba): Possible cholecystectomy but first medical issues need to be resolved before pt qualifies for surgery - LFTs continue to improve #Rash - resolving -responded to Acyclovir; was d/c o 02/[address] Granado (ID) - Derm consulted (Dr. Mari) and aware. They will see the pt soon #UTI - zosyn 02/[address] Granado (ID) #RA - hydroxychloroquine 200 mg daily -Dr. Rod from rheum was contacted on 01/31; said that pt should continue her current RA meds prescribed by her rheum and that he does not need to be c onsulted #Pancytopenia - Heme/Onc on board, 2/2 Methotrexate & plaquenil, in setting of multiple autoimmune disorders, sepsis - Outpatient workup from Dr. 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 I reviewed the resident's note and discussed the case with the resident. I agree with the resident's findings and plan as documented. SUBJECTIVE: OBJECTIVE: ASSESSMENT AND PLAN:
[2020-02-08] MEDS ORDERED: POTASSIUM CHLORIDE TABS 20 MEQ TABLET.ER (FP) PO ONE (13:08)
[2020-02-08] MEDS: MAG HYDROX/AL HYDROX/SIMETH 30 ML UNIT-DOSE CUP PO PRN (16:29)
--- NOTE | 2020-02-08 16:32 | PN ---
Progress Note (short form) - Note Progress Note: doing well no complaints has been off antibioitcs/antivirals since saturday less abdominal pain just returned from CT scan Vital Signs Period Temp Pulse Resp BP Sys/Alarcon Pulse Ox Last 24 Hr 98.9 F-99.9 F 99-107 18-18 135-148/79-88 97-99 cor-rrr lungs clear abd soft,mild midepigastric tenderness to palpaiton ext no edema CBC, BMP 02/08/20 07:50 02/08/20 07:50 Microbiology 01/30/20 07:26 Blood - Peripheral Venous Blood Culture - Final NO GROWTH AFTER 5 DAYS INCUBATION 01/30/20 07:26 Blood - Peripheral Venous Blood Culture - Final NO GROWTH AFTER 5 DAYS INCUBATION 01/30/20 06:30 Urine - Urine Clean Catch Urine Culture - Final Enterococcus Faecalis 01/31/20 16:30 Urine For Antigen Detection Legionella Antigen - Final 01/31/20 16:30 Urine For Antigen Detection Streptococcus pneumoniae Antigen (M - Final 01/26/20 08:29 Blood - Peripheral Venous Blood Culture - Final NO GROWTH AFTER 5 DAYS INCUBATION 01/26/20 08:29 Blood - Peripheral Venous Blood Culture - Final NO GROWTH AFTER 5 DAYS INCUBATION 01/30/20 13:30 Blood - Peripheral Venous Blood Parasites Smear - Final 01/26/20 00:00 Urine - Urine Clean Catch Urine Culture - Final Escherichia Coli Enterococcus Faecalis a/p leukopenia and thrombocytopenia resolved abnl lfts improving still some anemia and midepigastric discomfort observe off antibiotics abd ct results pending
--- NOTE | 2020-02-08 17:20 | PN ---
Teaching Attending Note Name of Resident: Maninder Melendez ATTENDING PHYSICIAN STATEMENT I saw and evaluated the patient. I reviewed the resident's note and discussed the case with the resident. I agree with the resident's findings and plan as documented. SUBJECTIVE: Patient is feeling better , nad OBJECTIVE: Vital Signs Temperature 98.9 F 02/08/20 12:00 Pulse Rate 99 H 02/08/20 08:00 Respiratory Rate 18 02/08/20 09:00 Blood Pressure 147/88 02/08/20 08:00 O2 Sat by Pulse Oximetry (%) 97 02/08/20 09:00 PE: per resident's note CBCD WBC 7.1 K/mm3 (4.0-10.0) 02/08/20 07:50 RBC 3.30 M/mm3 (3.60-5.2) L 02/08/20 07:50 Hgb 9.6 GM/dL (10.7-15.3) L 02/08/20 07:50 Hct 28.3 % (32.4-45.2) L 02/08/20 07:50 MCV 85.8 fl (80-96) 02/08/20 07:50 MCHC 34.0 g/dl (32.0-36.0) 02/08/20 07:50 RDW 16.0 % (11.6-15.6) H 02/08/20 07:50 Plt Count 304 K/MM3 (134-434) 02/08/20 07:50 MPV 8.0 fl (7.5-11.1) 02/08/20 07:50 CMP Sodium 136 mmol/L (136-145) 02/08/20 07:50 Potassium 3.3 mmol/L (3.5-5.1) L 02/08/20 07:50 Chloride 102 mmol/L (98-107) 02/08/20 07:50 Carbon Dioxide 28 mmol/L (21-32) 02/08/20 07:50 Anion Gap 6 MMOL/L (8-16) L 02/08/20 07:50 BUN 4.2 mg/dL (7-18) L 02/08/20 07:50 Creatinine 0.8 mg/dL (0.55-1.3) 02/08/20 07:50 Random Glucose 180 mg/dL (74-106) H 02/08/20 07:50 Calcium 8.4 mg/dL (8.5-10.1) L 02/08/20 07:50 Total Bilirubin 0.5 mg/dL (0.2-1) 02/08/20 07:50 AST 55 U/L (15-37) H 02/08/20 07:50 ALT 77 U/L (13-61) H 02/08/20 07:50 Alkaline Phosphatase 259 U/L (45-117) H 02/08/20 07:50 Total Protein 7.6 g/dl (6.4-8.2) 02/08/20 07:50 Albumin 2.5 g/dl (3.4-5.0) L 02/08/20 07:50 CARDIAC ENZYMES Creatine Kinase 110 U/L (26-192) 01/30/20 14:46 Troponin I < 0.02 ng/ml (0.00-0.05) 01/26/20 01:00 Current Medications Generic Name Dose Route Start Last Admin Trade Name Freq PRN Reason Stop Dose Admin Al Hydroxide/Mg Hydroxide 30 ml 02/03/20 10:03 02/08/20 16:29 Mylanta Oral Suspension - PO 30 ml Q6H PRN Administration DYSPEPSIA Albuterol Sulfate 2 puff 01/26/20 06:03 Ventolin Hfa Inhaler - IH Q4H PRN SHORT OF BREATH/WHEEZING Amino Acids 30 ml 02/05/20 17:30 02/08/20 16:30 Prosource No Carb Liquid Pkt PO 30 ml BID@0800,1730 KYLEIGH Administration Amlodipine Besylate 5 mg 01/27/20 10:00 02/08/20 09:13 Norvasc - PO 5 mg DAILY KYLEIGH Administration Banana Based Medical Food 1 packet 02/05/20 14:45 02/08/20 13:21 Banatrol Plus Powder Packet PO 1 packet TID KYLEIGH Administration Budesonide/Formoterol Fumarate 2 puff 01/27/20 10:00 02/08/20 09:14 Symbicort 80/4.5mcg - IH 2 puff DAILY KYLEIGH Administration Cyanocobalamin 1,000 mcg 01/27/20 14:00 02/08/20 09:12 Vitamin B12 - PO 1,000 mcg DAILY KYLEIGH Administration Hydroxychloroquine Sulfate 200 mg 01/27/20 10:00 02/08/20 09:14 Plaquenil - PO 200 mg DAILY KYLEIGH Administration Sodium Chloride 1,000 mls @ 100 mls/hr 02/02/20 08:23 02/08/20 16:22 Normal Saline - IV 100 mls/hr ASDIR KYLEIGH Administration Insulin Aspart 1 vial 01/26/20 07:00 02/08/20 16:21 Novolog Vial Sliding Scale - SQ Not Given ACHS KYLEIGH Protocol Lactobacillus Acidophilus 1 tab 02/05/20 14:45 02/08/20 09:12 Bacid - PO 1 tab DAILY KYLEIGH Administration Metronidazole 250 mg 02/04/20 22:00 02/08/20 13:22 Flagyl - PO 250 mg TID KYLEIGH Administration Multivitamins/Minerals 15 ml 02/05/20 14:45 02/08/20 09:12 Certavite-Antioxidant Liquid PO 15 ml DAILY KYLEIGH Administration Pantoprazole Sodium 40 mg 02/06/20 22:00 02/08/20 09:12 Protonix Iv IVPUSH 40 mg BID KYLEIGH Administration Valsartan 320 mg 01/27/20 10:00 02/08/20 09:13 Diovan - PO 320 mg DAILY KYLEIGH Administration Home Medications Medication Instructions Recorded Albuterol Sulfate [Proair Hfa] 1 inh IH Q4H PRN 01/26/20 Budesonide/Formeterol Fumarate 2 puff IH DAILY 01/26/20 [SYMBICORT 80/4.5mcg -] Famotidine [Pepcid -] 40 mg PO DAILY 01/26/20 Hydroxychloroquine Sulfate 200 mg PO DAILY 01/26/20 [Plaquenil] Methotrexate [Mexate -] 6 tab PO WEEKLY 01/26/20 Nebivolol HCl [Bystolic] 20 mg PO DAILY 01/26/20 Olmesartan/Amlodipin/Hcthiazid 1 tab PO DAILY 01/26/20 [Yltfexc-Dzvgbi-Gvcf 40-5-25 mg] Omeprazole 20 mg PO DAILY 01/26/20 Pioglitazone HCl [Actos] 30 mg PO DAILY 01/26/20 Sitagliptin Phos/Metformin HCl 1 tab PO BID 01/26/20 [Janumet 50-1,000 mg Tablet] Microbiology 01/30/20 07:26 Blood - Peripheral Venous Blood Culture - Final NO GROWTH AFTER 5 DAYS INCUBATION 01/30/20 07:26 Blood - Peripheral Venous Blood Culture - Final NO GROWTH AFTER 5 DAYS INCUBATION 01/30/20 06:30 Urine - Urine Clean Catch Urine Culture - Final Enterococcus Faecalis 01/31/20 16:30 Urine For Antigen Detection Legionella Antigen - Final 01/31/20 16:30 Urine For Antigen Detection Streptococcus pneumoniae Antigen (M - Final 01/26/20 08:29 Blood - Peripheral Venous Blood Culture - Final NO GROWTH AFTER 5 DAYS INCUBATION 01/26/20 08:29 Blood - Peripheral Venous Blood Culture - Final NO GROWTH AFTER 5 DAYS INCUBATION 01/30/20 13:30 Blood - Peripheral Venous Blood Parasites Smear - Final 01/26/20 00:00 Urine - Urine Clean Catch Urine Culture - Final Escherichia Coli Enterococcus Faecalis ASSESSMENT AND PLAN: This patient is a 69yof with Pmhx of SJogren's , anemia, Rheumatoid arthritis, HTN , lupus , Throidectomy, T2DM , and HLP who presented with abdominal pain with melena #Acute anemia due to GI loss , on IV protonix, repeat h/h, s/p transfusion #Acute abdominal pain with fever,improved. (s/p endoscopy a week ago as per patient).possible colonoscopy as per GI , onflagyl as per GI dr spencer # RAsh: varicella/zoster, as above continue Acyclovir continue, patient improved # Thrombocytopenia : improved # complicated UTI/pyelonephritis : off IV antibiotics now, # Hx of RA/LUPUS/sjorgen's on Hydroxyquinolone , as per GI to dc MTx and folic acid , patient needs to follow up with her offset platemaker closely # PAncytopenia :improved , no further pancytopenic follow with hem/rheum as an outpatient # Transamintiis trending down # HTN :Amlodipine, Valsartan, continue to hold Hctz # DM A1c 5.3 #MGUS: F/U with primary probation and parole officer on d/c #MMA level DVT ppx; Heparin 5000 sq tid As per dr Nicholas's note: Dr. Rod from rheum was called yesterday; said that pt should continue her current RA meds prescribed by her rheum and that he does not need to be consulted s/p one unit of transfusion stool OB for hemooccult + x 2 follow h/h protonix for GI px follow up CT scan
[2020-02-08] MEDS ORDERED: PT OWN MED DRAWER 7, Y5N ONE (19:50)
[2020-02-08] MEDS: oxyCODONE HCL 5 MG TABLET PO PRN (20:09)
[2020-02-09] MEDS ORDERED: PT OWN MED DRAWER 7, Y5N ONE ×2 (06:01→20:13)
[2020-02-09] MEDS: oxyCODONE HCL 5 MG TABLET PO PRN ×3 (06:06→18:12)
[2020-02-09] MEDS: metroNIDAZOLE 250 MG TABLET PO SCH ×2 (06:07→13:07)
[2020-02-09] MEDS: BANATROL PLUS POWDER PACKET PO SCH ×3 (06:07→21:06)
[2020-02-09] MEDS: SODIUM CHLORIDE 1,000 ML IV SCH ×4 (06:12→21:15)
[2020-02-09] MEDS: INSULIN SLIDING SCALE (NOVOLOG) 1 VIAL SQ SCH ×4 (06:28→21:06)
[2020-02-09 07:32] LABS: BASO % 0.5 % (0-2.0); EOS % 2.3 % (0-4.5); HEMATOCRIT 25.6 % (32.4-45.2); HEMOGLOBIN 8.7 GM/dL (10.7-15.3); LYMPH % 10.3 % (8-40); MCH 29.5 pg (25.7-33.7); MCHC 33.9 g/dl (32.0-36.0); MEAN CELL VOLUME 87.1 fl (80-96); MEAN PLT VOLUME 8.1 fl (7.5-11.1); MONO % 22.3 % (3.8-10.2); NEUT % 64.6 % (42.8-82.8); PLATELET COUNT 255 K/MM3 (134-434); RBC 2.94 M/mm3 (3.60-5.2); RDW 15.8 % (11.6-15.6); WHITE BLOOD COUNT 6.2 K/mm3 (4.0-10.0)
[2020-02-09 07:57] LABS: ALBUMIN 2.2 g/dl (3.4-5.0); BILIRUBIN,DIRECT 0.1 mg/dL (0.0-0.2); BILIRUBIN,TOTAL 0.9 mg/dL (0.2-1); BLOOD UREA NITROGEN 4.5 mg/dL (7-18); CALCIUM 8.2 mg/dL (8.5-10.1); CREATININE 0.6 mg/dL (0.55-1.3); POTASSIUM 3.4 mmol/L (3.5-5.1); TOT PROT 6.8 g/dl (6.4-8.2)
[2020-02-09] MEDS ORDERED: POTASSIUM CHLORIDE 10 MEQ in SODIUM CHLORIDE 0.45% 1,000 ML IVPB SCH (09:30)
[2020-02-09] MEDS: AMINO ACIDS/PROTEIN HYDROLYS 30 ML LIQUID.PKT PO SCH ×2 (09:32→17:25)
[2020-02-09] MEDS: MULTIVIT-MINERALS ORAL LIQUID PO SCH (09:34)
[2020-02-09] MEDS: amLODIPine BESYLATE 5 MG TABLET (FP) PO SCH (09:34)
[2020-02-09] MEDS: LACTOBACILLUS ACIDOPHILUS 1 TABLET PO SCH (09:34)
[2020-02-09] MEDS: CYANOCOBALAMIN 1,000 MCG TABLET (FP) PO SCH (09:34)
[2020-02-09] MEDS: HYDROXYCHLOROQUINE SO4 200 MG TABLET (FP) PO SCH (09:35)
[2020-02-09] MEDS: VALSARTAN 160 MG TABLET (UD) PO SCH (09:36)
[2020-02-09] MEDS: PANTOPRAZOLE SODIUM 40 MG VIAL IVPUSH SCH (09:36)
[2020-02-09] MEDS: BUDESONIDE/FORMETEROL FUMARATE 80/4.5 mcg INHALER IH SCH (09:40)
[2020-02-09] MEDS: KCL 10 MEQ IVPB 10 MEQ/100 ML INFUS.BAG IVPB SCH ×3 (09:48→12:55)
[2020-02-09 10:21] LABS: ANISOCYTOSIS 1+; MACROCYTOSIS 0; PLATELET ESTIMATE NORMAL
--- NOTE | 2020-02-09 13:01 | PN ---
Progress Note (short form) - Note Progress Note: Liver chemistries continuing in normalizing trend. if continued dwindling H/H, plan for EGD 02/10 Problem List - Problems (1) Abdominal pain Code(s): R10.9 - UNSPECIFIED ABDOMINAL PAIN Qualifiers: Abdominal location: upper abdomen, unspecified Qualified Code(s): R10.10 - Upper abdominal pain, unspecified (2) Abnormal liver function tests Code(s): R94.5 - ABNORMAL RESULTS OF LIVER FUNCTION STUDIES (3) Anemia Code(s): D64.9 - ANEMIA, UNSPECIFIED Qualifiers: Anemia type: unspecified type Qualified Code(s): D64.9 - Anemia, unspecified
--- NOTE | 2020-02-09 13:52 | PN.GI ---
GI Progress Note Subjective: Abdominal pain overall improved CT scan abdomen revealed peripancreatic inflammatory changes at the head and body of the pancreas c/w pancreatitis, marledly thickened thickened gallbladder wall (? secondary from pancreatitis or ? sequela of cholecystitis) Also with lung nodules and right lung base findings of unclear etiology. Tolerating PO. - Objective Vital Signs: Vital Signs Temperature 98.2 F 02/09/20 08:22 Pulse Rate 104 H 02/09/20 08:22 Respiratory Rate 18 02/09/20 09:00 Blood Pressure 134/91 02/09/20 08:22 O2 Sat by Pulse Oximetry (%) 98 02/09/20 09:00 Constitutional: Calm Eyes: No: Sclera Icterus Cardiovascular: Yes: Tachycardia Respiratory: Yes: Diminished (at bases bilaterally) Gastrointestinal Inspection: No: Distention ...Auscultate: Yes: Normoactive Bowel Sounds ...Palpate: Yes: Soft, Tenderness (TTP RUQ) ...Percussion: No: Tympanitic Edema: No (No LE edema) Neurological: Yes: Alert Labs: Hepatic Panel Total Bilirubin 0.9 mg/dL (0.2-1) 02/09/20 06:35 Direct Bilirubin 0.1 mg/dL (0.0-0.2) 02/09/20 06:35 AST 39 U/L (15-37) H 02/09/20 06:35 ALT 60 U/L (13-61) 02/09/20 06:35 Alkaline Phosphatase 216 U/L (45-117) H 02/09/20 06:35 Albumin 2.2 g/dl (3.4-5.0) L 02/09/20 06:35 CBC, BMP 02/09/20 06:35 02/09/20 06:35 INR, PTT INR 1.12 (0.83-1.09) H 02/05/20 07:10 Problem List - Problems (1) Abdominal pain Assessment/Plan: Overall improved, tolerating PO. Still with predominantly RUQ pain. ? resolving pancreatitis of unclear etiology. ? passage of stones/sludge, ? viral etiology. Ordered fastiing triglycerides for AM Surgical reevaluation given abnormal gallbladder findings Code(s): R10.9 - UNSPECIFIED ABDOMINAL PAIN Qualifiers: Abdominal location: upper abdomen, unspecified Qualified Code(s): R10.10 - Upper abdominal pain, unspecified (2) Abnormal liver function tests Assessment/Plan: Continued normalizing trend Avoid hepatotoxic agents Monitor LFTs Code(s): R94.5 - ABNORMAL RESULTS OF LIVER FUNCTION STUDIES (3) Anemia Assessment/Plan: If continued dwindling H/H, for repeat EGD 02/10 to reassess gastritis and GAVE seen on previous egd D/W Patient's Daughter Ana via telephone today Code(s): D64.9 - ANEMIA, UNSPECIFIED Qualifiers: Anemia type: unspecified type Qualified Code(s): D64.9 - Anemia, unspecified
--- NOTE | 2020-02-09 14:23 | PN ---
Physical Exam: SUBJECTIVE: Patient seen and examined at bedside. No acute events reported overnight. This morning patient is complaining of RUQ pain. Patient reports that she had 2 bowel movements yesterday. Patient has no other concerns or complaints. OBJECTIVE: Vital Signs Period Temp Pulse Resp BP Sys/Alarcon Pulse Ox Last 24 Hr 98.2 F-99.3 F 100-111 18-19 127-142/70-91 97-98 GENERAL: AAOx3, in no acute distress HEENT: NCAT, PERRLA, EOMI, sclera anicteric, conjunctiva clear, oropharynx clear w/o exudates. MMM. NECK: Normal ROM, supple, no lymphadenopathy, JVD, or masses LUNGS: CTABL no wheezes/ rhonchi/ rales. No distress, speaks in full sentences. No increased work of breathing. HEART: RRR, normal S1 S2, no M/R/G, peripheral pulses 2+ and equal b/l ABDOMEN: Soft, epigastric and RUQ tenderness to palpation MSK: ROM WNL EXTREMITIES: Normal inspection. No peripheral edema. No clubbing or cyanosis. NEUROLOGICAL: CN II-XII intact. Normal speech, normal gait, no focal sensorimotor deficits. SKIN: Erythematous, mildly vesicular rash on low back, right arm, l leg with hypopigmentation. Rash is improving Laboratory Results - last 24 hr CBC, BMP 02/09/20 06:35 02/09/20 06:35 02/08/20 02/08/20 02/09/20 16:20 20:21 06:11 WBC RBC Hgb Hct MCV MCH MCHC RDW Plt Count MPV Absolute Neuts (auto) Neutrophils % Neutrophils % (Manual) Band Neutrophils % Lymphocytes % Lymphocytes % (Manual) Monocytes % Monocytes % (Manual) Eosinophils % Eosinophils % (Manual) Basophils % Basophils % (Manual) Myelocytes % (Man) Promyelocytes % (Man) Blast Cells % (Manual) Nucleated RBC % Metamyelocytes Hypochromia Platelet Estimate Polychromasia Poikilocytosis Anisocytosis Microcytosis Macrocytosis Sodium Potassium Chloride Carbon Dioxide Anion Gap BUN Creatinine Est GFR (CKD-EPI)AfAm Est GFR (CKD-EPI)NonAf POC Glucometer 124 175 129 Random Glucose Calcium Total Bilirubin Direct Bilirubin AST ALT Alkaline Phosphatase Total Protein Albumin 02/09/20 02/09/20 02/09/20 06:35 06:35 11:17 WBC 6.2 RBC 2.94 L Hgb 8.7 L Hct 25.6 L MCV 87.1 MCH 29.5 MCHC 33.9 RDW 15.8 H Plt Count 255 MPV 8.1 Absolute Neuts (auto) 4.0 Neutrophils % 64.6 Neutrophils % (Manual) 78.6 Band Neutrophils % 0.0 Lymphocytes % 10.3 D Lymphocytes % (Manual) 6.8 L D Monocytes % 22.3 H Monocytes % (Manual) 14 H Eosinophils % 2.3 Eosinophils % (Manual) 1.0 Basophils % 0.5 Basophils % (Manual) 0.0 Myelocytes % (Man) 0 Promyelocytes % (Man) 0 Blast Cells % (Manual) 0 Nucleated RBC % 0 Metamyelocytes 0 Hypochromia 0 Platelet Estimate Normal Polychromasia 0 Poikilocytosis 0 Anisocytosis 1+ Microcytosis 1+ Macrocytosis 0 Sodium 136 Potassium 3.4 L Chloride 103 Carbon Dioxide 25 Anion Gap 8 BUN 4.5 L Creatinine 0.6 Est GFR (CKD-EPI)AfAm 109.31 Est GFR (CKD-EPI)NonAf 94.32 POC Glucometer 183 Random Glucose 161 H Calcium 8.2 L Total Bilirubin 0.9 Direct Bilirubin 0.1 AST 39 H ALT 60 Alkaline Phosphatase 216 H Total Protein 6.8 Albumin 2.2 L Active Medications Generic Name Dose Route Start Last Admin Trade Name Freq PRN Reason Stop Dose Admin Al Hydroxide/Mg Hydroxide 30 ml 02/03/20 10:03 02/08/20 16:29 Mylanta Oral Suspension - PO 30 ml Q6H PRN Administration DYSPEPSIA Albuterol Sulfate 2 puff 01/26/20 06:03 Ventolin Hfa Inhaler - IH Q4H PRN SHORT OF BREATH/WHEEZING Amino Acids 30 ml 02/05/20 17:30 02/09/20 09:32 Prosource No Carb Liquid Pkt PO 30 ml BID@0800,1730 KYLEIGH Administration Amlodipine Besylate 5 mg 01/27/20 10:00 02/09/20 09:34 Norvasc - PO 5 mg DAILY KYLEIGH Administration Banana Based Medical Food 1 packet 02/05/20 14:45 02/09/20 13:08 Banatrol Plus Powder Packet PO 1 packet TID KYLEIGH Administration Budesonide/Formoterol Fumarate 2 puff 01/27/20 10:00 02/09/20 09:40 Symbicort 80/4.5mcg - IH 2 puff DAILY KYLEIGH Administration Cyanocobalamin 1,000 mcg 01/27/20 14:00 02/09/20 09:34 Vitamin B12 - PO 1,000 mcg DAILY KYLEIGH Administration Hydroxychloroquine Sulfate 200 mg 01/27/20 10:00 02/09/20 09:35 Plaquenil - PO 200 mg DAILY KYLEIGH Administration Sodium Chloride 1,000 mls @ 100 mls/hr 02/02/20 08:23 02/09/20 09:36 Normal Saline - IV Not Given ASDIR [facility] Insulin Aspart 1 vial 01/26/20 07:00 02/09/20 11:28 Novolog Vial Sliding Scale - SQ Not Given ACHS [facility] Protocol Lactobacillus Acidophilus 1 tab 02/05/20 14:45 02/09/20 09:34 Bacid - PO 1 tab DAILY KYLEIGH Administration Multivitamins/Minerals 15 ml 02/05/20 14:45 02/09/20 09:34 Certavite-Antioxidant Liquid PO 15 ml DAILY KYLEIGH Administration Oxycodone HCl 5 mg 02/08/20 19:32 02/09/20 13:02 Roxicodone - PO 02/09/20 19:31 5 mg Q6H PRN Administration PAIN LEVEL 7 - 10 Pantoprazole Sodium 40 mg 02/10/20 10:00 Protonix - PO DAILY KYLEIGH Valsartan 320 mg 01/27/20 10:00 02/09/20 09:36 Diovan - PO 320 mg DAILY KYLEIGH Administration ASSESSMENT/PLAN: 69F with PMH of HTN, DM, RA, sjorgens, & asthma presenting with R flank/RUQ pain with associated dysuria & chills, admitted for evaluation of UTI, GI bleed, possible cholecystits. #Abdominal PAIN: 2/2 gastritis, vs PUD, vs cholelithiasis/cholecystitis - Etiology still unclear, EGD did not explain abdominal pain --> repeat EGD possibly on 02/[address] Mosqueda - Oxycodone PRN for pain control - Pathology from EGD 01/31: scattered eosinophilia, non-specific findings with HSC/CMV stains pending. h. Pylori negative -Patient will need liver biopsy to r/o AIH if symptoms do not improve as per Dr. Mosqueda (GI) -repeat CT of abdomen w/ contrast 02/07- peripancreatic inflammatory changes at the head and body of the pancreas c/w pancreatitis, markedly thickened thickened gallbladder wall (secondary from pancreatitis or sequela of cholecystitis), Also had lung nodules and right lung base findings of unclear etiology. - Surgical evaluation (Dr. Alba): Possible cholecystectomy but first medical issues need to be resolved before pt qualifies for surgery - LFTs continue to improve #Rash - resolving -responded to Acyclovir; was d/c on 02/[address] Granado (ID) - Derm consulted (Dr. Mari) and aware. They will see the pt soon #UTI - zosyn 02/[address] Granado (ID) #RA - hydroxychloroquine 200 mg daily -Dr. Rod from [employer] was contacted on 01/31; said that pt should continue her current RA meds prescribed by her rheum and that he does not need to be consulted #Pancytopenia - Heme/Onc on board, 2/2 Methotrexate & plaquenil, in setting of multiple autoimmune disorders, sepsis - Outpatient workup from Dr. Lambert's office - MGUS: F/U with primary maritime officer on d/c - HIV test was NEGATIVE -EBV results were POSITIVE -ARIANA results were POSITIVE #DM - A1c 5.3 - BGM, ISS #HTN - Amlodipine, Valsartasn - Holding Hctz #FEN - NS @ 100 mls/hr -monitor electrolytes; replete PRN - low fiber, lactose free, diabetic diet #DVT ppx - Heparin 5000 sq tid #Dispo - Monitor in M/S Visit type - Emergency Visit Emergency Visit: No - New Patient This patient is new to me today: No - Critical Care Critical Care patient: No - Medication Review Med list reviewed for High Risk Meds patients 65 and older: Yes ATTENDING PHYSICIAN STATEMENT I saw and evaluated the patient. I reviewed the resident's note and discussed the case with the resident. I agree with the resident's findings and plan as documented. SUBJECTIVE: OBJECTIVE: ASSESSMENT AND PLAN:
--- NOTE | 2020-02-09 14:41 | PN ---
Progress Note (short form) - Note Progress Note: doing well no complaints has been off antibioitcs/antivirals since saturday less abdominal pain Vital Signs Period Temp Pulse Resp BP Sys/Alarcon Pulse Ox Last 24 Hr 98.2 F-99.3 F 100-111 18-20 127-142/70-91 97-100 cor-rrr lungs clear abd midepigastric discomfort to palpation ext no edema CBC, BMP 02/09/20 06:35 02/09/20 06:35 Microbiology 01/30/20 07:26 Blood - Peripheral Venous Blood Culture - Final NO GROWTH AFTER 5 DAYS INCUBATION 01/30/20 07:26 Blood - Peripheral Venous Blood Culture - Final NO GROWTH AFTER 5 DAYS INCUBATION 01/30/20 06:30 Urine - Urine Clean Catch Urine Culture - Final Enterococcus Faecalis 01/31/20 16:30 Urine For Antigen Detection Legionella Antigen - Final 01/31/20 16:30 Urine For Antigen Detection Streptococcus pneumoniae Antigen (M - Final 01/26/20 08:29 Blood - Peripheral Venous Blood Culture - Final NO GROWTH AFTER 5 DAYS INCUBATION 01/26/20 08:29 Blood - Peripheral Venous Blood Culture - Final NO GROWTH AFTER 5 DAYS INCUBATION 01/30/20 13:30 Blood - Peripheral Venous Blood Parasites Smear - Final 01/26/20 00:00 Urine - Urine Clean Catch Urine Culture - Final Escherichia Coli Enterococcus Faecalis ct scan with pancreatic inflammation, gb wall thickening, and right kidney edema a/p leukopenia and thrombocytopenia resolved-?viral illness causing pancreatitis and leukopenia/thrombocytopenia abnl lfts improving still some anemia and midepigastric discomfort observe off antibiotics surgery to evaluate please call back if needed
--- NOTE | 2020-02-09 18:35 | PN ---
Teaching Attending Note Name of Resident: Maninder Melendez ATTENDING PHYSICIAN STATEMENT I saw and evaluated the patient. I reviewed the resident's note and discussed the case with the resident. I agree with the resident's findings and plan as documented. SUBJECTIVE: patient reports that she is still having black stools has 2 locations of abdominal pain. Mid Epigastric pain is worse when she eats The RUQ pain is now radiating to her back OBJECTIVE: Vital Signs Period Temp Pulse Resp BP Sys/Alarcon Pulse Ox Last 24 Hr 98.2 F-99.3 F 98-105 18-20 127-142/71-91 97-100 GENERAL: Awake, alert, in no acute distress. HEAD: Normal with no signs of trauma. EYES: Pupils equal, round and reactive to light, extraocular movements intact, sclera anicteric, conjunctiva clear. EARS, NOSE, THROAT: Ears normal, nares patent, Moist mucous membranes. NECK: Normal range of motion, No JVD, LUNGS: Breath sounds equal, clear to auscultation bilaterally. No wheezes, and no crackles. No accessory muscle use. HEART: Regular rate and rhythm, normal S1 and S2 without murmur, rub or gallop. ABDOMEN: Soft, tender to deep palpation MUSCULOSKELETAL: Normal range of motion at all joints. No bony deformities or tenderness. No CVA tenderness. EXTREMITIES: 2+ pulses, warm, well-perfused. No calf tenderness. No peripheral edema. NEUROLOGICAL: Cranial nerves II-XII intact. Normal speech. PSYCHIATRIC: Cooperative. Good eye contact. Appropriate mood and affect. SKIN: Warm, dry, normal turgor, rash on her back noted ASSESSMENT AND PLAN: 69 y/o F with Hx of Autoimmune disease, HTN, DM who presents with abdominal pain and concern for GI Bleed Abdominal Pain/Gi Bleed with Dark Stool s Hb continues to drop Plan for repeat EGD with GI Unclear if patient's rash with abdominal pain and GI bleed can be explained by IBD, patient would need a colonoscopy and biospy Rest of plan as per resident note
[2020-02-09] MEDS ORDERED: diphenhydrAMINE HCL 25 MG CAPSULE (FP) PO PRN (21:54)
[2020-02-10] MEDS: BANATROL PLUS POWDER PACKET PO SCH ×3 (05:43→22:12)
[2020-02-10] MEDS: INSULIN SLIDING SCALE (NOVOLOG) 1 VIAL SQ SCH ×4 (06:15→22:13)
--- NOTE | 2020-02-10 06:26 | PN.GI ---
GI Progress Note Subjective: PT WAS GIVEN BENADRYL PRIOR TO THIS EXAM -- STATES SHE IS DOING OKAY DENIES ABD PAIN -- HOWEVER PER RECORD SHE HAD DARK STOOL OVERNIGHT WITH SOME ASSOCIATED DISCOMFORT. - Objective Vital Signs: Vital Signs Temperature 99.4 F 02/10/20 05:43 Pulse Rate 99 H 02/10/20 05:43 Respiratory Rate 18 02/10/20 05:43 Blood Pressure 140/70 02/10/20 05:43 O2 Sat by Pulse Oximetry (%) 99 02/10/20 05:43 Constitutional: Well Nourished, No Distress, Calm Cardiovascular: Yes: WNL, Regular Rate and Rhythm Respiratory: Yes: WNL, Regular, CTA Bilaterally Gastrointestinal Inspection: Yes: WNL ...Auscultate: Yes: Normoactive Bowel Sounds Extremities: Yes: WNL Labs: CBC, BMP 02/09/20 06:35 02/09/20 06:35 INR, PTT INR 1.12 (0.83-1.09) H 02/05/20 07:10 Problem List - Problems (1) Anemia Assessment/Plan: NPO MIDNIGHT FOR EGD ON SATURDAY SERIAL H/H Q12 KEEP ABOVE 8 FOR PROCEDURE AVOID NSAID PPI THERAPY F/U LIVER TESTS Code(s): D64.9 - ANEMIA, UNSPECIFIED (2) Abdominal pain Code(s): R10.9 - UNSPECIFIED ABDOMINAL PAIN Qualifiers: Abdominal location: upper abdomen, unspecified Qualified Code(s): R10.10 - Upper abdominal pain, unspecified (3) Abnormal liver function tests Code(s): R94.5 - ABNORMAL RESULTS OF LIVER FUNCTION STUDIES
[2020-02-10 07:42] LABS: EOS % 2.5 % (0-4.5); HEMATOCRIT 24.5 % (32.4-45.2); HEMOGLOBIN 8.2 GM/dL (10.7-15.3); LYMPH % 11.4 % (8-40); MCH 28.9 pg (25.7-33.7); MCHC 33.5 g/dl (32.0-36.0); MEAN CELL VOLUME 86.2 fl (80-96); MEAN PLT VOLUME 8.2 fl (7.5-11.1); MONO % 19.6 % (3.8-10.2); NEUT % 65.5 % (42.8-82.8); PLATELET COUNT 244 K/MM3 (134-434); RBC 2.84 M/mm3 (3.60-5.2); RDW 15.9 % (11.6-15.6); WHITE BLOOD COUNT 5.8 K/mm3 (4.0-10.0)
[2020-02-10 08:07] LABS: ALBUMIN 2.2 g/dl (3.4-5.0); BILIRUBIN,DIRECT 0.1 mg/dL (0.0-0.2); BILIRUBIN,TOTAL 0.4 mg/dL (0.2-1); BLOOD UREA NITROGEN 3.8 mg/dL (7-18); CALCIUM 7.9 mg/dL (8.5-10.1); CREATININE 0.7 mg/dL (0.55-1.3); POTASSIUM 3.2 mmol/L (3.5-5.1); TOT PROT 6.9 g/dl (6.4-8.2)
[2020-02-10] MEDS ORDERED: PT OWN MED DRAWER 7, Y5N ONE (11:13)
[2020-02-10] MEDS: CYANOCOBALAMIN 1,000 MCG TABLET (FP) PO SCH (11:17)
[2020-02-10] MEDS: PANTOPRAZOLE 40 MG TABLET PO SCH (11:17)
[2020-02-10] MEDS: amLODIPine BESYLATE 5 MG TABLET (FP) PO SCH (11:17)
[2020-02-10] MEDS: VALSARTAN 160 MG TABLET (UD) PO SCH (11:17)
[2020-02-10] MEDS: LACTOBACILLUS ACIDOPHILUS 1 TABLET PO SCH (11:17)
[2020-02-10] MEDS: KCL 10 MEQ IVPB 10 MEQ/100 ML INFUS.BAG IVPB SCH ×3 (11:18→17:44)
[2020-02-10] MEDS: MULTIVIT-MINERALS ORAL LIQUID PO SCH (11:18)
[2020-02-10] MEDS: BUDESONIDE/FORMETEROL FUMARATE 80/4.5 mcg INHALER IH SCH (11:19)
[2020-02-10] MEDS: AMINO ACIDS/PROTEIN HYDROLYS 30 ML LIQUID.PKT PO SCH ×2 (11:19→17:26)
[2020-02-10] MEDS: HYDROXYCHLOROQUINE SO4 200 MG TABLET (FP) PO SCH (11:19)
--- NOTE | 2020-02-10 12:22 | PN ---
Physical Exam: SUBJECTIVE: Patient seen and examined at bedside. Overnight, the nurse reported that patient had a temperature of 101.1. This morning patient is complaining of RUQ pain and dark tarry stools yesterday. Patient has no other concerns or complaints. OBJECTIVE: Vital Signs Period Temp Pulse Resp BP Sys/Alarcon Pulse Ox Last 24 Hr 98.2 F-100.1 F 98-108 17-20 123-141/68-88 98-100 GENERAL: AAOx3, in no acute distress HEENT: NCAT, PERRLA, EOMI, sclera anicteric, conjunctiva clear, oropharynx clear w/o exudates. MMM. NECK: Normal ROM, supple, no lymphadenopathy, JVD, or masses LUNGS: CTABL no wheezes/ rhonchi/ rales. No distress, speaks in full sentences. No increased work of breathing. HEART: RRR, normal S1 S2, no M/R/G, peripheral pulses 2+ and equal b/l ABDOMEN: Soft, epigastric and RUQ tenderness to palpation MSK: ROM WNL EXTREMITIES: Normal inspection. No peripheral edema. No clubbing or cyanosis. NEUROLOGICAL: CN II-XII intact. Normal speech, normal gait, no focal sensorimotor deficits. SKIN: Erythematous, mildly vesicular rash on low back, right arm, l leg with hypopigmentation. Rash is improving Laboratory Results - last 24 hr CBC, BMP 02/10/20 07:14 02/10/20 07:14 02/06/20 02/09/20 02/09/20 16:45 17:21 21:02 WBC RBC Hgb Hct MCV MCH MCHC RDW Plt Count MPV Absolute Neuts (auto) Neutrophils % Lymphocytes % Monocytes % Eosinophils % Basophils % Nucleated RBC % Sodium Potassium Chloride Carbon Dioxide Anion Gap BUN Creatinine Est GFR (CKD-EPI)AfAm Est GFR (CKD-EPI)NonAf POC Glucometer 168 214 Random Glucose Calcium Total Bilirubin Direct Bilirubin AST ALT Alkaline Phosphatase Total Protein Albumin Triglycerides Blood Type O POSITIVE Antibody Screen Negative Crossmatch See Detail 02/10/20 02/10/20 02/10/20 05:54 07:14 07:14 WBC 5.8 RBC 2.84 L Hgb 8.2 L Hct 24.5 L MCV 86.2 MCH 28.9 MCHC 33.5 RDW 15.9 H Plt Count 244 MPV 8.2 Absolute Neuts (auto) 3.8 Neutrophils % 65.5 Lymphocytes % 11.4 Monocytes % 19.6 H Eosinophils % 2.5 Basophils % 1.0 Nucleated RBC % 0 Sodium 137 Potassium 3.2 L Chloride 104 Carbon Dioxide 24 Anion Gap 8 BUN 3.8 L Creatinine 0.7 Est GFR (CKD-EPI)AfAm 103.91 Est GFR (CKD-EPI)NonAf 89.65 POC Glucometer 123 Random Glucose 163 H Calcium 7.9 L Total Bilirubin 0.4 Direct Bilirubin 0.1 AST 38 H ALT 54 Alkaline Phosphatase 205 H Total Protein 6.9 Albumin 2.2 L Triglycerides 80 Blood Type Antibody Screen Crossmatch Active Medications Generic Name Dose Route Start Last Admin Trade Name Freq PRN Reason Stop Dose Admin Al Hydroxide/Mg Hydroxide 30 ml 02/03/20 10:03 02/08/20 16:29 Mylanta Oral Suspension - PO 30 ml Q6H PRN Administration DYSPEPSIA Albuterol Sulfate 2 puff 01/26/20 06:03 Ventolin Hfa Inhaler - IH Q4H PRN SHORT OF BREATH/WHEEZING Amino Acids 30 ml 02/05/20 17:30 02/10/20 11:19 Prosource No Carb Liquid Pkt PO Not Given BID@0800,1730 KYLEIGH Amlodipine Besylate 5 mg 01/27/20 10:00 02/10/20 11:17 Norvasc - PO 5 mg DAILY KYLEIGH Administration Banana Based Medical Food 1 packet 02/05/20 14:45 02/10/20 05:43 Banatrol Plus Powder Packet PO 1 packet TID KYLEIGH Administration Budesonide/Formoterol Fumarate 2 puff 01/27/20 10:00 02/10/20 11:19 Symbicort 80/4.5mcg - IH 2 puff DAILY KYLEIGH Administration Cyanocobalamin 1,000 mcg 01/27/20 14:00 02/10/20 11:17 Vitamin B12 - PO 1,000 mcg DAILY KYLEIGH Administration Diphenhydramine HCl 25 mg 02/09/20 21:54 02/09/20 21:59 Benadryl - PO 25 mg ONCE PRN Administration ALLERGIES Hydroxychloroquine Sulfate 200 mg 01/27/20 10:00 02/10/20 11:19 Plaquenil - PO 200 mg DAILY KYLEIGH Administration Sodium Chloride 1,000 mls @ 100 mls/hr 02/02/20 08:23 02/09/20 21:15 Normal Saline - IV 100 mls/hr ASDIR KYLEIGH Administration Insulin Aspart 1 vial 01/26/20 07:00 02/10/20 06:15 Novolog Vial Sliding Scale - SQ Not Given ACHS KYLEIGH Protocol Lactobacillus Acidophilus 1 tab 02/05/20 14:45 02/10/20 11:17 Bacid - PO 1 tab DAILY KYLEIGH Administration Multivitamins/Minerals 15 ml 02/05/20 14:45 02/10/20 11:18 Certavite-Antioxidant Liquid PO 15 ml DAILY KYLEIGH Administration Pantoprazole Sodium 40 mg 02/10/20 10:00 02/10/20 11:17 Protonix - PO 40 mg DAILY KYLEIGH Administration Valsartan 320 mg 01/27/20 10:00 02/10/20 11:17 Diovan - PO 320 mg DAILY KYLEIGH Administration ASSESSMENT/PLAN: 69F with PMH of HTN, DM, RA, sjorgens, & asthma presenting with R flank/RUQ pain with associated dysuria & chills, admitted for evaluation of UTI, GI bleed, possible cholecystits. #Abdominal PAIN: 2/2 gastritis, vs PUD, vs cholelithiasis/cholecystitis - Etiology still unclear, EGD did not explain abdominal pain --> repeat EGD possibly on 02/[address] Mosqueda -repeat CBC ordered for 6 pm tonight to make sure Hg is > 8 for the procedure tomorrow as per Dr. Ward; will endorse to night team - Dr. Alba reconsulted to reevaluate the patient for surgery --> Dr. Alba is not on service currently will f/u with Dr. Hammond tm after EGD - Oxycodone PRN for pain control - Pathology from EGD 01/31: scattered eosinophilia, non-specific findings with HSC/CMV stains pending. h. Pylori negative -Patient will need liver biopsy to r/o AIH if symptoms do not improve as per Dr. Mosqueda (GI) - LFTs continue to improve #Rash - resolving -responded to Acyclovir; was d/c on 02/[address] Granado (ID) - Derm consulted (Dr. Mari) and aware. They will see the pt soon #UTI - zosyn d/c 02/[address] Granado (ID) #RA - hydroxychloroquine 200 mg daily -Dr. Rod from rheum was contacted on 01/31; said that pt should continue her current RA meds prescribed by her rheum and that he does not need to be consulted #Pancytopenia - Heme/Onc on board, 2/2 Methotrexate & plaquenil, in setting of multiple autoimmune disorders, sepsis - Outpatient workup from Dr. 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 I reviewed the resident's note and discussed the case with the resident. I agree with the resident's findings and plan as documented. SUBJECTIVE: OBJECTIVE: ASSESSMENT AND PLAN:
[2020-02-10] MEDS: SODIUM CHLORIDE 1,000 ML IV SCH (15:23)
[2020-02-10] MEDS ORDERED: INSULIN (NOVOLOG) ASPART 100 UNITS/ML 10ML VIAL ONE (17:03)
--- NOTE | 2020-02-10 17:23 | PN ---
Teaching Attending Note Name of Resident: Maninder Melendez ATTENDING PHYSICIAN STATEMENT I saw and evaluated the patient. I reviewed the resident's note and discussed the case with the resident. I agree with the resident's findings and plan as documented. SUBJECTIVE: Patient still with abdominal pain on exam OBJECTIVE: Vital Signs Period Temp Pulse Resp BP Sys/Alarcon Pulse Ox Last 24 Hr 98.1 F-100.1 F 92-108 17-20 123-142/68-78 98-99 GENERAL: Awake, alert, in no acute distress. HEAD: Normal with no signs of trauma. EYES: Pupils equal, round and reactive to light, extraocular movements intact, sclera anicteric, conjunctiva clear. EARS, NOSE, THROAT: Ears normal, nares patent, Moist mucous membranes. NECK: Normal range of motion, No JVD, LUNGS: Breath sounds equal, clear to auscultation bilaterally. No wheezes, and no crackles. No accessory muscle use. HEART: Regular rate and rhythm, normal S1 and S2 without murmur, rub or gallop. ABDOMEN: Soft, tender to deep palpation MUSCULOSKELETAL: Normal range of motion at all joints. No bony deformities or tenderness. No CVA tenderness. EXTREMITIES: 2+ pulses, warm, well-perfused. No calf tenderness. No peripheral edema. NEUROLOGICAL: Cranial nerves II-XII intact. Normal speech. PSYCHIATRIC: Cooperative. Good eye contact. Appropriate mood and affect. SKIN: Warm, dry, normal turgor, rash on her back noted ASSESSMENT AND PLAN: 69 y/o F with Hx of Autoimmune disease, HTN, DM who presents with abdominal pain and concern for GI Bleed Abdominal Pain/Gi Bleed with Dark Stools Continue to monitor Hb Plan for repeat EGD with GI tomorrow Unclear if patient's rash with abdominal pain and GI bleed are linked, Unlikely UC as patient would typically have BRBPR Patient likely has a slow bleed given presence of melena, but no appreciable elevation in BUN or significant Drop In Hb IgA Vasculitis ruled out 2/2 Low IgA mandy Consider acute generalized exanthematous pustulosis as a differential Rest of plan as per resident note
[2020-02-10] MEDS ORDERED: ACETAMINOPHEN 325 MG TABLET (FP) PO ONE (21:50)
[2020-02-11] MEDS ORDERED: MORPHINE SULFATE 2 MG/ML VIAL IVPUSH ONE (05:40)
[2020-02-11] MEDS: BANATROL PLUS POWDER PACKET PO SCH ×3 (06:07→21:19)
[2020-02-11] MEDS: INSULIN SLIDING SCALE (NOVOLOG) 1 VIAL SQ SCH ×4 (06:07→21:20)
[2020-02-11 08:13] LABS: BASO % 0.9 % (0-2.0); EOS % 2.3 % (0-4.5); HEMATOCRIT 27.9 % (32.4-45.2); HEMOGLOBIN 9.2 GM/dL (10.7-15.3); LYMPH % 11.7 % (8-40); MCH 28.5 pg (25.7-33.7); MEAN CELL VOLUME 86.4 fl (80-96); MEAN PLT VOLUME 8.1 fl (7.5-11.1); MONO % 17.7 % (3.8-10.2); NEUT % 67.4 % (42.8-82.8); PLATELET COUNT 291 K/MM3 (134-434); RBC 3.23 M/mm3 (3.60-5.2); RDW 15.5 % (11.6-15.6); WHITE BLOOD COUNT 5.9 K/mm3 (4.0-10.0)
[2020-02-11 08:21] LABS: ALBUMIN 2.4 g/dl (3.4-5.0); BILIRUBIN,DIRECT 0.2 mg/dL (0.0-0.2); BILIRUBIN,TOTAL 0.6 mg/dL (0.2-1); CALCIUM 8.5 mg/dL (8.5-10.1); CREATININE 0.7 mg/dL (0.55-1.3); POTASSIUM 3.2 mmol/L (3.5-5.1)
[2020-02-11 08:35] LABS: BLOOD UREA NITROGEN 2.7 mg/dL (7-18)
[2020-02-11] MEDS: LACTOBACILLUS ACIDOPHILUS 1 TABLET PO SCH (09:12)
[2020-02-11] MEDS: MULTIVIT-MINERALS ORAL LIQUID PO SCH (09:12)
[2020-02-11] MEDS: AMINO ACIDS/PROTEIN HYDROLYS 30 ML LIQUID.PKT PO SCH ×2 (09:12→18:13)
[2020-02-11] MEDS: BUDESONIDE/FORMETEROL FUMARATE 80/4.5 mcg INHALER IH SCH (11:19)
[2020-02-11 12:13] LABS: INR 1.13 (0.83-1.09); PROTHROMBIN TIME (PATIENT) 13.3 SEC (9.7-13.0)
[2020-02-11 12:16] LABS: ACTIVATED PTT 28.7 SECONDS (25.2-36.5)
--- NOTE | 2020-02-11 12:56 | PN ---
Progress Note (short form) - Note Progress Note: EGD complete. Report left in the procedural section of the physical chart and will be scanned into [employer] Problem List - Problems (1) Abdominal pain Code(s): R10.9 - UNSPECIFIED ABDOMINAL PAIN Qualifiers: Qualified Code(s): R10.10 - Upper abdominal pain, unspecified (2) Abnormal liver function tests Code(s): R94.5 - ABNORMAL RESULTS OF LIVER FUNCTION STUDIES (3) Anemia Code(s): D64.9 - ANEMIA, UNSPECIFIED Qualifiers: Qualified Code(s): D64.9 - Anemia, unspecified
--- NOTE | 2020-02-11 13:03 | PN ---
Physical Exam: SUBJECTIVE: Patient seen and examined at bedside. Overnight the patient had abdominal pain that responded to pain medication. This morning the patient is complaining of abdominal pain and low back pain on the right side of her bad. Also endorses tarry stools yesterday. OBJECTIVE: Vital Signs Period Temp Pulse Resp BP Sys/Alarcon Pulse Ox Last 24 Hr 98.1 F-99.2 F 92-106 18-20 133-146/77-95 97-99 GENERAL: AAOx3, in no acute distress HEENT: NCAT, PERRLA, EOMI, sclera anicteric, conjunctiva clear, oropharynx clear w/o exudates. MMM. NECK: Normal ROM, supple, no lymphadenopathy, JVD, or masses LUNGS: CTABL no wheezes/ rhonchi/ rales. No distress, speaks in full sentences. No increased work of breathing. HEART: RRR, normal S1 S2, no M/R/G, peripheral pulses 2+ and equal b/l ABDOMEN: Soft, epigastric and RUQ tenderness to palpation; tenderness to palpation on R CVA MSK: ROM WNL EXTREMITIES: Normal inspection. No peripheral edema. No clubbing or cyanosis. NEUROLOGICAL: CN II-XII intact. Normal speech, normal gait, no focal sensorimotor deficits. SKIN: Erythematous, mildly vesicular rash on low back hypopigmentation. Rash is improving Laboratory Results - last 24 hr CBC, BMP 02/11/20 06:51 02/11/20 06:51 02/10/20 02/10/20 02/10/20 12:39 17:28 22:11 WBC RBC Hgb Hct MCV MCH MCHC RDW Plt Count MPV Absolute Neuts (auto) Neutrophils % Lymphocytes % Monocytes % Eosinophils % Basophils % Nucleated RBC % PT with INR INR PTT (Actin FS) Sodium Potassium Chloride Carbon Dioxide Anion Gap BUN Creatinine Est GFR (CKD-EPI)AfAm Est GFR (CKD-EPI)NonAf POC Glucometer 159 188 183 Random Glucose Calcium Total Bilirubin Direct Bilirubin AST ALT Alkaline Phosphatase Total Protein Albumin 02/11/20 02/11/20 02/11/20 06:04 06:51 06:51 WBC 5.9 RBC 3.23 L Hgb 9.2 L Hct 27.9 L MCV 86.4 MCH 28.5 MCHC 33.0 RDW 15.5 Plt Count 291 MPV 8.1 Absolute Neuts (auto) 4.0 Neutrophils % 67.4 Lymphocytes % 11.7 Monocytes % 17.7 H Eosinophils % 2.3 Basophils % 0.9 Nucleated RBC % 0 PT with INR INR PTT (Actin FS) Sodium 137 Potassium 3.2 L Chloride 101 Carbon Dioxide 28 Anion Gap 8 BUN 2.7 L* Creatinine 0.7 Est GFR (CKD-EPI)AfAm 103.91 Est GFR (CKD-EPI)NonAf 89.65 POC Glucometer 160 Random Glucose 165 H Calcium 8.5 Total Bilirubin 0.6 Direct Bilirubin 0.2 AST 38 H ALT 51 Alkaline Phosphatase 220 H Total Protein 8.0 Albumin 2.4 L 02/11/20 11:15 WBC RBC Hgb Hct MCV MCH MCHC RDW Plt Count MPV Absolute Neuts (auto) Neutrophils % Lymphocytes % Monocytes % Eosinophils % Basophils % Nucleated RBC % PT with INR 13.30 H INR 1.13 H PTT (Actin FS) 28.7 Sodium Potassium Chloride Carbon Dioxide Anion Gap BUN Creatinine Est GFR (CKD-EPI)AfAm Est GFR (CKD-EPI)NonAf POC Glucometer Random Glucose Calcium Total Bilirubin Direct Bilirubin AST ALT Alkaline Phosphatase Total Protein Albumin Active Medications Generic Name Dose Route Start Last Admin Trade Name Freq PRN Reason Stop Dose Admin Al Hydroxide/Mg Hydroxide 30 ml 02/03/20 10:03 02/08/20 16:29 Mylanta Oral Suspension - PO 30 ml Q6H PRN Administration DYSPEPSIA Albuterol Sulfate 2 puff 01/26/20 06:03 Ventolin Hfa Inhaler - IH Q4H PRN SHORT OF BREATH/WHEEZING Amino Acids 30 ml 02/05/20 17:30 02/11/20 09:12 Prosource No Carb Liquid Pkt PO Not Given BID@0800,1730 KYLEIGH Amlodipine Besylate 5 mg 01/27/20 10:00 02/10/20 11:17 Norvasc - PO 5 mg DAILY KYLEIGH Administration Banana Based Medical Food 1 packet 02/05/20 14:45 02/11/20 06:07 Banatrol Plus Powder Packet PO Not Given TID KYLEIGH Budesonide/Formoterol Fumarate 2 puff 01/27/20 10:00 02/11/20 11:19 Symbicort 80/4.5mcg - IH Not Given DAILY KYLEIGH Cyanocobalamin 1,000 mcg 01/27/20 14:00 02/10/20 11:17 Vitamin B12 - PO 1,000 mcg DAILY KYLEIGH Administration Diphenhydramine HCl 25 mg 02/09/20 21:54 02/09/20 21:59 Benadryl - PO 25 mg ONCE PRN Administration ALLERGIES Hydroxychloroquine Sulfate 200 mg 01/27/20 10:00 02/10/20 11:19 Plaquenil - PO 200 mg DAILY KYLEIGH Administration Sodium Chloride 1,000 mls @ 125 mls/hr 02/11/20 12:33 Normal Saline - IV ASDIR KYLEIGH Insulin Aspart 1 vial 01/26/20 07:00 02/11/20 06:07 Novolog Vial Sliding Scale - SQ Not Given ACHS [facility] Protocol Lactobacillus Acidophilus 1 tab 02/05/20 14:45 02/11/20 09:12 Bacid - PO Not Given DAILY KYLEIGH Multivitamins/Minerals 15 ml 02/05/20 14:45 02/11/20 09:12 Certavite-Antioxidant Liquid PO Not Given DAILY KYLEIGH Pantoprazole Sodium 40 mg 02/10/20 10:00 02/10/20 11:17 Protonix - PO 40 mg DAILY KYLEIGH Administration Valsartan 320 mg 01/27/20 10:00 02/10/20 11:17 Diovan - PO 320 mg DAILY KYLEIGH Administration ASSESSMENT/PLAN: 69F with PMH of HTN, DM, RA, sjorgens, & asthma presenting with R flank/RUQ pain with associated dysuria & chills, admitted for evaluation of UTI, GI bleed, possible cholecystits. #Abdominal PAIN: 2/2 gastritis, vs PUD, vs cholelithiasis/cholecystitis - Etiology still unclear likely pancreatitis and cholecystitis - repeat EGD today with Dr. Mosqueda - Dr. Hammond resconsulted for surgery: Will not perform cholecystectomy until the pancreatitis has resolved - Morphine Q4 PRN for pain control - IV NS @ 125 mls/hr - Pathology from EGD 01/31: scattered eosinophilia, non-specific findings with HSC/CMV stains pending. h. Pylori negative -Patient will need liver biopsy to r/o AIH if symptoms do not improve as per Dr. Mosqueda (GI) - LFTs continue to improve #Rash - resolving -responded to Acyclovir; was d/c on 02/[address] Granado (ID) - Derm consulted (Dr. Mari) and aware. They will see the pt soon #UTI - zosyn d/c 02/[address] Granado (ID) #RA - hydroxychloroquine 200 mg daily -Dr. Rod from rheum was contacted on 01/31; said that pt should continue her current RA meds prescribed by her rheum and that he does not need to be consulted #Pancytopenia - Heme/Onc on board, 2/2 Methotrexate & plaquenil, in setting of multiple autoimmune disorders, sepsis - Outpatient workup from Dr. Lambert's office - [facility]: F/U with primary contract specialist on d/c - HIV test was NEGATIVE -EBV results were POSITIVE -ARIANA results were POSITIVE #DM - A1c 5.3 - BGM, ISS #HTN - Amlodipine, Valsartasn - Holding Hctz #FEN - NS @ 125 mls/hr -monitor electrolytes; replete PRN - low fiber, lactose free, diabetic diet #Dispo - Monitor in M/S Visit type - Emergency Visit Emergency Visit: No - New Patient This patient is new to me today: No - Critical Care Critical Care patient: No - Discharge Referral Referred to [facility] No - Medication Review Med list reviewed for High Risk Meds patients 65 and older: Yes ATTENDING PHYSICIAN STATEMENT I saw and evaluated the patient. I reviewed the resident's note and discussed the case with the resident. I agree with the resident's findings and plan as documented. SUBJECTIVE: OBJECTIVE: ASSESSMENT AND PLAN:
[2020-02-11] MEDS: SODIUM CHLORIDE 1,000 ML IV SCH ×2 (13:39→19:48)
[2020-02-11] MEDS: KCL 10 MEQ IVPB 10 MEQ/100 ML INFUS.BAG IVPB SCH ×4 (13:41→19:47)
[2020-02-11] MEDS: amLODIPine BESYLATE 5 MG TABLET (FP) PO SCH (13:44)
[2020-02-11] MEDS: VALSARTAN 160 MG TABLET (UD) PO SCH (13:45)
[2020-02-11] MEDS: PANTOPRAZOLE 40 MG TABLET PO SCH (13:47)
[2020-02-11] MEDS: HYDROXYCHLOROQUINE SO4 200 MG TABLET (FP) PO SCH (13:47)
[2020-02-11] MEDS: CYANOCOBALAMIN 1,000 MCG TABLET (FP) PO SCH (13:48)
--- NOTE | 2020-02-11 14:25 | PN ---
Teaching Attending Note Name of Resident: Maninder Melendez ATTENDING PHYSICIAN STATEMENT I saw and evaluated the patient. I reviewed the resident's note and discussed the case with the resident. I agree with the resident's findings and plan as documented. 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 HEAD: Normal with no signs of trauma. EYES: Pupils equal, round and reactive to light, extraocular movements intact, sclera anicteric, conjunctiva clear. EARS, NOSE, THROAT: Ears normal, nares patent, Moist mucous membranes. NECK: Normal range of motion, No JVD, LUNGS: Breath sounds equal, clear to auscultation bilaterally. No wheezes, and no crackles. No accessory muscle use. HEART: Regular rate and rhythm, normal S1 and S2 without murmur, rub or gallop. ABDOMEN: Soft, tender to deep palpation MUSCULOSKELETAL: Normal range of motion at all joints. No bony deformities or tenderness. No CVA tenderness. EXTREMITIES: 2+ pulses, warm, well-perfused. No calf tenderness. No peripheral edema. NEUROLOGICAL: Cranial nerves II-XII intact. Normal speech. PSYCHIATRIC: Cooperative. Good eye contact. Appropriate mood and affect. SKIN: Warm, dry, normal turgor, rash on her back noted ASSESSMENT AND PLAN: 69 y/o F with Hx of Autoimmune disease, HTN, DM who presents with abdominal pain and concern for GI Bleed Abdominal Pain/Gi Bleed with Dark Stools Continue to monitor Hb Repeat EGD today Jack in setting of pancreatitis Continue IV Fluids, encourage PO intake as tolerated patient likely also needs cholecystectomy Rest of plan as per resident note
[2020-02-11] MEDS ORDERED: PT OWN MED DRAWER 7, Y5N ONE (20:56)
[2020-02-11] MEDS ORDERED: INSULIN (NOVOLOG) ASPART 100 UNITS/ML 10ML VIAL ONE (20:56)
[2020-02-11] MEDS: MORPHINE SULFATE 2 MG/ML VIAL IVPUSH PRN (21:20)
[2020-02-11 22:06] LABS: METHYLMALONIC ACID- 229 nmol/L (0-378)
[2020-02-12] MEDS ORDERED: PT OWN MED DRAWER 7, Y5N ONE ×4 (05:47→20:36)
[2020-02-12] MEDS: BANATROL PLUS POWDER PACKET PO SCH ×3 (05:54→21:12)
[2020-02-12] MEDS: MORPHINE SULFATE 2 MG/ML VIAL IVPUSH PRN ×2 (05:55→22:20)
[2020-02-12] MEDS: SODIUM CHLORIDE 1,000 ML IV SCH ×3 (06:01→21:12)
[2020-02-12] MEDS: INSULIN SLIDING SCALE (NOVOLOG) 1 VIAL SQ SCH ×4 (06:20→21:12)
[2020-02-12 08:50] LABS: EOS % 2.1 % (0-4.5); HEMATOCRIT 25.1 % (32.4-45.2); HEMOGLOBIN 8.4 GM/dL (10.7-15.3); LYMPH % 11.2 % (8-40); MCH 28.7 pg (25.7-33.7); MCHC 33.5 g/dl (32.0-36.0); MEAN CELL VOLUME 85.6 fl (80-96); MEAN PLT VOLUME 7.8 fl (7.5-11.1); MONO % 16.3 % (3.8-10.2); NEUT % 69.4 % (42.8-82.8); PLATELET COUNT 246 K/MM3 (134-434); RBC 2.93 M/mm3 (3.60-5.2); RDW 15.7 % (11.6-15.6); WHITE BLOOD COUNT 5.4 K/mm3 (4.0-10.0)
[2020-02-12 08:52] LABS: ALBUMIN 2.2 g/dl (3.4-5.0); BILIRUBIN,DIRECT 0.1 mg/dL (0.0-0.2); BILIRUBIN,TOTAL 0.5 mg/dL (0.2-1); CALCIUM 8.4 mg/dL (8.5-10.1); CREATININE 0.6 mg/dL (0.55-1.3); POTASSIUM 3.1 mmol/L (3.5-5.1); TOT PROT 7.3 g/dl (6.4-8.2)
[2020-02-12 09:15] LABS: BLOOD UREA NITROGEN 2.8 mg/dL (7-18)
--- NOTE | 2020-02-12 09:21 | PN ---
Teaching Attending Note Name of Resident: Maninder Melendez ATTENDING PHYSICIAN STATEMENT I saw and evaluated the patient. I reviewed the resident's note and discussed the case with the resident. I agree with the resident's findings and plan as documented. SUBJECTIVE: Patient s/p EGD with Gi Still with RUQ abdominal pain OBJECTIVE: Vital Signs Period Temp Pulse Resp BP Sys/Alarcon Pulse Ox Last 24 Hr 97.9 F-98.8 F 94-101 18-20 139-147/79-84 97-98 GENERAL: Awake, alert, in no acute distress. HEAD: Normal with no signs of trauma. EYES: Pupils equal, round and reactive to light, extraocular movements intact, sclera anicteric, conjunctiva clear. EARS, NOSE, THROAT: Ears normal, nares patent, Moist mucous membranes. NECK: Normal range of motion, No JVD, LUNGS: Breath sounds equal, clear to auscultation bilaterally. No wheezes, and no crackles. No accessory muscle use. HEART: Regular rate and rhythm, normal S1 and S2 without murmur, rub or gallop. ABDOMEN: Soft, tender to deep palpation in RUQ radiating to back MUSCULOSKELETAL: Normal range of motion at all joints. No bony deformities or tenderness. No CVA tenderness. EXTREMITIES: 2+ pulses, warm, well-perfused. No calf tenderness. No peripheral edema. NEUROLOGICAL: Cranial nerves II-XII intact. Normal speech. PSYCHIATRIC: Cooperative. Good eye contact. Appropriate mood and affect. SKIN: Warm, dry, normal turgor, rash on her back noted ASSESSMENT AND PLAN: 69 y/o F with Hx of Autoimmune disease, HTN, DM who presents with abdominal pain and concern for GI Bleed Abdominal Pain/Gi Bleed with Dark Stools Continue to monitor Hb, stable at this time Repeat EGD yesterday with improved findings, GAVE noted Likely in setting of pancreatitis--Unclear if patient would benefit from EUS/ERCP LFT and Lipase improving Can try Creon to see if it helps with diarrhea Continue IV Fluids, encourage PO intake as tolerated Discussed case with Surgery, not a candidate for cholecystectomy at this time Discussed patient's case with GI Continue Morphine for pain control HIDA scan reviewed: Jack chronic cholecystits RA Cont Plaquinil, methotrexate Hypokalemia: Replete aggressively Rest of plan as per resident note
[2020-02-12] MEDS: AMINO ACIDS/PROTEIN HYDROLYS 30 ML LIQUID.PKT PO SCH ×2 (09:53→16:52)
[2020-02-12] MEDS: VALSARTAN 160 MG TABLET (UD) PO SCH (10:38)
[2020-02-12] MEDS: LACTOBACILLUS ACIDOPHILUS 1 TABLET PO SCH (10:39)
[2020-02-12] MEDS: PANTOPRAZOLE 40 MG TABLET PO SCH (10:40)
[2020-02-12] MEDS: MULTIVIT-MINERALS ORAL LIQUID PO SCH (10:40)
[2020-02-12] MEDS: HYDROXYCHLOROQUINE SO4 200 MG TABLET (FP) PO SCH (10:40)
[2020-02-12] MEDS: amLODIPine BESYLATE 5 MG TABLET (FP) PO SCH (10:40)
[2020-02-12] MEDS: BUDESONIDE/FORMETEROL FUMARATE 80/4.5 mcg INHALER IH SCH (10:41)
[2020-02-12] MEDS: CYANOCOBALAMIN 1,000 MCG TABLET (FP) PO SCH (10:41)
[2020-02-12] MEDS: KCL 10 MEQ IVPB 10 MEQ/100 ML INFUS.BAG IVPB SCH ×4 (10:41→21:12)
[2020-02-12 12:26] LABS: MAGNESIUM 1.1 mg/dL (1.8-2.4)
--- NOTE | 2020-02-12 12:31 | PN ---
Physical Exam: SUBJECTIVE: Patient seen and examined at bedside. Overnight patient had pain which responded to pain medication. This morning the patient is continuing to complain of RUQ pain. OBJECTIVE: Vital Signs Period Temp Pulse Resp BP Sys/Alarcon Pulse Ox Last 24 Hr 97.9 F-98.8 F 90-101 17-23 134-157/65-96 97-100 GENERAL: AAOx3, in no acute distress HEENT: NCAT, PERRLA, EOMI, sclera anicteric, conjunctiva clear, oropharynx clear w/o exudates. MMM. NECK: Normal ROM, supple, no lymphadenopathy, JVD, or masses LUNGS: CTABL no wheezes/ rhonchi/ rales. No distress, speaks in full sentences. No increased work of breathing. HEART: RRR, normal S1 S2, no M/R/G, peripheral pulses 2+ and equal b/l ABDOMEN: Soft, epigastric and RUQ tenderness to palpation; tenderness to palpation on R CVA MSK: ROM WNL EXTREMITIES: Normal inspection. No peripheral edema. No clubbing or cyanosis. NEUROLOGICAL: CN II-XII intact. Normal speech, normal gait, no focal sensorimotor deficits. SKIN: Erythematous, mildly vesicular rash on low back hypopigmentation. Rash is improving Laboratory Results - last 24 hr CBC, BMP 02/12/20 07:47 02/12/20 07:47 01/28/20 02/11/20 02/11/20 05:30 16:38 21:06 WBC RBC Hgb Hct MCV MCH MCHC RDW Plt Count MPV Absolute Neuts (auto) Neutrophils % Lymphocytes % Monocytes % Eosinophils % Basophils % Nucleated RBC % Sodium Potassium Chloride Carbon Dioxide Anion Gap BUN Creatinine Est GFR (CKD-EPI)AfAm Est GFR (CKD-EPI)NonAf POC Glucometer 190 178 Random Glucose Calcium Magnesium Total Bilirubin Direct Bilirubin AST ALT Alkaline Phosphatase Total Protein Albumin Total Amylase Lipase Methylmalonic Acid 229 02/12/20 02/12/20 02/12/20 05:58 07:47 07:47 WBC 5.4 RBC 2.93 L Hgb 8.4 L Hct 25.1 L MCV 85.6 MCH 28.7 MCHC 33.5 RDW 15.7 H Plt Count 246 MPV 7.8 Absolute Neuts (auto) 3.8 Neutrophils % 69.4 Lymphocytes % 11.2 Monocytes % 16.3 H Eosinophils % 2.1 Basophils % 1.0 Nucleated RBC % 0 Sodium 135 L Potassium 3.1 L Chloride 101 Carbon Dioxide 27 Anion Gap 7 L BUN 2.8 L* Creatinine 0.6 Est GFR (CKD-EPI)AfAm 109.31 Est GFR (CKD-EPI)NonAf 94.32 POC Glucometer 147 Random Glucose 187 H Calcium 8.4 L Magnesium 1.1 L Total Bilirubin 0.5 Direct Bilirubin 0.1 AST 31 ALT 41 Alkaline Phosphatase 216 H Total Protein 7.3 Albumin 2.2 L Total Amylase 78 Lipase 363 Methylmalonic Acid Active Medications Generic Name Dose Route Start Last Admin Trade Name Freq PRN Reason Stop Dose Admin Al Hydroxide/Mg Hydroxide 30 ml 02/03/20 10:03 02/08/20 16:29 Mylanta Oral Suspension - PO 30 ml Q6H PRN Administration DYSPEPSIA Albuterol Sulfate 2 puff 01/26/20 06:03 Ventolin Hfa Inhaler - IH Q4H PRN SHORT OF BREATH/WHEEZING Amino Acids 30 ml 02/05/20 17:30 02/12/20 09:53 Prosource No Carb Liquid Pkt PO Not Given BID@0800,1730 KYLEIGH Amlodipine Besylate 5 mg 01/27/20 10:00 02/12/20 10:40 Norvasc - PO 5 mg DAILY KYLEIGH Administration Banana Based Medical Food 1 packet 02/05/20 14:45 02/12/20 05:54 Banatrol Plus Powder Packet PO 1 packet TID KYLEIGH Administration Budesonide/Formoterol Fumarate 2 puff 01/27/20 10:00 02/12/20 10:41 Symbicort 80/4.5mcg - IH 2 puff DAILY KYLEIGH Administration Cyanocobalamin 1,000 mcg 01/27/20 14:00 02/12/20 10:41 Vitamin B12 - PO 1,000 mcg DAILY KYLEIGH Administration Diphenhydramine HCl 25 mg 02/09/20 21:54 02/09/20 21:59 Benadryl - PO 25 mg ONCE PRN Administration ALLERGIES Hydroxychloroquine Sulfate 200 mg 01/27/20 10:00 02/12/20 10:40 Plaquenil - PO 200 mg DAILY KYLEIGH Administration Sodium Chloride 1,000 mls @ 125 mls/hr 02/11/20 12:33 02/12/20 06:01 Normal Saline - IV 125 mls/hr ASDIR KYLEIGH Administration Potassium Chloride 10 meq in 100 mls @ 100 mls/hr 02/12/20 09:45 02/12/20 10:41 Potassium Chloride 10 Meq Premix Ivpb - IVPB 02/12/20 12:44 100 mls/hr Q60M KYLEIGH Administration Insulin Aspart 1 vial 01/26/20 07:00 02/12/20 06:20 Novolog Vial Sliding Scale - SQ Not Given ACHS KYLEIGH Protocol Lactobacillus Acidophilus 1 tab 02/05/20 14:45 02/12/20 10:39 Bacid - PO 1 tab DAILY KYLEIGH Administration Morphine Sulfate 1 mg 02/11/20 12:59 02/12/20 05:55 Morphine Sulfate IVPUSH 1 mg Q4H PRN Administration PAIN LEVEL 7 - 10 Multivitamins/Minerals 15 ml 02/05/20 14:45 02/12/20 10:40 Certavite-Antioxidant Liquid PO 15 ml DAILY KYLEIGH Administration Pantoprazole Sodium 40 mg 02/10/20 10:00 02/12/20 10:40 Protonix - PO 40 mg DAILY KYLEIGH Administration Valsartan 320 mg 01/27/20 10:00 02/12/20 10:38 Diovan - PO 320 mg DAILY KYLEIGH Administration ASSESSMENT/PLAN: 69F with PMH of HTN, DM, RA, sjorgens, & asthma presenting with R flank/RUQ pain with associated dysuria & chills, admitted for evaluation of UTI, GI bleed, possible cholecystits. #Abdominal PAIN: 2/2 gastritis, vs PUD, vs cholelithiasis/cholecystitis - Etiology still unclear likely pancreatitis and cholecystitis - repeat EGD showed normal esophagous mucosa, with improved gastritis, healed erosions, mild GAVE vs. linear antral erosions-improved from prior EGD - Dr. Hammond resconsulted for surgery: Will not perform cholecystectomy until pancreatitis improves. -started on CREON today for pancreatitis -lipase levels are improving; continue to monitor - Morphine Q4 PRN for pain control - IV NS @ 125 mls/hr -Patient will need liver biopsy to r/o AIH if symptoms do not improve as per Dr. Mosqueda (GI) - LFTs continue to improve #Rash - resolving -responded to Acyclovir; was d/c on 02/[address] Granado (ID) - Derm consulted (Dr. Mari) and aware. They will see the pt soon #UTI - zosyn d/c 02/[address] Granado (ID) #RA - hydroxychloroquine 200 mg daily -Dr. Rod from rheum was contacted on 01/31; said that pt should continue her current RA meds prescribed by her rheum and that he does not need to be cons ulted #Pancytopenia - Heme/Onc on board, 2/2 Methotrexate & plaquenil, in setting of multiple autoimmune disorders, sepsis - Outpatient workup from Dr. Lambert's office - [facility]: F/U with primary paper box cutter on d/c - HIV test was NEGATIVE -EBV results were POSITIVE -ARIANA results were POSITIVE #DM - A1c 5.3 - BGM, ISS #HTN - Amlodipine, Valsartasn - Holding Hctz #FEN - NS @ 125 mls/hr -monitor electrolytes; replete PRN - clear liquid diet #Dispo - Monitor in M/S Visit type - Emergency Visit Emergency Visit: No - New Patient This patient is new to me today: No - Critical Care Critical Care patient: No - Medication Review Med list reviewed for High Risk Meds patients 65 and older: Yes ATTENDING PHYSICIAN STATEMENT I saw and evaluated the patient. I reviewed the resident's note and discussed the case with the resident. I agree with the resident's findings and plan as documented. SUBJECTIVE: OBJECTIVE: ASSESSMENT AND PLAN:
--- NOTE | 2020-02-12 13:25 | PN.GI ---
GI Progress Note Subjective: Appears to be resting comfortably laying on her right side. When questioned, she describes having a lot of pain on her right upper back and side. She points towards towards her upper right flank. EGD yesterday revealed overall improved appearance of the stomach. Please see report for full details. - Objective Vital Signs: Vital Signs Temperature 98 F 02/12/20 10:00 Pulse Rate 94 H 02/12/20 10:00 Respiratory Rate 18 02/12/20 10:00 Blood Pressure 139/82 02/12/20 10:00 O2 Sat by Pulse Oximetry (%) 98 02/12/20 10:00 Constitutional: Calm Eyes: No: Sclera Icterus Cardiovascular: Yes: Regular Rate and Rhythm Respiratory: Yes: CTA Bilaterally Gastrointestinal Inspection: No: Distention ...Auscultate: Yes: Normoactive Bowel Sounds ...Palpate: Yes: Soft, Tenderness (TTP right upper flank, RUQ and right upper back) ...Percussion: No: Tympanitic Edema: No (No LE edema) Neurological: Yes: Alert Labs: CBC, BMP 02/12/20 07:47 02/12/20 07:47 INR, PTT INR 1.13 (0.83-1.09) H 02/11/20 11:15 Hepatic Panel Total Bilirubin 0.5 mg/dL (0.2-1) 02/12/20 07:47 Direct Bilirubin 0.1 mg/dL (0.0-0.2) 02/12/20 07:47 AST 31 U/L (15-37) 02/12/20 07:47 ALT 41 U/L (13-61) 02/12/20 07:47 Alkaline Phosphatase 216 U/L (45-117) H 02/12/20 07:47 Albumin 2.2 g/dl (3.4-5.0) L 02/12/20 07:47 Problem List - Problems (1) Abdominal pain Assessment/Plan: Persistent RUQ and right upper flank/back pain EGD revealed improved gastric findings. Do not think these findings reflected cause for her pain in the first place Continue Protonix 40mg once daily for now. D/W certified medical coder: Surgery has been reconsulted. Waiting for pancreatitis to resolve prior to contemplating cholecystectomy Code(s): R10.9 - UNSPECIFIED ABDOMINAL PAIN Qualifiers: Abdominal location: upper abdomen, unspecified Qualified Code(s): R10.10 - Upper abdominal pain, unspecified (2) Abnormal liver function tests Assessment/Plan: Continuied normalizing trend Continue to avoid hepatotoxic agents Code(s): R94.5 - ABNORMAL RESULTS OF LIVER FUNCTION STUDIES (3) Anemia Assessment/Plan: Normocytic anemia Previously normal iron indices ? if secondary to autoimmune disease, secondary to medication effect (however has not received anoy other medications for sjogren's aside from plaquenil for some time now). Heme revealuation Code(s): D64.9 - ANEMIA, UNSPECIFIED Qualifiers: Anemia type: unspecified type Qualified Code(s): D64.9 - Anemia, unspecified
--- NOTE | 2020-02-12 13:52 | PATH ---
Surgical Pathology Report Patient Name: NANI FRAIRE Med. Rec. #: [id number] /Age/Gender: 1950 (Age: 69) / F Account: [id number] Location: [facility] MED/SURG Taken: 02/11/2020 Received: 02/11/2020 Reported: 02/12/2020 Physicians: Dori Le M.D. Specimen(s) Received GASTRIC BODY Clinical History Anemia Postoperative diagnosis: Gastritis Final Diagnosis GASTRIC BODY, BIOPSY: GASTRIC BODY MUCOSA WITH MILD CHRONIC GASTRITIS. IMMUNOHISTOCHEMICAL STAIN FOR H. PYLORI IS NEGATIVE. Comment: HSV and CMV stains pending, findings will be reported separately. Positive and negative controls (internal if applicable) show appropriate results. Electronically Signed Corinne Ward M.D. Addendum Reported: 02/18/2020 Addendum Diagnosis Immunohistochemical stains performed and interpreted at [place], [place] ([id number]) show the following: CMV and HSV I stains are negative. [facility] for additional details. Corinne Ward M.D. Addendum Reported: 03/01/2020 Addendum Diagnosis Immunohistochemical stain performed and interpreted at [facility], [place], [place] ([id number] show the following: HSV (II) stain is negative. See [facility] report for additional details. Corinne Ward M.D. Gross Description Received in formalin, labeled "biopsy gastric body" are 4 campa, irregular portions of soft tissue ranging from 0.2-0.5 cm. in greatest dimension. The specimens are submitted in toto in one cassette. /02/11/2020 saudi02/11/2020
[2020-02-12] MEDS ORDERED: MAGNESIUM SULF 50% (8.12 MEQ/2 ML-1 GM VIAL) IVPB ONE (14:26)
[2020-02-12] MEDS ORDERED: MAGNESIUM SULFATE IN WATER 2 GM/50 ML IVPB IVPB ONE (14:30)
[2020-02-12] MEDS: LIPASE/PROTEASE/AMYLASE 6,000 UNIT CAPSULE PO SCH (16:51)
[2020-02-12] MEDS ORDERED: INSULIN (LEVEMIR) 100 UNITS/ML UNITS SQ ONE (20:37)
[2020-02-12] MEDS ORDERED: INSULIN (NOVOLOG) ASPART 100 UNITS/ML 10ML VIAL ONE (20:37)
[2020-02-13] MEDS: KCL 10 MEQ IVPB 10 MEQ/100 ML INFUS.BAG IVPB SCH ×2 (01:13→01:14)
[2020-02-13] MEDS ORDERED: INSULIN (NOVOLOG) ASPART 100 UNITS/ML 10ML VIAL ONE ×2 (04:15→21:13)
[2020-02-13] MEDS ORDERED: INSULIN (LEVEMIR) 100 UNITS/ML UNITS SQ ONE (04:15)
[2020-02-13] MEDS: MORPHINE SULFATE 2 MG/ML VIAL IVPUSH PRN (04:18)
[2020-02-13] MEDS: BANATROL PLUS POWDER PACKET PO SCH ×3 (06:11→21:21)
[2020-02-13] MEDS: INSULIN SLIDING SCALE (NOVOLOG) 1 VIAL SQ SCH ×4 (06:12→21:22)
[2020-02-13 08:42] LABS: BASO % 1.2 % (0-2.0); EOS % 2.5 % (0-4.5); HEMATOCRIT 23.5 % (32.4-45.2); MCH 29.5 pg (25.7-33.7); MCHC 34.1 g/dl (32.0-36.0); MEAN CELL VOLUME 86.5 fl (80-96); MEAN PLT VOLUME 8.1 fl (7.5-11.1); MONO % 17.8 % (3.8-10.2); NEUT % 68.5 % (42.8-82.8); PLATELET COUNT 216 K/MM3 (134-434); RBC 2.72 M/mm3 (3.60-5.2); RDW 15.7 % (11.6-15.6); WHITE BLOOD COUNT 4.8 K/mm3 (4.0-10.0)
[2020-02-13] MEDS ORDERED: PT OWN MED DRAWER 7, Y5N ONE ×4 (08:50→21:13)
[2020-02-13] MEDS: PANTOPRAZOLE 40 MG TABLET PO SCH ×3 (09:01→21:21)
[2020-02-13] MEDS: LIPASE/PROTEASE/AMYLASE 6,000 UNIT CAPSULE PO SCH ×3 (09:01→18:20)
[2020-02-13] MEDS: AMINO ACIDS/PROTEIN HYDROLYS 30 ML LIQUID.PKT PO SCH ×2 (09:01→16:50)
[2020-02-13] MEDS: VALSARTAN 160 MG TABLET (UD) PO SCH (09:02)
[2020-02-13] MEDS: LACTOBACILLUS ACIDOPHILUS 1 TABLET PO SCH (09:02)
[2020-02-13] MEDS: MULTIVIT-MINERALS ORAL LIQUID PO SCH (09:02)
[2020-02-13] MEDS: CYANOCOBALAMIN 1,000 MCG TABLET (FP) PO SCH (09:03)
[2020-02-13] MEDS: HYDROXYCHLOROQUINE SO4 200 MG TABLET (FP) PO SCH (09:03)
[2020-02-13] MEDS: amLODIPine BESYLATE 5 MG TABLET (FP) PO SCH (09:03)
[2020-02-13] MEDS: BUDESONIDE/FORMETEROL FUMARATE 80/4.5 mcg INHALER IH SCH (09:05)
[2020-02-13 09:12] LABS: ALBUMIN 2.2 g/dl (3.4-5.0); CALCIUM 8.1 mg/dL (8.5-10.1); MAGNESIUM 1.3 mg/dL (1.8-2.4); POTASSIUM 3.7 mmol/L (3.5-5.1)
[2020-02-13 09:13] LABS: POTASSIUM 3.8 mmol/L (3.5-5.1)
[2020-02-13 09:16] LABS: BILIRUBIN,DIRECT 0.1 mg/dL (0.0-0.2); BILIRUBIN,TOTAL 0.3 mg/dL (0.2-1); CREATININE 0.7 mg/dL (0.55-1.3); PHOSPHOROUS 2.9 mg/dL (2.5-4.9); TOT PROT 6.8 g/dl (6.4-8.2)
--- NOTE | 2020-02-13 09:36 | PN ---
Progress Note (short form) - Note Progress Note: Pt states she is feeling better but describes pain in LLQ, RLQ, RUQ, and R flank. CT scan reviewed, pt has marked mesenteric edema, also pleural effusion, fluid around pancreas. I suspect she is having an attack of lupus serositis and not cholecystitis or true pancreatitis. Recommend consideration of aggressive treatment of her lupus.
[2020-02-13 10:31] LABS: BLOOD UREA NITROGEN 2.4 mg/dL (7-18)
[2020-02-13] MEDS ORDERED: ACETAMINOPHEN 325 MG TABLET (FP) PO PRN ×2 (11:36→13:42)
[2020-02-13] MEDS ORDERED: oxyCODONE HCL 5 MG TABLET PO PRN ×2 (11:41→13:42)
--- NOTE | 2020-02-13 13:10 | PN ---
Physical Exam: SUBJECTIVE:Patient seen and examined at bedside. Overnight patient had pain which responded to pain medication. This morning the patient is continuing to complain of RUQ and RLQ pain. OBJECTIVE: Vital Signs Period Temp Pulse Resp BP Sys/Alarcon Pulse Ox Last 24 Hr 98.3 F-98.9 F 96-101 18-18 133-148/75-83 97-100 GENERAL: AAOx3, in no acute distress HEENT: NCAT, PERRLA, EOMI, sclera anicteric, conjunctiva clear, oropharynx clear w/o exudates. MMM. NECK: Normal ROM, supple, no lymphadenopathy, JVD, or masses LUNGS: CTABL no wheezes/ rhonchi/ rales. No distress, speaks in full sentences. No increased work of breathing. HEART: RRR, normal S1 S2, no M/R/G, peripheral pulses 2+ and equal b/l ABDOMEN: Soft, epigastric and RUQ and RLQ tenderness to palpation MSK: ROM WNL EXTREMITIES: Normal inspection. No peripheral edema. No clubbing or cyanosis. NEUROLOGICAL: CN II-XII intact. Normal speech, normal gait, no focal sensorimotor deficits. SKIN: Erythematous, mildly vesicular rash on low back hypopigmentation. Rash is improving Laboratory Results - last 24 hr CBC, BMP 02/13/20 07:35 02/13/20 07:35 02/12/20 02/13/20 02/13/20 20:49 06:14 07:35 WBC 4.8 RBC 2.72 L Hgb 8.0 L Hct 23.5 L MCV 86.5 MCH 29.5 MCHC 34.1 RDW 15.7 H Plt Count 216 MPV 8.1 Absolute Neuts (auto) 3.3 Neutrophils % 68.5 Lymphocytes % 10.0 Monocytes % 17.8 H Eosinophils % 2.5 Basophils % 1.2 Nucleated RBC % 0 Sodium Potassium Chloride Carbon Dioxide Anion Gap BUN Creatinine Est GFR (CKD-EPI)AfAm Est GFR (CKD-EPI)NonAf POC Glucometer 228 159 Random Glucose Calcium Phosphorus Magnesium Total Bilirubin Direct Bilirubin AST ALT Alkaline Phosphatase Total Protein Albumin Total Amylase Lipase 02/13/20 02/13/20 02/13/20 07:35 07:35 11:49 WBC RBC Hgb Hct MCV MCH MCHC RDW Plt Count MPV Absolute Neuts (auto) Neutrophils % Lymphocytes % Monocytes % Eosinophils % Basophils % Nucleated RBC % Sodium 137 137 Potassium 3.7 3.8 Chloride 103 103 Carbon Dioxide 28 29 Anion Gap 7 L 5 L BUN 2.4 L* Creatinine 0.7 Est GFR (CKD-EPI)AfAm 103.91 Est GFR (CKD-EPI)NonAf 89.65 POC Glucometer 223 Random Glucose 192 H Calcium 8.1 L Phosphorus 2.9 Magnesium 1.3 L Total Bilirubin 0.3 Direct Bilirubin 0.1 AST 31 ALT 38 Alkaline Phosphatase 200 H Total Protein 6.8 Albumin 2.2 L Total Amylase 70 Lipase 272 Active Medications Generic Name Dose Route Start Last Admin Trade Name Freq PRN Reason Stop Dose Admin Acetaminophen 325 mg 02/13/20 11:36 02/13/20 11:55 Tylenol - PO 325 mg Q6H PRN Administration PAIN LEVEL 6-10 Al Hydroxide/Mg Hydroxide 30 ml 02/03/20 10:03 02/08/20 16:29 Mylanta Oral Suspension - PO 30 ml Q6H PRN Administration DYSPEPSIA Albuterol Sulfate 2 puff 01/26/20 06:03 Ventolin Hfa Inhaler - IH Q4H PRN SHORT OF BREATH/WHEEZING Amino Acids 30 ml 02/05/20 17:30 02/13/20 09:01 Prosource No Carb Liquid Pkt PO 30 ml BID@0800,1730 KYLEIGH Administration Amlodipine Besylate 5 mg 01/27/20 10:00 02/13/20 09:03 Norvasc - PO 5 mg DAILY KYLEIGH Administration Banana Based Medical Food 1 packet 02/05/20 14:45 02/13/20 06:11 Banatrol Plus Powder Packet PO 1 packet TID KYLEIGH Administration Budesonide/Formoterol Fumarate 2 puff 01/27/20 10:00 02/13/20 09:05 Symbicort 80/4.5mcg - IH 2 puff DAILY KYLEIGH Administration Cyanocobalamin 1,000 mcg 01/27/20 14:00 02/13/20 09:03 Vitamin B12 - PO 1,000 mcg DAILY KYLEIGH Administration Diphenhydramine HCl 25 mg 02/09/20 21:54 02/09/20 21:59 Benadryl - PO 25 mg ONCE PRN Administration ALLERGIES Hydroxychloroquine Sulfate 200 mg 01/27/20 10:00 02/13/20 09:03 Plaquenil - PO 200 mg DAILY KYLEIGH Administration Insulin Aspart 1 vial 01/26/20 07:00 02/13/20 11:55 Novolog Vial Sliding Scale - SQ 2 units ACHS KYLEIGH Administration Protocol Lactobacillus Acidophilus 1 tab 02/05/20 14:45 02/13/20 09:02 Bacid - PO 1 tab DAILY KYLEIGH Administration Multivitamins/Minerals 15 ml 02/05/20 14:45 02/13/20 09:02 Certavite-Antioxidant Liquid PO 15 ml DAILY KYLEIGH Administration Oxycodone HCl 5 mg 02/13/20 11:41 02/13/20 11:55 Roxicodone - PO 5 mg Q6H PRN Administration PAIN LEVEL 6-10 Pancrelipase 1 cap 02/12/20 17:30 02/13/20 09:01 Creon 6,000 Units Capsule PO 1 cap TIDCM KYLEIGH Administration Pantoprazole Sodium 40 mg 02/13/20 11:45 02/13/20 11:50 Protonix - PO Not Given BID KYLEIGH Valsartan 320 mg 01/27/20 10:00 02/13/20 09:02 Diovan - PO 320 mg DAILY KYLEIGH Administration ASSESSMENT/PLAN: 69F with PMH of HTN, DM, RA, sjorgens, & asthma presenting with R flank/RUQ pain with associated dysuria & chills, admitted for evaluation of UTI, GI bleed, possible cholecystits. #Abdominal PAIN: 2/2 gastritis, vs PUD, vs cholelithiasis/cholecystitis - Etiology still unclear likely pancreatitis and cholecystitis - repeat EGD showed normal esophagous mucosa, with improved gastritis, healed erosions, mild GAVE vs. linear antral erosions-improved from prior EGD - Dr. Hammond resconsulted for surgery: Will not perform cholecystectomy until pancreatitis improves. -CREON for pancreatitis -lipase levels are improving; continue to monitor -Percocet Q6 PRN for pain control - LFTs continue to improve #Rash - resolving -responded to Acyclovir; was d/c on 02/[address] Granado (ID) - Derm consulted (Dr. Mari) and aware. They will see the pt soon #UTI - zosyn d/c 02/[address] Granado (ID) #RA - hydroxychloroquine 200 mg daily -Dr. Rod from rheum was contacted on 01/31; said that pt should continue her current RA meds prescribed by her rheum and that he does not need to be consul pastor #Pancytopenia - Heme/Onc on board, 2/2 Methotrexate & plaquenil, in setting of multiple autoimmune disorders, sepsis - Outpatient workup from Dr. Lambert's office - [facility]: F/U with primary mold preparer on d/c - HIV test was NEGATIVE -EBV results were POSITIVE -ARIANA results were POSITIVE #DM - A1c 5.3 - BGM, ISS #HTN - Amlodipine, Valsartasn - Holding Hctz #FEN - no standing fluids -monitor electrolytes; replete PRN - diabetic diet #Dispo - Monitor in M/S Visit type - Emergency Visit Emergency Visit: No - New Patient This patient is new to me today: No - Critical Care Critical Care patient: No - Medication Review Med list reviewed for High Risk Meds patients 65 and older: Yes ATTENDING PHYSICIAN STATEMENT I saw and evaluated the patient. I reviewed the resident's note and discussed the case with the resident. I agree with the resident's findings and plan as documented. SUBJECTIVE: OBJECTIVE: ASSESSMENT AND PLAN:
--- NOTE | 2020-02-13 15:10 | PN ---
Teaching Attending Note Name of Resident: Maninder Melendez ATTENDING PHYSICIAN STATEMENT I saw and evaluated the patient. I reviewed the resident's note and discussed the case with the resident. I agree with the resident's findings and plan as documented. SUBJECTIVE: There is some back pain but no abdominal pain OBJECTIVE: Vital Signs Period Temp Pulse Resp BP Sys/Alarcon Pulse Ox Last 24 Hr 98.2 F-98.8 F 96-101 18-20 124-148/64-83 98-100 Patient is comfortable HEENT normal Neck supple no JVD Lungs clear no wheezing Abdomen mild tenderness diffusely but no rebound tenderness no organomegaly bowel sounds normal Extremities no edema no cyanosis normal pulses Neurologically he is alert awake oriented, nonfocal Skin no rash noted CBC, BMP 02/13/20 07:35 02/13/20 07:35 CAT scan abdomen is normal ASSESSMENT AND PLAN: 69F with PMH of HTN, DM, RA, sjorgens, & asthma presenting with R flank/RUQ pain with associated dysuria & chills, admitted for evaluation of UTI, GI bleed, possible cholecystits. #Abdominal PAIN: 2/2 gastritis, vs PUD, vs cholelithiasis/cholecystitis - Etiology still unclear likely pancreatitis and cholecystitis - repeat EGD showed normal esophagous mucosa, with improved gastritis, healed erosions, mild GAVE vs. linear antral erosions-improved from prior EGD - Dr. Hammond resconsulted for surgery: Will not perform cholecystectomy until pancreatitis improves. -CREON for pancreatitis -lipase normal -Percocet Q6 PRN for pain control - LFTs continue to improve Discontinue IV fluids diabetic diet if she is stable possible discharge tomorrow. #Rash - resolving -responded to Acyclovir; was d/c on 02/[address] Granado (ID) - Derm consulted (Dr. Mari) and aware. They will see the pt soon #UTI - zosyn d/c 02/[address] Granado (ID) #RA - hydroxychloroquine 200 mg daily -Dr. Rod from [facility] was contacted on 01/31; said that pt should continue her current RA meds prescribed by her rheum and that he does not need to be consulted #Pancytopenia - Heme/Onc on board, 2/2 Methotrexate & plaquenil, in setting of multiple autoimmune disorders, sepsis - Outpatient workup from Dr. Lambert's office - [facility]: F/U with primary ship cleaner on d/c - HIV test was NEGATIVE -EBV results were POSITIVE -ARIANA results were POSITIVE #DM - A1c 5.3 - BGM, ISS #HTN - Amlodipine, Valsartasn - Holding Hctz #FEN - no standing fluids -monitor electrolytes; replete PRN - diabetic diet #Dispo - Monitor in M/S
[2020-02-13] MEDS: oxyCODONE HCL 5 MG TABLET PO PRN (21:26)
[2020-02-13] MEDS: ACETAMINOPHEN 325 MG TABLET (FP) PO PRN (21:26)
[2020-02-14] MEDS ORDERED: PT OWN MED DRAWER 7, Y5N ONE ×4 (05:49→12:03)
[2020-02-14] MEDS: BANATROL PLUS POWDER PACKET PO SCH ×2 (05:53→13:12)
[2020-02-14] MEDS: ACETAMINOPHEN 325 MG TABLET (FP) PO PRN ×2 (06:11→13:29)
[2020-02-14] MEDS: oxyCODONE HCL 5 MG TABLET PO PRN ×2 (06:11→13:30)
[2020-02-14] MEDS: INSULIN SLIDING SCALE (NOVOLOG) 1 VIAL SQ SCH ×2 (06:21→11:51)
[2020-02-14 07:29] LABS: BASO % 1.5 % (0-2.0); HEMATOCRIT 26.4 % (32.4-45.2); HEMOGLOBIN 8.9 GM/dL (10.7-15.3); LYMPH % 11.5 % (8-40); MCH 29.4 pg (25.7-33.7); MCHC 33.7 g/dl (32.0-36.0); MEAN CELL VOLUME 87.1 fl (80-96); MEAN PLT VOLUME 8.4 fl (7.5-11.1); MONO % 18.2 % (3.8-10.2); NEUT % 64.8 % (42.8-82.8); PLATELET COUNT 214 K/MM3 (134-434); RBC 3.04 M/mm3 (3.60-5.2); RDW 15.8 % (11.6-15.6); WHITE BLOOD COUNT 4.5 K/mm3 (4.0-10.0)
[2020-02-14 08:05] LABS: ALBUMIN 2.5 g/dl (3.4-5.0); BILIRUBIN,DIRECT 0.1 mg/dL (0.0-0.2); BILIRUBIN,TOTAL 0.4 mg/dL (0.2-1); BLOOD UREA NITROGEN 5.2 mg/dL (7-18); CALCIUM 8.9 mg/dL (8.5-10.1); CREATININE 0.7 mg/dL (0.55-1.3); MAGNESIUM 1.3 mg/dL (1.8-2.4); PHOSPHOROUS 3.5 mg/dL (2.5-4.9); POTASSIUM 3.5 mmol/L (3.5-5.1); TOT PROT 7.8 g/dl (6.4-8.2)
[2020-02-14] MEDS: AMINO ACIDS/PROTEIN HYDROLYS 30 ML LIQUID.PKT PO SCH (08:49)
[2020-02-14] MEDS: LIPASE/PROTEASE/AMYLASE 6,000 UNIT CAPSULE PO SCH ×2 (08:49→12:05)
[2020-02-14] MEDS: LACTOBACILLUS ACIDOPHILUS 1 TABLET PO SCH (09:02)
[2020-02-14] MEDS: amLODIPine BESYLATE 5 MG TABLET (FP) PO SCH (09:02)
[2020-02-14] MEDS: VALSARTAN 160 MG TABLET (UD) PO SCH (09:02)
[2020-02-14] MEDS: MULTIVIT-MINERALS ORAL LIQUID PO SCH (09:02)
[2020-02-14] MEDS: HYDROXYCHLOROQUINE SO4 200 MG TABLET (FP) PO SCH (09:03)
[2020-02-14] MEDS: CYANOCOBALAMIN 1,000 MCG TABLET (FP) PO SCH (09:03)
[2020-02-14] MEDS: PANTOPRAZOLE 40 MG TABLET PO SCH (09:03)
[2020-02-14] MEDS: BUDESONIDE/FORMETEROL FUMARATE 80/4.5 mcg INHALER IH SCH (09:04)
[2020-02-14] MEDS ORDERED: MAGNESIUM OXIDE 400 MG TABLET (FP) PO SCH (14:00)
--- NOTE | 2020-02-14 14:07 | DS ---
Physical Exam: SUBJECTIVE: Patient seen and examined He is afebrile still having slight back pain on the right side no fever no chills she is off the antibiotic. I started her yesterday diabetic diet regular consistency and she ate no vomiting. She is off the IV fluids. No event last night. OBJECTIVE: Vital Signs Period Temp Pulse Resp BP Sys/Alarcon Pulse Ox Last 24 Hr 98.2 F-99.1 F 92-103 18-20 116-151/64-95 95-99 PHYSICAL EXAM GENERAL: The patient is awake, alert, and fully oriented, in no acute distress. HEAD: Normal with no signs of trauma. EYES: PERRL, extraocular movements intact, sclera anicteric, conjunctiva clear. ENT: Ears normal, nares patent, oropharynx clear without exudates, moist mucous membranes. NECK: Trachea midline, full range of motion, supple. LUNGS: Breath sounds equal, clear to auscultation bilaterally, no wheezes, no crackles, no accessory muscle use. HEART: Regular rate and rhythm, S1, S2 without murmur, rub or gallop. ABDOMEN: Soft, nontender, nondistended, normoactive bowel sounds, no guarding, no rebound, no hepatosplenomegaly, no masses. EXTREMITIES: 2+ pulses, warm, well-perfused, no edema. NEUROLOGICAL: Cranial nerves II through XII grossly intact. Normal speech, gait not observed. PSYCH: Normal mood, normal affect. SKIN: Warm, dry, normal turgor, no rashes or lesions noted. LABS Laboratory Results - last 24 hr 02/13/20 02/13/20 02/14/20 16:49 21:20 05:52 WBC RBC Hgb Hct MCV MCH MCHC RDW Plt Count MPV Absolute Neuts (auto) Neutrophils % Lymphocytes % Monocytes % Eosinophils % Basophils % Nucleated RBC % Sodium Potassium Chloride Carbon Dioxide Anion Gap BUN Creatinine Est GFR (CKD-EPI)AfAm Est GFR (CKD-EPI)NonAf POC Glucometer 245 171 179 Random Glucose Calcium Phosphorus Magnesium Total Bilirubin Direct Bilirubin AST ALT Alkaline Phosphatase Total Protein Albumin Total Amylase Lipase 02/14/20 02/14/20 02/14/20 06:05 06:05 11:12 WBC 4.5 RBC 3.04 L Hgb 8.9 L Hct 26.4 L MCV 87.1 MCH 29.4 MCHC 33.7 RDW 15.8 H Plt Count 214 MPV 8.4 Absolute Neuts (auto) 2.9 Neutrophils % 64.8 Lymphocytes % 11.5 Monocytes % 18.2 H Eosinophils % 4.0 Basophils % 1.5 Nucleated RBC % 0 Sodium 135 L Potassium 3.5 Chloride 97 L Carbon Dioxide 30 Anion Gap 8 BUN 5.2 L Creatinine 0.7 Est GFR (CKD-EPI)AfAm 103.91 Est GFR (CKD-EPI)NonAf 89.65 POC Glucometer 238 Random Glucose 222 H Calcium 8.9 Phosphorus 3.5 Magnesium 1.3 L Total Bilirubin 0.4 Direct Bilirubin 0.1 AST 35 ALT 42 Alkaline Phosphatase 232 H Total Protein 7.8 Albumin 2.5 L Total Amylase 74 Lipase 280 HOSPITAL COURSE: This is 69-year-old female history of autoimmune disease possible lupus or rheumatoid arthritis hypertension diabetes who presented to ER with abdominal pain. She was found to have a pancreatitis also she had sludge in the gallbladder and was started on IV antibiotics seen by GI also by ID. She received antibiotic in the beginning and then on the off by ID. High white cell count has been stable since then. She had a CAT scan abdomen done which showed fatty liver and possible pancr eatitis also MRI of the abdomen showed no biliary dilatation. HIDA scan showed no acute cholecystitis. Abdominal ultrasound shows sludge like material in the gallbladder and fatty liver. She had upper GI endoscope done which showed improved gastritis. And she was given Protonix 40 mg once a day She was seen by surgeon for sludge in the gallbladder and possible chronic pancreatitis. She was seen by Dr. Hammond and he recommended cholecystectomy in a few weeks. In the hospital patient had rheumatology consult by Dr. Cartagena and he recommended that patient should continue home medication for rheumatoid arthritis and lupus. For diabetes her home medication for blood pressure home medication. Today she is comfortable has no new symptom I will discharge her home today as medication by the prescription. Discussed with daughter in detail that she needs to follow-up with surgeon for removal of her gallbladder also seen to see rheumatology for follow-up of lupus also she needs a gastroenterology follow-up for her GI symptoms. Continue on diabetic medication and hypertension medications. Advised patient to also go see her primary care doctor as soon as possible. Date of Admission:01/26/20 Date of Discharge: 02/14/20 Minutes to complete discharge: 40 Discharge Summary Problems reviewed: Yes Reason For Visit: RIGHT UPPER QUADRANT ABDOMINAL PAIN Current Active Problems Abdominal pain (Acute) Abnormal liver function tests (Acute) Anemia (Acute) Anemia (Acute) Elevated liver enzymes (Acute) Fever (Acute) MGUS (monoclonal gammopathy of unknown significance) (Acute) Pyelonephritis (Acute) Rash (Acute) Rheumatoid arthritis, seropositive (Acute) Sjogrens syndrome (Acute) Thrombocytopenia (Acute) - Instructions Diet, Activity, Other Instructions: Your visit: You were admitted to the hospital for abdominal pain and a rash. You were found to have elevated liver function tests. You were treated with antibiotics with improvement of your symptoms. Medications changes: -Please continue to take . -Continue to take all other home medications as prescribed. Follow up: - Please follow-up with your Medical Malpractice Paralegal, Dr. Mosqueda in 1 week. - Please follow-up with your Infectious Disease doctor, Dr. Granado in 1 week. - Visit with your Primary Care Provider. Dr. Duncan, in 2 weeks. Additional Instructions: -You are being discharged to your home. -Please return to the Emergency Department if you experience worsening pain, fevers, chills, shortness of breath, or chest pain, or if you experience any worsening, new or concerning symptoms. Referrals: Mikhail Mosqueda DO [Staff Physician] - Alberta Granado MD [Staff Physician] - José Miguel Duncan MD [Primary Care Provider] - Rommel Hammond MD [Staff Physician] - Disposition: HOME - Home Medications Comprehensive Discharge Medication List: Ambulatory Orders Albuterol Sulfate [Proair Hfa] 1 inh IH Q4H PRN 01/26/20 Famotidine [Pepcid -] 40 mg PO DAILY 01/26/20 Methotrexate [Mexate -] 6 tab PO WEEKLY 01/26/20 Nebivolol HCl [Bystolic] 20 mg PO DAILY 01/26/20 Olmesartan/Amlodipin/Hcthiazid [Xammtob-Laludx-Hwhc 40-5-25 mg] 1 tab PO DAILY 01/26/20 Omeprazole 20 mg PO DAILY 01/26/20 Pioglitazone HCl [Actos] 30 mg PO DAILY 01/26/20 Sitagliptin Phos/Metformin HCl [Janumet 50-1,000 mg Tablet] 1 tab PO BID 01/26/20 Budesonide/Formeterol Fumarate [SYMBICORT 80/4.5mcg -] 2 puff IH BID #1 inhaler 02/14/20 Celecoxib [Celebrex] 100 mg PO BID PRN #60 capsule 02/14/20 Hydroxychloroquine So4 [Plaquenil -] 200 mg PO DAILY #30 tablet 02/14/20 Lipase/Protease/Amylase [Aysha Cummings 6,000 Units Capsule] 1 cap PO TIDCM #90 capsule. 02/14/20 Magnesium Oxide [Mag-Ox -] 400 mg PO BID #30 tablet 02/14/20 Pantoprazole Sodium [Protonix -] 40 mg PO BID #60 tablet.ec 02/14/20 This patient is new to me today: No Emergency Visit: Yes ED Registration Date: 01/26/20 Care time: The patient presented to the Emergency Department on the above date and was hospitalized for further evaluation of their emergent condition. Critical Care patient: No - Discharge Referral Referred to [facility] Yes Physician Referral: Shimon Mosqueda DO (GI)
[2020-02-14 14:09] VITALS: BP 145/82; PULSE 106; TEMP 98.5
== END 2020-02-14 15:10 | disposition home or self-care (01) | DRG 444 ==
LOC: JER 23:06 → JERBED 01-26 04:08 → J7W 01-26 06:32
PROVIDERS: ADMIT Internal Medicine; ATTEND Internal Medicine
PROC: 0DB68ZX Excision of Stomach, Via Natural or Artificial Opening Endoscopic, Diagnostic (ICD-10-PCS; principal; 2020-01-29 12:00)
PROC: 30233N1 Transfusion of Nonautologous Red Blood Cells into Peripheral Vein, Percutaneous Approach (ICD-10-PCS; 2020-02-06)
PROC: 0DB68ZX Excision of Stomach, Via Natural or Artificial Opening Endoscopic, Diagnostic (ICD-10-PCS; 2020-02-11)
DX: K81.9 Cholecystitis, unspecified (principal); K85.90 Acute pancreatitis without necrosis or infection, unspecified; K29.51 Unspecified chronic gastritis with bleeding; N10 Acute pyelonephritis; D61.818 Other pancytopenia; D62 Acute posthemorrhagic anemia; E87.1 Hypo-osmolality and hyponatremia; B01.89 Other varicella complications; D47.2 Monoclonal gammopathy; R21 Rash and other nonspecific skin eruption; M05.9 Rheumatoid arthritis with rheumatoid factor, unspecified; M35.00 Sjogren syndrome, unspecified; D69.6 Thrombocytopenia, unspecified; E11.65 Type 2 diabetes mellitus with hyperglycemia; E78.5 Hyperlipidemia, unspecified; I10 Essential (primary) hypertension; E87.6 Hypokalemia; R94.5 Abnormal results of liver function studies; D72.819 Decreased white blood cell count, unspecified; R74.0 Nonspecific elevation of levels of transaminase and lactic acid dehydrogenase [LDH]; J45.909 Unspecified asthma, uncomplicated
CPT/HCPCS: 36415; 36430; 71045-TC-FY; 74018-TC-FY; 74170-TC; 74176-TC; 74183-TC; 74240-TC-FY; 76705-TC; 76775-TC; 78226-TC; 80048; 80051; 80053; 80076; 81003; 82150; 82248; 82272; 82550; 82607; 82728; 82746; 82784; 82930; 82962; 83010; 83036; 83516; 83540; 83550; 83605; 83615; 83690; 83735; 83921; 84100; 84443; 84478; 84484; 85025; 85027; 85045; 85610; 85651; 85730; 86022; 86038; 86140; 86308; 86618; 86682; 86704; 86706; 86707; 86708; 86709; 86787; 86803; 86850; 86900; 86901; 86922; 87040; 87086; 87177; 87186; 87207; 87209; 87340; 87389; 87496; 87497; 87798; 87799; 87899; 88305-TC; 88342-TC; 93005; 93010; 93976; 94010; 97116-GP; 97161-GP; 99285-25; A9537; A9579; J0131; J1644; P9058; U0003